=== PATIENT | male | born 1940 | race Caucasian/White ===

== ENCOUNTER → 2017-02-16 | Outpatient (CLI) | payer MEDICARE ==
[~2017-02-16] MED LIST: /WARF25TA OR; ACET65TA OR; ALLOPOW4 PO; CAPT25TA3 OR; PERC5TAB8 OR; [UNRECOGNIZED DRUG - REMARK] PO
--- NOTE | 2017-02-16 10:01 | REP ---
Clinical: Hypertension . Comparison: 04/01/2016 . Technique: PA and lateral. Findings: The mediastinum and cardiac silhouette are normal. The lung moreno demonstrate chronic changes without acute consolidation, effusion, or pneumothorax. The skeletal structures are intact and normal. Impression: 1. Chronic-appearing changes. No acute cardiopulmonary process. Signed by Dominic Fitch MD 02/16/2017 09:52 A
[2017-02-16 10:26] LABS: MEAN CORPUSCULAR HEMOGLOBIN 31.2 pg (27.0-33.0); MEAN CORPUSCULAR HGB CONC 34.4 g/dl (32.0-36.5); MEAN CORPUSCULAR VOLUME 90.7 fl (80.0-96.0); RED CELL DISTRIBUTION WIDTH 13.9 % (11.5-14.5); WHITE BLOOD COUNT 8.2 K/mm3 (4.0-10.0)
[2017-02-16 10:35] LABS: ALBUMIN 3.5 GM/DL (3.2-5.2); ALBUMIN/GLOBULIN RATIO 1.09 (1.00-1.93); ALKALINE PHOSPHATASE 68 U/L (45-117); ALT/SGPT 17 U/L (12-78); ANION GAP 5 MEQ/L (8-16); AST/SGOT 16 U/L (15-37); BILIRUBIN,TOTAL 0.8 MG/DL (0.2-1.0); BLOOD UREA NITROGEN 20 MG/DL (7-18); CARBON DIOXIDE LEVEL 30 MEQ/L (21-32); CHLORIDE LEVEL 105 MEQ/L (98-107); CHOLESTEROL LEVEL 132 MG/DL (<200); CREATININE FOR GFR 0.78 MG/DL (0.70-1.30); GLOMERULAR FILTRATION RATE > 60.0 (>42); GLUCOSE, FASTING 102 MG/DL (83-110); SODIUM LEVEL 140 MEQ/L (136-145); TOTAL PROTEIN 6.7 GM/DL (6.4-8.2); TRIGLYCERIDES LEVEL 113 MG/DL (<150)
--- NOTE | 2017-02-18 13:22 | ECGEPIP ---
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
== END ==
LOC: M LAB 09:11
PROVIDERS: ATTEND Family Medicine
DX: I10 Essential (primary) hypertension (principal); N40.0 Benign prostatic hyperplasia without lower urinary tract symptoms; R53.83 Other fatigue; E11.9 Type 2 diabetes mellitus without complications

== ENCOUNTER → 2018-02-02 | Outpatient (CLI) | payer MEDICARE | LOC: M WUC 15:30 | DX: M17.11 Unilateral primary osteoarthritis, right knee (principal) | CPT/HCPCS: 73564 ==

== ENCOUNTER → 2019-03-10 | Outpatient (CLI) | payer MEDICARE ==
[~2019-03-10] MED LIST changes: -/WARF25TA OR; +COUM1TAB18 OR
[2019-03-10 10:54] LABS: HEMATOCRIT 43.7 % (42.0-52.0); HEMOGLOBIN 14.4 g/dl (13.5-17.5); MEAN CORPUSCULAR HEMOGLOBIN 29.3 pg (27.0-33.0); PLATELET COUNT, AUTOMATED 178 10^3/uL (150-450); RED BLOOD COUNT 4.91 10^6/uL (4.30-6.10); WHITE BLOOD COUNT 9.2 10^3/uL (4.0-10.0)
[2019-03-10 11:31] LABS: HEMOGLOBIN A1c 5.6 %
[2019-03-10 11:34] LABS: CHOLESTEROL RISK RATIO 3.525 (<5); PROSTATIC SPECIFIC AG MONITOR 0.19 NG/ML (< 4.00); THYROID STIMULATING HORMONE 2.71 uIU/ML (0.358-3.740)
--- NOTE | 2019-03-11 07:57 | REP ---
CHEST, TWO VIEWS: Two views of the chest are performed and compared to the prior study of 04/01/2016. Mild cardiomegaly is stable. There is mild bibasilar fibrotic change, which is stable. No new infiltrate is seen. There is mild calcification and tortuosity of the thoracic aorta. The mediastinal silhouette is unchanged. There are degenerative changes of the spine. IMPRESSION: Stable mild cardiomegaly and chronic changes. No acute pulmonary disease. Electronically Signed by Lakhwinder Mckeon MD 03/11/2019 10:30 P
--- NOTE | 2019-03-11 19:03 | ECGEPIP ---
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
[2019-03-12 10:26] LABS: TOTAL 25(OH) VITAMIN D 14.6 NG/ML (30.0-100.0)
== END ==
LOC: M LAB 10:26
PROVIDERS: ATTEND Family Medicine
DX: I11.9 Hypertensive heart disease without heart failure (principal); R53.83 Other fatigue; E11.9 Type 2 diabetes mellitus without complications; N40.0 Benign prostatic hyperplasia without lower urinary tract symptoms

== ENCOUNTER → 2019-03-22 | Outpatient (CLI) | payer MEDICARE ==
--- NOTE | 2019-03-22 13:52 | REP ---
MRI BRAIN WITHOUT CONTRAST: HISTORY: Headaches and blurred vision. Poor balance. Question mass. Possible Parkinson's. TECHNIQUE: Axial and sagittal imaging planes are utilized for T1- and T2-weighted scans. Sequences include spin echo, fast spin echo, FLAIR, and diffusion weighted sequences. MRI findings: Bony calvarium is intact. Craniocervical junction and upper cervical cord are normal in appearance. There is no MR evidence of significant paranasal sinus disease. No intraorbital abnormality is observed. There is no evidence of intracranial hemorrhage. No mass lesion is seen. Diffusion weighted scans show no evidence to suggest acute ischemia. There are mild small vessel atherosclerotic changes in the periventricular white matter. There is mild generalized volume loss. IMPRESSION: Mild generalized volume loss. Chronic microvascular ischemic changes. No acute intracranial abnormality. Electronically Signed by Gerardo Rider MD 03/22/2019 02:21 P
== END ==
LOC: M RAD 11:09
PROVIDERS: ATTEND Family Medicine
DX: R51 Headache (principal); H53.8 Other visual disturbances

== ENCOUNTER → 2019-04-25 | Outpatient (REF) | payer MEDICARE ==
[2019-04-25 14:12] LABS: FOLATE 13.9 NG/ML; THYROID STIMULATING HORMONE 2.55 uIU/ML (0.358-3.740)
[2019-04-30 00:10] LABS: CERULOPLASMIN 21.9 mg/dL (16.0-31.0); VITAMIN B1 LEVEL WHOLE BLOOD 120.2 nmol/L (66.5-200.0); VITAMIN E(ALPHA TOCOPHEROL) 8.7 mg/L (9.0-29.0); VITAMIN E(GAMMA TOCOPHEROL) 0.7 mg/L (0.5-4.9)
== END ==
LOC: M LABNEURO 10:52
PROVIDERS: ATTEND Psychiatry & Neurology Neurology
DX: E83.01 Wilson's disease (principal); M10.9 Gout, unspecified; E03.9 Hypothyroidism, unspecified; D51.9 Vitamin B12 deficiency anemia, unspecified

== ENCOUNTER → 2020-01-10 | Outpatient (CLI) | payer MEDICARE ==
--- NOTE | 2020-01-10 14:47 | REP ---
CHEST X-RAY: THREE VIEWS. HISTORY: Hypertension. Comparison chest x-ray: March 10, 2019 FINDINGS: The lungs are symmetrically aerated and free of infiltrate. The pleural angles are sharp. Heart size is normal. The aorta is calcific and slightly tortuous. There are degenerative changes in the thoracic spine. Pulmonary vasculature is not increased. IMPRESSION: No acute disease. Electronically Signed by Gerardo Rider MD 01/10/2020 04:46 P
[2020-01-10 16:36] LABS: HEMATOCRIT 42.6 % (42.0-52.0); HEMOGLOBIN 14.4 g/dl (13.5-17.5); MEAN CORPUSCULAR HEMOGLOBIN 31.1 pg (27.0-33.0); MEAN CORPUSCULAR HGB CONC 33.8 g/dl (32.0-36.5); PLATELET COUNT, AUTOMATED 181 10^3/uL (150-450); RED BLOOD COUNT 4.63 10^6/uL (4.30-6.10); WHITE BLOOD COUNT 8.3 10^3/uL (4.0-10.0)
[2020-01-10 16:47] LABS: ALBUMIN 3.5 GM/DL (3.2-5.2); ALT/SGPT 13 U/L (12-78); BILIRUBIN,TOTAL 0.8 MG/DL (0.2-1.0); BLOOD UREA NITROGEN 18 MG/DL (7-18); CALCIUM LEVEL 8.4 MG/DL (8.8-10.2); CARBON DIOXIDE LEVEL 31 MEQ/L (21-32); CHLORIDE LEVEL 106 MEQ/L (98-107); CHOLESTEROL LEVEL 132 MG/DL (<200); CHOLESTEROL RISK RATIO 2.933 (<5); GLOMERULAR FILTRATION RATE > 60.0 (>42); GLUCOSE, FASTING 83 MG/DL (70-100); HDL CHOLESTEROL 45 MG/DL (>40); LDL CHOLESTEROL 74 MG/DL (<100); NON-HDL-C 87 MG/DL; POTASSIUM SERUM 4.3 MEQ/L (3.5-5.1); PROSTATIC SPECIFIC AG MONITOR 0.19 NG/ML (< 4.00); SODIUM LEVEL 141 MEQ/L (136-145); TOTAL PROTEIN 6.6 GM/DL (6.4-8.2); TRIGLYCERIDES LEVEL 67 MG/DL (<150)
[2020-01-10 17:01] LABS: TOTAL 25(OH) VITAMIN D 78.5 NG/ML (30.0-100.0)
[2020-01-10 19:15] LABS: HEMOGLOBIN A1c 5.6 %
== END ==
LOC: M WUC 14:03
PROVIDERS: ATTEND Family Medicine
DX: I10 Essential (primary) hypertension (principal); E03.9 Hypothyroidism, unspecified; R53.83 Other fatigue; Z79.899 Other long term (current) drug therapy

== ENCOUNTER → 2020-05-23 | Outpatient (CLI) | payer MEDICARE ==
[~2020-05-23] MED LIST changes: +CARB25TA9 PO; +NAPR-837 PO; +SOMA350T PO; +ULTR50TA8 PO; +VITA500045 PO
--- NOTE | 2020-06-02 17:45 | REP ---
RIGHT KNEE SERIES: 5-VIEWS HISTORY: Osteoarthritis. COMPARISON: Right knee radiographs 02/02/2018. FINDINGS: There is moderate three-compartment osteoarthritis. There is medial compartment joint space narrowing and sclerosis. Well-established osteophyte formation is seen in all three compartments of the right knee. Vascular calcification is seen. No evidence of joint effusion. No erosive change is seen. There is some chondrocalcinosis laterally. I cannot exclude a posterior joint line loose body. Findings are radiographically essentially unchanged from the 02/02/2018 study. 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 MTDD
== END ==
LOC: M WUC 15:26
PROVIDERS: ATTEND Family Medicine
DX: M17.11 Unilateral primary osteoarthritis, right knee (principal)

== ENCOUNTER 2020-06-06 14:56 | Emergency (ER) | payer MEDICARE ==
[~2020-06-06] VITALS: Ht 167.6 cm; Wt 78.8 kg
[~2020-06-06 14:56] MED LIST changes: -CARB25TA9 PO; -NAPR-837 PO; -SOMA350T PO; -ULTR50TA8 PO; -VITA500045 PO
[2020-06-06 14:58] VITALS: BP 115/59
[2020-06-06] MEDS ORDERED: CARB25TA9 PO (15:08)
[2020-06-06] MEDS ORDERED: VITA500045 PO (15:08)
--- NOTE | 2020-06-06 17:07 | REPVR ---
PROCEDURE INFORMATION: Exam: XR Left Knee Exam date and time: 06/06/2020 4:37 PM Age: 79 years old Clinical indication: Pain; Knee; Left TECHNIQUE: Imaging protocol: XR Left knee. Views: 4 or more views. COMPARISON: No relevant prior studies available. FINDINGS: Bones/joints: Status post total knee replacement. No abnormal lucency demonstrated at the metal cement and cement bone interfaces. Osteoporosis. Soft tissues: Normal. IMPRESSION: No acute findings. Electronically signed by: Michael Boo On 06/06/2020 17:07:00 PM
--- NOTE | 2020-06-06 17:33 | REPVR ---
PROCEDURE INFORMATION: Exam: US Duplex Left Lower Extremity Veins, Limited Exam date and time: 06/06/2020 5:08 PM Age: 79 years old Clinical indication: Pain; Leg, lower; Left; Prior surgery; Surgery date: 6+ months; Surgery type: 2012 knee replacement; Additional info: Pain left knee, R/O dvt TECHNIQUE: Imaging protocol: Real-time Duplex ultrasound of the Left Lower Extremity with 2-D vee scale, color Doppler flow and spectral waveform analysis with image documentation. Limited exam focused on the left lower extremity veins. COMPARISON: No relevant prior studies available. FINDINGS: Left deep veins: Unremarkable. The common femoral, femoral, proximal profunda femoral and popliteal veins are patent without thrombus. Normal Doppler waveforms. Normal compressibility and/or augmentation response. Left superficial veins: Unremarkable. Saphenofemoral junction is patent without thrombus. Soft tissues: Unremarkable. IMPRESSION: No evidence of deep vein thrombosis. Electronically signed by: Michael Boo On 06/06/2020 17:33:25 PM
[2020-06-06] MEDS ORDERED: ULTR50TA8 PO (18:08)
== END 2020-06-06 19:07 | disposition home or self-care (01) ==
LOC: M ED 14:56
DX: M25.562 Pain in left knee (principal); M17.12 Unilateral primary osteoarthritis, left knee; I10 Essential (primary) hypertension; Z79.899 Other long term (current) drug therapy; R22.42 Localized swelling, mass and lump, left lower limb

== ENCOUNTER 2020-06-13 18:41 | Emergency (ER) | payer MEDICARE ==
[~2020-06-13 18:41] MED LIST changes: -NAPR-837 PO; -SOMA350T PO
[2020-06-13] MEDS ORDERED: diazePAM 10MG/2ML SYRINGE (J3360 PER 5MG) IM ONE (20:15)
[2020-06-13] MEDS ORDERED: KETOROLAC 60MG 2ML VIAL IM ONE (20:15)
[2020-06-13] MEDS ORDERED: NAPR-837 PO (20:16)
[2020-06-13] MEDS ORDERED: SOMA350T PO (20:16)
[2020-06-13 20:29] VITALS: BP 165/75
== END 2020-06-13 20:47 | disposition home or self-care (01) ==
LOC: M ED 18:41
DX: M54.32 Sciatica, left side (principal); M19.90 Unspecified osteoarthritis, unspecified site; I11.9 Hypertensive heart disease without heart failure; Z79.899 Other long term (current) drug therapy
CPT/HCPCS: 96372; 99283; J1885; J3360

== ENCOUNTER → 2020-06-13 | Outpatient (CLI) | payer MEDICARE ==
[~2020-06-13] MED LIST changes: +CARB25TA9 PO; +NAPR-837 PO; +SOMA350T PO; +ULTR50TA8 PO; +VITA500045 PO
[2020-06-13 10:38] LABS: HEMATOCRIT 41.2 % (42.0-52.0); HEMOGLOBIN 13.3 g/dl (13.5-17.5); MEAN CORPUSCULAR HEMOGLOBIN 29.7 pg (27.0-33.0); MEAN CORPUSCULAR HGB CONC 32.3 g/dl (32.0-36.5); PLATELET COUNT, AUTOMATED 237 10^3/uL (150-450); RED BLOOD COUNT 4.48 10^6/uL (4.30-6.10); WHITE BLOOD COUNT 9.5 10^3/uL (4.0-10.0)
[2020-06-13 10:51] LABS: ALBUMIN 3.3 GM/DL (3.2-5.2); ALT/SGPT 11 U/L (12-78); BILIRUBIN,TOTAL 0.9 MG/DL (0.2-1.0); BLOOD UREA NITROGEN 23 MG/DL (7-18); CALCIUM LEVEL 8.5 MG/DL (8.8-10.2); CARBON DIOXIDE LEVEL 30 MEQ/L (21-32); CHLORIDE LEVEL 108 MEQ/L (98-107); CHOLESTEROL LEVEL 133 MG/DL (<200); CREATININE FOR GFR 0.68 MG/DL (0.70-1.30); GLOMERULAR FILTRATION RATE > 60.0 (>42); GLUCOSE, FASTING 93 MG/DL (70-100); HDL CHOLESTEROL 39 MG/DL (>40); LDL CHOLESTEROL 77 MG/DL (<100); NON-HDL-C 94 MG/DL; POTASSIUM SERUM 3.9 MEQ/L (3.5-5.1); PROSTATIC SPECIFIC AG MONITOR 0.21 NG/ML (< 4.00); SODIUM LEVEL 144 MEQ/L (136-145); TOTAL 25(OH) VITAMIN D 82.8 NG/ML (30.0-100.0); TOTAL PROTEIN 6.4 GM/DL (6.4-8.2); TRIGLYCERIDES LEVEL 85 MG/DL (<150)
[2020-06-13 10:52] LABS: TESTOSTERONE 257 NG/DL (241-827)
[2020-06-13 11:17] LABS: HEMOGLOBIN A1c 5.4 %
== END ==
LOC: M WUC 08:14
PROVIDERS: ATTEND Family Medicine
DX: R53.83 Other fatigue (principal); I10 Essential (primary) hypertension; E03.9 Hypothyroidism, unspecified; Z79.899 Other long term (current) drug therapy

== ENCOUNTER 2020-07-07 19:40 | Emergency (ER) | payer MEDICARE ==
[~2020-07-07] VITALS: Ht 165.1 cm; Wt 74.1 kg
[~2020-07-07 19:40] MED LIST changes: +NAPR-837 PO; +SOMA350T PO
[2020-07-07] MEDS ORDERED: NAPROXEN 250 MG TAB PO ONE (20:45)
--- NOTE | 2020-07-07 20:57 | REPVR ---
PROCEDURE INFORMATION: Exam: CT Head Without Contrast Exam date and time: 07/07/2020 8:43 PM Age: 79 years old Clinical indication: Altered mental status/memory loss TECHNIQUE: Imaging protocol: Computed tomography of the head without contrast. Radiation optimization: All CT scans at this facility use at least one of these dose optimization techniques: automated exposure control; mA and/or kV adjustment per patient size (includes targeted exams where dose is matched to clinical indication); or iterative reconstruction. COMPARISON: MRI-Brain without Contrast 03/22/2019 11:57 AM FINDINGS: Brain: There is mild cerebral atrophy. Changes of chronic white matter microvascular disease are present. No signs of a recent infarction or hemorrhage. Cerebral ventricles: No ventriculomegaly. Bones/joints: Unremarkable. No acute fracture. Paranasal sinuses: Visualized sinuses are unremarkable. No fluid levels. Mastoid air cells: Visualized mastoid air cells are well aerated. Soft tissues: Unremarkable. IMPRESSION: Atrophy and chronic white matter changes. No acute intracranial abnormality. Electronically signed by: Emmett Casas On 07/07/2020 20:57:41 PM
[2020-07-07 21:15] LABS: BASO # 0.1 10^3/uL (0.0-0.2); BASO % 0.5 % (0.0-1.0); EOS # 0.1 10^3/uL (0.0-0.5); HEMATOCRIT 43.4 % (42.0-52.0); HEMOGLOBIN 13.7 g/dl (13.5-17.5); LYMPH # 2.3 10^3/uL (1.5-5.0); LYMPH % 23.8 % (24.0-44.0); MEAN CORPUSCULAR HEMOGLOBIN 29.6 pg (27.0-33.0); MEAN CORPUSCULAR HGB CONC 31.6 g/dl (32.0-36.5); MEAN CORPUSCULAR VOLUME 93.7 fl (80.0-96.0); MONO # 0.7 10^3/uL (0.0-0.8); MONO % 6.8 % (0.0-5.0); NEUTROPHILS # 6.5 10^3/uL (1.5-8.5); NEUTROPHILS % 67.7 % (36.0-66.0); PLATELET COUNT, AUTOMATED 209 10^3/uL (150-450); RED BLOOD COUNT 4.63 10^6/uL (4.30-6.10); WHITE BLOOD COUNT 9.7 10^3/uL (4.0-10.0)
[2020-07-07 21:26] LABS: INR 1.15
[2020-07-07 21:27] LABS: PARTIAL THROMBOPLASTIN TIME 33.2 SECONDS (24.2-38.5)
[2020-07-07 21:55] LABS: ACETAMINOPHEN LEVEL < 2.0 UG/ML (10.0-30.0); ALBUMIN 3.4 GM/DL (3.2-5.2); ALT/SGPT < 6 U/L (12-78); BILIRUBIN,DIRECT 0.4 MG/DL (0.0-0.2); BILIRUBIN,TOTAL 0.8 MG/DL (0.2-1.0); BLOOD UREA NITROGEN 24 MG/DL (7-18); CALCIUM LEVEL 8.1 MG/DL (8.8-10.2); CARBON DIOXIDE LEVEL 29 MEQ/L (21-32); CHLORIDE LEVEL 108 MEQ/L (98-107); CK-MB VALUE MASS < 1.0 NG/ML (<3.6); CPK CREATINE PHOSPHOKINASE 53 U/L (39-308); CREATININE FOR GFR 0.75 MG/DL (0.70-1.30); ETHYL ALCOHOL (ETHANOL) < 0.003 % (0.000-0.010); GLOMERULAR FILTRATION RATE > 60.0 (>42); GLUCOSE, FASTING 95 MG/DL (70-100); MB/CK RELATIVE INDEX 1.89 (< OR =4); POTASSIUM SERUM 4.1 MEQ/L (3.5-5.1); SALICYLATE LEVEL < 1.7 MG/DL (5.0-30.0); SODIUM LEVEL 142 MEQ/L (136-145); TOTAL PROTEIN 6.3 GM/DL (6.4-8.2); TROPONIN I < 0.02 NG/ML (< 0.10)
--- NOTE | 2020-07-07 22:00 | REPVR ---
PROCEDURE INFORMATION: Exam: MR Lumbar Spine Without Contrast. Exam date and time: 07/07/2020 9:50 PM Age: 79 years old Clinical indication: Other: Back pain, incontinence TECHNIQUE: Imaging protocol: Multiplanar magnetic resonance images of the lumbar spine without intravenous contrast. COMPARISON: No relevant prior studies available. FINDINGS: Vertebrae: Chronic compression fractures of the L4 and L5 vertebrae. No other acute fracture or malalignment. Reactive endplate degenerative changes at L4-L5. Spinal cord: Conus medullaris terminates in normal position at L1-L2. Conus medullaris is unremarkable. L1-L2: No disc herniation or spinal stenosis. Mild facet DJD. L2-L3: Disc degeneration with disc space narrowing and broad based posterior disc bulge. Mild facet DJD and hypertrophy. Mild lateral recess stenosis without nerve root compression. No significant foraminal stenosis. L3-L4: Disc degeneration with disc space narrowing and broad based posterior disc bulge. There is advanced facet DJD and hypertrophy. Moderate central spinal canal stenosis. Severe lateral recess stenosis on the left with mass effect on the descending nerve roots. Moderate bilateral foraminal stenosis. L4-L5: There is advanced facet DJD and hypertrophy. Disc degeneration with disc space narrowing and broad based posterior disc bulge. Severe spinal stenosis with mass effect on the cauda equina. Severe left greater than right foraminal stenosis. L5-S1: Disc degeneration with loss of disc height. Small right paracentral disc bulge and annulus tear causing lateral recess stenosis with mild mass effect on the right S1 nerve root. Mild facet DJD and hypertrophy. Mild foraminal stenosis. Soft tissues: Unremarkable. IMPRESSION: 1. Severe spinal stenosis with mass effect on the cauda equina at L4-L5. 2. Severe lateral recess stenosis on the left at L3-L4 and mild lateral recess stenosis on the right at L5-S1. 3. Multilevel discogenic degenerative changes and facet DJD as above. 4. Chronic L4 and L5 compression fractures. Electronically signed by: Emmett Casas On 07/07/2020 22:00:17 PM
[2020-07-07 22:05] LABS: OSMOLALITY SERUM 295 MOSM/KG (280-301)
--- NOTE | 2020-07-07 22:10 | REPVR ---
PROCEDURE INFORMATION: Exam: XR Chest, 1 View Exam date and time: 07/07/2020 10:03 PM Age: 79 years old Clinical indication: Other: AMS; Additional info: Altered mental status TECHNIQUE: Imaging protocol: XR of the chest Views: 1 view. COMPARISON: CR CHEST 2 VIEW 01/10/2020 2:17 PM FINDINGS: Lungs: Unremarkable. No consolidation. Pleural space: Unremarkable. No pleural effusion. No pneumothorax. Heart/Mediastinum: Unremarkable. No cardiomegaly. Bones/joints: Skeletal degenerative changes are noted. IMPRESSION: No acute findings. Electronically signed by: Emmett Casas On 07/07/2020 22:10:13 PM
[2020-07-07 23:33] LABS: AMPHETAMINES LEVEL URINE NEGATIVE (NEGATIVE); BARBITURATES URINE NEGATIVE (NEGATIVE); BENZODIAZEPINES URINE NEGATIVE (NEGATIVE); CANNABINOIDS URINE NEGATIVE (NEGATIVE); COCAINE METABOLITE URINE NEGATIVE (NEGATIVE); METHADONE URINE NEGATIVE (NEGATIVE); OPIATES URINE POSITIVE (NEGATIVE); PHENCYCLIDINE URINE NEGATIVE (NEGATIVE)
[2020-07-08 00:15] VITALS: BP 175/88
--- NOTE | 2020-07-08 20:55 | ECGEPIP ---
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
== END 2020-07-08 00:27 | disposition short-term general hospital (02) ==
LOC: M ED 19:40
DX: G83.4 Cauda equina syndrome (principal); G20 Parkinson's disease; Z79.899 Other long term (current) drug therapy
CPT/HCPCS: 70450; 71045; 72148; 80048; 80076; 80307; 81001; 82140; 82550; 82553; 83605; 83930; 84443; 84484; 85025; 85610; 85730; 87086; 93005; 93041; 94760; 99285; G0480; U0002

== ENCOUNTER → 2020-09-03 | Outpatient (CLI) | payer MEDICARE ==
[2020-09-03 16:14] LABS: APPEARANCE, URINE CLEAR (CLEAR); BACTERIA, URINE AUTO NEGATIVE (NEGATIVE); BILIRUBIN, URINE AUTO NEGATIVE (NEGATIVE); BLOOD, URINE BLOOD NEGATIVE (NEGATIVE); CALCIUM OXALATE CRYSTALS SMALL; COLOR, URINE YELLOW (YELLOW); GLUCOSE, URINE (UA) AUTO NEGATIVE (NEGATIVE); KETONE, URINE AUTO TRACE mg/dL (NEGATIVE); LEUKOCYTE ESTERASE, URINE AUTO NEGATIVE (NEGATIVE); MUCUS, URINE SMALL (NEGATIVE); NITRITE, URINE AUTO NEGATIVE (NEGATIVE); PROTEIN, URINE AUTO NEGATIVE (NEGATIVE); RBC, URINE AUTO 1 /HPF (0-3); SPECIFIC GRAVITY URINE AUTO 1.026 (1.002-1.035); SQUAMOUS EPITHELIAL CELL UR AU 0 /HPF (0-6); WBC, URINE AUTO 1 /HPF (0-3)
== END ==
LOC: M WUC 13:49
PROVIDERS: ATTEND Family Medicine
DX: N39.0 Urinary tract infection, site not specified (principal)

== ENCOUNTER 2020-09-19 11:17 | Inpatient (IN) | payer MEDICARE ==
[~2020-09-19] VITALS: Ht 167.6 cm; Wt 82.2 kg
--- NOTE | 2020-09-19 11:47 | REP ---
INDICATION: Altered Mental Status. COMPARISON: July 07, 2020.. TECHNIQUE: Helical scanning is acquired. 5 mm axial images were reformatted. Coronal MPR images were generated. FINDINGS: Bone window settings demonstrate an intact bony calvarium. There is no evidence of skull fracture or incidental bony calvarial lesion. The visualized paranasal sinuses appear clear. No intraorbital abnormality is seen. On soft tissue window setting images; the lateral, third, and fourth ventricles are normal in size and position. Mckeon-white differentiation pattern is normal above and below the tentorium. There are is no evidence of intracranial hemorrhage. No mass, edema, infarction, or midline shift is seen. No extra-axial fluid collection is appreciated. There is mild vascular calcification in the carotid siphons bilaterally. Generalized volume loss is again noted. Mild small vessel changes are seen. No change from comparison CT study July 07, 2020. IMPRESSION: No acute intracranial abnormality. Mild vascular calcification, generalized volume loss, and small vessel changes.. <Electronically signed by Jonn Rider > 09/19/20 [id number]
[2020-09-19 11:55] LABS: BASO # 0.1 10^3/uL (0.0-0.2); BASO % 0.2 % (0.0-1.0); EOS % 0.1 % (0.0-3.0); HEMATOCRIT 40.6 % (42.0-52.0); HEMOGLOBIN 12.9 g/dl (13.5-17.5); LYMPH # 1.5 10^3/uL (1.5-5.0); LYMPH % 6.8 % (24.0-44.0); MEAN CORPUSCULAR HEMOGLOBIN 29.7 pg (27.0-33.0); MEAN CORPUSCULAR HGB CONC 31.8 g/dl (32.0-36.5); MEAN CORPUSCULAR VOLUME 93.5 fl (80.0-96.0); MONO # 0.8 10^3/uL (0.0-0.8); MONO % 3.7 % (0.0-5.0); NEUTROPHILS # 19.5 10^3/uL (1.5-8.5); NEUTROPHILS % 88.6 % (36.0-66.0); PLATELET COUNT, AUTOMATED 195 10^3/uL (150-450); RED BLOOD COUNT 4.34 10^6/uL (4.30-6.10); VENOUS BASE EXCESS -3.6 (-2.0-2.0); VENOUS HCO3 21.9 MEQ/L (23.0-27.0); VENOUS O2 SATURATION 81.1 % (60.0-80.0); VENOUS PARTIAL PRESSURE CO2 41.3 mmHg (38.0-50.0); VENOUS PARTIAL PRESSURE O2 46.4 mmHg (30.0-50.0); VENOUS PH 7.342 UNITS (7.330-7.430); VENOUS STANDARD HCO3 21.1 MEQ/L; VENOUS TOTAL CO2 23.1 MEQ/L (24.0-28.0)
--- NOTE | 2020-09-19 12:05 | REP ---
INDICATION: Altered Mental Status. COMPARISON: Comparison chest x-ray July 07, 2020. TECHNIQUE: Portable upright AP chest radiograph. FINDINGS: The lungs are well inflated and free of infiltrate. Pleural angles are sharp. Heart size is normal. Pulmonary vasculature is not increased. Thoracic aorta is somewhat tortuous. Monitoring electrodes are seen. IMPRESSION: No active disease. <Electronically signed by Jonn Rider > 09/19/20 [id number]
--- OUTSIDE RECORDS SUMMARY | 2020-09-19 12:06 | CCD ---
Author Author Govind Polk, Organization Unknown Address [address] Phone Unavailable Care Team Providers Care Graduate Internship Name Role Phone Dr. Kristina Francois Unavailable Unavailable Advance directives Directive Description Status Antibiotic Therapy Full Code (CPR) Verified By Medical Record Only Cardiopulmonary Resuscitation Full Code (CPR) Verified B y Medical Record Only Intravenous Infusion Full Code (CPR) Verified By Medical Record Only Intubation Full Code (CPR) Verified By Medical Record Only Life Support Full Code (CPR) Verified By Medical Record Only Resuscitation Full Code (CPR) Verified By Medical Record Only Allergies Type Substance Reaction Status propensity to adverse reactions No active allergies found for Re sident Problems Problem Effective Dates Problem Status F03.90 UNSPECIFIED DEMENTIA WITHOUT BEHAVIORAL DISTURBANCE 1 09/23/2019 Active R06.02 SHORTNESS OF BREATH 07/23/2020 Active G20 PARKINSON'S DISEASE 07/23/2020 Active R26.81 UNSTEADINESS ON FEET 07/24/2020 Active Lumbosacral stenosis (disorder) 07/23/2020 Active Functional urinary incontinence (finding) 07/23/2020 Active R41.0 DISORIENTATION, UNSPECIFIED 07/23/2020 Active M62.81 MUSCLE WEAKNESS (GENERALIZED) 07/23/2020 Act joan R49.8 OTHER VOICE AND RESONANCE DISORDERS 07/24/2020 Active Pain in lower limb (finding) 07/23/2020 Active R26.89 OTHER ABNORMALITIES OF GAIT AND MOBILITY 07/24/2020 Active Procedures No Known Procedures Medications Medication Dose Form Route Sig Text Dates Status Sodium Chloride Solution 0.9 % 1 liter Solution Intravenou s Use 1 liter intravenously one time only for Hypotention until 08/16/2020 23:59 Bolus 500 cc of NSS and continue remaining rate at 100 cc/hr 08/16/2020 13:30:00 08/16/2020 23:59:00 Completed cefTRIAXone Sodium Solution Reconstituted 1 GM 1 gram S olution Reconstituted Injection Use 1 gram intravenously one time only f or LEUKOCYTOSIS until 08/16/2020 23:59 08/16/2020 13:30:00 08/16/2020 15:28:00 Aborted cefTRIAXone Sodium Solution Reconstituted 1 GM 1 gram S olution Reconstituted Injection Use 1 gram intravenously one time only f or LEUKOCYTOSIS until 08/16/2020 23:59 Reconstitute in 50mL NS and give at 100mL/hour 08/16/2020 15:30:00 08/16/2020 23:59:00 Completed Allopurinol Tablet 300 mg Tablet Oral 08/20/2020 9:58:00 Captopril Tablet 25 MG 1 tablet Tablet Oral 020 9:57:00 Ergocalciferol Tablet 1.25 mcg Tablet Oral 08/20/20 20 10:00:00 Carbidopa-Levodopa Tablet 25-100 MG 1 tablet Tablet Oral 08/20/2020 10:02:00 Carbidopa-Levodopa Tablet 25-100 MG 1 tablet Tablet Oral GIVE 1 TABLET BY MOUTH THREE TIMES A DAY FOR PARKINSONS 07/23/2020 22:00:00 07/31/2020 14:30:00 Aborted Cyclobenzaprine HCl Tablet 10 MG 1 tablet Tablet Oral GIVE 1 TABLET BY MOUTH EVERY 8 HOURS NEEDED FOR MUSCLE SPASMS 07/23/2020 14:30:00 2020 11:44:00 Aborted Antacid Regular Strength Suspension 200-200-20 MG/5ML 30 ml Suspension Oral Give 30 ml by mouth every 6 hours as needed for Indigestion 07/23/2020 14:30:00 Polyethylene Glycol 3350 Powder 17 gram Powder Oral Give 17 gram by mouth every 24 hours as needed for Constipation 07/23/2020 14:30:00 Allopurinol Tablet 300 MG 1 tablet Tablet Oral GI VE 1 TABLET BY MOUTH ONE TIME A DAY FOR GOUT 07/24/2020 10:00:00 Sorbitol Solution 70 % 30 cc Solution Oral Give 30 cc by mouth every 24 hours as needed for Constipation if no bowel movement in 2 days 07/23/2020 14:16:00 Tuberculin PPD Solution 5 UNIT/0.1ML Solution Intr adermal Inject 0.1 ml intradermally every day shift every 2 weeks on Tue for Two Step TB Test for 3 Weeks Record solution escrow manager, lot #, expiration date, & injection site under immunization tab. This order repeats in two weeks for step #2. AND Inject 0.1 ml intradermally every day shift every 2 weeks on Tue for Read Mantoux Read Mantoux. Assess area of administration 48-72 hours after administration. Record millimeters of induration. If greater than or equal to 10mm contact MD/DANCE COSTUME DESIGNER. 07/24/2020 7:00:00 Ergocalciferol Capsule 1.25 mcg Capsule Oral GIVE 1.25 MCG BY MOUTH ONE TIME A DAY EVERY TUESDAY FOR VITAMIN D DEFICIENCY 07/28/2020 10:00:00 Captopril Tablet 25 MG 1 tablet Tablet Oral GIVE 1 TABLET BY MOUTH TWO TIMES A DAY FOR HYPERTENSION 07/23/2020 22:00:00 traMADol HCl Tablet 50 MG 1 tablet Tablet Oral Gi ve 1 tablet by mouth every 8 hours as needed for Pain MDD: 3 tablets 07/23/2020 14:30:00 2020 11:45:00 Aborted Acetaminophen Tablet 500 MG 2 tablet Tablet Oral Give 2 tablet by mouth every 8 hours as needed for pain (two tabs=1,000mg) 07/25/2020 13:45:00 Carbidopa-Levodopa Tablet 25-100 MG 1 tablet Tablet Oral GIVE 1 TABLET BY MOUTH FOUR TIMES A DAY FOR PARKINSONS 07/31/2020 18:00:00 Results Date Test Result Interpretation Reference Range Status Notes 08/17/2020 14:02:00 CBCDIFF / BASIC METABOLIC Completed 08/17/2020 14:37:00 WBC 16.5 10*3/uL Above High Normal (4.1-11.0 ) Final 08/17/2020 14:37:00 RBC 4.08 10*6/uL Below Low normal (4.60-6.10 ) Final 08/17/2020 14:37:00 HGB 12.2 g/dL Below Low normal (13.5-18.0) F inal 08/17/2020 14:37:00 HCT 37.4 % Below Low normal (41.0-53.0) F inal 08/17/2020 14:37:00 MCV 91.5 fL Normal (80.0-95.0) Final 08/17/2020 14:37:00 MCH 29.9 pg Normal (27.0-32.0) Final 08/17/2020 14:37:00 MCHC 32.7 g/dL Normal (32.0-36.0) Final 08/17/2020 14:37:00 RDW 15.1 % Above High Normal (10.5-14.5) Final 08/17/2020 14:37:00 PLT 245 10*3/uL Normal (150-450) Final 08/17/2020 14:37:00 MPV 9.2 fL Normal (7.1-10.7) Final 08/17/2020 14:37:00 NEUT % 84.5 % Above High Normal (35.0-75.0) Final 08/17/2020 14:37:00 LYMPH % 8.4 % Below Low normal (16.0-52.0) F inal 08/17/2020 14:37:00 MONO % 6.0 % Normal (0.0-8.0) Final 08/17/2020 14:37:00 EOS % 0.8 % Normal (0.0-5.0) Final 08/17/2020 14:37:00 BASO % 0.3 % Normal (0.0-4.0) Final 08/17/2020 14:37:00 NEUT # 14.0 10*3/uL Above High Normal (1.8-7.7) Final 08/17/2020 14:37:00 LYMPH # 1.4 10*3/uL Normal (1.2-4.8) Final 08/17/2020 14:37:00 MONO # 1.0 10*3/uL Above High Normal (0.0-0.8) Final 08/17/2020 14:37:00 EOS # 0.1 10*3/uL Normal (0.0-0.5) Final 08/17/2020 14:37:00 BASO # 0.0 10*3/uL Normal (0.0-0.2) Final 08/17/2020 14:37:00 SODIUM 137 mmol/L Normal (136-145) Final 08/17/2020 14:37:00 POTASSIUM 4.3 mmol/L Normal (3.6-5.2) Final 08/17/2020 14:37:00 CHLORIDE 104 mmol/L Normal (100-108) Final 08/17/2020 14:37:00 CO2 26 mmol/L Normal (22-31) Final 08/17/2020 14:37:00 ANION GAP 7 mmol/L Normal (7-16) Final 08/17/2020 14:37:00 UREA NITROGEN 27 mg/dL Above High Normal (7-24) Final 08/17/2020 14:37:00 CREATININE 0.57 mg/dL Below Low normal (0.80-1.30) Final 08/17/2020 14:37:00 BUN/CREAT RATIO 47.4 RATIO Above High Normal (10. 0-20.0) Final 08/17/2020 14:37:00 GLUCOSE 61 mg/dL Below Low normal (70-99) Fin al 08/17/2020 14:37:00 CALCIUM 8.0 mg/dL Below Low normal (8.4-10.2) Fi nal 08/17/2020 14:37:00 GFR >60 ml/min/1.73m2 Normal (>59) Fi nal 08/17/2020 14:37:00 GFR ( AMER) >60 ml/min/1.73m2 Normal (>5 9) Final 08/17/2020 14:37:00 GFR INTERPRETATION . Normal [facility] 08/18/2020 10:06:00 CBCDIFF / BASIC METABOLIC Completed 08/18/2020 11:15:00 WBC 12.2 10*3/uL Above High Normal (4.1-11.0 ) Final 08/18/2020 11:15:00 RBC 4.12 10*6/uL Below Low normal (4.60-6.10 ) Final 08/18/2020 11:15:00 HGB 12.4 g/dL Below Low normal (13.5-18.0) [facility] 08/18/2020 11:15:00 HCT 37.3 % Below Low normal (41.0-53.0) [facility] 08/18/2020 11:15:00 MCV 90.6 fL Normal (80.0-95.0) Final 08/18/2020 11:15:00 MCH 30.1 pg Normal (27.0-32.0) Final 08/18/2020 11:15:00 MCHC 33.2 g/dL Normal (32.0-36.0) Final 08/18/2020 11:15:00 RDW 15.1 % Above High Normal (10.5-14.5) Final 08/18/2020 11:15:00 PLT 260 10*3/uL Normal (150-450) Final 08/18/2020 11:15:00 MPV 9.0 fL Normal (7.1-10.7) Final 08/18/2020 11:15:00 NEUT % 74.9 % Normal (35.0-75.0) Final 08/18/2020 11:15:00 LYMPH % 16.0 % Normal (16.0-52.0) Final 08/18/2020 11:15:00 MONO % 7.1 % Normal (0.0-8.0) Final 08/18/2020 11:15:00 EOS % 1.7 % Normal (0.0-5.0) Final 08/18/2020 11:15:00 BASO % 0.3 % Normal (0.0-4.0) Final 08/18/2020 11:15:00 NEUT # 9.2 10*3/uL Above High Normal (1.8-7.7) Final 08/18/2020 11:15:00 LYMPH # 2.0 10*3/uL Normal (1.2-4.8) Final 08/18/2020 11:15:00 MONO # 0.9 10*3/uL Above High Normal (0.0-0.8) Final 08/18/2020 11:15:00 EOS # 0.2 10*3/uL Normal (0.0-0.5) Final 08/18/2020 11:15:00 BASO # 0.0 10*3/uL Normal (0.0-0.2) Final 08/18/2020 11:15:00 SODIUM 139 mmol/L Normal (136-145) Final 08/18/2020 11:15:00 POTASSIUM 4.3 mmol/L Normal (3.6-5.2) Final 08/18/2020 11:15:00 CHLORIDE 102 mmol/L Normal (100-108) Final 08/18/2020 11:15:00 CO2 26 mmol/L Normal (22-31) Final 08/18/2020 11:15:00 ANION GAP 11 mmol/L Normal (7-16) Final 08/18/2020 11:15:00 UREA NITROGEN 22 mg/dL Normal (7-24) Final 08/18/2020 11:15:00 CREATININE 0.54 mg/dL Below Low normal (0.80-1.30) Final 08/18/2020 11:15:00 BUN/CREAT RATIO 40.7 RATIO Above High Normal (10. 0-20.0) Final 08/18/2020 11:15:00 GLUCOSE 70 mg/dL Normal (70-99) Final 08/18/2020 11:15:00 CALCIUM 7.9 mg/dL Below Low normal (8.4-10.2) Fi nal 08/18/2020 11:15:00 GFR >60 ml/min/1.73m2 Normal (>59) Fi nal 08/18/2020 11:15:00 GFR ( AMER) >60 ml/min/1.73m2 Normal (>5 9) Final 08/18/2020 11:15:00 GFR INTERPRETATION . Normal F inal 08/07/2020 15:12:00 URINALYSIS / URINE CULTURE Completed 08/08/2020 11:18:00 URINE CULTURE . Normal Final 08/08/2020 11:18:00 COLOR REESE Normal Final 08/08/2020 11:18:00 APPEARANCE CLOUDY Normal Final 08/08/2020 11:18:00 SPEC GRAV URINE 1.023 Normal (1.003-1.030) Final 08/08/2020 11:18:00 PH URINE 5.5 Normal (5.0-7.5) Final 08/08/2020 11:18:00 LEUK ESTERASE NEGATIVE Normal (NEG) Final 08/08/2020 11:18:00 NITRITE URINE NEGATIVE Normal (NEG) Final 08/08/2020 11:18:00 PROTEIN URINE NEGATIVE Normal (NEG) Final 08/08/2020 11:18:00 GLUCOSE URINE NEGATIVE Normal (NEG) Final 08/08/2020 11:18:00 KETONE URINE TRACE Normal (NEG) Final 08/08/2020 11:18:00 UROBILINOGEN 1.0 mg/dL Normal (0-1.0) Final 08/08/2020 11:18:00 BILIRUBIN URINE NEGATIVE Normal (NEG) Sandra l 08/08/2020 11:18:00 BLOOD/HGB URINE NEGATIVE Normal (NEG) Sandra l 08/18/2020 18:21:00 ROUT URINE W/ MICRO / URINE CULTURE Completed 08/19/2020 15:07:00 URINE CULTURE . Normal Final 08/19/2020 15:07:00 COLOR REESE Normal Final 08/19/2020 15:07:00 APPEARANCE CLEAR Normal Final 08/19/2020 15:07:00 SPEC GRAV URINE 1.021 Normal (1.003-1.030) Final 08/19/2020 15:07:00 PH URINE 6.0 Normal (5.0-7.5) Final 08/19/2020 15:07:00 LEUK ESTERASE NEGATIVE Normal (NEG) Final 08/19/2020 15:07:00 NITRITE URINE NEGATIVE Normal (NEG) Final 08/19/2020 15:07:00 PROTEIN URINE TRACE Normal (NEG) Final 08/19/2020 15:07:00 GLUCOSE URINE NEGATIVE Normal (NEG) Final 08/19/2020 15:07:00 KETONE URINE NEGATIVE Normal (NEG) Final 08/19/2020 15:07:00 UROBILINOGEN 0.2 mg/dL Normal (0-1.0) Final 08/19/2020 15:07:00 BILIRUBIN URINE NEGATIVE Normal (NEG) Sandra l 08/19/2020 15:07:00 BLOOD/HGB URINE 1+ Abnormal - non numberic (NEG) Final 08/19/2020 15:07:00 EPITHELIAL CELLS NEGATIVE [HPF] Normal (NEG) Final 08/19/2020 15:07:00 HYALINE CASTS 0.3 [LPF] Normal (0-5) Final 08/19/2020 15:07:00 BACTERIA NEGATIVE [HPF] Normal (NEG) Final 08/19/2020 15:07:00 URINE WBC 0.5 [HPF] Normal (0-8) Final 08/19/2020 15:07:00 URINE RBC 20.1 [HPF] Above High Normal (0-3) F inal 08/11/2020 10:26:00 CBCDIFF / BASIC METABOLIC Completed 08/11/2020 11:51:00 WBC 12.8 10*3/uL Above High Normal (4.1-11.0 ) Final 08/11/2020 11:51:00 RBC 4.66 10*6/uL Normal (4.60-6.10) Final 08/11/2020 11:51:00 HGB 14.1 g/dL Normal (13.5-18.0) Final 08/11/2020 11:51:00 HCT 42.9 % Normal (41.0-53.0) Final 08/11/2020 11:51:00 MCV 92.1 fL Normal (80.0-95.0) Final 08/11/2020 11:51:00 MCH 30.3 pg Normal (27.0-32.0) Final 08/11/2020 11:51:00 MCHC 32.9 g/dL Normal (32.0-36.0) Final 08/11/2020 11:51:00 RDW 14.9 % Above High Normal (10.5-14.5) Final 08/11/2020 11:51:00 PLT 230 10*3/uL Normal (150-450) Final 08/11/2020 11:51:00 MPV 9.4 fL Normal (7.1-10.7) Final 08/11/2020 11:51:00 NEUT % 76.5 % Above High Normal (35.0-75.0) Final 08/11/2020 11:51:00 LYMPH % 14.7 % Below Low normal (16.0-52.0) F inal 08/11/2020 11:51:00 MONO % 6.9 % Normal (0.0-8.0) Final 08/11/2020 11:51:00 EOS % 1.4 % Normal (0.0-5.0) Final 08/11/2020 11:51:00 BASO % 0.5 % Normal (0.0-4.0) Final 08/11/2020 11:51:00 NEUT # 9.8 10*3/uL Above High Normal (1.8-7.7) Final 08/11/2020 11:51:00 LYMPH # 1.9 10*3/uL Normal (1.2-4.8) Final 08/11/2020 11:51:00 MONO # 0.9 10*3/uL Above High Normal (0.0-0.8) Final 08/11/2020 11:51:00 EOS # 0.2 10*3/uL Normal (0.0-0.5) Final 08/11/2020 11:51:00 BASO # 0.1 10*3/uL Normal (0.0-0.2) Final 08/11/2020 11:51:00 SODIUM 140 mmol/L Normal (136-145) Final 08/11/2020 11:51:00 POTASSIUM 5.2 mmol/L Normal (3.6-5.2) Final 08/11/2020 11:51:00 CHLORIDE 104 mmol/L Normal (100-108) Final 08/11/2020 11:51:00 CO2 24 mmol/L Normal (22-31) Final 08/11/2020 11:51:00 ANION GAP 12 mmol/L Normal (7-16) Final 08/11/2020 11:51:00 UREA NITROGEN 21 mg/dL Normal (7-24) Final 08/11/2020 11:51:00 CREATININE 0.62 mg/dL Below Low normal (0.80-1.30) Final 08/11/2020 11:51:00 BUN/CREAT RATIO 33.9 RATIO Above High Normal (10. 0-20.0) Final 08/11/2020 11:51:00 GLUCOSE 82 mg/dL Normal (70-99) Final 08/11/2020 11:51:00 CALCIUM 8.8 mg/dL Normal (8.4-10.2) Final 08/11/2020 11:51:00 GFR >60 ml/min/1.73m2 Normal (>59) Fi nal 08/11/2020 11:51:00 GFR ( AMER) >60 ml/min/1.73m2 Normal (>5 9) Final 08/11/2020 11:51:00 GFR INTERPRETATION . Normal F inal 08/07/2020 10:22:00 BASIC METABOLIC / CBCDIFF Completed 08/07/2020 13:03:00 SODIUM 137 mmol/L Normal (136-145) Final 08/07/2020 13:03:00 POTASSIUM 4.4 mmol/L Normal (3.6-5.2) Final 08/07/2020 13:03:00 CHLORIDE 101 mmol/L Normal (100-108) Final 08/07/2020 13:03:00 CO2 27 mmol/L Normal (22-31) Final 08/07/2020 13:03:00 ANION GAP 9 mmol/L Normal (7-16) Final 08/07/2020 13:03:00 UREA NITROGEN 39 mg/dL Above High Normal (7-24) Final 08/07/2020 13:03:00 CREATININE 0.81 mg/dL Normal (0.80-1.30) Final 08/07/2020 13:03:00 BUN/CREAT RATIO 48.1 RATIO Above High Normal (10. 0-20.0) Final 08/07/2020 13:03:00 GLUCOSE 80 mg/dL Normal (70-99) Final 08/07/2020 13:03:00 CALCIUM 8.3 mg/dL Below Low normal (8.4-10.2) Fi nal 08/07/2020 13:03:00 GFR >60 ml/min/1.73m2 Normal (>59) Fi nal 08/07/2020 13:03:00 GFR ( AMER) >60 ml/min/1.73m2 Normal (>5 9) Final 08/07/2020 13:03:00 GFR INTERPRETATION . Normal [facility] 08/07/2020 13:03:00 WBC 11.4 10*3/uL Above High Normal (4.1-11.0 ) Final 08/07/2020 13:03:00 RBC 4.26 10*6/uL Below Low normal (4.60-6.10 ) Final 08/07/2020 13:03:00 HGB 12.9 g/dL Below Low normal (13.5-18.0) [facility] 08/07/2020 13:03:00 HCT 39.2 % Below Low normal (41.0-53.0) [facility] 08/07/2020 13:03:00 MCV 92.0 fL Normal (80.0-95.0) Final 08/07/2020 13:03:00 MCH 30.4 pg Normal (27.0-32.0) Final 08/07/2020 13:03:00 MCHC 33.0 g/dL Normal (32.0-36.0) Final 08/07/2020 13:03:00 RDW 15.0 % Above High Normal (10.5-14.5) Final 08/07/2020 13:03:00 PLT 202 10*3/uL Normal (150-450) Final 08/07/2020 13:03:00 MPV 9.5 fL Normal (7.1-10.7) Final 08/07/2020 13:03:00 NEUT % 74.0 % Normal (35.0-75.0) Final 08/07/2020 13:03:00 LYMPH % 20.0 % Normal (16.0-52.0) Final 08/07/2020 13:03:00 MONO % 5.0 % Normal (0.0-8.0) Final 08/07/2020 13:03:00 EOS % 1.0 % Normal (0.0-5.0) Final 08/07/2020 13:03:00 NEUT # 8.4 10*3/uL Above High Normal (1.8-7.7) Final 08/07/2020 13:03:00 LYMPH # 2.3 10*3/uL Normal (1.2-4.8) Final 08/07/2020 13:03:00 MONO # 0.6 10*3/uL Normal (0.0-0.8) Final 08/07/2020 13:03:00 EOS # 0.1 10*3/uL Normal (0.0-0.5) Final 08/07/2020 13:03:00 ANISO 1+ Normal Final 08/07/2020 13:03:00 POIK 1+ Normal Final 08/07/2020 13:03:00 OVALO 1+ Normal Final 07/31/2020 9:55:00 CBCDIFF / BASIC METABOLIC Completed 07/31/2020 11:21:00 WBC 10.7 10*3/uL Normal (4.1-11.0) Final 07/31/2020 11:21:00 RBC 4.64 10*6/uL Normal (4.60-6.10) Final 07/31/2020 11:21:00 HGB 14.1 g/dL Normal (13.5-18.0) Final 07/31/2020 11:21:00 HCT 43.5 % Normal (41.0-53.0) Final 07/31/2020 11:21:00 MCV 93.6 fL Normal (80.0-95.0) Final 07/31/2020 11:21:00 MCH 30.4 pg Normal (27.0-32.0) Final 07/31/2020 11:21:00 MCHC 32.4 g/dL Normal (32.0-36.0) Final 07/31/2020 11:21:00 RDW 15.9 % Above High Normal (10.5-14.5) Final 07/31/2020 11:21:00 PLT 245 10*3/uL Normal (150-450) Final 07/31/2020 11:21:00 MPV 9.1 fL Normal (7.1-10.7) Final 07/31/2020 11:21:00 NEUT % 72.3 % Normal (35.0-75.0) Final 07/31/2020 11:21:00 LYMPH % 17.5 % Normal (16.0-52.0) Final 07/31/2020 11:21:00 MONO % 8.4 % Above High Normal (0.0-8.0) Fi nal 07/31/2020 11:21:00 EOS % 1.4 % Normal (0.0-5.0) Final 07/31/2020 11:21:00 BASO % 0.4 % Normal (0.0-4.0) Final 07/31/2020 11:21:00 NEUT # 7.8 10*3/uL Above High Normal (1.8-7.7) Final 07/31/2020 11:21:00 LYMPH # 1.9 10*3/uL Normal (1.2-4.8) Final 07/31/2020 11:21:00 MONO # 0.9 10*3/uL Above High Normal (0.0-0.8) Final 07/31/2020 11:21:00 EOS # 0.1 10*3/uL Normal (0.0-0.5) Final 07/31/2020 11:21:00 BASO # 0.0 10*3/uL Normal (0.0-0.2) Final 07/31/2020 11:21:00 SODIUM 140 mmol/L Normal (136-145) Final 07/31/2020 11:21:00 POTASSIUM 4.2 mmol/L Normal (3.6-5.2) Final 07/31/2020 11:21:00 CHLORIDE 102 mmol/L Normal (100-108) Final 07/31/2020 11:21:00 CO2 30 mmol/L Normal (22-31) Final 07/31/2020 11:21:00 ANION GAP 8 mmol/L Normal (7-16) Final 07/31/2020 11:21:00 UREA NITROGEN 23 mg/dL Normal (7-24) Final 07/31/2020 11:21:00 CREATININE 0.59 mg/dL Below Low normal (0.80-1.30) Final 07/31/2020 11:21:00 BUN/CREAT RATIO 39.0 RATIO Above High Normal (10. 0-20.0) Final 07/31/2020 11:21:00 GLUCOSE 70 mg/dL Normal (70-99) Final 07/31/2020 11:21:00 CALCIUM 8.3 mg/dL Below Low normal (8.4-10.2) Fi nal 07/31/2020 11:21:00 GFR >60 ml/min/1.73m2 Normal (>59) Fi nal 07/31/2020 11:21:00 GFR ( AMER) >60 ml/min/1.73m2 Normal (>5 9) Final 07/31/2020 11:21:00 GFR INTERPRETATION . Normal F inal 08/16/2020 13:33:00 BASIC METABOLIC / CBCDIFF Completed 08/16/2020 15:15:00 SODIUM 136 mmol/L Normal (136-145) Final 08/16/2020 15:15:00 POTASSIUM 4.3 mmol/L Normal (3.6-5.2) Final 08/16/2020 15:15:00 CHLORIDE 100 mmol/L Normal (100-108) Final 08/16/2020 15:15:00 CO2 25 mmol/L Normal (22-31) Final 08/16/2020 15:15:00 ANION GAP 11 mmol/L Normal (7-16) Final 08/16/2020 15:15:00 UREA NITROGEN 40 mg/dL Above High Normal (7-24) Final 08/16/2020 15:15:00 CREATININE 0.91 mg/dL Normal (0.80-1.30) Final 08/16/2020 15:15:00 BUN/CREAT RATIO 44.0 RATIO Above High Normal (10. 0-20.0) Final 08/16/2020 15:15:00 GLUCOSE 85 mg/dL Normal (70-99) Final 08/16/2020 15:15:00 CALCIUM 8.4 mg/dL Normal (8.4-10.2) Final 08/16/2020 15:15:00 GFR >60 ml/min/1.73m2 Normal (>59) Fi nal 08/16/2020 15:15:00 GFR ( AMER) >60 ml/min/1.73m2 Normal (>5 9) Final 08/16/2020 15:15:00 GFR INTERPRETATION . Normal F inal 08/16/2020 15:15:00 WBC 28.9 10*3/uL Above High Normal (4.1-11.0 ) Final 08/16/2020 15:15:00 RBC 4.59 10*6/uL Below Low normal (4.60-6.10 ) Final 08/16/2020 15:15:00 HGB 13.6 g/dL Normal (13.5-18.0) Final 08/16/2020 15:15:00 HCT 42.6 % Normal (41.0-53.0) Final 08/16/2020 15:15:00 MCV 92.7 fL Normal (80.0-95.0) Final 08/16/2020 15:15:00 MCH 29.5 pg Normal (27.0-32.0) Final 08/16/2020 15:15:00 MCHC 31.8 g/dL Below Low normal (32.0-36.0) F inal 08/16/2020 15:15:00 RDW 15.1 % Above High Normal (10.5-14.5) Final 08/16/2020 15:15:00 PLT 319 10*3/uL Normal (150-450) Final 08/16/2020 15:15:00 MPV 9.6 fL Normal (7.1-10.7) Final 08/16/2020 15:15:00 NEUT % 74.0 % Normal (35.0-75.0) Final 08/16/2020 15:15:00 BAND % 11.0 % Normal (0.0-11.0) Final 08/16/2020 15:15:00 LYMPH % 9.0 % Below Low normal (16.0-52.0) F inal 08/16/2020 15:15:00 MONO % 5.0 % Normal (0.0-8.0) Final 08/16/2020 15:15:00 EOS % 1.0 % Normal (0.0-5.0) Final 08/16/2020 15:15:00 NEUT # 21.4 10*3/uL Above High Normal (1.8-7.7) Final 08/16/2020 15:15:00 BAND # 3.2 10*3/uL Normal Final 08/16/2020 15:15:00 LYMPH # 2.6 10*3/uL Normal (1.2-4.8) Final 08/16/2020 15:15:00 MONO # 1.4 10*3/uL Above High Normal (0.0-0.8) Final 08/16/2020 15:15:00 EOS # 0.3 10*3/uL Normal (0.0-0.5) Final 08/16/2020 15:15:00 ANISO 1+ Normal Final 08/16/2020 15:15:00 POIK 1+ Normal Final 08/16/2020 15:15:00 OVALO 1+ Normal Final 08/04/2020 9:08:00 CBCDIFF / BASIC METABOLIC Completed 08/04/2020 10:38:00 WBC 10.0 10*3/uL Normal (4.1-11.0) Final 08/04/2020 10:38:00 RBC 4.41 10*6/uL Below Low normal (4.60-6.10 ) Final 08/04/2020 10:38:00 HGB 13.8 g/dL Normal (13.5-18.0) Final 08/04/2020 10:38:00 HCT 40.2 % Below Low normal (41.0-53.0) F inal 08/04/2020 10:38:00 MCV 91.2 fL Normal (80.0-95.0) Final 08/04/2020 10:38:00 MCH 31.3 pg Normal (27.0-32.0) Final 08/04/2020 10:38:00 MCHC 34.3 g/dL Normal (32.0-36.0) Final 08/04/2020 10:38:00 RDW 15.1 % Above High Normal (10.5-14.5) Final 08/04/2020 10:38:00 PLT 229 10*3/uL Normal (150-450) Final 08/04/2020 10:38:00 MPV 9.3 fL Normal (7.1-10.7) Final 08/04/2020 10:38:00 NEUT % 68.6 % Normal (35.0-75.0) Final 08/04/2020 10:38:00 LYMPH % 20.9 % Normal (16.0-52.0) Final 08/04/2020 10:38:00 MONO % 8.4 % Above High Normal (0.0-8.0) Fi nal 08/04/2020 10:38:00 EOS % 1.7 % Normal (0.0-5.0) Final 08/04/2020 10:38:00 BASO % 0.4 % Normal (0.0-4.0) Final 08/04/2020 10:38:00 NEUT # 6.9 10*3/uL Normal (1.8-7.7) Final 08/04/2020 10:38:00 LYMPH # 2.1 10*3/uL Normal (1.2-4.8) Final 08/04/2020 10:38:00 MONO # 0.8 10*3/uL Normal (0.0-0.8) Final 08/04/2020 10:38:00 EOS # 0.2 10*3/uL Normal (0.0-0.5) Final 08/04/2020 10:38:00 BASO # 0.0 10*3/uL Normal (0.0-0.2) Final 08/04/2020 10:38:00 SODIUM 141 mmol/L Normal (136-145) Final 08/04/2020 10:38:00 POTASSIUM 5.4 mmol/L Above High Normal (3.6-5.2) F inal 08/04/2020 10:38:00 CHLORIDE 103 mmol/L Normal (100-108) Final 08/04/2020 10:38:00 CO2 29 mmol/L Normal (22-31) Final 08/04/2020 10:38:00 ANION GAP 9 mmol/L Normal (7-16) Final 08/04/2020 10:38:00 UREA NITROGEN 29 mg/dL Above High Normal (7-24) Final 08/04/2020 10:38:00 CREATININE 0.69 mg/dL Below Low normal (0.80-1.30) Final 08/04/2020 10:38:00 BUN/CREAT RATIO 42.0 RATIO Above High Normal (10. 0-20.0) Final 08/04/2020 10:38:00 GLUCOSE 75 mg/dL Normal (70-99) Final 08/04/2020 10:38:00 CALCIUM 8.8 mg/dL Normal (8.4-10.2) Final 08/04/2020 10:38:00 GFR >60 ml/min/1.73m2 Normal (>59) Fi nal 08/04/2020 10:38:00 GFR ( AMER) >60 ml/min/1.73m2 Normal (>5 9) Final 08/04/2020 10:38:00 GFR INTERPRETATION . Normal F inal 08/13/2020 13:50:00 CORONAVIRUS BY PCR / RESPIRATORY MINI PCR Completed 08/15/2020 8:16:00 SARS COV2 SOURCE NASOPHARYNGEAL Normal Final 08/15/2020 8:16:00 SARS COV 2 BY PCR Not Detected Normal Final 08/15/2020 8:16:00 RESPIRATORY SOURCE Nasopharyngeal Normal Final 08/15/2020 8:16:00 INFLUENZA A BY PCR Not Detected Normal Final 08/15/2020 8:16:00 INFLUENZA B BY PCR Not Detected Normal Final 08/15/2020 8:16:00 RSV BY PCR Not Detected Normal Final 08/06/2020 12:35:00 CORONAVIRUS BY PCR / RESPIRATORY MINI PCR Completed 08/08/2020 10:49:00 SARS COV2 SOURCE NASOPHARYNGEAL Normal Final 08/08/2020 10:49:00 SARS COV 2 BY PCR Not Detected Normal Final 08/08/2020 10:49:00 RESPIRATORY SOURCE Nasopharyngeal Normal Final 08/08/2020 10:49:00 INFLUENZA A BY PCR Not Detected Normal Final 08/08/2020 10:49:00 INFLUENZA B BY PCR Not Detected Normal Final 08/08/2020 10:49:00 RSV BY PCR Not Detected Normal Final 07/30/2020 15:01:00 CORONAVIRUS BY PCR / RESPIRATORY MINI PCR Completed 08/01/2020 14:13:00 SARS COV2 SOURCE NASOPHARYNGEAL Normal Final 08/01/2020 14:13:00 SARS COV 2 BY PCR Not Detected Normal Final 08/01/2020 14:13:00 RESPIRATORY SOURCE Nasopharyngeal Normal Final 08/01/2020 14:13:00 INFLUENZA A BY PCR Not Detected Normal Final 08/01/2020 14:13:00 INFLUENZA B BY PCR Not Detected Normal Final 08/01/2020 14:13:00 RSV BY PCR Not Detected Normal Final 08/14/2020 19:34:00 LACTIC ACID / ESR / C REACTI VE PROTEIN / AEROBIC/ANAEROBIC BC Resulted 08/18/2020 13:33:00 LACTIC ACID 1.1 mmol/L Normal (0.4-2.0) Final 08/18/2020 13:33:00 ESR 29 mm/h Above High Normal (0-20) Fi nal 08/18/2020 13:33:00 C REACTIVE PROTEIN @ 9.9 mg/dL Above High Normal (0.0-0.5) Final 08/18/2020 13:33:00 AEROBIC/ANAEROBIC BC . Normal Pending 07/28/2020 9:41:00 CBCDIFF / BASIC METABOLIC Completed 07/28/2020 10:40:00 WBC 7.8 10*3/uL Normal (4.1-11.0) Final 07/28/2020 10:40:00 RBC 4.35 10*6/uL Below Low normal (4.60-6.10 ) Final 07/28/2020 10:40:00 HGB 13.2 g/dL Below Low normal (13.5-18.0) F inal 07/28/2020 10:40:00 HCT 40.4 % Below Low normal (41.0-53.0) F inal 07/28/2020 10:40:00 MCV 93.1 fL Normal (80.0-95.0) Final 07/28/2020 10:40:00 MCH 30.5 pg Normal (27.0-32.0) Final 07/28/2020 10:40:00 MCHC 32.7 g/dL Normal (32.0-36.0) Final 07/28/2020 10:40:00 RDW 15.9 % Above High Normal (10.5-14.5) Final 07/28/2020 10:40:00 PLT 269 10*3/uL Normal (150-450) Final 07/28/2020 10:40:00 MPV 8.7 fL Normal (7.1-10.7) Final 07/28/2020 10:40:00 NEUT % 68.3 % Normal (35.0-75.0) Final 07/28/2020 10:40:00 LYMPH % 19.9 % Normal (16.0-52.0) Final 07/28/2020 10:40:00 MONO % 9.5 % Above High Normal (0.0-8.0) Fi nal 07/28/2020 10:40:00 EOS % 1.7 % Normal (0.0-5.0) Final 07/28/2020 10:40:00 BASO % 0.6 % Normal (0.0-4.0) Final 07/28/2020 10:40:00 NEUT # 5.3 10*3/uL Normal (1.8-7.7) Final 07/28/2020 10:40:00 LYMPH # 1.5 10*3/uL Normal (1.2-4.8) Final 07/28/2020 10:40:00 MONO # 0.7 10*3/uL Normal (0.0-0.8) Final 07/28/2020 10:40:00 EOS # 0.1 10*3/uL Normal (0.0-0.5) Final 07/28/2020 10:40:00 BASO # 0.0 10*3/uL Normal (0.0-0.2) Final 07/28/2020 10:40:00 SODIUM 142 mmol/L Normal (136-145) Final 07/28/2020 10:40:00 POTASSIUM 3.8 mmol/L Normal (3.6-5.2) Final 07/28/2020 10:40:00 CHLORIDE 104 mmol/L Normal (100-108) Final 07/28/2020 10:40:00 CO2 28 mmol/L Normal (22-31) Final 07/28/2020 10:40:00 ANION GAP 10 mmol/L Normal (7-16) Final 07/28/2020 10:40:00 UREA NITROGEN 29 mg/dL Above High Normal (7-24) Final 07/28/2020 10:40:00 CREATININE 0.62 mg/dL Below Low normal (0.80-1.30) Final 07/28/2020 10:40:00 BUN/CREAT RATIO 46.8 RATIO Above High Normal (10. 0-20.0) Final 07/28/2020 10:40:00 GLUCOSE 81 mg/dL Normal (70-99) Final 07/28/2020 10:40:00 CALCIUM 8.1 mg/dL Below Low normal (8.4-10.2) Fi nal 07/28/2020 10:40:00 GFR >60 ml/min/1.73m2 Normal (>59) Fi nal 07/28/2020 10:40:00 GFR ( AMER) >60 ml/min/1.73m2 Normal (>5 9) Final 07/28/2020 10:40:00 GFR INTERPRETATION . Normal F inal 08/14/2020 9:29:00 BASIC METABOLIC / CBCDIFF Completed 08/14/2020 12:08:00 SODIUM 140 mmol/L Normal (136-145) Final 08/14/2020 12:08:00 POTASSIUM 4.3 mmol/L Normal (3.6-5.2) Final 08/14/2020 12:08:00 CHLORIDE 103 mmol/L Normal (100-108) Final 08/14/2020 12:08:00 CO2 29 mmol/L Normal (22-31) Final 08/14/2020 12:08:00 ANION GAP 8 mmol/L Normal (7-16) Final 08/14/2020 12:08:00 UREA NITROGEN 31 mg/dL Above High Normal (7-24) Final 08/14/2020 12:08:00 CREATININE 0.77 mg/dL Below Low normal (0.80-1.30) Final 08/14/2020 12:08:00 BUN/CREAT RATIO 40.3 RATIO Above High Normal (10. 0-20.0) Final 08/14/2020 12:08:00 GLUCOSE 79 mg/dL Normal (70-99) Final 08/14/2020 12:08:00 CALCIUM 8.2 mg/dL Below Low normal (8.4-10.2) Fi nal 08/14/2020 12:08:00 GFR >60 ml/min/1.73m2 Normal (>59) Fi nal 08/14/2020 12:08:00 GFR ( AMER) >60 ml/min/1.73m2 Normal (>5 9) Final 08/14/2020 12:08:00 GFR INTERPRETATION . Normal F inal 08/14/2020 12:08:00 WBC 20.0 10*3/uL Above High Normal (4.1-11.0 ) Final 08/14/2020 12:08:00 RBC 4.40 10*6/uL Below Low normal (4.60-6.10 ) Final 08/14/2020 12:08:00 HGB 13.3 g/dL Below Low normal (13.5-18.0) F inal 08/14/2020 12:08:00 HCT 40.2 % Below Low normal (41.0-53.0) F inal 08/14/2020 12:08:00 MCV 91.3 fL Normal (80.0-95.0) Final 08/14/2020 12:08:00 MCH 30.3 pg Normal (27.0-32.0) Final 08/14/2020 12:08:00 MCHC 33.1 g/dL Normal (32.0-36.0) Final 08/14/2020 12:08:00 RDW 15.0 % Above High Normal (10.5-14.5) Final 08/14/2020 12:08:00 PLT 278 10*3/uL Normal (150-450) Final 08/14/2020 12:08:00 MPV 9.3 fL Normal (7.1-10.7) Final 08/14/2020 12:08:00 NEUT % 84.0 % Above High Normal (35.0-75.0) Final 08/14/2020 12:08:00 BAND % 4.0 % Normal (0.0-11.0) Final 08/14/2020 12:08:00 LYMPH % 7.0 % Below Low normal (16.0-52.0) F inal 08/14/2020 12:08:00 MONO % 5.0 % Normal (0.0-8.0) Final 08/14/2020 12:08:00 NEUT # 16.8 10*3/uL Above High Normal (1.8-7.7) Final 08/14/2020 12:08:00 BAND # 0.8 10*3/uL Normal Final 08/14/2020 12:08:00 LYMPH # 1.4 10*3/uL Normal (1.2-4.8) Final 08/14/2020 12:08:00 MONO # 1.0 10*3/uL Above High Normal (0.0-0.8) Final 08/14/2020 12:08:00 TOXIC 1+ Normal Final 08/14/2020 12:08:00 ANISO 1+ Normal Final 08/14/2020 12:08:00 POIK 1+ Normal Final 08/14/2020 12:08:00 LARGE PLT 1+ Normal Final 08/14/2020 3:24:00 Chest - AP and Later Chest - AP and Later Final . [facility] [employer] [facility] RADIOLOGY REPORT REHABILITATION Referring Physician: Manjinder FRANCOIS M.D. ATT:NURSING OFFICE 8 [facility] Patient: Govind Dennis, [place] [id number] Date of : 1940 Room:[facility] Service Date: 08/14/20 Examination:Chest - AP and Lateral (2 Views) Diagnosis :Nasal congestion EXAMINATION OF THE CHEST WAS OBTAINED. THERE IS MILD CARDIOMEGALY. AORTIC CALCIFICATION AND TORTUOSITY IS SEEN. THERE IS A SKIN FOLD OF THE RIGHT LUNG REGION PERIPHERALLY. NO FOCAL INFILTRATE, NO EFFUSION AND NO CONGESTIVE HEART FAILURE IS SEEN. IMPRESSION: 1. NO ACUTE CARDIOPULMONARY PROCESS. Signed Electronically on 08/14/20 FOR PHYSICIAN USE ONLY The results above are acceptable for the pa rito's condition. No further follow-up JOVON MEIER M.D. is necessary at this time. Camp Advisor: MGlenroyD. Date Peterson FU The results will be monitored for further Verbal Given To: evaluation. See patients progress notes. FAXED TO FACILITY M.D. Date [id number] /2 Order:[id number] Blood sugar 08/16/2020 13:34:00 Blood sugar 135.0 mmol/L Vital signs Description Observation Date BODY WEIGHT (MEASURED) 168.0 [lb_av] 07/23/2020 18:08: 00 BODY TEMPERATURE 97.6 [degF] 07/23/2020 18:08:00 HEART BEAT 85.0 {beats}/min 07/23/2020 18:08:00 RESPIRATION RATE 16.0 /min 07/23/2020 18:09:00 INTRAVASCULAR SYSTOLIC 115.0 mm[Hg] 07/23/2020 18:09: 00 INTRAVASCULAR DIASTOLIC 69.0 mm[Hg] 07/23/2020 18:09 :00 OXYGEN SATURATION 94.0 % 07/23/2020 18:09:00 BODY HEIGHT (MEASURED) 66.0 [in_i] 07/23/2020 18:09: 00 PAIN LEVEL 0.0 {score} 07/23/2020 23:09:36 PAIN LEVEL 0.0 {score} 07/24/2020 7:02:01 OXYGEN SATURATION 97.0 % 07/24/2020 13:13:28 PAIN LEVEL 0.0 {score} 07/24/2020 13:16:18 OXYGEN SATURATION 97.0 % 07/24/2020 16:07:51 RESPIRATION RATE 18.0 /min 07/24/2020 16:07:59 INTRAVASCULAR SYSTOLIC 142.0 mm[Hg] 07/24/2020 16:07: 59 INTRAVASCULAR DIASTOLIC 93.0 mm[Hg] 07/24/2020 16:07 :59 BODY TEMPERATURE 96.8 [degF] 07/24/2020 16:07:59 HEART BEAT 79.0 {beats}/min 07/24/2020 16:07:59 OXYGEN SATURATION 98.0 % 07/24/2020 16:07:59 PAIN LEVEL 0.0 {score} 07/24/2020 18:24:42 OXYGEN SATURATION 98.0 % 07/24/2020 18:25:27 RESPIRATION RATE 20.0 /min 07/24/2020 23:30:16 INTRAVASCULAR SYSTOLIC 142.0 mm[Hg] 07/24/2020 23:30: 16 INTRAVASCULAR DIASTOLIC 93.0 mm[Hg] 07/24/2020 23:30 :16 BODY TEMPERATURE 97.0 [degF] 07/24/2020 23:30:16 HEART BEAT 80.0 {beats}/min 07/24/2020 23:30:16 OXYGEN SATURATION 98.0 % 07/24/2020 23:30:16 PAIN LEVEL 0.0 {score} 07/24/2020 23:32:12 OXYGEN SATURATION 98.0 % 07/25/2020 1:56:52 INTRAVASCULAR SYSTOLIC 137.0 mm[Hg] 07/25/2020 12:26: 00 INTRAVASCULAR DIASTOLIC 68.0 mm[Hg] 07/25/2020 12:26 :00 BODY TEMPERATURE 98.9 [degF] 07/25/2020 12:26:00 HEART BEAT 114.0 {beats}/min 07/25/2020 12:26:00 RESPIRATION RATE 18.0 /min 07/25/2020 12:26:00 OXYGEN SATURATION 98.0 % 07/25/2020 12:26:00 PAIN LEVEL 0.0 {score} 07/25/2020 12:26:00 PAIN LEVEL 0.0 {score} 07/25/2020 12:34:46 OXYGEN SATURATION 98.0 % 07/25/2020 15:28:44 RESPIRATION RATE 18.0 /min 07/25/2020 16:45:21 INTRAVASCULAR SYSTOLIC 137.0 mm[Hg] 07/25/2020 16:45: 21 INTRAVASCULAR DIASTOLIC 68.0 mm[Hg] 07/25/2020 16:45 :21 BODY TEMPERATURE 98.9 [degF] 07/25/2020 16:45:21 HEART BEAT 114.0 {beats}/min 07/25/2020 16:45:21 OXYGEN SATURATION 98.0 % 07/25/2020 16:45:21 RESPIRATION RATE 18.0 /min 07/25/2020 16:58:12 INTRAVASCULAR SYSTOLIC 137.0 mm[Hg] 07/25/2020 16:58: 12 INTRAVASCULAR DIASTOLIC 68.0 mm[Hg] 07/25/2020 16:58 :12 BODY TEMPERATURE 98.9 [degF] 07/25/2020 16:58:12 HEART BEAT 114.0 {beats}/min 07/25/2020 16:58:12 PAIN LEVEL 0.0 {score} 07/25/2020 16:58:12 INTRAVASCULAR SYSTOLIC 102.0 mm[Hg] 07/25/2020 18:06: 00 INTRAVASCULAR DIASTOLIC 59.0 mm[Hg] 07/25/2020 18:06 :00 OXYGEN SATURATION 94.0 % 07/25/2020 18:07:00 HEART BEAT 86.0 {beats}/min 07/25/2020 18:07:00 BODY TEMPERATURE 98.1 [degF] 07/25/2020 18:07:00 OXYGEN SATURATION 98.0 % 07/25/2020 18:15:03 PAIN LEVEL 8.0 {score} 07/25/2020 19:34:55 PAIN LEVEL 0.0 {score} 07/25/2020 21:28:45 PAIN LEVEL 0.0 {score} 07/25/2020 22:22:41 PAIN LEVEL 0.0 {score} 07/26/2020 0:59:42 PAIN LEVEL 0.0 {score} 07/26/2020 3:21:16 INTRAVASCULAR SYSTOLIC 131.0 mm[Hg] 07/26/2020 5:46:0 0 INTRAVASCULAR DIASTOLIC 74.0 mm[Hg] 07/26/2020 5:46: 00 BODY TEMPERATURE 97.4 [degF] 07/26/2020 5:46:00 HEART BEAT 91.0 {beats}/min 07/26/2020 5:46:00 RESPIRATION RATE 18.0 /min 07/26/2020 5:46:00 OXYGEN SATURATION 95.0 % 07/26/2020 5:46:00 PAIN LEVEL 0.0 {score} 07/26/2020 5:47:10 OXYGEN SATURATION 93.0 % 07/26/2020 11:27:30 RESPIRATION RATE 93.0 /min 07/26/2020 11:28:12 INTRAVASCULAR SYSTOLIC 96.0 mm[Hg] 07/26/2020 11:28: 12 INTRAVASCULAR DIASTOLIC 59.0 mm[Hg] 07/26/2020 11:28 :12 BODY TEMPERATURE 96.8 [degF] 07/26/2020 11:28:12 HEART BEAT 78.0 {beats}/min 07/26/2020 11:28:12 OXYGEN SATURATION 93.0 % 07/26/2020 11:28:12 PAIN LEVEL 0.0 {score} 07/26/2020 11:29:14 RESPIRATION RATE 17.0 /min 07/26/2020 11:54:00 INTRAVASCULAR SYSTOLIC 96.0 mm[Hg] 07/26/2020 11:54: 00 INTRAVASCULAR DIASTOLIC 59.0 mm[Hg] 07/26/2020 11:54 :00 BODY TEMPERATURE 96.8 [degF] 07/26/2020 11:54:00 HEART BEAT 78.0 {beats}/min 07/26/2020 11:54:00 PAIN LEVEL 0.0 {score} 07/26/2020 11:54:00 RESPIRATION RATE 16.0 /min 07/26/2020 13:00:38 INTRAVASCULAR SYSTOLIC 102.0 mm[Hg] 07/26/2020 13:00: 38 INTRAVASCULAR DIASTOLIC 61.0 mm[Hg] 07/26/2020 13:00 :38 BODY TEMPERATURE 97.8 [degF] 07/26/2020 13:00:38 HEART BEAT 78.0 {beats}/min 07/26/2020 13:00:38 PAIN LEVEL 0.0 {score} 07/26/2020 13:00:38 OXYGEN SATURATION 96.0 % 07/26/2020 15:06:38 RESPIRATION RATE 17.0 /min 07/26/2020 17:36:54 INTRAVASCULAR SYSTOLIC 118.0 mm[Hg] 07/26/2020 17:36: 54 INTRAVASCULAR DIASTOLIC 57.0 mm[Hg] 07/26/2020 17:36 :54 BODY TEMPERATURE 96.4 [degF] 07/26/2020 17:36:54 HEART BEAT 86.0 {beats}/min 07/26/2020 17:36:54 PAIN LEVEL 0.0 {score} 07/26/2020 17:36:54 OXYGEN SATURATION 96.0 % 07/26/2020 19:05:29 PAIN LEVEL 0.0 {score} 07/26/2020 19:06:57 RESPIRATION RATE 17.0 /min 07/26/2020 19:07:13 INTRAVASCULAR SYSTOLIC 118.0 mm[Hg] 07/26/2020 19:07: 13 INTRAVASCULAR DIASTOLIC 57.0 mm[Hg] 07/26/2020 19:07 :13 BODY TEMPERATURE 96.4 [degF] 07/26/2020 19:07:13 HEART BEAT 86.0 {beats}/min 07/26/2020 19:07:13 OXYGEN SATURATION 96.0 % 07/26/2020 19:07:13 INTRAVASCULAR SYSTOLIC 95.0 mm[Hg] 07/26/2020 22:03: 00 INTRAVASCULAR DIASTOLIC 58.0 mm[Hg] 07/26/2020 22:03 :00 BODY TEMPERATURE 97.4 [degF] 07/26/2020 22:03:00 HEART BEAT 69.0 {beats}/min 07/26/2020 22:03:00 RESPIRATION RATE 16.0 /min 07/26/2020 22:03:00 OXYGEN SATURATION 97.0 % 07/26/2020 22:03:00 OXYGEN SATURATION 97.0 % 07/26/2020 22:03:13 PAIN LEVEL 0.0 {score} 07/26/2020 22:20:10 RESPIRATION RATE 16.0 /min 07/27/2020 11:43:49 INTRAVASCULAR SYSTOLIC 109.0 mm[Hg] 07/27/2020 11:43: 49 INTRAVASCULAR DIASTOLIC 68.0 mm[Hg] 07/27/2020 11:43 :49 BODY TEMPERATURE 96.9 [degF] 07/27/2020 11:43:49 HEART BEAT 84.0 {beats}/min 07/27/2020 11:43:49 PAIN LEVEL 0.0 {score} 07/27/2020 11:43:49 OXYGEN SATURATION 96.0 % 07/27/2020 12:13:29 RESPIRATION RATE 16.0 /min 07/27/2020 12:13:39 INTRAVASCULAR SYSTOLIC 109.0 mm[Hg] 07/27/2020 12:13: 39 INTRAVASCULAR DIASTOLIC 68.0 mm[Hg] 07/27/2020 12:13 :39 BODY TEMPERATURE 96.9 [degF] 07/27/2020 12:13:39 HEART BEAT 84.0 {beats}/min 07/27/2020 12:13:39 OXYGEN SATURATION 97.0 % 07/27/2020 12:13:39 PAIN LEVEL 0.0 {score} 07/27/2020 12:15:26 RESPIRATION RATE 17.0 /min 07/27/2020 12:36:22 INTRAVASCULAR SYSTOLIC 104.0 mm[Hg] 07/27/2020 12:36: 22 INTRAVASCULAR DIASTOLIC 62.0 mm[Hg] 07/27/2020 12:36 :22 BODY TEMPERATURE 97.2 [degF] 07/27/2020 12:36:22 HEART BEAT 78.0 {beats}/min 07/27/2020 12:36:22 PAIN LEVEL 0.0 {score} 07/27/2020 12:36:22 OXYGEN SATURATION 98.0 % 07/27/2020 14:18:11 RESPIRATION RATE 15.0 /min 07/27/2020 17:10:10 INTRAVASCULAR SYSTOLIC 101.0 mm[Hg] 07/27/2020 17:10: 10 INTRAVASCULAR DIASTOLIC 56.0 mm[Hg] 07/27/2020 17:10 :10 BODY TEMPERATURE 96.5 [degF] 07/27/2020 17:10:10 HEART BEAT 81.0 {beats}/min 07/27/2020 17:10:10 PAIN LEVEL 0.0 {score} 07/27/2020 17:10:10 OXYGEN SATURATION 94.0 % 07/27/2020 19:36:05 RESPIRATION RATE 15.0 /min 07/27/2020 19:36:54 INTRAVASCULAR SYSTOLIC 142.0 mm[Hg] 07/27/2020 19:36: 54 INTRAVASCULAR DIASTOLIC 59.0 mm[Hg] 07/27/2020 19:36 :54 BODY TEMPERATURE 96.5 [degF] 07/27/2020 19:36:54 HEART BEAT 81.0 {beats}/min 07/27/2020 19:36:54 OXYGEN SATURATION 94.0 % 07/27/2020 19:36:54 PAIN LEVEL 0.0 {score} 07/27/2020 19:39:22 PAIN LEVEL 0.0 {score} 07/28/2020 1:18:46 RESPIRATION RATE 18.0 /min 07/28/2020 5:01:52 INTRAVASCULAR SYSTOLIC 112.0 mm[Hg] 07/28/2020 5:01:5 2 INTRAVASCULAR DIASTOLIC 71.0 mm[Hg] 07/28/2020 5:01: 52 BODY TEMPERATURE 98.1 [degF] 07/28/2020 5:01:52 HEART BEAT 74.0 {beats}/min 07/28/2020 5:01:52 PAIN LEVEL 0.0 {score} 07/28/2020 5:01:52 RESPIRATION RATE 18.0 /min 07/28/2020 11:05:59 INTRAVASCULAR SYSTOLIC 134.0 mm[Hg] 07/28/2020 11:05: 59 INTRAVASCULAR DIASTOLIC 69.0 mm[Hg] 07/28/2020 11:05 :59 BODY TEMPERATURE 98.3 [degF] 07/28/2020 11:05:59 HEART BEAT 99.0 {beats}/min 07/28/2020 11:05:59 PAIN LEVEL 0.0 {score} 07/28/2020 11:05:59 RESPIRATION RATE 18.0 /min 07/28/2020 12:56:30 INTRAVASCULAR SYSTOLIC 134.0 mm[Hg] 07/28/2020 12:56: 30 INTRAVASCULAR DIASTOLIC 69.0 mm[Hg] 07/28/2020 12:56 :30 BODY TEMPERATURE 98.3 [degF] 07/28/2020 12:56:30 HEART BEAT 99.0 {beats}/min 07/28/2020 12:56:30 PAIN LEVEL 0.0 {score} 07/28/2020 12:56:30 PAIN LEVEL 4.0 {score} 07/28/2020 13:19:40 PAIN LEVEL 0.0 {score} 07/28/2020 14:10:55 OXYGEN SATURATION 93.0 % 07/28/2020 14:50:50 OXYGEN SATURATION 94.0 % 07/28/2020 14:51:05 PAIN LEVEL 0.0 {score} 07/28/2020 14:52:55 OXYGEN SATURATION 94.0 % 07/28/2020 19:32:02 PAIN LEVEL 6.0 {score} 07/28/2020 21:27:50 PAIN LEVEL 0.0 {score} 07/28/2020 22:20:23 PAIN LEVEL 0.0 {score} 07/29/2020 1:44:53 PAIN LEVEL 0.0 {score} 07/29/2020 1:57:37 OXYGEN SATURATION 98.3 % 07/29/2020 9:48:17 RESPIRATION RATE 19.0 /min 07/29/2020 9:48:33 INTRAVASCULAR SYSTOLIC 118.0 mm[Hg] 07/29/2020 9:48:3 3 INTRAVASCULAR DIASTOLIC 66.0 mm[Hg] 07/29/2020 9:48: 33 BODY TEMPERATURE 98.3 [degF] 07/29/2020 9:48:33 HEART BEAT 75.0 {beats}/min 07/29/2020 9:48:33 OXYGEN SATURATION 95.0 % 07/29/2020 9:48:33 PAIN LEVEL 0.0 {score} 07/29/2020 11:20:18 PAIN LEVEL 8.0 {score} 07/29/2020 16:19:24 RESPIRATION RATE 17.0 /min 07/29/2020 16:30:34 INTRAVASCULAR SYSTOLIC 110.0 mm[Hg] 07/29/2020 16:30: 34 INTRAVASCULAR DIASTOLIC 61.0 mm[Hg] 07/29/2020 16:30 :34 BODY TEMPERATURE 98.4 [degF] 07/29/2020 16:30:34 HEART BEAT 87.0 {beats}/min 07/29/2020 16:30:34 OXYGEN SATURATION 95.0 % 07/29/2020 16:30:34 PAIN LEVEL 0.0 {score} 07/29/2020 16:31:38 PAIN LEVEL 0.0 {score} 07/29/2020 17:03:19 PAIN LEVEL 0.0 {score} 07/30/2020 3:54:52 OXYGEN SATURATION 96.0 % 07/30/2020 11:57:59 RESPIRATION RATE 18.0 /min 07/30/2020 12:01:36 INTRAVASCULAR SYSTOLIC 110.0 mm[Hg] 07/30/2020 12:01: 36 INTRAVASCULAR DIASTOLIC 53.0 mm[Hg] 07/30/2020 12:01 :36 BODY TEMPERATURE 97.8 [degF] 07/30/2020 12:01:36 HEART BEAT 77.0 {beats}/min 07/30/2020 12:01:36 OXYGEN SATURATION 95.0 % 07/30/2020 12:01:36 PAIN LEVEL 0.0 {score} 07/30/2020 12:06:37 OXYGEN SATURATION 96.0 % 07/30/2020 13:38:46 OXYGEN SATURATION 96.0 % 07/30/2020 18:19:04 PAIN LEVEL 0.0 {score} 07/30/2020 18:20:08 OXYGEN SATURATION 96.0 % 07/31/2020 3:12:10 RESPIRATION RATE 20.0 /min 07/31/2020 3:13:05 INTRAVASCULAR SYSTOLIC 110.0 mm[Hg] 07/31/2020 3:13:0 5 INTRAVASCULAR DIASTOLIC 53.0 mm[Hg] 07/31/2020 3:13: 05 BODY TEMPERATURE 97.0 [degF] 07/31/2020 3:13:05 HEART BEAT 76.0 {beats}/min 07/31/2020 3:13:05 OXYGEN SATURATION 96.0 % 07/31/2020 3:13:05 PAIN LEVEL 0.0 {score} 07/31/2020 3:14:38 OXYGEN SATURATION 96.0 % 07/31/2020 5:02:44 OXYGEN SATURATION 95.0 % 07/31/2020 11:27:05 RESPIRATION RATE 19.0 /min 07/31/2020 11:27:24 INTRAVASCULAR SYSTOLIC 115.0 mm[Hg] 07/31/2020 11:27: 24 INTRAVASCULAR DIASTOLIC 71.0 mm[Hg] 07/31/2020 11:27 :24 BODY TEMPERATURE 96.7 [degF] 07/31/2020 11:27:24 HEART BEAT 90.0 {beats}/min 07/31/2020 11:27:24 OXYGEN SATURATION 95.0 % 07/31/2020 11:27:24 PAIN LEVEL 0.0 {score} 07/31/2020 11:31:43 OXYGEN SATURATION 96.0 % 07/31/2020 14:27:33 OXYGEN SATURATION 93.0 % 07/31/2020 17:53:03 RESPIRATION RATE 18.0 /min 07/31/2020 17:53:12 INTRAVASCULAR SYSTOLIC 104.0 mm[Hg] 07/31/2020 17:53: 12 INTRAVASCULAR DIASTOLIC 67.0 mm[Hg] 07/31/2020 17:53 :12 BODY TEMPERATURE 98.7 [degF] 07/31/2020 17:53:12 HEART BEAT 85.0 {beats}/min 07/31/2020 17:53:12 OXYGEN SATURATION 93.0 % 07/31/2020 17:53:12 PAIN LEVEL 0.0 {score} 07/31/2020 22:24:23 OXYGEN SATURATION 94.0 % 07/31/2020 22:24:30 OXYGEN SATURATION 95.0 % 08/01/2020 1:59:43 RESPIRATION RATE 18.0 /min 08/01/2020 2:51:45 INTRAVASCULAR SYSTOLIC 137.0 mm[Hg] 08/01/2020 2:51:4 5 INTRAVASCULAR DIASTOLIC 82.0 mm[Hg] 08/01/2020 2:51: 45 BODY TEMPERATURE 98.1 [degF] 08/01/2020 2:51:45 HEART BEAT 85.0 {beats}/min 08/01/2020 2:51:45 OXYGEN SATURATION 95.0 % 08/01/2020 2:51:45 PAIN LEVEL 0.0 {score} 08/01/2020 2:54:16 OXYGEN SATURATION 95.0 % 08/01/2020 5:53:43 OXYGEN SATURATION 96.0 % 08/01/2020 11:55:27 RESPIRATION RATE 19.0 /min 08/01/2020 11:58:08 INTRAVASCULAR SYSTOLIC 123.0 mm[Hg] 08/01/2020 11:58: 08 INTRAVASCULAR DIASTOLIC 72.0 mm[Hg] 08/01/2020 11:58 :08 BODY TEMPERATURE 98.0 [degF] 08/01/2020 11:58:08 HEART BEAT 81.0 {beats}/min 08/01/2020 11:58:08 OXYGEN SATURATION 96.0 % 08/01/2020 11:58:08 PAIN LEVEL 0.0 {score} 08/01/2020 11:59:18 OXYGEN SATURATION 97.0 % 08/01/2020 14:07:43 BODY TEMPERATURE 98.1 [degF] 08/01/2020 16:56:00 INTRAVASCULAR SYSTOLIC 128.0 mm[Hg] 08/01/2020 16:56: 00 INTRAVASCULAR DIASTOLIC 69.0 mm[Hg] 08/01/2020 16:56 :00 OXYGEN SATURATION 98.0 % 08/01/2020 16:56:00 HEART BEAT 77.0 {beats}/min 08/01/2020 16:56:00 RESPIRATION RATE 21.0 /min 08/01/2020 16:57:00 OXYGEN SATURATION 98.0 % 08/01/2020 17:41:52 PAIN LEVEL 0.0 {score} 08/01/2020 17:42:20 OXYGEN SATURATION 98.0 % 08/01/2020 21:03:31 OXYGEN SATURATION 98.0 % 08/02/2020 3:05:44 PAIN LEVEL 0.0 {score} 08/02/2020 3:06:07 OXYGEN SATURATION 96.0 % 08/02/2020 11:17:16 RESPIRATION RATE 18.0 /min 08/02/2020 11:17:24 INTRAVASCULAR SYSTOLIC 131.0 mm[Hg] 08/02/2020 11:17: 24 INTRAVASCULAR DIASTOLIC 76.0 mm[Hg] 08/02/2020 11:17 :24 BODY TEMPERATURE 98.0 [degF] 08/02/2020 11:17:24 HEART BEAT 103.0 {beats}/min 08/02/2020 11:17:24 OXYGEN SATURATION 96.0 % 08/02/2020 11:17:24 PAIN LEVEL 0.0 {score} 08/02/2020 11:18:08 OXYGEN SATURATION 96.0 % 08/02/2020 15:31:14 PAIN LEVEL 0.0 {score} 08/02/2020 15:37:16 RESPIRATION RATE 18.0 /min 08/02/2020 15:38:08 INTRAVASCULAR SYSTOLIC 123.0 mm[Hg] 08/02/2020 15:38: 08 INTRAVASCULAR DIASTOLIC 63.0 mm[Hg] 08/02/2020 15:38 :08 BODY TEMPERATURE 97.6 [degF] 08/02/2020 15:38:08 HEART BEAT 51.0 {beats}/min 08/02/2020 15:38:08 OXYGEN SATURATION 92.0 % 08/02/2020 15:38:08 OXYGEN SATURATION 92.0 % 08/02/2020 18:48:39 PAIN LEVEL 4.0 {score} 08/03/2020 9:02:49 OXYGEN SATURATION 98.0 % 08/03/2020 12:40:24 PAIN LEVEL 0.0 {score} 08/03/2020 12:40:47 RESPIRATION RATE 18.0 /min 08/03/2020 12:41:08 INTRAVASCULAR SYSTOLIC 112.0 mm[Hg] 08/03/2020 12:41: 08 INTRAVASCULAR DIASTOLIC 64.0 mm[Hg] 08/03/2020 12:41 :08 BODY TEMPERATURE 95.5 [degF] 08/03/2020 12:41:08 HEART BEAT 80.0 {beats}/min 08/03/2020 12:41:08 OXYGEN SATURATION 96.0 % 08/03/2020 12:41:08 PAIN LEVEL 0.0 {score} 08/03/2020 13:27:35 OXYGEN SATURATION 96.0 % 08/03/2020 15:22:41 PAIN LEVEL 0.0 {score} 08/03/2020 16:47:04 OXYGEN SATURATION 93.0 % 08/03/2020 17:59:09 RESPIRATION RATE 18.0 /min 08/03/2020 17:59:21 INTRAVASCULAR SYSTOLIC 111.0 mm[Hg] 08/03/2020 17:59: 21 INTRAVASCULAR DIASTOLIC 62.0 mm[Hg] 08/03/2020 17:59 :21 BODY TEMPERATURE 97.4 [degF] 08/03/2020 17:59:21 HEART BEAT 76.0 {beats}/min 08/03/2020 17:59:21 OXYGEN SATURATION 93.0 % 08/03/2020 17:59:21 OXYGEN SATURATION 93.0 % 08/03/2020 21:12:18 OXYGEN SATURATION 93.0 % 08/04/2020 6:37:59 PAIN LEVEL 0.0 {score} 08/04/2020 6:38:47 OXYGEN SATURATION 99.0 % 08/04/2020 12:39:50 RESPIRATION RATE 20.0 /min 08/04/2020 12:39:57 INTRAVASCULAR SYSTOLIC 157.0 mm[Hg] 08/04/2020 12:39: 57 INTRAVASCULAR DIASTOLIC 83.0 mm[Hg] 08/04/2020 12:39 :57 BODY TEMPERATURE 98.1 [degF] 08/04/2020 12:39:57 HEART BEAT 79.0 {beats}/min 08/04/2020 12:39:57 OXYGEN SATURATION 99.0 % 08/04/2020 12:39:57 PAIN LEVEL 0.0 {score} 08/04/2020 12:40:51 OXYGEN SATURATION 99.0 % 08/04/2020 13:44:40 OXYGEN SATURATION 96.0 % 08/04/2020 20:02:54 RESPIRATION RATE 18.0 /min 08/04/2020 20:03:12 INTRAVASCULAR SYSTOLIC 114.0 mm[Hg] 08/04/2020 20:03: 12 INTRAVASCULAR DIASTOLIC 70.0 mm[Hg] 08/04/2020 20:03 :12 BODY TEMPERATURE 97.5 [degF] 08/04/2020 20:03:12 HEART BEAT 84.0 {beats}/min 08/04/2020 20:03:12 OXYGEN SATURATION 96.0 % 08/04/2020 20:03:12 PAIN LEVEL 0.0 {score} 08/04/2020 20:05:03 OXYGEN SATURATION 95.0 % 08/04/2020 22:11:47 OXYGEN SATURATION 95.0 % 2020 17:05:29 OXYGEN SATURATION 97.0 % 2020 17:05:40 RESPIRATION RATE 19.0 /min 2020 17:05:56 INTRAVASCULAR SYSTOLIC 124.0 mm[Hg] 2020 17:05: 56 INTRAVASCULAR DIASTOLIC 71.0 mm[Hg] 2020 17:05 :56 BODY TEMPERATURE 97.7 [degF] 2020 17:05:56 HEART BEAT 84.0 {beats}/min 2020 17:05:56 OXYGEN SATURATION 95.0 % 2020 17:05:56 PAIN LEVEL 0.0 {score} 2020 17:07:05 OXYGEN SATURATION 96.0 % 2020 21:02:59 OXYGEN SATURATION 97.0 % 08/06/2020 14:35:45 OXYGEN SATURATION 97.0 % 08/06/2020 14:36:00 RESPIRATION RATE 18.0 /min 08/06/2020 14:36:13 INTRAVASCULAR SYSTOLIC 132.0 mm[Hg] 08/06/2020 14:36: 13 INTRAVASCULAR DIASTOLIC 70.0 mm[Hg] 08/06/2020 14:36 :13 BODY TEMPERATURE 97.7 [degF] 08/06/2020 14:36:13 HEART BEAT 85.0 {beats}/min 08/06/2020 14:36:13 OXYGEN SATURATION 96.0 % 08/06/2020 14:36:13 PAIN LEVEL 0.0 {score} 08/06/2020 14:40:09 OXYGEN SATURATION 96.0 % 08/06/2020 17:00:10 PAIN LEVEL 0.0 {score} 08/06/2020 17:00:30 RESPIRATION RATE 16.0 /min 08/06/2020 18:00:13 INTRAVASCULAR SYSTOLIC 117.0 mm[Hg] 08/06/2020 18:00: 13 INTRAVASCULAR DIASTOLIC 66.0 mm[Hg] 08/06/2020 18:00 :13 BODY TEMPERATURE 97.2 [degF] 08/06/2020 18:00:13 HEART BEAT 101.0 {beats}/min 08/06/2020 18:00:13 OXYGEN SATURATION 96.0 % 08/06/2020 18:00:13 PAIN LEVEL 7.0 {score} 08/06/2020 22:24:34 PAIN LEVEL 0.0 {score} 08/07/2020 0:48:20 PAIN LEVEL 0.0 {score} 08/07/2020 1:56:14 RESPIRATION RATE 18.0 /min 08/07/2020 7:01:06 INTRAVASCULAR SYSTOLIC 119.0 mm[Hg] 08/07/2020 7:01:0 6 INTRAVASCULAR DIASTOLIC 73.0 mm[Hg] 08/07/2020 7:01: 06 BODY TEMPERATURE 96.0 [degF] 08/07/2020 7:01:06 HEART BEAT 91.0 {beats}/min 08/07/2020 7:01:06 OXYGEN SATURATION 97.0 % 08/07/2020 7:01:06 OXYGEN SATURATION 97.0 % 08/07/2020 11:43:27 RESPIRATION RATE 18.0 /min 08/07/2020 11:43:39 INTRAVASCULAR SYSTOLIC 117.0 mm[Hg] 08/07/2020 11:43: 39 INTRAVASCULAR DIASTOLIC 69.0 mm[Hg] 08/07/2020 11:43 :39 BODY TEMPERATURE 97.9 [degF] 08/07/2020 11:43:39 HEART BEAT 78.0 {beats}/min 08/07/2020 11:43:39 OXYGEN SATURATION 97.0 % 08/07/2020 11:43:39 PAIN LEVEL 0.0 {score} 08/07/2020 11:44:28 OXYGEN SATURATION 97.0 % 08/07/2020 14:23:33 PAIN LEVEL 0.0 {score} 08/07/2020 16:11:22 OXYGEN SATURATION 97.0 % 08/07/2020 18:48:40 RESPIRATION RATE 18.0 /min 08/07/2020 18:49:23 INTRAVASCULAR SYSTOLIC 96.0 mm[Hg] 08/07/2020 18:49: 23 INTRAVASCULAR DIASTOLIC 56.0 mm[Hg] 08/07/2020 18:49 :23 BODY TEMPERATURE 98.1 [degF] 08/07/2020 18:49:23 HEART BEAT 81.0 {beats}/min 08/07/2020 18:49:23 OXYGEN SATURATION 97.0 % 08/07/2020 18:49:23 OXYGEN SATURATION 97.0 % 08/07/2020 22:09:06 PAIN LEVEL 0.0 {score} 08/08/2020 5:05:03 OXYGEN SATURATION 98.0 % 08/08/2020 12:36:01 PAIN LEVEL 0.0 {score} 08/08/2020 12:36:34 RESPIRATION RATE 18.0 /min 08/08/2020 12:36:56 INTRAVASCULAR SYSTOLIC 123.0 mm[Hg] 08/08/2020 12:36: 56 INTRAVASCULAR DIASTOLIC 67.0 mm[Hg] 08/08/2020 12:36 :56 BODY TEMPERATURE 97.2 [degF] 08/08/2020 12:36:56 HEART BEAT 90.0 {beats}/min 08/08/2020 12:36:56 OXYGEN SATURATION 98.0 % 08/08/2020 12:36:56 OXYGEN SATURATION 98.0 % 08/08/2020 17:02:00 INTRAVASCULAR SYSTOLIC 105.0 mm[Hg] 08/08/2020 17:16: 00 INTRAVASCULAR DIASTOLIC 57.0 mm[Hg] 08/08/2020 17:16 :00 OXYGEN SATURATION 98.0 % 08/08/2020 17:18:00 HEART BEAT 72.0 {beats}/min 08/08/2020 17:18:00 BODY TEMPERATURE 98.1 [degF] 08/08/2020 17:18:00 OXYGEN SATURATION 98.0 % 08/08/2020 19:14:10 OXYGEN SATURATION 97.0 % 08/09/2020 3:19:43 PAIN LEVEL 0.0 {score} 08/09/2020 3:20:03 OXYGEN SATURATION 97.0 % 08/09/2020 6:12:05 OXYGEN SATURATION 96.0 % 08/09/2020 10:30:03 RESPIRATION RATE 18.0 /min 08/09/2020 10:30:14 INTRAVASCULAR SYSTOLIC 120.0 mm[Hg] 08/09/2020 10:30: 14 INTRAVASCULAR DIASTOLIC 63.0 mm[Hg] 08/09/2020 10:30 :14 BODY TEMPERATURE 96.6 [degF] 08/09/2020 10:30:14 HEART BEAT 69.0 {beats}/min 08/09/2020 10:30:14 OXYGEN SATURATION 96.0 % 08/09/2020 10:30:14 PAIN LEVEL 0.0 {score} 08/09/2020 10:33:14 OXYGEN SATURATION 97.0 % 08/09/2020 13:16:18 PAIN LEVEL 0.0 {score} 08/09/2020 15:29:15 OXYGEN SATURATION 96.0 % 08/09/2020 18:58:07 RESPIRATION RATE 16.0 /min 08/09/2020 18:58:17 INTRAVASCULAR SYSTOLIC 109.0 mm[Hg] 08/09/2020 18:58: 17 INTRAVASCULAR DIASTOLIC 67.0 mm[Hg] 08/09/2020 18:58 :17 BODY TEMPERATURE 97.0 [degF] 08/09/2020 18:58:17 HEART BEAT 89.0 {beats}/min 08/09/2020 18:58:17 OXYGEN SATURATION 96.0 % 08/09/2020 18:58:17 OXYGEN SATURATION 96.0 % 08/09/2020 22:44:41 PAIN LEVEL 0.0 {score} 08/10/2020 0:07:49 OXYGEN SATURATION 94.0 % 08/10/2020 1:31:07 OXYGEN SATURATION 95.0 % 08/10/2020 6:42:06 OXYGEN SATURATION 97.0 % 08/10/2020 12:32:13 RESPIRATION RATE 17.0 /min 08/10/2020 12:38:27 INTRAVASCULAR SYSTOLIC 98.0 mm[Hg] 08/10/2020 12:38: 27 INTRAVASCULAR DIASTOLIC 60.0 mm[Hg] 08/10/2020 12:38 :27 BODY TEMPERATURE 97.3 [degF] 08/10/2020 12:38:27 HEART BEAT 96.0 {beats}/min 08/10/2020 12:38:27 OXYGEN SATURATION 96.0 % 08/10/2020 12:38:27 PAIN LEVEL 0.0 {score} 08/10/2020 12:39:23 OXYGEN SATURATION 97.0 % 08/10/2020 13:36:00 PAIN LEVEL 0.0 {score} 08/10/2020 18:31:32 PAIN LEVEL 0.0 {score} 08/11/2020 1:10:55 RESPIRATION RATE 18.0 /min 08/11/2020 3:16:52 INTRAVASCULAR SYSTOLIC 112.0 mm[Hg] 08/11/2020 3:16:5 2 INTRAVASCULAR DIASTOLIC 64.0 mm[Hg] 08/11/2020 3:16: 52 BODY TEMPERATURE 97.9 [degF] 08/11/2020 3:16:52 HEART BEAT 96.0 {beats}/min 08/11/2020 3:16:52 OXYGEN SATURATION 98.0 % 08/11/2020 3:16:52 OXYGEN SATURATION 98.0 % 08/11/2020 12:04:15 RESPIRATION RATE 18.0 /min 08/11/2020 12:04:34 INTRAVASCULAR SYSTOLIC 136.0 mm[Hg] 08/11/2020 12:04: 34 INTRAVASCULAR DIASTOLIC 77.0 mm[Hg] 08/11/2020 12:04 :34 BODY TEMPERATURE 97.0 [degF] 08/11/2020 12:04:34 HEART BEAT 99.0 {beats}/min 08/11/2020 12:04:34 OXYGEN SATURATION 98.0 % 08/11/2020 12:04:34 PAIN LEVEL 0.0 {score} 08/11/2020 12:05:31 OXYGEN SATURATION 98.0 % 08/11/2020 15:19:37 PAIN LEVEL 0.0 {score} 08/11/2020 15:44:43 OXYGEN SATURATION 93.0 % 08/11/2020 19:01:15 PAIN LEVEL 7.0 {score} 08/11/2020 20:50:19 RESPIRATION RATE 18.0 /min 08/11/2020 21:57:11 BODY TEMPERATURE 97.4 [degF] 08/11/2020 21:57:11 OXYGEN SATURATION 93.0 % 08/11/2020 21:57:11 PAIN LEVEL 0.0 {score} 08/11/2020 23:19:23 PAIN LEVEL 0.0 {score} 08/12/2020 3:37:59 OXYGEN SATURATION 95.0 % 08/12/2020 12:33:01 PAIN LEVEL 0.0 {score} 08/12/2020 12:33:21 RESPIRATION RATE 18.0 /min 08/12/2020 12:34:04 INTRAVASCULAR SYSTOLIC 105.0 mm[Hg] 08/12/2020 12:34: 04 INTRAVASCULAR DIASTOLIC 65.0 mm[Hg] 08/12/2020 12:34 :04 BODY TEMPERATURE 97.6 [degF] 08/12/2020 12:34:04 HEART BEAT 50.0 {beats}/min 08/12/2020 12:34:04 OXYGEN SATURATION 95.0 % 08/12/2020 12:34:04 OXYGEN SATURATION 95.0 % 08/12/2020 15:35:48 OXYGEN SATURATION 95.0 % 08/12/2020 18:52:49 RESPIRATION RATE 18.0 /min 08/12/2020 18:53:35 INTRAVASCULAR SYSTOLIC 116.0 mm[Hg] 08/12/2020 18:53: 35 INTRAVASCULAR DIASTOLIC 71.0 mm[Hg] 08/12/2020 18:53 :35 BODY TEMPERATURE 97.5 [degF] 08/12/2020 18:53:35 HEART BEAT 81.0 {beats}/min 08/12/2020 18:53:35 OXYGEN SATURATION 95.0 % 08/12/2020 18:53:35 OXYGEN SATURATION 95.0 % 08/12/2020 23:02:37 PAIN LEVEL 0.0 {score} 08/12/2020 23:02:45 PAIN LEVEL 0.0 {score} 08/13/2020 5:12:28 INTRAVASCULAR SYSTOLIC 140.0 mm[Hg] 08/13/2020 20:11: 00 INTRAVASCULAR DIASTOLIC 77.0 mm[Hg] 08/13/2020 20:11 :00 OXYGEN SATURATION 96.0 % 08/13/2020 20:11:00 BODY TEMPERATURE 97.8 [degF] 08/13/2020 20:12:00 RESPIRATION RATE 20.0 /min 08/13/2020 20:12:00 PAIN LEVEL 0.0 {score} 08/14/2020 0:25:44 PAIN LEVEL 0.0 {score} 08/14/2020 12:00:54 PAIN LEVEL 0.0 {score} 08/14/2020 16:12:24 RESPIRATION RATE 16.0 /min 08/14/2020 20:06:34 INTRAVASCULAR SYSTOLIC 136.0 mm[Hg] 08/14/2020 20:06: 34 INTRAVASCULAR DIASTOLIC 74.0 mm[Hg] 08/14/2020 20:06 :34 BODY TEMPERATURE 96.9 [degF] 08/14/2020 20:06:34 HEART BEAT 77.0 {beats}/min 08/14/2020 20:06:34 OXYGEN SATURATION 97.0 % 08/14/2020 20:06:34 PAIN LEVEL 0.0 {score} 08/14/2020 20:06:34 OXYGEN SATURATION 97.0 % 08/14/2020 21:47:33 OXYGEN SATURATION 97.0 % 08/14/2020 21:47:44 PAIN LEVEL 0.0 {score} 08/15/2020 0:37:18 RESPIRATION RATE 18.0 /min 08/15/2020 0:37:37 INTRAVASCULAR SYSTOLIC 104.0 mm[Hg] 08/15/2020 0:37:3 7 INTRAVASCULAR DIASTOLIC 59.0 mm[Hg] 08/15/2020 0:37: 37 BODY TEMPERATURE 98.3 [degF] 08/15/2020 0:37:37 HEART BEAT 94.0 {beats}/min 08/15/2020 0:37:37 OXYGEN SATURATION 96.0 % 08/15/2020 0:37:37 RESPIRATION RATE 18.0 /min 08/15/2020 0:46:04 INTRAVASCULAR SYSTOLIC 104.0 mm[Hg] 08/15/2020 0:46:0 4 INTRAVASCULAR DIASTOLIC 59.0 mm[Hg] 08/15/2020 0:46: 04 BODY TEMPERATURE 98.5 [degF] 08/15/2020 0:46:04 HEART BEAT 95.0 {beats}/min 08/15/2020 0:46:04 OXYGEN SATURATION 96.0 % 08/15/2020 0:46:04 PAIN LEVEL 0.0 {score} 08/15/2020 0:46:04 RESPIRATION RATE 19.0 /min 08/15/2020 4:15:44 INTRAVASCULAR SYSTOLIC 94.0 mm[Hg] 08/15/2020 4:15:4 4 INTRAVASCULAR DIASTOLIC 60.0 mm[Hg] 08/15/2020 4:15: 44 BODY TEMPERATURE 97.3 [degF] 08/15/2020 4:15:44 HEART BEAT 92.0 {beats}/min 08/15/2020 4:15:44 OXYGEN SATURATION 96.0 % 08/15/2020 4:15:44 PAIN LEVEL 0.0 {score} 08/15/2020 4:15:44 RESPIRATION RATE 18.0 /min 08/15/2020 8:48:50 INTRAVASCULAR SYSTOLIC 116.0 mm[Hg] 08/15/2020 8:48:5 0 INTRAVASCULAR DIASTOLIC 65.0 mm[Hg] 08/15/2020 8:48: 50 BODY TEMPERATURE 98.0 [degF] 08/15/2020 8:48:50 HEART BEAT 98.0 {beats}/min 08/15/2020 8:48:50 OXYGEN SATURATION 96.0 % 08/15/2020 8:48:50 PAIN LEVEL 0.0 {score} 08/15/2020 8:48:50 INTRAVASCULAR SYSTOLIC 104.0 mm[Hg] 08/15/2020 9:31:0 0 INTRAVASCULAR DIASTOLIC 66.0 mm[Hg] 08/15/2020 9:31: 00 OXYGEN SATURATION 95.0 % 08/15/2020 9:32:00 BODY TEMPERATURE 97.5 [degF] 08/15/2020 9:32:00 HEART BEAT 80.0 {beats}/min 08/15/2020 9:32:00 RESPIRATION RATE 18.0 /min 08/15/2020 9:32:00 RESPIRATION RATE 18.0 /min 08/15/2020 12:56:01 INTRAVASCULAR SYSTOLIC 116.0 mm[Hg] 08/15/2020 12:56: 01 INTRAVASCULAR DIASTOLIC 86.0 mm[Hg] 08/15/2020 12:56 :01 BODY TEMPERATURE 97.5 [degF] 08/15/2020 12:56:01 HEART BEAT 92.0 {beats}/min 08/15/2020 12:56:01 OXYGEN SATURATION 94.0 % 08/15/2020 12:56:01 PAIN LEVEL 0.0 {score} 08/15/2020 12:56:01 OXYGEN SATURATION 95.0 % 08/15/2020 14:01:11 OXYGEN SATURATION 97.0 % 08/15/2020 14:01:29 RESPIRATION RATE 18.0 /min 08/15/2020 14:02:19 INTRAVASCULAR SYSTOLIC 104.0 mm[Hg] 08/15/2020 14:02: 19 INTRAVASCULAR DIASTOLIC 66.0 mm[Hg] 08/15/2020 14:02 :19 BODY TEMPERATURE 97.5 [degF] 08/15/2020 14:02:19 HEART BEAT 80.0 {beats}/min 08/15/2020 14:02:19 OXYGEN SATURATION 95.0 % 08/15/2020 14:02:19 PAIN LEVEL 0.0 {score} 08/15/2020 14:03:12 RESPIRATION RATE 16.0 /min 08/15/2020 17:55:43 INTRAVASCULAR SYSTOLIC 111.0 mm[Hg] 08/15/2020 17:55: 43 INTRAVASCULAR DIASTOLIC 77.0 mm[Hg] 08/15/2020 17:55 :43 BODY TEMPERATURE 98.1 [degF] 08/15/2020 17:55:43 HEART BEAT 87.0 {beats}/min 08/15/2020 17:55:43 OXYGEN SATURATION 94.0 % 08/15/2020 17:55:43 PAIN LEVEL 0.0 {score} 08/15/2020 17:55:43 OXYGEN SATURATION 91.0 % 08/15/2020 19:06:50 RESPIRATION RATE 16.0 /min 08/15/2020 19:07:37 INTRAVASCULAR SYSTOLIC 111.0 mm[Hg] 08/15/2020 19:07: 37 INTRAVASCULAR DIASTOLIC 77.0 mm[Hg] 08/15/2020 19:07 :37 BODY TEMPERATURE 98.1 [degF] 08/15/2020 19:07:37 HEART BEAT 97.0 {beats}/min 08/15/2020 19:07:37 OXYGEN SATURATION 91.0 % 08/15/2020 19:07:37 PAIN LEVEL 0.0 {score} 08/15/2020 19:08:23 OXYGEN SATURATION 94.0 % 08/15/2020 21:45:20 INTRAVASCULAR SYSTOLIC 114.0 mm[Hg] 08/15/2020 21:55: 00 INTRAVASCULAR DIASTOLIC 58.0 mm[Hg] 08/15/2020 21:55 :00 BODY TEMPERATURE 97.9 [degF] 08/15/2020 21:55:00 HEART BEAT 89.0 {beats}/min 08/15/2020 21:55:00 RESPIRATION RATE 16.0 /min 08/15/2020 21:55:00 OXYGEN SATURATION 94.0 % 08/15/2020 21:55:00 RESPIRATION RATE 16.0 /min 08/15/2020 22:35:22 INTRAVASCULAR SYSTOLIC 114.0 mm[Hg] 08/15/2020 22:35: 22 INTRAVASCULAR DIASTOLIC 58.0 mm[Hg] 08/15/2020 22:35 :22 BODY TEMPERATURE 97.9 [degF] 08/15/2020 22:35:22 HEART BEAT 89.0 {beats}/min 08/15/2020 22:35:22 OXYGEN SATURATION 94.0 % 08/15/2020 22:35:22 PAIN LEVEL 0.0 {score} 08/15/2020 22:35:22 PAIN LEVEL 0.0 {score} 08/16/2020 0:43:22 RESPIRATION RATE 18.0 /min 08/16/2020 1:42:00 INTRAVASCULAR SYSTOLIC 103.0 mm[Hg] 08/16/2020 1:42:0 0 INTRAVASCULAR DIASTOLIC 61.0 mm[Hg] 08/16/2020 1:42: 00 BODY TEMPERATURE 96.5 [degF] 08/16/2020 1:42:00 HEART BEAT 83.0 {beats}/min 08/16/2020 1:42:00 OXYGEN SATURATION 98.0 % 08/16/2020 1:42:00 PAIN LEVEL 0.0 {score} 08/16/2020 1:42:00 RESPIRATION RATE 18.0 /min 08/16/2020 4:49:48 INTRAVASCULAR SYSTOLIC 106.0 mm[Hg] 08/16/2020 4:49:4 8 INTRAVASCULAR DIASTOLIC 66.0 mm[Hg] 08/16/2020 4:49: 48 BODY TEMPERATURE 96.8 [degF] 08/16/2020 4:49:48 HEART BEAT 82.0 {beats}/min 08/16/2020 4:49:48 OXYGEN SATURATION 98.0 % 08/16/2020 4:49:48 PAIN LEVEL 0.0 {score} 08/16/2020 4:49:48 RESPIRATION RATE 20.0 /min 08/16/2020 11:23:30 INTRAVASCULAR SYSTOLIC 74.0 mm[Hg] 08/16/2020 11:23: 30 INTRAVASCULAR DIASTOLIC 44.0 mm[Hg] 08/16/2020 11:23 :30 BODY TEMPERATURE 96.8 [degF] 08/16/2020 11:23:30 HEART BEAT 93.0 {beats}/min 08/16/2020 11:23:30 OXYGEN SATURATION 96.0 % 08/16/2020 11:23:30 PAIN LEVEL 0.0 {score} 08/16/2020 11:23:30 PAIN LEVEL 0.0 {score} 08/16/2020 11:42:59 OXYGEN SATURATION 93.0 % 08/16/2020 11:43:32 RESPIRATION RATE 18.0 /min 08/16/2020 11:43:44 INTRAVASCULAR SYSTOLIC 105.0 mm[Hg] 08/16/2020 11:43: 44 INTRAVASCULAR DIASTOLIC 62.0 mm[Hg] 08/16/2020 11:43 :44 BODY TEMPERATURE 97.8 [degF] 08/16/2020 11:43:44 HEART BEAT 77.0 {beats}/min 08/16/2020 11:43:44 OXYGEN SATURATION 93.0 % 08/16/2020 11:43:44 RESPIRATION RATE 17.0 /min 08/16/2020 14:32:14 INTRAVASCULAR SYSTOLIC 102.0 mm[Hg] 08/16/2020 14:32: 14 INTRAVASCULAR DIASTOLIC 59.0 mm[Hg] 08/16/2020 14:32 :14 BODY TEMPERATURE 97.9 [degF] 08/16/2020 14:32:14 HEART BEAT 79.0 {beats}/min 08/16/2020 14:32:14 OXYGEN SATURATION 98.0 % 08/16/2020 14:32:14 PAIN LEVEL 0.0 {score} 08/16/2020 14:32:14 OXYGEN SATURATION 98.0 % 08/16/2020 15:20:03 OXYGEN SATURATION 98.0 % 08/16/2020 15:20:11 OXYGEN SATURATION 98.0 % 08/16/2020 19:13:04 RESPIRATION RATE 18.0 /min 08/16/2020 20:32:21 INTRAVASCULAR SYSTOLIC 104.0 mm[Hg] 08/16/2020 20:32: 21 INTRAVASCULAR DIASTOLIC 62.0 mm[Hg] 08/16/2020 20:32 :21 BODY TEMPERATURE 96.6 [degF] 08/16/2020 20:32:21 HEART BEAT 89.0 {beats}/min 08/16/2020 20:32:21 OXYGEN SATURATION 90.0 % 08/16/2020 20:32:21 PAIN LEVEL 0.0 {score} 08/16/2020 20:32:21 INTRAVASCULAR SYSTOLIC 104.0 mm[Hg] 08/16/2020 20:55: 00 INTRAVASCULAR DIASTOLIC 60.0 mm[Hg] 08/16/2020 20:55 :00 BODY TEMPERATURE 97.6 [degF] 08/16/2020 20:55:00 HEART BEAT 89.0 {beats}/min 08/16/2020 20:55:00 RESPIRATION RATE 16.0 /min 08/16/2020 20:55:00 OXYGEN SATURATION 97.0 % 08/16/2020 20:55:00 PAIN LEVEL 0.0 {score} 08/16/2020 20:55:00 RESPIRATION RATE 16.0 /min 08/16/2020 21:00:35 INTRAVASCULAR SYSTOLIC 104.0 mm[Hg] 08/16/2020 21:00: 35 INTRAVASCULAR DIASTOLIC 60.0 mm[Hg] 08/16/2020 21:00 :35 BODY TEMPERATURE 97.6 [degF] 08/16/2020 21:00:35 HEART BEAT 89.0 {beats}/min 08/16/2020 21:00:35 OXYGEN SATURATION 97.0 % 08/16/2020 21:00:35 PAIN LEVEL 0.0 {score} 08/16/2020 21:00:35 OXYGEN SATURATION 97.0 % 08/16/2020 23:33:11 PAIN LEVEL 0.0 {score} 08/16/2020 23:34:17 RESPIRATION RATE 14.0 /min 08/17/2020 0:52:22 INTRAVASCULAR SYSTOLIC 108.0 mm[Hg] 08/17/2020 0:52:2 2 INTRAVASCULAR DIASTOLIC 64.0 mm[Hg] 08/17/2020 0:52: 22 BODY TEMPERATURE 97.8 [degF] 08/17/2020 0:52:22 HEART BEAT 83.0 {beats}/min 08/17/2020 0:52:22 OXYGEN SATURATION 96.0 % 08/17/2020 0:52:22 PAIN LEVEL 0.0 {score} 08/17/2020 0:52:22 RESPIRATION RATE 17.0 /min 08/17/2020 1:46:21 INTRAVASCULAR SYSTOLIC 95.0 mm[Hg] 08/17/2020 1:46:2 1 INTRAVASCULAR DIASTOLIC 56.0 mm[Hg] 08/17/2020 1:46: 21 BODY TEMPERATURE 97.6 [degF] 08/17/2020 1:46:21 HEART BEAT 83.0 {beats}/min 08/17/2020 1:46:21 PAIN LEVEL 0.0 {score} 08/17/2020 1:46:21 RESPIRATION RATE 14.0 /min 08/17/2020 5:10:59 INTRAVASCULAR SYSTOLIC 109.0 mm[Hg] 08/17/2020 5:10:5 9 INTRAVASCULAR DIASTOLIC 59.0 mm[Hg] 08/17/2020 5:10: 59 BODY TEMPERATURE 97.9 [degF] 08/17/2020 5:10:59 HEART BEAT 73.0 {beats}/min 08/17/2020 5:10:59 OXYGEN SATURATION 98.0 % 08/17/2020 5:10:59 PAIN LEVEL 0.0 {score} 08/17/2020 5:10:59 RESPIRATION RATE 17.0 /min 08/17/2020 5:33:45 INTRAVASCULAR SYSTOLIC 99.0 mm[Hg] 08/17/2020 5:33:4 5 INTRAVASCULAR DIASTOLIC 50.0 mm[Hg] 08/17/2020 5:33: 45 BODY TEMPERATURE 97.8 [degF] 08/17/2020 5:33:45 HEART BEAT 80.0 {beats}/min 08/17/2020 5:33:45 PAIN LEVEL 0.0 {score} 08/17/2020 5:33:45 OXYGEN SATURATION 97.0 % 08/17/2020 6:26:00 OXYGEN SATURATION 98.0 % 08/17/2020 6:26:09 PAIN LEVEL 0.0 {score} 08/17/2020 6:27:00 RESPIRATION RATE 19.0 /min 08/17/2020 9:33:12 INTRAVASCULAR SYSTOLIC 121.0 mm[Hg] 08/17/2020 9:33:1 2 INTRAVASCULAR DIASTOLIC 66.0 mm[Hg] 08/17/2020 9:33: 12 BODY TEMPERATURE 95.5 [degF] 08/17/2020 9:33:12 HEART BEAT 78.0 {beats}/min 08/17/2020 9:33:12 OXYGEN SATURATION 98.0 % 08/17/2020 9:33:12 PAIN LEVEL 0.0 {score} 08/17/2020 9:33:12 OXYGEN SATURATION 98.0 % 08/17/2020 12:55:44 PAIN LEVEL 0.0 {score} 08/17/2020 12:56:19 RESPIRATION RATE 19.0 /min 08/17/2020 13:07:33 INTRAVASCULAR SYSTOLIC 98.0 mm[Hg] 08/17/2020 13:07: 33 INTRAVASCULAR DIASTOLIC 60.0 mm[Hg] 08/17/2020 13:07 :33 BODY TEMPERATURE 96.1 [degF] 08/17/2020 13:07:33 HEART BEAT 71.0 {beats}/min 08/17/2020 13:07:33 OXYGEN SATURATION 96.0 % 08/17/2020 13:07:33 PAIN LEVEL 0.0 {score} 08/17/2020 13:07:33 RESPIRATION RATE 19.0 /min 08/17/2020 16:31:38 INTRAVASCULAR SYSTOLIC 122.0 mm[Hg] 08/17/2020 16:31: 38 INTRAVASCULAR DIASTOLIC 67.0 mm[Hg] 08/17/2020 16:31 :38 BODY TEMPERATURE 96.5 [degF] 08/17/2020 16:31:38 HEART BEAT 72.0 {beats}/min 08/17/2020 16:31:38 OXYGEN SATURATION 97.0 % 08/17/2020 16:31:38 PAIN LEVEL 0.0 {score} 08/17/2020 16:31:38 RESPIRATION RATE 18.0 /min 08/17/2020 17:02:38 INTRAVASCULAR SYSTOLIC 105.0 mm[Hg] 08/17/2020 17:02: 38 INTRAVASCULAR DIASTOLIC 53.0 mm[Hg] 08/17/2020 17:02 :38 BODY TEMPERATURE 97.0 [degF] 08/17/2020 17:02:38 HEART BEAT 76.0 {beats}/min 08/17/2020 17:02:38 PAIN LEVEL 0.0 {score} 08/17/2020 17:02:38 OXYGEN SATURATION 96.0 % 08/17/2020 17:59:44 RESPIRATION RATE 18.0 /min 08/17/2020 17:59:52 INTRAVASCULAR SYSTOLIC 105.0 mm[Hg] 08/17/2020 17:59: 52 INTRAVASCULAR DIASTOLIC 53.0 mm[Hg] 08/17/2020 17:59 :52 BODY TEMPERATURE 97.0 [degF] 08/17/2020 17:59:52 HEART BEAT 76.0 {beats}/min 08/17/2020 17:59:52 OXYGEN SATURATION 97.0 % 08/17/2020 17:59:52 PAIN LEVEL 0.0 {score} 08/17/2020 18:00:47 RESPIRATION RATE 18.0 /min 08/17/2020 22:28:00 INTRAVASCULAR SYSTOLIC 110.0 mm[Hg] 08/17/2020 22:28: 00 INTRAVASCULAR DIASTOLIC 60.0 mm[Hg] 08/17/2020 22:28 :00 BODY TEMPERATURE 97.7 [degF] 08/17/2020 22:28:00 HEART BEAT 74.0 {beats}/min 08/17/2020 22:28:00 PAIN LEVEL 0.0 {score} 08/17/2020 22:28:00 RESPIRATION RATE 18.0 /min 08/18/2020 1:29:00 INTRAVASCULAR SYSTOLIC 108.0 mm[Hg] 08/18/2020 1:29:0 0 INTRAVASCULAR DIASTOLIC 66.0 mm[Hg] 08/18/2020 1:29: 00 BODY TEMPERATURE 97.3 [degF] 08/18/2020 1:29:00 HEART BEAT 70.0 {beats}/min 08/18/2020 1:29:00 PAIN LEVEL 0.0 {score} 08/18/2020 1:29:00 OXYGEN SATURATION 97.0 % 08/18/2020 3:03:29 RESPIRATION RATE 17.0 /min 08/18/2020 5:39:15 INTRAVASCULAR SYSTOLIC 125.0 mm[Hg] 08/18/2020 5:39:1 5 INTRAVASCULAR DIASTOLIC 70.0 mm[Hg] 08/18/2020 5:39: 15 BODY TEMPERATURE 97.5 [degF] 08/18/2020 5:39:15 HEART BEAT 71.0 {beats}/min 08/18/2020 5:39:15 PAIN LEVEL 0.0 {score} 08/18/2020 5:39:15 RESPIRATION RATE 15.0 /min 08/18/2020 11:41:14 INTRAVASCULAR SYSTOLIC 125.0 mm[Hg] 08/18/2020 11:41: 14 INTRAVASCULAR DIASTOLIC 79.0 mm[Hg] 08/18/2020 11:41 :14 BODY TEMPERATURE 96.6 [degF] 08/18/2020 11:41:14 HEART BEAT 89.0 {beats}/min 08/18/2020 11:41:14 PAIN LEVEL 0.0 {score} 08/18/2020 11:41:14 RESPIRATION RATE 17.0 /min 08/18/2020 13:21:27 INTRAVASCULAR SYSTOLIC 132.0 mm[Hg] 08/18/2020 13:21: 27 INTRAVASCULAR DIASTOLIC 72.0 mm[Hg] 08/18/2020 13:21 :27 BODY TEMPERATURE 97.2 [degF] 08/18/2020 13:21:27 HEART BEAT 82.0 {beats}/min 08/18/2020 13:21:27 PAIN LEVEL 0.0 {score} 08/18/2020 13:21:27 OXYGEN SATURATION 94.0 % 08/18/2020 13:51:39 OXYGEN SATURATION 97.0 % 08/18/2020 13:52:10 RESPIRATION RATE 15.0 /min 08/18/2020 13:52:23 INTRAVASCULAR SYSTOLIC 125.0 mm[Hg] 08/18/2020 13:52: 23 INTRAVASCULAR DIASTOLIC 79.0 mm[Hg] 08/18/2020 13:52 :23 BODY TEMPERATURE 95.6 [degF] 08/18/2020 13:52:23 HEART BEAT 89.0 {beats}/min 08/18/2020 13:52:23 OXYGEN SATURATION 94.0 % 08/18/2020 13:52:23 PAIN LEVEL 0.0 {score} 08/18/2020 13:53:29 RESPIRATION RATE 19.0 /min 08/18/2020 17:52:31 INTRAVASCULAR SYSTOLIC 97.0 mm[Hg] 08/18/2020 17:52: 31 INTRAVASCULAR DIASTOLIC 57.0 mm[Hg] 08/18/2020 17:52 :31 BODY TEMPERATURE 97.6 [degF] 08/18/2020 17:52:31 HEART BEAT 71.0 {beats}/min 08/18/2020 17:52:31 PAIN LEVEL 0.0 {score} 08/18/2020 17:52:31 OXYGEN SATURATION 99.0 % 08/18/2020 19:14:11 RESPIRATION RATE 17.0 /min 08/18/2020 19:14:35 INTRAVASCULAR SYSTOLIC 97.0 mm[Hg] 08/18/2020 19:14: 35 INTRAVASCULAR DIASTOLIC 57.0 mm[Hg] 08/18/2020 19:14 :35 BODY TEMPERATURE 97.6 [degF] 08/18/2020 19:14:35 HEART BEAT 71.0 {beats}/min 08/18/2020 19:14:35 OXYGEN SATURATION 99.0 % 08/18/2020 19:14:35 PAIN LEVEL 0.0 {score} 08/18/2020 19:17:27 RESPIRATION RATE 16.0 /min 08/18/2020 22:19:06 INTRAVASCULAR SYSTOLIC 104.0 mm[Hg] 08/18/2020 22:19: 06 INTRAVASCULAR DIASTOLIC 60.0 mm[Hg] 08/18/2020 22:19 :06 BODY TEMPERATURE 97.4 [degF] 08/18/2020 22:19:06 HEART BEAT 70.0 {beats}/min 08/18/2020 22:19:06 PAIN LEVEL 0.0 {score} 08/18/2020 22:19:06 OXYGEN SATURATION 98.0 % 08/18/2020 22:23:13 RESPIRATION RATE 18.0 /min 08/19/2020 1:59:00 INTRAVASCULAR SYSTOLIC 110.0 mm[Hg] 08/19/2020 1:59:0 0 INTRAVASCULAR DIASTOLIC 65.0 mm[Hg] 08/19/2020 1:59: 00 BODY TEMPERATURE 97.9 [degF] 08/19/2020 1:59:00 HEART BEAT 70.0 {beats}/min 08/19/2020 1:59:00 PAIN LEVEL 0.0 {score} 08/19/2020 1:59:00 RESPIRATION RATE 18.0 /min 08/19/2020 5:02:06 INTRAVASCULAR SYSTOLIC 103.0 mm[Hg] 08/19/2020 5:02:0 6 INTRAVASCULAR DIASTOLIC 60.0 mm[Hg] 08/19/2020 5:02: 06 BODY TEMPERATURE 98.1 [degF] 08/19/2020 5:02:06 HEART BEAT 70.0 {beats}/min 08/19/2020 5:02:06 PAIN LEVEL 0.0 {score} 08/19/2020 5:02:06 RESPIRATION RATE 18.0 /min 08/19/2020 11:45:00 BODY TEMPERATURE 96.8 [degF] 08/19/2020 11:45:00 BODY WEIGHT (MEASURED) 145.2 [lb_av] 08/19/2020 11:45: 00 INTRAVASCULAR SYSTOLIC 99.0 mm[Hg] 08/19/2020 11:46: 00 INTRAVASCULAR DIASTOLIC 60.0 mm[Hg] 08/19/2020 11:46 :00 OXYGEN SATURATION 99.0 % 08/19/2020 11:46:00 HEART BEAT 75.0 {beats}/min 08/19/2020 11:46:00 RESPIRATION RATE 15.0 /min 08/19/2020 12:06:24 INTRAVASCULAR SYSTOLIC 99.0 mm[Hg] 08/19/2020 12:06: 24 INTRAVASCULAR DIASTOLIC 60.0 mm[Hg] 08/19/2020 12:06 :24 BODY TEMPERATURE 96.8 [degF] 08/19/2020 12:06:24 HEART BEAT 75.0 {beats}/min 08/19/2020 12:06:24 PAIN LEVEL 0.0 {score} 08/19/2020 12:06:24 RESPIRATION RATE 17.0 /min 08/19/2020 13:05:06 INTRAVASCULAR SYSTOLIC 108.0 mm[Hg] 08/19/2020 13:05: 06 INTRAVASCULAR DIASTOLIC 64.0 mm[Hg] 08/19/2020 13:05 :06 BODY TEMPERATURE 97.2 [degF] 08/19/2020 13:05:06 HEART BEAT 72.0 {beats}/min 08/19/2020 13:05:06 PAIN LEVEL 0.0 {score} 08/19/2020 13:05:06 OXYGEN SATURATION 99.0 % 08/19/2020 13:58:53 OXYGEN SATURATION 99.0 % 08/19/2020 13:59:06 PAIN LEVEL 0.0 {score} 08/19/2020 13:59:50 RESPIRATION RATE 17.0 /min 08/19/2020 14:00:34 INTRAVASCULAR SYSTOLIC 108.0 mm[Hg] 08/19/2020 14:00: 34 INTRAVASCULAR DIASTOLIC 64.0 mm[Hg] 08/19/2020 14:00 :34 BODY TEMPERATURE 97.2 [degF] 08/19/2020 14:00:34 HEART BEAT 72.0 {beats}/min 08/19/2020 14:00:34 OXYGEN SATURATION 99.0 % 08/19/2020 14:00:34 RESPIRATION RATE 18.0 /min 08/19/2020 18:54:31 INTRAVASCULAR SYSTOLIC 111.0 mm[Hg] 08/19/2020 18:54: 31 INTRAVASCULAR DIASTOLIC 61.0 mm[Hg] 08/19/2020 18:54 :31 BODY TEMPERATURE 96.7 [degF] 08/19/2020 18:54:31 HEART BEAT 78.0 {beats}/min 08/19/2020 18:54:31 PAIN LEVEL 0.0 {score} 08/19/2020 18:54:31 OXYGEN SATURATION 99.0 % 08/19/2020 19:34:36 PAIN LEVEL 0.0 {score} 08/19/2020 19:35:21 RESPIRATION RATE 18.0 /min 08/19/2020 19:35:39 INTRAVASCULAR SYSTOLIC 111.0 mm[Hg] 08/19/2020 19:35: 39 INTRAVASCULAR DIASTOLIC 61.0 mm[Hg] 08/19/2020 19:35 :39 BODY TEMPERATURE 96.7 [degF] 08/19/2020 19:35:39 HEART BEAT 78.0 {beats}/min 08/19/2020 19:35:39 OXYGEN SATURATION 99.0 % 08/19/2020 19:35:39 RESPIRATION RATE 18.0 /min 08/19/2020 21:07:37 INTRAVASCULAR SYSTOLIC 124.0 mm[Hg] 08/19/2020 21:07: 37 INTRAVASCULAR DIASTOLIC 68.0 mm[Hg] 08/19/2020 21:07 :37 BODY TEMPERATURE 97.0 [degF] 08/19/2020 21:07:37 HEART BEAT 80.0 {beats}/min 08/19/2020 21:07:37 PAIN LEVEL 0.0 {score} 08/19/2020 21:07:37 OXYGEN SATURATION 98.0 % 08/19/2020 21:50:28 Immunizations Vaccine Date Status Reason SARS-COV-2 (COVID-19) vaccine, mRNA, spi ke protein, LNP, preservative free, 100 mcg/0.5mL dose 08/11/2020 10:33:00 Completed Social History Smoking Status Start Date End Date Unknown if ever smoked 08/20/2020 10:23:06
--- OUTSIDE RECORDS SUMMARY | 2020-09-19 12:07 | CCD ---
Author Author [facility] Organization [facility] Address Unknown Phone Unavailable Care Team Providers Care Stem Teacher Name Role Phone Vinny Cristina Unavailable PROBLEMS Type Condition ICD9-CM Code [id number] Code Onset Dates Condition S tatus SNOMED Code Notes Problem Benign prostatic hyperplasia without lower urina ry tract symptoms N40.0 Active [id number] ALLERGIES No Known Allergies ENCOUNTERS from 1940 to 2020-07-23 Encounter Location Date Provider Diagnosis [facility] [address] [place] [id number] Jun, Vinny Cristina IMMUNIZATIONS No Information SOCIAL HISTORY Tobacco Use: Social History Observation Description Date Details (start date - stop date) Former Smoker Sex Assigned At : Social History Observation Description Sex Assigned At Unknown Language: Question Answer Notes Languages spoken: Com[place] Pentecostalism: Question Answer Notes Pentecostalism No alevism beliefs that would impact health care. Alcohol Screening: Question Answer Notes Did you have a drink containing alcohol in the past year? Ye s Points 1 Interpretation Negative How often did you have six or more drinks on one occas ion in the past year? Never (0 points) How many drinks did you have on a typica l day when you were drinking in the past year? 1 or 2 (0 points) How often did you have a drink containing alcohol in t he past year? Monthly or less (1 point) Tobacco Use: Question Answer Notes Are you a: former smoker CLOSE TO A PACK A DA Y- QUIT OVER 20 YEARS AGO REASON FOR REFERRAL No Information VITAL SIGNS No information MEDICATIONS Medication SIG (Take, Route, Frequency, Duration) Notes Start Da te End Date Status Carbidopa-Levodopa 25-100 MG 1 tablet Orally Once a day for 30 day(s) Active Allopurinol 300 MG as directed Orally Active Vitamin D2 Active Captopril 25 MG 1 tablet 1 hour before or 2 hours after a meal Orally Once a day for 30 day(s) Active PROCEDURES No Information RESULTS No Results REASON FOR VISIT NEW PATIENT APPOINTMENT MEDICAL (GENERAL) HISTORY Type Description Date Medical History HTN Medical History PARKINSON'S Medical History OAB Medical History ANXIETY Medical History DEPRESSION Medical History VITAMIN D DEFICIENCY Surgical History KNEE REPLACEMENT (LEFT) Hospitalization History ENDOCARDITITS YEARS AGO Goals Section No Information Health Concerns No Information MEDICAL EQUIPMENT No Information MENTAL STATUS No Information FUNCTIONAL STATUS No Information ASSESSMENTS No Information PLAN OF TREATMENT No Information Insurance Providers Payer Name Payer Address Payer Phone Insured Name Patient Relati onship to Insured Coverage Start Date Coverage End Date MEDICARE COMPLETE [employer] [address] [address] [facility] [id number] EVARISTO KNOTT self
--- OUTSIDE RECORDS SUMMARY | 2020-09-19 12:07 | CCD | Continuity of Care Document ---
Author Author Govind VARGAS MD Organization Unknown Address [address] [place] [id number] Phone [phone] Care Team Providers Care Manager Play Name Role Phone Caroline Leger MD AUT [phone] Problems Description No Information Available Social History Type Date Description Comments Sex Unknown ETOH Use Denies alcohol use Tobacco Use Start: Unknown End: Unknown Patient is a former smoker Allergies, Adverse Reactions, Alerts Description No Known Drug Allergies Medications Active Medications SIG Qnty Indications Ordering Provide r Date Euflexxa 20mg/2ML Soln Prefill Syr leo rt knee #1 ked/hd 10/24/2019 right knee #2 11/01/2019 right knee #3 11/08/2019 ked/sw Akash Zuniga MD 03/29/2019 Captopril Tablets every day Unknown Aspirin Adult Low Dose 81mg Tablet s DR 1 by mouth every day Unknown Will Bring List Next Appt Unknown Immunizations Description No Information Available Vital Signs Date Vital Result Comment 06/26/2020 11:53am Height 66 inches 5'6" Weight 163.00 lb BMI (Body Mass Index) 26.3 kg/m2 02/14/2018 10:13am Body Temperature 98.2 F Height 64 inches 5'4" Weight 204.50 lb BMI (Body Mass Index) 35.1 kg/m2 Results Description No Information Available Procedures Date Code Description Status 06/26/2020 81516 X-Ray Knee Ap & Lateral W/Obliqu es Three Views Completed 06/26/2020 10093 X-Ray Hip Unilateral With Pelvis 2-3 Views Completed 06/26/2020 02681 X-Ray Spine Lumbosacral Complete W/Oblique 4 Views Completed Medical Devices Description No Information Available Encounters Description No Information Available Assessments Date Code Description Provider 06/26/2020 M47.896 Other spondylosis, lumbar region Michael Vargas MD 06/26/2020 M51.36 Other intervertebral disc degene ration, lumbar region Michael Vargas MD 06/26/2020 M48.061 Spinal stenosis, lum bar region without neurogenic claudication Michael Vargas MD Plan of Treatment 06/26/2020 - Michael Vargas MD* M47.896 Other spondylosis, lumbar region* Follow up:* in * M51.36 Other intervertebral disc degeneration, lumbar region * M48.061 Spinal stenosis, lumbar region without neurogenic claudication* New Xrays:* Bone Scan Total Body, Ordered: 06/26/20 Functional Status Description No Information Available Mental Status Description No Information Available Referrals Description No Information Available
--- OUTSIDE RECORDS SUMMARY | 2020-09-19 12:07 | CCD | Continuity of Care Document ---
Author Author Goivnd VARGAS MD Organization Unknown Address [address] [place] [id number] Phone [phone] Care Team Providers Care Construction Economist Name Role Phone Caroline Leger MD AUT [phone] Problems Description No Information Available Social History [...] Available Procedures Date Code Description Status 06/26/2020 30726 X-Ray Knee Ap & Lateral W/Obliqu es Three Views Completed 06/26/2020 95839 X-Ray Hip Unilateral With Pelvis 2-3 Views Completed 06/26/2020 98223 X-Ray Spine Lumbosacral Complete W/Oblique 4 Views Completed Medical Devices Description No Information Available Encounters Description No Information Available Assessments Date Code Description Provider 06/26/2020 M51.36 Other intervertebral disc degene ration, lumbar region Michael Vargas MD 06/26/2020 M48.061 Spinal stenosis, lum bar region without neurogenic claudication Michael Vargas MD 06/26/2020 M16.12 Unilateral primary osteoarthriti s, left hip Michael Vargas MD 06/26/2020 M25.562 Pain in left knee Michael Vargas MD 06/26/2020 Z96.652 Presence of left artificial knee joint Michael Vargas MD Plan of Treatment 06/26/2020 - Michael Vargas MD* M51.36 Other intervertebral disc degeneration, lumbar region * M48.061 Spinal stenosis, lumbar region without neurogenic claudication * M16.12 Unilateral primary osteoarthritis, left hip * M25.562 Pain in left knee * Z96.652 Presence of left artificial knee joint* Follow up:* in Functional Status Description No Information Available Mental Status Description No Information Available Referrals Refer to Reason for Referral Status Appt Date Michael Vargas MD BONE SCAN APPROVED PER [facility] FOR BONE SCAN OF TOTAL BODY (42273) TO JAKOB SALAZAR Created [address], [address] [place] [address] [phone]
--- OUTSIDE RECORDS SUMMARY | 2020-09-19 12:07 | CCD | Summary of Care ---
Author Author [facility] Address Unknown Phone Unavailable Care Team Providers Care Liner Machine Operator Name Role Phone PCP Unavailable Encounter Details Care Team Description Date Type Department 07/07/2020 [facility] TRANSFER CE NTER Encounter [address] [place] [address] Allergies Not on Filedocumented as of this encounter (statuses as of 07/22/2020) Medications Not on filedocumented as of this encounter (statuses as of 07/22/2020) Active Problems Not on filedocumented as of this encounter (statuses as of 07/22/2020) Social History Date Tobacco Use Types Packs/Day Years Used Never Assessed Sex Assigned at Date Recorded Not on file documented as of this encounter Last Filed Vital Signs Not on filedocumented in this encounter Progress Notes * Jaz Montenegro RN - 07/07/2020 11:01 PM EST I was asked to ascertain bed availability for this patient and have determined t hat no appropriate bed for this individual patient is available at either campus . This includes hallway beds or other accommodations that we would customarily m luisa for this individual patient's needs. documented in this encounter Plan of Treatment Health Maintenance Due Date Last Done Comments MMR Vaccines (1 of - 1941 Standard series) Varicella Vaccines (1 of 1941 2 - 2-dose childhood series) DTaP,Tdap,and Td Vaccines 1947 (1 - Tdap) Zoster Vaccines (1 of 2) 1990 Pneumococcal Vaccine: 65+ 2005 Years (1 of 1 - PPSV23) Influenza Vaccine Completed 06/26/2020, 06/14/2019, 07/11/2018, Additional history exists HIB Vaccines Aged Out No longer eligible based on patient's age to complete this topic Hepatitis A Vaccines Aged Out No longer eligibl e based on patient's age to complete this topic Hepatitis B Vaccines Aged Out No longer eligibl e based on patient's age to complete this topic IPV Vaccines Aged Out No longer eligible based on patient's age to complete this topic Pneumococcal Vaccine: Aged Out No longer eligib le based on patient's age to Pediatrics (0 to 5 Years) complete this topic and At-Risk Patients (6 to 64 Years) documented as of this encounter Results Not on filedocumented in this encounter
--- OUTSIDE RECORDS SUMMARY | 2020-09-19 12:07 | CCD ---
Author Author [facility] Organization [facility] Address Unknown Phone Unavailable Care Team Providers [facility] [employer] Business Analyst Name Role Phone Genesis Jean MD Unavailable Unavailable Genesis Jean MD Unavailable Unavailable Genesis Jean MD Unavailable Unavailable Genesis Jean MD Unavailable Unavailable Genesis Jean MD Unavailable Unavailable Genesis Jean MD Unavailable Unavailable Genesis Jean MD Unavailable Unavailable Genesis Jean MD Unavailable Unavailable Genesis Jean MD Unavailable Unavailable Genesis Jean MD Unavailable Unavailable Genesis Jean MD Unavailable Unavailable Genesis Jean MD Unavailable Unavailable Genesis Jean MD Unavailable Unavailable Genesis Jean MD Unavailable Unavailable Genesis Jean MD Unavailable Unavailable Genesis Jean MD Unavailable Unavailable Genesis Jean MD Unavailable Unavailable Genesis Jean MD Unavailable Unavailable Genesis Jean MD Unavailable Unavailable Genesis Jean MD Unavailable Unavailable Genesis Jean MD Unavailable Unavailable Genesis Jean MD Unavailable Unavailable Genesis Jean MD Unavailable Unavailable Genesis Jean MD Unavailable Unavailable Genesis Jean MD Unavailable Unavailable Genesis Jean MD Unavailable Unavailable Genesis Jean MD Unavailable Unavailable Genesis Jean MD Unavailable Unavailable Genesis Jean MD Unavailable Unavailable Genesis Jean MD Unavailable Unavailable Genesis Jean MD Unavailable Unavailable Genesis Jean MD Unavailable Unavailable Genesis Jean MD Unavailable Unavailable Genesis Jean MD Unavailable Unavailable Genesis Jean MD Unavailable Unavailable Genesis Jean MD Unavailable Unavailable Genesis Jean MD Unavailable Unavailable Genesis Jean MD Unavailable Unavailable Genesis Jean MD Unavailable Unavailable Genesis Jean MD Unavailable Unavailable Genesis Jean MD Unavailable Unavailable Genesis Jean MD Unavailable Unavailable Genesis Jean MD Unavailable Unavailable Genesis Jean MD Unavailable Unavailable Genesis Jean MD Unavailable Unavailable Genesis Jean MD Unavailable Unavailable Genesis Jean MD Unavailable Unavailable Genesis Jean MD Unavailable Unavailable Genesis Jean MD Unavailable Unavailable FRANCOIS, E MARLEEN KAPADIA Unavailable Unavailable FRANCOIS, Zuleima HAWLEY MD Unavailable Unavailable FRANCOIS, Zuleima HAWLEY MD Unavailable Unavailable FRANCOIS, E MARLEEN KAPADIA Unavailable Unavailable FRANCOIS, E MARLEEN KAPADIA Unavailable Unavailable FRANCOIS, E MARLEEN KAPADIA Unavailable Unavailable FRANCOIS, E MARLEEN KAPADIA Unavailable Unavailable FRANCOIS, E MARLEEN KAPADIA Unavailable Unavailable FRANCOIS, E MARLEEN KAPADIA Unavailable Unavailable FRANCOIS, E MARLEEN KAPADIA Unavailable Unavailable FRANCOIS, E MARLEEN KAPADIA Unavailable Unavailable FRANCOIS, E MARLEEN KAPADIA Unavailable Unavailable FRANCOIS, E MARLEEN KAPADIA Unavailable Unavailable FRANCOIS, E MARLEEN KAPADIA Unavailable Unavailable FRANCOIS, E MARLEEN KAPADIA Unavailable Unavailable FRANCOIS, E MARLEEN KAPADIA Unavailable Unavailable FRANCOIS, E MARLEEN KAPADIA Unavailable Unavailable FRANCOIS, E MARLEEN KAPADIA Unavailable Unavailable FRANCOIS, E MARLEEN KAPADIA Unavailable Unavailable FRANCOIS, E MARLEEN KAPADIA Unavailable Unavailable FRANCOIS, E MARLEEN KAPADIA Unavailable Unavailable FRANCOIS, E MARLEEN KAPADIA Unavailable Unavailable FRANCOIS, E MARLEEN KAPADIA Unavailable Unavailable FRANCOIS, E MARLEEN KAPADIA Unavailable Unavailable FRANCOIS, E MARLEEN KAPADIA Unavailable Unavailable FRANCOIS, E MARLEEN KAPADIA Unavailable Unavailable FRANCOIS, E MARLEEN KAPADIA Unavailable Unavailable FRANCOIS, E MARLEEN KAPADIA Unavailable Unavailable FRANCOIS, E MARLEEN KAPADIA Unavailable Unavailable FRANCOIS, E MARLEEN KAPADIA Unavailable Unavailable FRANCOIS, E MARLEEN KAPADIA Unavailable Unavailable FRANCOIS, E MARLEEN KAPADIA Unavailable Unavailable FRANCOIS, Zuleima HAWLEY MD Unavailable Unavailable FRANCOIS, Zuleima HAWLEY MD Unavailable Unavailable FRANCOIS, E MARLEEN KAPADIA Unavailable Unavailable FRANCOIS, E MARLEEN KAPADIA Unavailable Unavailable FRANCOIS, E MARLEEN KAPADIA Unavailable Unavailable FRANCOIS, E MARLEEN KAPADIA Unavailable Unavailable FRANCOIS, E MARLEEN KAPADIA Unavailable Unavailable FRANCOIS, E MARLEEN KAPADIA Unavailable Unavailable FRANCOIS, E MARLEEN KAPADIA Unavailable Unavailable FRANCOIS, E MARLEEN KAPADIA Unavailable Unavailable FRANCOIS, E MARLEEN KAPADIA Unavailable Unavailable FRANCOIS, E MARLEEN KAPADIA Unavailable Unavailable FRANCOIS, E MARLEEN KAPADIA Unavailable Unavailable FRANCOIS, E MARLEEN KAPADIA Unavailable Unavailable Zuleima FRANCOIS MD Unavailable Unavailable Zuleima FRANCOIS MD Unavailable Unavailable Zuleima FRANCOIS MD Unavailable Unavailable Zuleima FRANCOIS MD Unavailable Unavailable Zuleima FRANCOIS MD Unavailable Unavailable Zuleima FRANCOIS MD Unavailable Unavailable Zuleima FRANCOIS MD Unavailable Unavailable Zuleima FRANCOIS MD Unavailable Unavailable Zuleima FRANCOIS MD Unavailable Unavailable Re-disclosure Warning The records that you are about to access may contain information from federally-assisted alcohol or drug abuse programs. If such information is present, then the following federally mandated warning applies: This information has been disclosed to you from records protected by federal confidentiality rules (42 CFR part 2). The federal rules prohibit you from making any further disclosure of this information unless further disclosure is expressly permitted by the written consent of the person to whom it pertains or as otherwise permitted by 42 CFR part 2. A general authorization for the release of medical or other information is NOT sufficient for this purpose. The Federal rules restrict any use of the information to criminally investigate or prosecute any alcohol or drug abuse patient.The records that you are about to access may contain highly sensitive health information, the redisclosure of which is protected by Article 27-F of the [facility] Public Health law. If you continue you may have access to information: Regarding HIV / AIDS; Provided by facilities licensed or operated by the [facility] Office of Mental Health; or Provided by the [facility] Office for People With Developmental Disabilities. If such information is present, then the following [facility] mandated warning applies: This information has been disclosed to you from confidential records which are protected by state law. State law prohibits you from making any further disclosure of this information without the specific written consent of the person to whom it pertains, or as otherwise permitted by law. Any unauthorized further disclosure in violation of state law may result in a fine or custodial sentence or both. A general authorization for the release of medical or other information is NOT sufficient authorization for further disc losure. Allergies and Adverse Reactions Type Description Substance Reaction Status Data Source(s ) No Known Allergies No Known Allergies [facility] ([facility]) Family History Family Member Name Family Member Gender Family Member Status Date o f Status Description Data Source(s) Unknown Unknown Problem [facility] ([facility] Unknown Female Problem [facility] ([facility]) Encounters Encounter Providers Location Date Indications Data Source(s ) Inpatient Attender: MARLEEN FRANCOIS MD 07/23 10:12:00 AM EST - 08/20/2020 10:00:00 AM EST [facility] ( [facility]) Patient discharged. Unknown [address] [facility] [address] 07/09/2020 12:00:00 AM EST eCW1 [facility] Outpatient [id number] 07/07/2020 11:17:00 PM EST [facility] Office Visit Attender: Genesis Jean MD Main office - [place] 05/21/2020 02:00:00 PM EDT [facility] ([facility]) Outpatient Attender: Genesis Jean MD Main office - [place] 11/20/2019 01:45:00 PM EDT [facility] ([facility]) Immunizations Vaccine Date Status Description Data Source(s) INFLUENZA VACCINE QUADRIVALENT (65 YR UP)/MF59 C.1/PF 06/26/2020 12:00:00 AM EST completed [facility] Medications Medication Brand Name Start Date Product Form Dose Route Admi nistrative Instructions Pharmacy Instructions Status Indications Reaction Description Data Source(s) 25 mg 08/29/2020 12:00:00 AM EST tablet 30 TAKE ONE TABLET BY MOUTH AT BEDTIME TAKE ONE TABLET BY MOUTH AT BEDTIME SOLD: 08/29/2020 [facility] 25-100 mg 08/20/2020 12:00:00 AM EST tablet 120 TAKE ONE TABLET BY MOUTH FOUR TIMES A DAY TAKE ONE TABLET BY MOUTH FOUR TIMES A DAY SOLD: 08/20/2020 [facility] 25 mg 08/20/2020 12:00:00 AM EST tablet 60 TAKE ONE TABLET BY MOUTH TWICE A DAY TAKE ONE TABLET BY MOUTH TWICE A DAY SOLD: 08/20/2020 [facility] 300 mg 08/20/2020 12:00:00 AM EST tablet 30 TAKE ONE TABLET BY MOUTH EVERY DAY FOR GOUT TAKE ONE TABLET BY MOUTH EVERY DAY FOR GOUT SOLD: 08/20/2020 [facility] 1,250 mcg (50,000 unit) 08/20/2020 12:00:00 AM EST capsule 4 TAKE 1 CAPSULE BY MOUTH EVERY TUESDAY TAKE 1 CAPSULE BY MOUTH EVERY TUESDAY SOLD: 08/20/2020 [facility] 7.5-325 mg 07/02/2020 12:00:00 AM EST tablet 45 TAKE ONE TABLET BY MOUTH TWICE A DAY NEEDED FOR SEVERE BACK PAIN MAXIMUM DAILY DOSE = 2 TABLETS TAKE ONE TABLET BY MOUTH TWICE A DAY NEEDED FOR SEVERE BACK PAIN MAXIMUM DAILY DOSE = 2 TABLETS SOLD: 07/03/2020 [facility] Naproxen 500 MG Oral Tablet Naproxen 06/27/2020 12:00:00 AM EST ORAL active [facility] ([facility] 500 mg 06/27/2020 12:00:00 AM EST tablet 60 TAKE ONE TABLET BY MOUTH TWICE A DAY NEEDED FOR BACK PAIN TAKE ONE TABLET BY MOUTH TWICE A DAY NEEDED FOR BACK PAIN SOLD: 07/02/2020 [facility] 500 mg 06/14/2020 12:00:00 AM EDT tablet 30 TAKE ONE TABLET BY MOUTH TWICE A DAY TAKE WITH FOOD TAKE ONE TABLET BY MOUTH TWICE A DAY TAKE WITH FOOD SO LD: 06/14/2020 [facility] 350 mg 06/13/2020 12:00:00 AM EDT tablet 15 TAKE ONE TABLET BY MOUTH THREE TIMES A DAY NEEDED FOR MUSCLE SPASM MAXIMUM DAILY DOSE = 3 TAKE ONE TABLET BY MOUTH THREE TIMES A DAY NEEDED FOR MUSCLE SPASM MAXIMUM DAILY DOSE = 3 SOLD: 06/14/2020 [facility] 7.5-325 mg 06/10/2020 12:00:00 AM EDT tablet 15 TAKE ONE TABLET BY MOUTH THREE TIMES A DAY MAXIMUM DAILY DOSE = THREE TABLETS TAKE ONE TABLET BY MOUTH THREE TIMES A DAY MAXIMUM DAILY DOSE = THREE TABLETS SOLD: 06/11/2020 [facility] 50 mg 06/06/2020 12:00:00 AM EDT tablet 12 TAKE ONE TABLET BY MOUTH EVERY 8 HOURS NEEDED FOR PAIN MAXIMUM DAILY DOSE = FOUR TABLETS TAKE ONE TABLET BY MOUTH EVERY 8 HOURS NEEDED FOR PAIN MAXIMUM DAILY DOSE = FOUR TABLETS SOLD: 06/07/2020 [facility] 25-100 mg 05/23/2020 12:00:00 AM EDT tablet 120 TAKE ONE TABLET BY MOUTH FOUR TIMES A DAY AT 8:00AM, 11:00AM, 2:00PM, AND 5:00PM TAKE ONE TABLET BY MOUTH FOUR TIMES A DAY AT 8:00AM, 11:00AM, 2:00PM, AND 5:00PM SOLD: 05/23/2020 [facility] 25 mg 04/18/2020 12:00:00 AM EDT tablet 180 TAKE ONE TABLET BY MOUTH TWICE A DAY TAKE ONE TABLET BY MOUTH TWICE A DAY SOLD: 05/04/2020 [facility] 300 mg 04/18/2020 12:00:00 AM EDT tablet 90 TAKE ONE TABLET BY MOUTH EVERY DAY TAKE ONE TABLET BY MOUTH EVERY DAY SOLD: 05/04/2020 [facility] 25-100 mg 04/18/2020 12:00:00 AM EDT tablet extended release 120 TAKE ONE TABLET BY MOUTH FOUR TIMES A DAY TAKE ONE TABLET BY MOUTH FOUR TIMES A DAY SOLD: 05/04/2020 [facility] 1,250 mcg (50,000 unit) 04/18/2020 12:00:00 AM EDT capsule 12 TAKE 1 CAPSULE BY MOUTH ONCE PER WEEK TAKE 1 CAPSULE BY MOUTH ONCE PER WEEK SOLD: 05/04/2020 [facility] 1,250 mcg (50,000 unit) 01/17/2020 12:00:00 AM EDT capsule 12 TAKE 1 CAPSULE BY MOUTH ONCE PER WEEK TAKE 1 CAPSULE BY MOUTH ONCE PER WEEK SOLD: 01/25/2020 [facility] 300 mg 01/17/2020 12:00:00 AM EDT tablet 90 TAKE ONE TABLET BY MOUTH EVERY DAY TAKE ONE TABLET BY MOUTH EVERY DAY SOLD: 01/25/2020 [facility] 25 mg 01/17/2020 12:00:00 AM EDT tablet 180 TAKE ONE TABLET BY MOUTH TWICE A DAY TAKE ONE TABLET BY MOUTH TWICE A DAY SOLD: 01/25/2020 [facility] 25-100 mg 11/21/2019 12:00:00 AM EDT tablet 120 TAKE ONE TABLET BY MOUTH FOUR TIMES A DAY (8AM 11AM 2PM' AND 5PM) MAXIMUM DAILY DOSE = 4 TABLETS TAKE ONE TABLET BY MOUTH FOUR TIMES A DAY (8AM 11AM 2PM' AND 5PM) MAXIMUM DAILY DOSE = 4 TABLETS SOLD: 01/01/2020 [facility] 25-100 mg 11/21/2019 12:00:00 AM EDT tablet 120 TAKE ONE TABLET BY MOUTH FOUR TIMES A DAY (8AM 11AM 2PM' AND 5PM) MAXIMUM DAILY DOSE = 4 TABLETS TAKE ONE TABLET BY MOUTH FOUR TIMES A DAY (8AM 11AM 2PM' AND 5PM) MAXIMUM DAILY DOSE = 4 TABLETS SOLD: 04/11/2020 [facility] 25-100 mg 11/21/2019 12:00:00 AM EDT tablet 120 TAKE ONE TABLET BY MOUTH FOUR TIMES A DAY (8AM 11AM 2PM' AND 5PM) MAXIMUM DAILY DOSE = 4 TABLETS TAKE ONE TABLET BY MOUTH FOUR TIMES A DAY (8AM 11AM 2PM' AND 5PM) MAXIMUM DAILY DOSE = 4 TABLETS SOLD: 02/03/2020 [facility] 25-100 mg 11/21/2019 12:00:00 AM EDT tablet 108 TAKE ONE TABLET BY MOUTH FOUR TIMES A DAY (8AM 11AM 2PM' AND 5PM) MAXIMUM DAILY DOSE = 4 TABLETS TAKE ONE TABLET BY MOUTH FOUR TIMES A DAY (8AM 11AM 2PM' AND 5PM) MAXIMUM DAILY DOSE = 4 TABLETS SOLD: 11/25/2019 [facility] 25-100 mg 11/21/2019 12:00:00 AM EDT tablet 120 TAKE ONE TABLET BY MOUTH FOUR TIMES A DAY (8AM 11AM 2PM' AND 5PM) MAXIMUM DAILY DOSE = 4 TABLETS TAKE ONE TABLET BY MOUTH FOUR TIMES A DAY (8AM 11AM 2PM' AND 5PM) MAXIMUM DAILY DOSE = 4 TABLETS SOLD: 03/07/2020 [facility] 25-100 mg 10/23/2019 12:00:00 AM EST tablet 92 TAKE ONE TABLET BY MOUTH FOUR TIMES A DAY AT 8AM AND 11AM AND 2 IN THE EVENING AND 5PM MAXIMUM DAILY DOSE = 4 TAKE ONE TABLET BY MOUTH FOUR TIMES A DAY AT 8AM AND 11AM AND 2 IN THE EVENING AND 5PM MAXIMUM DAILY DOSE = 4 SOLD: 10/31/2019 [facility] 300 mg 10/18/2019 12:00:00 AM EST tablet 90 TAKE ONE TABLET BY MOUTH EVERY DAY TAKE ONE TABLET BY MOUTH EVERY DAY SOLD: 10/22/2019 [facility] 1,250 mcg (50,000 unit) 10/18/2019 12:00:00 AM EST capsule 12 TAKE 1 CAPSULE BY MOUTH ONCE PER WEEK TAKE 1 CAPSULE BY MOUTH ONCE PER WEEK SOLD: 10/22/2019 [facility] 25 mg 10/18/2019 12:00:00 AM EST tablet 180 TAKE ONE TABLET BY MOUTH TWICE A DAY TAKE ONE TABLET BY MOUTH TWICE A DAY SOLD: 10/22/2019 [facility] 1,250 mcg (50,000 unit) 09/18/2019 12:00:00 AM EST capsule 26 TAKE 1 CAPSULE BY MOUTH ONCE WEEKLY TAKE 1 CAPSULE BY MOUTH ONCE WEEKLY SOLD: 09/26/2019 [facility] 25-100 mg 06/18/2019 12:00:00 AM EDT tablet 120 TAKE ONE TABLET BY MOUTH FOUR TIMES A DAY AT 8AM 11AM 2PM' AND 5PM TAKE ONE TABLET BY MOUTH FOUR TIMES A DAY AT 8AM 11AM 2PM' AND 5PM SOLD: 08/28/2019 [facility] 25-100 mg 06/18/2019 12:00:00 AM EDT tablet 120 TAKE ONE TABLET BY MOUTH FOUR TIMES A DAY AT 8AM 11AM 2PM' AND 5PM TAKE ONE TABLET BY MOUTH FOUR TIMES A DAY AT 8AM 11AM 2PM' AND 5PM SOLD: 07/27/2019 [facility] 25-100 mg 06/18/2019 12:00:00 AM EDT tablet 120 TAKE ONE TABLET BY MOUTH FOUR TIMES A DAY AT 8AM 11AM 2PM' AND 5PM TAKE ONE TABLET BY MOUTH FOUR TIMES A DAY AT 8AM 11AM 2PM' AND 5PM SOLD: 09/26/2019 [facility] Insurance Providers Payer name Policy type / Coverage type Policy ID Covered democrat ID Covered democrat's relationship to pierce Policy Pierce Plan Information MEDICARE COMPLETE [id number] SP [id number] [facility] MEDICARE COMPLETE G [id number] Self [id number] MEDICARE COMPLETE-[facility] O [id number] S [id number] "" [facility] None MEDICARE COMPLETE [id number] SP [id number] MEDICARE COMPLETE [id number] SP [id number] MEDICARE COMPLETE [id number] SP [id number] [employer] Workers Compensation [id number] Self [id number] [facility] Advantage Medigap Part B [id number] Self [id number] [facility] ([facility]) Commercial [id number] Self [id number] [facility] Medigap Part B [id number] Self [id number] [facility] (Medicare) Medigap Part B [id number] Self [id number] [facility]/Medicare Solu Commercial [id number] Self [id number] [employer] Workers Compensation [id number] Self [id number] [facility] Advantage Medigap Part B [id number] Self [id number] [facility] ([facility]) Commercial [id number] Self [id number] [employer] Workers Compensation [id number] Self [id number] [facility] Advantage Medigap Part B [id number] Self [id number] [facility] ([facility]) Commercial [id number] Self [id number] [employer] Workers Compensation [id number] Self [id number] [facility] Advantage Medigap Part B [id number] Self [id number] [facility] ([facility]) Commercial [id number] Self [id number] MEDICARE COMPLETE-[facility] O [id number] S [id number] MEDICARE COMPLETE [id number] SP [id number] [employer] Workers Compensation Self [employer] Medigap Part B Self [facility] Advantage Medigap Part B Self [facility] (Medicare) Medigap Part B [id number] Self [id number] [facility] ([facility]) Commercial Self [employer] [facility]/Medicare Solu Commercial Self [id number] Problems, Conditions, and Diagnoses Code Display Name Description Problem Type Effective Dates Data Source(s) R26.89 Other abnormalities of gait and mobility OTHER ABNORMALITIES OF GAIT AND MOBILITY Diagnosis 07/24/2020 12:00:00 AM EST [facility] ([facility]) R26.81 Unsteadiness on feet UNSTEADINESS ON FEET Diagnosis 07/24/2020 12:00:00 AM EST [facility] ([facility]) R49.8 Other voice and resonance disorders OTHER VOICE AND RESONANCE DISORDERS Diagnosis 07/24/2020 12:00:00 AM EST [facility] ([facility]) M62.81 Muscle weakness (generalized) MUSCLE WEAKNESS (GENERAL IZED) Diagnosis 07/23/2020 12:00:00 AM EST [facility] ([facility]) R06.02 Shortness of breath SHORTNESS OF BREATH Diagnosis 1 09/23/2019 12:00:00 AM EST [facility] ([facility]) M79.606 Pain in leg, unspecified PAIN IN LEG, UNSPECIFIED Diag nosis 07/23/2020 12:00:00 AM EST [facility] ([facility]) R41.0 Disorientation, unspecified DISORIENTATION, UNSPECIFIE D Diagnosis 07/23/2020 12:00:00 AM EST [facility] ([facility]) 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 FUNCTIONAL URINA RY INCONTINENCE Diagnosis 07/23/2020 12:00:00 AM EST [facility] ([facility]) F03.90 Unspecified dementia without behavioral disturbance UNSPECIFIED DEMENTIA WITHOUT BEHAVIORAL DISTURBANCE Diagnosis 07/23/2020 12:00:00 AM EST PC C ([facility]) M48.07 Spinal stenosis, lumbosacral region SPINAL STENO SIS, LUMBOSACRAL REGION Diagnosis 07/23/2020 12:00:00 AM EST [facility] ([facility]) G20 Parkinson's disease PARKINSON'S DISEASE Diagnosis 1 09/23/2019 12:00:00 AM EST [facility] ([facility]) S32.049D Unspecified fracture of four th lumbar vertebra, subsequent encounter for fracture with routine healing UNSPECIFIED FRACTURE OF FOURTH LUMBAR VERTEBRA, SUBSEQUENT ENCOUNTER FOR FRACTURE WITH ROUTINE HEALING Diagnosis 07/23/2020 12:00:00 AM EST [facility] ([facility] enter) incontinence incontinence Diagnosis 07/07/2020 11:17:00 P M [facility] inablilty to walk inablilty to walk Diagnosis 07/07/2020 11:17:00 PM [facility] Cauda equina Cauda equina Diagnosis 07/07/2020 11:17:00 P M [facility] Surgeries/Procedures Procedure Description Date Indications Data Source(s) RADEX SPINE LUMBOSACRAL MINIMUM 4 VIEWS 06/26/2020 12: 00:00 AM EST [facility] ([facility]) X-Ray Hip Unilateral With Pelvis 2-3 Views 06/26/2020 12:00:00 AM EST [facility] ([facility]) RADIOLOGIC EXAMINATION KNEE 3 VIEWS 06/26/2020 12:00:0 0 AM EST [facility] ([facility]) ARTHROCENTESIS ASPIR&/INJECTION MAJOR JT/BURSA 020 12:00:00 AM EDT [facility] ([facility]) ARTHROCENTESIS ASPIR&/INJECTION MAJOR JT/BURSA 12:00:00 AM EDT [facility] ([facility] ARTHROCENTESIS ASPIR&/INJECTION MAJOR JT/BURSA 12:00:00 AM EST [facility] ([facility]) Results ID Date Data Source [id number] 08/18/2020 07:40:51 PM EST [facility] - CORE SPECIMEN DESCRIPTION URINE, COLLE CTION METHOD NOT SPECIFIEDCULTURE RESULTS NO GROWTHREPORT STATUS FINAL 08/19/2020 Name Value Range Interpretation Code Description Data Vivian rce(s) Supporting Document(s) COLOR [facility] - CORE APPEARANCE [facility] - CORE SPEC GRAV URINE 1.021 (1.003-1.030) [facility] - CORE PH URINE 6.0 (5.0-7.5) [facility] - CORE LEUK ESTERASE (NEG) [facility] - CORE NITRITE URINE (NEG) [facility] - CORE PROTEIN URINE (NEG) A [facility] - CORE GLUCOSE URINE (NEG) [facility] - CORE KETONE URINE (NEG) [facility] - CORE UROBILINOGEN 0.2 mg/dL (0-1.0) [facility] - CORE BILIRUBIN URINE (NEG) [facility] - CORE BLOOD/HGB URINE 1+ (NEG) A [facility] - CORE EPITHELIAL CELLS (NEG) [facility] - CORE HYALINE CASTS 0.3 [LPF] (0-5) [facility] - CORE BACTERIA (NEG) [facility] - CORE URINE WBC 0.5 [HPF] (0-8) [facility] - CORE URINE RBC 20.1 [HPF] (0-3) H [facility] - CORE ID Date Data Source [id number] 08/19/2020 03:07:00 PM EST [facility] - CORE SPECIMEN DESCRIPTION URINE, COLLE CTION METHOD NOT SPECIFIEDCULTURE RESULTS NO GROWTHREPORT STATUS FINAL 08/19/2020 Name Value Range Interpretation Code Description Data Viv[facility](s) Supporting Document(s) ID Date Data Source [id number] 08/18/2020 10:51:02 AM EST [facility] - CORE Name Value Range Interpretation Code Description Data Vivian rce(s) Supporting Document(s) WBC 12.2 10*3/uL (4.1-11.0) H [facility] - CORE RBC 4.12 10*6/uL (4.60-6.10) L [facility] - CORE HGB 12.4 g/dL (13.5-18.0) L [facility] - CORE HCT 37.3 % (41.0-53.0) L [facility] - CORE MCV 90.6 fL (80.0-95.0) [facility] - CORE MCH 30.1 pg (27.0-32.0) [facility] - CORE MCHC 33.2 g/dL (32.0-36.0) [facility] - CORE RDW 15.1 % (10.5-14.5) H [facility] - CORE PLT 260 10*3/uL (150-450) [facility] - CORE MPV 9.0 fL (7.1-10.7) [facility] - CORE NEUT % 74.9 % (35.0-75.0) [facility] - CORE LYMPH % 16.0 % (16.0-52.0) [facility] - CORE MONO % 7.1 % (0.0-8.0) [facility] - CORE EOS % 1.7 % (0.0-5.0) [facility] - CORE BASO % 0.3 % (0.0-4.0) [facility] - CORE NEUT # 9.2 10*3/uL (1.8-7.7) H [facility] - CORE LYMPH # 2.0 10*3/uL (1.2-4.8) [facility] - CORE MONO # 0.9 10*3/uL (0.0-0.8) H [facility] - CORE Eosinophils [#/volume] in Blood by Automated count 0.2 10*3/uL (0.0-0 .5) [facility] - CORE BASO # 0.0 10*3/uL (0.0-0.2) [facility] C[facility] ID Date Data Source [id number] 08/18/2020 11:15:55 AM EST [facility] - CORE Name Value Range Interpretation Code Description Data Vivian rce(s) Supporting Document(s) SODIUM 139 mmol/L (136-145) [facility] - CORE POTASSIUM 4.3 mmol/L (3.6-5.2) [facility] - CORE CHLORIDE 102 mmol/L (100-108) [facility] - CORE CO2 26 mmol/L (22-31) [facility] - CORE ANION GAP 11 mmol/L (7-16) [facility] - CORE UREA NITROGEN 22 mg/dL (7-24) Laboratory [facility] - CORE CREATININE 0.54 mg/dL (0.80-1.30) L Laboratory [facility] - CORE BUN/CREAT RATIO 40.7 RATIO (10.0-20.0) H [facility] - CORE GLUCOSE 70 mg/dL (70-99) [facility] - CORE CALCIUM 7.9 mg/dL (8.4-10.2) L [facility] - CORE GFR >60 ml/min/1.73m2 (>59) Laboratory [facility] [facility] [employer] GFR ( AM) >60 ml/min/1.73m2 (>59) Laboratory [facility] [facility] GFR INTERPRETATION Laboratory [facility] --NORMAL KIDNEY FUNCTION OR MILD DISEASE - GFR >OR= 60CHRONIC KIDNEY DISEASE - GFR 15 - 59RENAL FAILURE - GFR <15 Est. GFR calculation based on the MDRDstudy equation, which assumes a steadystate for creatinine. Est. GFR should notbe used for medication dosing. ID Date Data Source [id number] 08/17/2020 02:11:47 PM EST Laboratory [facility] Name Value Range Interpretation Code Description Data Vivian rce(s) Supporting Document(s) WBC 16.5 10*3/uL (4.1-11.0) H [facility] - CORE RBC 4.08 10*6/uL (4.60-6.10) L Laboratory [facility] - CORE HGB 12.2 g/dL (13.5-18.0) L [facility] - CORE HCT 37.4 % (41.0-53.0) L [facility] - CORE PERFORMED AT [address] [place] [address] [place] [id number] MCV 91.5 fL (80.0-95.0) [facility] - CORE MCH 29.9 pg (27.0-32.0) [facility] - CORE MCHC 32.7 g/dL (32.0-36.0) [facility] - CORE RDW 15.1 % (10.5-14.5) H [facility] - CORE PLT 245 10*3/uL (150-450) [facility] - CORE MPV 9.2 fL (7.1-10.7) [facility] - CORE NEUT % 84.5 % (35.0-75.0) H [facility] - CORE LYMPH % 8.4 % (16.0-52.0) L [facility] - CORE MONO % 6.0 % (0.0-8.0) [facility] - CORE EOS % 0.8 % (0.0-5.0) [facility] - CORE BASO % 0.3 % (0.0-4.0) [facility] - CORE NEUT # 14.0 10*3/uL (1.8-7.7) H [facility] - CORE LYMPH # 1.4 10*3/uL (1.2-4.8) [facility] - CORE MONO # 1.0 10*3/uL (0.0-0.8) H [facility] - CORE Eosinophils [#/volume] in Blood by Automated count 0.1 10*3/uL (0.0-0 .5) [facility] - CORE BASO # 0.0 10*3/uL (0.0-0.2) Laboratory [facility] - CORE ID Date Data Source [id number] 08/17/2020 02:37:30 PM EST Laboratory [facility] - CORE Name Value Range Interpretation Code Description Data Vivian rce(s) Supporting Document(s) SODIUM 137 mmol/L (136-145) [facility] - CORE POTASSIUM 4.3 mmol/L (3.6-5.2) [facility] - CORE CHLORIDE 104 mmol/L (100-108) [facility] - CORE CO2 26 mmol/L (22-31) [facility] - CORE ANION GAP 7 mmol/L (7-16) [facility] - CORE UREA NITROGEN 27 mg/dL (7-24) H [facility] - CORE CREATININE 0.57 mg/dL (0.80-1.30) L [facility] - CORE BUN/CREAT RATIO 47.4 RATIO (10.0-20.0) H [facility] - CORE GLUCOSE 61 mg/dL (70-99) L [facility] - CORE CALCIUM 8.0 mg/dL (8.4-10.2) L [facility] - CORE GFR >60 ml/min/1.73m2 (>59) Laboratory [facility] - CORE GFR ( AMER) >60 ml/min/1.73m2 (>59) Laboratory [facility] - CORE GFR INTERPRETATION Laboratory [facility] [employer] CORE --NORMAL KIDNEY FUNCTION OR MILD DISEASE - GFR >OR= 60CHRONIC KIDNEY DISEASE - GFR 15 - 59RENAL FAILURE - GFR <15 Est. GFR calculation based on the MDRDstudy equation, which assumes a steadystate for creatinine. Est. GFR should notbe used for medication dosing. ID Date Data Source [id number] 08/16/2020 02:15:16 PM EST Laboratory [facility] Name Value Range Interpretation Code Description Data Vivian rce(s) Supporting Document(s) SODIUM 136 mmol/L (136-145) [facility] - CORE POTASSIUM 4.3 mmol/L (3.6-5.2) [facility] - CORE CHLORIDE 100 mmol/L (100-108) [facility] - CORE CO2 25 mmol/L (22-31) [facility] - CORE ANION GAP 11 mmol/L (7-16) [facility] - CORE UREA NITROGEN 40 mg/dL (7-24) H [facility] - CORE CREATININE 0.91 mg/dL (0.80-1.30) [facility] - CORE BUN/CREAT RATIO 44.0 RATIO (10.0-20.0) H [facility] - CORE GLUCOSE 85 mg/dL (70-99) [facility] - CORE CALCIUM 8.4 mg/dL (8.4-10.2) [facility] - CORE GFR >60 ml/min/1.73m2 (>59) [facility] - CORE GFR ( AMER) >60 ml/min/1.73m2 (>59) [facility] - CORE GFR INTERPRETATION Laboratory [facility] [employer] CORE --NORMAL KIDNEY FUNCTION OR MILD DISEASE - GFR >OR= 60CHRONIC KIDNEY DISEASE - GFR 15 - 59RENAL FAILURE - GFR <15 Est. GFR calculation based on the MDRDstudy equation, which assumes a steadystate for creatinine. Est. GFR should notbe used for medication dosing. ID Date Data Source [id number] 08/16/2020 03:15:37 PM EST Laboratory [facility] Name Value Range Interpretation Code Description Data Vivian rce(s) Supporting Document(s) WBC 28.9 10*3/uL (4.1-11.0) H [facility] - CORE RBC 4.59 10*6/uL (4.60-6.10) L Laboratory [facility] - CORE HGB 13.6 g/dL (13.5-18.0) [facility] - CORE HCT 42.6 % (41.0-53.0) [facility] - CORE MCV 92.7 fL (80.0-95.0) [facility] - CORE MCH 29.5 pg (27.0-32.0) [facility] - CORE MCHC 31.8 g/dL (32.0-36.0) L [facility] - CORE RDW 15.1 % (10.5-14.5) H [facility] - CORE PLT 319 10*3/uL (150-450) [facility] - CORE MPV 9.6 fL (7.1-10.7) [facility] - CORE NEUT % 74.0 % (35.0-75.0) [facility] - CORE BAND % 11.0 % (0.0-11.0) [facility] - CORE LYMPH % 9.0 % (16.0-52.0) L [facility] - CORE MONO % 5.0 % (0.0-8.0) [facility] - CORE EOS % 1.0 % (0.0-5.0) [facility] - CORE NEUT # 21.4 10*3/uL (1.8-7.7) H Laboratory [facility] - CORE BAND # 3.2 10*3/uL [facility] - CORE LYMPH # 2.6 10*3/uL (1.2-4.8) [facility] - CORE MONO # 1.4 10*3/uL (0.0-0.8) H [facility] - CORE Eosinophils [#/volume] in Blood by Automated count 0.3 10*3/uL (0.0-0 .5) Laboratory [facility] ANISO 1+ Laboratory [facility] of [facility] POIK 1+ Laboratory [facility] of [facility] OVALO 1+ Laboratory [facility] ID Date Data Source [id number] 08/14/2020 07:58:09 PM EST Laboratory [facility] DES[place] BLOODSPECIAL REQUESTS NONECULTURE RESULTS NO GROWTH 6 DAYSREPORT STATUS FINAL 08/20/2020 Name Value Range Interpretation Code Description Data Vivian rce(s) Supporting Document(s) ESR 29 mm/h (0-20) H Laboratory [facility] ID Date Data Source [id number] 08/14/2020 08:12:24 PM EST Laboratory [facility] SPECIMEN DESCRIPTION BLOODSPECIAL REQUESTS NONECULTURE RESULTS NO GROWTH 6 DAYSREPORT STATUS FINAL 08/20/2020 Name Value Range Interpretation Code Description Data Vivian rce(s) Supporting Document(s) C REACTIVE PROTEIN @ 9.9 mg/dL (0.0-0.5) H Laborator y [facility] of [facility] ID Date Data Source [id number] 08/14/2020 07:56:14 PM EST Laboratory [facility] SPECIMEN DESCRIPTION BLOODSPECIAL REQUESTS NONECULTURE RESULTS NO GROWTH 6 DAYSREPORT STATUS FINAL 08/20/2020 Name Value Range Interpretation Code Description Data Vivian rce(s) Supporting Document(s) LACTIC ACID 1.1 mmol/L (0.4-2.0) Laboratory [facility] ID Date Data Source [id number] 08/20/2020 10:41:05 AM EST Laboratory [facility] [place] SPECIMEN DESCRIPTION BLOODSPECIAL REQUESTS NONECULTURE RESULTS NO GROWTH 6 DAYSREPORT STATUS FINAL 08/20/2020 Name Value Range Interpretation Code Description Data Vivian rce(s) Supporting Document(s) ID Date Data Source [id number] 08/14/2020 10:27:12 AM EST Laboratory Al [facility] of [facility] Name Value Range Interpretation Code Description Data Vivian rce(s) Supporting Document(s) SODIUM 140 mmol/L (136-145) Laboratory [facility] POTASSIUM 4.3 mmol/L (3.6-5.2) Laboratory [facility] CHLORIDE 103 mmol/L (100-108) [facility] 29 mmol/L (22-31) Laboratory [facility] - CORE ANION GAP 8 mmol/L (7-16) Laboratory [facility] - CORE UREA NITROGEN 31 mg/dL (7-24) H Laboratory [facility] of [facility] - CORE CREATININE 0.77 mg/dL (0.80-1.30) L Laboratory [facility] - CORE BUN/CREAT RATIO 40.3 RATIO (10.0-20.0) H Laboratory [facility] - CORE GLUCOSE 79 mg/dL (70-99) Laboratory [facility] - CORE CALCIUM 8.2 mg/dL (8.4-10.2) L Laboratory [facility] - CORE GFR >60 ml/min/1.73m2 (>59) Laboratory [facility] - CORE GFR ( AMER) >60 ml/min/1.73m2 (>59) Laboratory [facility] CORE GFR INTERPRETATION Laboratory [facility] [employer] CORE --NORMAL KIDNEY FUNCTION OR MILD DISEASE - GFR >OR= 60CHRONIC KIDNEY DISEASE - GFR 15 - 59RENAL FAILURE - GFR <15 Est. GFR calculation based on the MDRDstudy equation, which assumes a steadystate for creatinine. Est. GFR should notbe used for medication dosing. ID Date Data Source [id number] 08/14/2020 12:08:49 PM EST Laboratory [facility] Name Value Range Interpretation Code Description Data Vivian rce(s) Supporting Document(s) WBC 20.0 10*3/uL (4.1-11.0) H Laboratory [facility] - CORE RBC 4.40 10*6/uL (4.60-6.10) L Laboratory [facility] - CORE HGB 13.3 g/dL (13.5-18.0) L Laboratory [facility] - CORE HCT 40.2 % (41.0-53.0) L Laboratory [facility] - CORE MCV 91.3 fL (80.0-95.0) Laboratory [facility] - CORE MCH 30.3 pg (27.0-32.0) Laboratory [facility] - CORE MCHC 33.1 g/dL (32.0-36.0) Laboratory [facility] - CORE RDW 15.0 % (10.5-14.5) H [facility] - CORE PLT 278 10*3/uL (150-450) Laboratory [facility] - CORE MPV 9.3 fL (7.1-10.7) Laboratory [facility] - CORE NEUT % 84.0 % (35.0-75.0) H [facility] - CORE BAND % 4.0 % (0.0-11.0) Laboratory [facility] - CORE LYMPH % 7.0 % (16.0-52.0) L Laboratory [facility] - CORE MONO % 5.0 % (0.0-8.0) Laboratory [facility] - CORE NEUT # 16.8 10*3/uL (1.8-7.7) H Laboratory [facility] - CORE BAND # 0.8 10*3/uL Laboratory [facility] - CORE LYMPH # 1.4 10*3/uL (1.2-4.8) Laboratory [facility] - CORE MONO # 1.0 10*3/uL (0.0-0.8) H Laboratory [facility] - CORE TOXIC 1+ Laboratory [facility] - CORE ANISO 1+ [facility] - CORE POIK 1+ Laboratory [facility] - CORE LARGE PLT 1+ Laboratory [facility] of [facility] - CORE ID Date Data Source [id number] 08/13/2020 01:50:00 PM EST [facility] Name Value Range Interpretation Code Description Data Vivian rce(s) Supporting Document(s) SARS-CoV-2 by DAVID OHARA This lab was ordered by Lab [facility] of [facility] and reported by [employer] ID Date Data Source [id number] 08/15/2020 03:37:38 AM EST Laboratory [facility] of [facility] Name Value Range Interpretation Code Description Data Vivian rce(s) Supporting Document(s) SARS COV2 SOURCE [facility] SARS COV 2 BY PCR Laboratory [facility] Not Detected INTERPRETIVE INFORMATION: S ARS-CoV-2 (COVID-19) by DAVID This test should be ordered for the detection of the 2019 novel coronavirus SARS-CoV-2 in individuals who meet SARS-CoV-2 clinical and/or epidemiological criteria. The Coronavirus SARS-CoV-2 (COVID-19) by nucleic acid amplification test is for in vitro diagnostic use under the FDA Emergency Use Authorization (EUA) for US laboratories certified under CLIA to perform high complexity tests. This test has not been FDA cleared or approved. In compliance with this authorization, please visit [email or web address] for more information and to access the applicable information sheets. Not Detected results do not rule out the presence of PCR inhibitors in the patient specimen or assay specific nucleic acid in concentrations below the level of detection by the assay. Detected results are indicative of the presence of SARS-CoV-2 RNA. Due to the complexity of nucleic acid amplification methodologies, there may be a risk of false positive results. Clinical correlation with patient history and other diagnostic information is necessary to determine patient infection status. Reliable results are dependent on adequate specimen collection, transport, storage, and handling. Performed by [facility], [address] [place] [id number] [email or web address], Valerie Grace MD, Lab. Director ID Date Data Source [id number] 08/15/2020 08:16:50 AM EST Laboratory [facility] of [facility] Name Value Range Interpretation Code Description Data Vivian rce(s) Supporting Document(s) RESPIRATORY SOURCE Laboratory [facility] of [facility] [place] Nasopharyngeal INFLUENZA A BY PCR Laboratory [facility] of [facility] Not Detected INFLUENZA B BY PCR [facility] Not Detected RSV BY PCR Laboratory [facility] of [facility] - CORE Not Detected INTERPRETIVE INFORMATION: R espiratory Virus Mini Panel by PCR A negative result does not rule out the presence of PCR inhibitors in the patient specimen or assay specific nucleic acid in concentrations below the level of detection by the assay. Performed by [facility], [address] [place] [id number] [email or web address], Valerie Grace MD, Lab. Director ID Date Data Source [id number] 08/11/2020 11:00:49 AM EST Laboratory [facility] Name Value Range Interpretation Code Description Data Vivian rce(s) Supporting Document(s) WBC 12.8 10*3/uL (4.1-11.0) H Laboratory [facility] - CORE RBC 4.66 10*6/uL (4.60-6.10) Laboratory [facility] - CORE HGB 14.1 g/dL (13.5-18.0) Laboratory [facility] - CORE HCT 42.9 % (41.0-53.0) Laboratory [facility] - CORE MCV 92.1 fL (80.0-95.0) Laboratory [facility] - CORE MCH 30.3 pg (27.0-32.0) Laboratory [facility] - CORE MCHC 32.9 g/dL (32.0-36.0) Laboratory [facility] - CORE RDW 14.9 % (10.5-14.5) H Laboratory [facility] - CORE PLT 230 10*3/uL (150-450) Laboratory [facility] - CORE MPV 9.4 fL (7.1-10.7) Laboratory [facility] - CORE NEUT % 76.5 % (35.0-75.0) H Laboratory [facility] - CORE LYMPH % 14.7 % (16.0-52.0) L Laboratory [facility] - CORE MONO % 6.9 % (0.0-8.0) Laboratory [facility] - CORE EOS % 1.4 % (0.0-5.0) Laboratory [facility] - CORE BASO % 0.5 % (0.0-4.0) Laboratory [facility] - CORE NEUT # 9.8 10*3/uL (1.8-7.7) H Laboratory [facility] - CORE LYMPH # 1.9 10*3/uL (1.2-4.8) Laboratory [facility] - CORE MONO # 0.9 10*3/uL (0.0-0.8) H [facility] - CORE Eosinophils [#/volume] in Blood by Automated count 0.2 10*3/uL (0.0-0 .5) Laboratory [facility] - CORE BASO # 0.1 10*3/uL (0.0-0.2) Laboratory [facility] - CORE ID Date Data Source [id number] 08/11/2020 11:51:15 AM EST Laboratory [facility] Name Value Range Interpretation Code Description Data Vivian rce(s) Supporting Document(s) SODIUM 140 mmol/L (136-145) Laboratory [facility] - CORE POTASSIUM 5.2 mmol/L (3.6-5.2) Laboratory [facility] - CORE CHLORIDE 104 mmol/L (100-108) Laboratory [facility] - CORE CO2 24 mmol/L (22-31) Laboratory [facility] - CORE ANION GAP 12 mmol/L (7-16) Laboratory [facility] - CORE UREA NITROGEN 21 mg/dL (7-24) Laboratory [facility] - CORE CREATININE 0.62 mg/dL (0.80-1.30) L Laboratory [facility] - CORE BUN/CREAT RATIO 33.9 RATIO (10.0-20.0) H Laboratory [facility] - CORE GLUCOSE 82 mg/dL (70-99) Laboratory [facility] - CORE CALCIUM 8.8 mg/dL (8.4-10.2) Laboratory [facility] - CORE GFR >60 ml/min/1.73m2 (>59) Laboratory [facility] - CORE GFR ( AMER) >60 ml/min/1.73m2 (>59) Laboratory [facility] - CORE GFR INTERPRETATION Laboratory [facility] - CORE --NORMAL KIDNEY FUNCTION OR MILD DISEASE - GFR >OR= 60CHRONIC KIDNEY DISEASE - GFR 15 - 59RENAL FAILURE - GFR <15 Est. GFR calculation based on the MDRDstudy equation, which assumes a steadystate for creatinine. Est. GFR should notbe used for medication dosing. ID Date Data Source [id number] 08/07/2020 03:54:18 PM EST Laboratory Al [facility] of [employer] - CORE SPECIMEN DESCRIPTION URINE, COLLE CTION METHOD NOT SPECIFIEDCULTURE RESULTS MIXED UROGENITAL ADENIKE; PLEASE SUBMIT A NEW SPEC IMEN IF CLINICALLY INDICATED.REPORT STATUS FINAL 08/08/2020 Name Value Range Interpretation Code Description Data Vivian rce(s) Supporting Document(s) COLOR Laboratory [facility] - CORE APPEARANCE Laboratory [facility] of [employer] CORE SPEC GRAV URINE 1.023 (1.003-1.030) Laboratory [facility] of [employer] [facility] [employer] PH URINE 5.5 (5.0-7.5) Laboratory [facility] of [employer] CORE LEUK ESTERASE (NEG) Laboratory [facility] of [employer] - CORE NITRITE URINE (NEG) Laboratory [facility] of [employer] - CORE PROTEIN URINE (NEG) Laboratory [facility] of [employer] - CORE GLUCOSE URINE (NEG) Laboratory [facility] of [employer] - CORE KETONE URINE (NEG) A Laboratory Allian ce of [employer] - CORE UROBILINOGEN 1.0 mg/dL (0-1.0) Laboratory [facility] of [employer] - CORE BILIRUBIN URINE (NEG) Laboratory [facility] of [facility] BLOOD/HGB URINE (NEG) Laboratory [facility] of [employer] CORE ID Date Data Source [id number] 08/08/2020 11:18:25 AM EST Laboratory [facility] of [employer] SPECIMEN DESCRIPTION URINE, COLLE CTION METHOD NOT SPECIFIEDCULTURE RESULTS MIXED UROGENITAL ADENIKE; PLEASE SUBMIT A NEW SPEC IMEN IF CLINICALLY INDICATED.REPORT STATUS FINAL 08/08/2020 Name Value Range Interpretation Code Description Data Vivian rce(s) Supporting Document(s) ID Date Data Source [id number] 08/07/2020 11:22:31 AM EST Laboratory [facility] of [employer] Name Value Range Interpretation Code Description Data Vivian rce(s) Supporting Document(s) SODIUM 137 mmol/L (136-145) Laboratory [facility] - CORE POTASSIUM 4.4 mmol/L (3.6-5.2) Laboratory [facility] of [facility] - CORE CHLORIDE 101 mmol/L (100-108) Laboratory [facility] - CORE CO2 27 mmol/L (22-31) Laboratory [facility] - CORE ANION GAP 9 mmol/L (7-16) Laboratory [facility] - CORE UREA NITROGEN 39 mg/dL (7-24) H Laboratory [facility] - CORE CREATININE 0.81 mg/dL (0.80-1.30) Laboratory [facility] - CORE BUN/CREAT RATIO 48.1 RATIO (10.0-20.0) H Laboratory [facility] - CORE GLUCOSE 80 mg/dL (70-99) Laboratory [facility] of [facility] - CORE CALCIUM 8.3 mg/dL (8.4-10.2) L Laboratory [facility] - CORE GFR >60 ml/min/1.73m2 (>59) Laboratory [facility] [place] - CORE GFR ( AMER) >60 ml/min/1.73m2 (>59) Laboratory [facility] of [facility] - CORE GFR INTERPRETATION [facility] CORE --NORMAL KIDNEY FUNCTION OR MILD DISEASE - GFR >OR= 60CHRONIC KIDNEY DISEASE - GFR 15 - 59RENAL FAILURE - GFR <15 Est. GFR calculation based on the MDRDstudy equation, which assumes a steadystate for creatinine. Est. GFR should notbe used for medication dosing. ID Date Data Source [id number] 08/07/2020 01:03:26 PM EST Laboratory Al [facility] of [employer] [facility] [employer] Name Value Range Interpretation Code Description Data Vivian rce(s) Supporting Document(s) WBC 11.4 10*3/uL (4.1-11.0) H Laboratory [facility] - CORE RBC 4.26 10*6/uL (4.60-6.10) L Laboratory Miguel [facility] - CORE HGB 12.9 g/dL (13.5-18.0) L Laboratory [facility] - CORE HCT 39.2 % (41.0-53.0) L Laboratory [facility] - CORE MCV 92.0 fL (80.0-95.0) Laboratory [facility] - CORE MCH 30.4 pg (27.0-32.0) Laboratory [facility] - CORE MCHC 33.0 g/dL (32.0-36.0) Laboratory [facility] - CORE RDW 15.0 % (10.5-14.5) H Laboratory [facility] of [facility] - CORE PLT 202 10*3/uL (150-450) Laboratory [facility] - CORE MPV 9.5 fL (7.1-10.7) Laboratory [facility] - CORE NEUT % 74.0 % (35.0-75.0) Laboratory [facility] - CORE LYMPH % 20.0 % (16.0-52.0) Laboratory [facility] - CORE MONO % 5.0 % (0.0-8.0) Laboratory [facility] - CORE EOS % 1.0 % (0.0-5.0) Laboratory [facility] - CORE NEUT # 8.4 10*3/uL (1.8-7.7) H Laboratory [facility] - CORE LYMPH # 2.3 10*3/uL (1.2-4.8) Laboratory [facility] - CORE MONO # 0.6 10*3/uL (0.0-0.8) Laboratory [facility] - CORE Eosinophils [#/volume] in Blood by Automated count 0.1 10*3/uL (0.0-0 .5) Laboratory [facility] - CORE ANISO 1+ Laboratory [facility] - CORE POIK 1+ Laboratory [facility] - CORE OVALO 1+ Laboratory [facility] - CORE ID Date Data Source [id number] 08/06/2020 08:05:00 AM [facility] Name Value Range Interpretation Code Description Data Vivian rce(s) Supporting Document(s) SARS-CoV-2 by DAVID [facility] This lab was ordered by [facility] and reported by [facility] ID Date Data Source [id number] 08/08/2020 08:22:05 AM EST Laboratory Al [facility] of [facility] Name Value Range Interpretation Code Description Data Vivian rce(s) Supporting Document(s) SARS COV2 SOURCE Laboratory [facility] of [facility] SARS COV 2 BY PCR Laboratory [facility] of [facility] Not Detected INTERPRETIVE INFORMATION: S ARS-CoV-2 (COVID-19) by DAVID This test should be ordered for the detection of the 2019 novel coronavirus SARS-CoV-2 in individuals who meet SARS-CoV-2 clinical and/or epidemiological criteria. The Coronavirus SARS-CoV-2 (COVID-19) by nucleic acid amplification test is for in vitro diagnostic use under the FDA Emergency Use Authorization (EUA) for US laboratories certified under CLIA to perform high complexity tests. This test has not been FDA cleared or approved. In compliance with this authorization, please visit [email or web address] for more information and to access the applicable information sheets. Not Detected results do not rule out the presence of PCR inhibitors in the patient specimen or assay specific nucleic acid in concentrations below the level of detection by the assay. Detected results are indicative of the presence of SARS-CoV-2 RNA. Due to the complexity of nucleic acid amplification methodologies, there may be a risk of false positive results. Clinical correlation with patient history and other diagnostic information is necessary to determine patient infection status. Reliable results are dependent on adequate specimen collection, transport, storage, and handling. Performed by [facility], [address] [place] [id number] [email or web address], Valerie Grace MD, Lab. Director ID Date Data Source [id number] 08/08/2020 10:49:41 AM EST Laboratory [facility] Name Value Range Interpretation Code Description Data Vivian rce(s) Supporting Document(s) RESPIRATORY SOURCE Laboratory [facility] Nasopharyngeal INFLUENZA A BY PCR Laboratory [facility] Not Detected INFLUENZA B BY PCR Laboratory [facility] Not Detected RSV BY PCR Laboratory [facility] Not Detected INTERPRETIVE INFORMATION: R espiratory Virus Mini Panel by PCR A negative result does not rule out the presence of PCR inhibitors in the patient specimen or assay specific nucleic acid in concentrations below the level of detection by the assay. Performed by [facility], [address] [place] [id number] [email or web address], Valerie Grace MD, Lab. Director ID Date Data Source [id number] 07/30/2020 03:01:00 PM EST [facility] Name Value Range Interpretation Code Description Data Vivian rce(s) Supporting Document(s) SARS-CoV-2 by [facility] This lab was ordered by [facility] and reported by [facility]. ID Date Data Source [id number] 07/22/2020 03:38:00 PM EST [facility] Name Value Range Interpretation Code Description Data Vivian rce(s) Supporting Document(s) Microorganism or agent identified in Unspecified specimen [facility] This lab was ordered by [facility] and reported by Department of Pathology and Laboratory Medicine at [facility]. ID Date Data Source [id number] 07/16/2020 03:53:00 AM EST [facility] Name Value Range Interpretation Code Description Data Vivian rce(s) Supporting Document(s) Microorganism or agent identified in Unspecified specimen [facility] This lab was ordered by [facility] and reported by Department of Pathology and Laboratory Medicine at [facility]. ID Date Data Source [id number] 07/08/2020 05:32:00 AM EST [facility] Name Value Range Interpretation Code Description Data Vivian rce(s) Supporting Document(s) Microorganism or agent identified in Unspecified specimen [facility] This lab was ordered by [facility] and reported by Department of Pathology and Laboratory Medicine at [facility]. ID Date Data Source [id number] 07/07/2020 11:17:23 PM EST [facility] Name Value Range Interpretation Code Description Data Vivian rce(s) Supporting Document(s) Progress Note [facility] [id number] [facility] [file] [id number] Procedure Vital Signs ID Date Data Source UNK Name Value Range Interpretation Code Description Data Source(s) Body mass index (BMI) [Ratio] 26.3 kg/m2 26.3 k g/m2 [facility] ([facility]) Body weight 163.00 [lb_av] 163.00 [lb_av] [facility] T ([facility]) Body height 66 [in_i] 66 [in_i] [facility] ([facility]) 5'6" ID Date Data Source [id number] 07/08/2020 07:18:[address] [facility] Name Value Range Interpretation Code Description Data Source(s) TRANSFER FROM [facility]
--- OUTSIDE RECORDS SUMMARY | 2020-09-19 12:07 | CCD | Continuity of Care Document ---
Author Govind Rausch M.D. Organization Unknown Address [address] [place] [id number] Phone [phone] Care Team Providers Care Tool Grinding Technician Name Role Phone Caroline Leger M.D. AUTM [phone] Michael Whitman M.D. AUTM [phone] Problems Active Problems Provider Date Parkinson's disease Genesis Jean M.D. Onset: 04/25/2019 Diffuse Lewy body disease Genesis Jean M.D. Onset: 019 Low back pain Genesis Jean M.D. Onset: 04/25/2019 Neck pain Genesis Jean M.D. Onset: 04/25/2019 Spondylolysis Genesis Jean M.D. Onset: 04/25/2019 Spondylolysis of cervical spine Genesis Jean M.D. Onset: 0 04/25/2019 Social History Type Date Description Comments Sex Unknown Tobacco Use Start: Unknown End: Unknown Patient is a former smoker Allergies, Adverse Reactions, Alerts Description No Known Drug Allergies Medications Active Medications SIG Qnty Indications Ordering Provide r Date Naproxen 500mg Tablets 1 by mouth twice a day as needed for back pain 60tabs Genesis Jean M.D. 01/2020 Alprazolam 0.5mg Tablets 1 tab by mouth half an hour before mri scan. may repeat once if needed. 2tabs Genesis Jean M.D. 04/30/2019 Carbidopa-Levodopa 25-100mg Tablet s take one tablet by mouth four times a day at 8am 11am 2pm' and 5pm 120tabs Genesis Jean M.D. 04/25/2019 Immunizations Description No Information Available Vital Signs Date Vital Result Comment 04/25/2019 10:26am BP Systolic 130 mmHg BP Diastolic 80 mmHg Heart Rate 74 /min Respiratory Rate 14 /min Height 65 inches 5'5" Weight 187.00 lb BMI (Body Mass Index) 31.1 kg/m2 [place] Body Weight 136 lb Results Description No Information Available Procedures Description No Information Available Medical Devices Description No Information Available Encounters Type Date Location Provider Dx Diagnosis Office Visit 05/21/2020 2:00p Main office - [place] Herlinda Manuel M54.2 Cervicalgia M43.02 Spondylolysis, cervical gurpreet on M54.5 Low back pain G20 Parkinson's disease M43.06 Spondylolysis, 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 05/21/2020 M43.02 Spondylolysis, cervical region M salvador Jean M.D. 05/21/2020 M54.5 Low back pain Genesis Jean M.D. 05/21/2020 G20 Parkinson's disease Genesis Jean M.D. 05/21/2020 M43.06 Spondylolysis, lumbar region Timothy Jean M.D. 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 Plan of Treatment No Information Available Functional Status Description No Information Available Mental Status Description No Information Available Referrals Refer to Dr Reason for Referral Status Appt Genesis Ennis M.D. [facility] [address] [place] [address] [phone]
[2020-09-19 12:34] LABS: OSMOLALITY SERUM 289 MOSM/KG (280-301)
[2020-09-19 12:35] LABS: ALBUMIN 2.7 GM/DL (3.2-5.2); ALT/SGPT 6 U/L (12-78); BILIRUBIN,DIRECT 0.3 MG/DL (0.0-0.2); BILIRUBIN,TOTAL 0.8 MG/DL (0.2-1.0); BLOOD UREA NITROGEN 27 MG/DL (7-18); CARBON DIOXIDE LEVEL 25 MEQ/L (21-32); CHLORIDE LEVEL 105 MEQ/L (98-107); CREATININE FOR GFR 1.02 MG/DL (0.70-1.30); GLOMERULAR FILTRATION RATE > 60.0 (>35); GLUCOSE, FASTING 104 MG/DL (70-100); POTASSIUM SERUM 3.9 MEQ/L (3.5-5.1); SODIUM LEVEL 140 MEQ/L (136-145); TOTAL PROTEIN 5.6 GM/DL (6.4-8.2)
[2020-09-19] MEDS ORDERED: LIDOCAINE 2% 5ML JELLY UROJET TOP ONE (13:15)
[2020-09-19] MEDS ORDERED: ISOVUE-370 76% 100ML VIAL As Ordered ONE (14:17)
--- NOTE | 2020-09-19 14:47 | REP ---
INDICATION: rule out pyelonephritis. COMPARISON: Comparison CT study May 14, 2011.. TECHNIQUE: Helical scanning was acquired and 4 mm axial images are re-formatted. Coronal and sagittal MPR images were generated and reviewed. The contrast enhancement dose is 100 mL of intravenous Isovue 370. 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 The lung bases are essentially clear. Heart appears somewhat prominent in size. The liver and the spleen are normal in size homogeneous in texture. No abnormality is noted in the gallbladder or the pancreas. Normal adrenal glands are observed bilaterally. A very small sliding-type hiatal hernia is seen. There is a 4 mm intrarenal calculus in the lower pole of the left kidney. No hydronephrosis seen on either side. The kidneys enhance symmetrically. There is a very peripheral cyst at the lower pole the left kidney measuring 4.9 cm in greatest diameter. This was present in 2011 as well and is unchanged. There is a left Laura aortic triangular low-density lesion measuring 1.5 x 3.0 cm. This was present previously as well and has decreased in size since 2011. A mesenteric or retroperitoneal cyst is suspected here. There is not appear to be evidence on CT scanning of pyelonephritis on either side. No hydronephrosis is seen. There is moderate mural thickening involving almost all of the colon most pronounced in the rectosigmoid and sigmoid segment but also in descending and transverse and ascending segments. This is consistent with enterocolitis. No obstructive lesion is seen. Small bowel loops contain gas but are normal in caliber. No visceral vascular occlusion is appreciated. Aorta is normal in caliber. Urinary bladder, seminal vesicles and prostate are unremarkable. No abdominal wall defect is seen. IMPRESSION: Moderate mural thickening involving most of the colon consistent with enterocolitis or inflammatory bowel disease. Very small sliding-type hiatal hernia. Intrarenal nephrolithiasis on the left without hydronephrosis. No CT evidence of pyelonephritis. Lower pole left renal cyst unchanged. Left-sided periaortic or mesenteric cyst smaller than on 2011 prior study. <Electronically signed by Jonn Rider > 09/19/20 [id number]
[2020-09-19] MEDS ORDERED: MAALOX 30 ML SUSP *UDC PO PRN (17:15)
[2020-09-19] MEDS ORDERED: ACETAMINOPHEN TAB 650MG DOSE (2X325MG) PO PRN (17:15)
[2020-09-19] MEDS ORDERED: MOM 30ML SUSPENSION UDC PO PRN (17:15)
[2020-09-19] MEDS ORDERED: ZYLO300T6 PO (17:28)
[2020-09-19] MEDS ORDERED: CAPT1TAB17 PO (17:28)
[2020-09-19] MEDS ORDERED: QUET25TA3 PO (17:28)
[2020-09-19] MEDS ORDERED: NAPR-885 PO (17:28)
--- NOTE | 2020-09-19 17:34 | HPEPDOC ---
[facility] Medical History & Physical Date of Admission Sep 19, 2020 Date of Service: Sep 19, 2020 History and Physical CHIEF COMPLAINT: Increased confusion HISTORY OF PRESENT ILLNESS: 80-year-old male history of Parkinson's with dementia, gout, hypertension, brought in by family today because they noticed he was increasingly more weak, confused, with decreased energy. I saw the patient at bedside daughter was there Deanna. She tells me that he lives at home with his family but he's been increasingly over the past 1-2 days becoming more confused. The daughter has noticed a loose bowel movement yesterday. He also was incontinent of urine at home yesterday although he usually goes to the bathroom on his own. In the em ergency department patient was found to have a urinary tract infection on his urinalysis urine cultures pending supported by the patient reporting dysuria but denies fevers at home or flank pain. Patient denies any headaches he denies chest pain or trouble breathing he denies abdominal pain he also denies any leg pain or swelling. He is alert and oriented 3 PAST MEDICAL/SURGICAL HISTORY: Parkinson's with dementia Hypertension Gout SOCIAL HISTORY: According to his daughter: Denies alcohol use Denies tobacco use Denies illicit drug use FAMILY HISTORY: Reviewed and none contributory to this admission ALLERGIES: Please see below. REVIEW OF SYSTEMS: 10 point review of systems complete all negative otherwise stated in HPI HOME MEDICATIONS: Please see below. PHYSICAL EXAMINATION: Constitutional: Awake and alert, in no apparent distress he is slow to respond to questions and has the appearance of confusion which could be related to his dementia but he does answer appropriately and is alert and oriented 3 ENT: Sclera are clear. Mucosa is moist. Respiratory: Lungs CTA bilaterally. No respiratory distress. No use of accessory muscles. Cardiovascular: RRR S1 and S2 are normal, no murmur Gastrointestinal: Abdomen is soft, non distended, non tender, BS present. Musculoskeletal: No lower extremity edema. RUE 5/5, LUE 5/5, BLE 5/5 Neurologic: No focal neurological deficit other than known cogwheel rigidity on exam associated with his Parkinson's. Mental Status: A&O x3, normal affect Skin: Warm, dry LABORATORY DATA: See below. IMAGING: See chart MICROBIOLOGY: Please see below. ASSESSMENT/PLAN 80-year-old male history of Parkinson's with dementia, gout, hypertension, brought in by family today because they noticed he was increasingly more weak, confused, with decreased energy. Patient was found to have a urinary tract infection as well as a questionable colitis on CT abdomen. # Urinary tract infection: Urinalysis dirty. Urine culture pending. Started on IV levofloxacin which can be transitioned to by mouth at time of discharge. Follow-up blood cultures. WBC 22 on admission with a neutrophilic predominance. # Possible colitis: Patient doesn't have physical exam findings of colitis. He did have one bout of diarrhea. CT suggestive of possible colitis but this should be covered with the IV levofloxacin. # Weakness and confusion: As is likely related to his UTI and would likely resolve with resolution of the infection. # Parkinson's with dementia: Continue home medications. I hope for a short hospital stay to help prevent deconditioning and possible delirium. # Hypertension: Currently normotensive. Monitor and titrate # Gout: Continue home medications. # DVT prophylaxis: Lovenox A Yousef Hospitalist Vital Signs Vital Signs Date Time Temp Pulse Resp B/P (MAP) Pulse Ox O2 Delivery O2 Flow Rate FiO2 09/19/20 15:32 97 98 09/19/20 15:30 135/77 (96) 09/19/20 11:23 98.7 20 Room Air Laboratory Data Labs 24H Laboratory Tests 2 09/19/20 11:44: Immature Granulocyte % (Auto) 0.6, Neutrophils (%) (Auto) 88.6H, Lymphocytes (%) (Auto) 6.8L, Monocytes (%) (Auto) 3.7, Eosinophils (%) (Auto) 0.1, Basophils (%) (Auto) 0.2, Neutrophils # (Auto) 19.5H, Lymphocytes # (Auto) 1.5, Monocytes # (Auto) 0.8, Eosinophils # (Auto) 0.0, Basophils # (Auto) 0.1, Nucleated Red Blood Cells % (auto) 0.0, Blood Gas Bicarbonate Standard 21.1, Venous Blood pH 7.342, Venous Blood Partial Pressure CO2 41.3, Venous Blood Partial Pressure O2 46.4, Venous Blood Total Carbon Dioxide 23.1L, Venous Blood HCO3 21.9L, Venous Blood Oxygen Saturation 81.1H, Venous Blood Base Excess -3.6L, Anion Gap 10, Glomerular Filtration Rate > 60.0, Osmolality 289, Lactic Acid Level 2.0, Calcium Level 8.0L, Total Bilirubin 0.8, Direct Bilirubin 0.3H, Aspartate Amino Transf (AST/SGOT) 12, Alanine Aminotransferase (ALT/SGPT) 6L, Alkaline Phosphatase 72, Ammonia < 10, Total Protein 5.6L, Albumin 2.7L, Albumin/Globulin Ratio 0.9, Thyroid Stimulating Hormone (TSH) 3.980H 09/19/20 12:03: POC Glucose (Misc Panel) 105, POC Sodium (Misc Panel) 137, POC Potassium (Misc Panel) 3.7, POC Chloride (Misc Panel) 104, POC Total CO2 (Misc Panel) 24.0, POC Blood Urea Nitrogen (Misc Panel 29H, POC Ionized Calcium (Misc Panel) 4.1L, POC Creatinine (Misc Panel) 1.0, POC Hematocrit (Misc Panel) 39.0 09/19/20 12:05: POC Troponin I (Misc) 0.02 09/19/20 13:18: Urine Color REESE, Urine Appearance HAZY, Urine pH 5.0, Urine Specific [place] 1.021, Urine Protein 1+H, Urine Glucose (UA) NEGATIVE, Urine Ketones TRACEH, Urine Blood 1+H, Urine Nitrite NEGATIVE, Urine Bilirubin 1+H, Urine Urobilinogen 4.0H, Urine Leukocyte Esterase 1+H, Urine WBC (Auto) 32H, Urine RBC (Auto) 36H, Urine Hyaline Casts (Auto) 16, Urine Bacteria (Auto) 2+H, Urine Squamous Epithelial Cells 0, Urine Amorphous Sediment SMALLH, Urine Mucus (Auto) SMALL, Urine Sperm (Auto) CBC/BMP Laboratory Tests 09/19/20 11:44 Microbiology Microbiology 09/19/20 Urine Culture, Received Pending 09/19/20 Blood Culture, Received Pending 09/19/20 Blood Culture, Received Pending Home Medications Scheduled Allopurinol (Zyloprim) 300 Mg Tablet, 300 MG PO QHS Captopril (Captopril) 25 Mg Tablet, 25 MG PO BID Carbidopa/Levodopa (Carbidopa-Levodopa 25-100 Tab) 1 Each Tablet, 1 TAB PO TID 0800, 1300, 1800 Ergocalciferol (Vitamin D2) (Vitamin D2) 1,250 Mcg Capsule, 50,000 UNITS PO QWEEK MONDAYS Quetiapine Fumarate (Quetiapine Fumarate) 25 Mg Tablet, 25 MG PO QHS Scheduled PRN Naproxen (Naproxen) 500 Mg Tablet, 500 MG PO BID PRN for PAIN Allergies Coded Allergies: No Known Allergies (Verified , 11/08/11) A-FIB/CHADSVASC A-FIB History Current/History of A-Fib/PAF?: No NATHALY MOSS MD Sep 19, 2020 17:34
[2020-09-19] MEDS ORDERED: NAPROXEN 250 MG TAB PO PRN (17:45)
--- OUTSIDE RECORDS SUMMARY | 2020-09-19 18:41 | CCD ---
Author Author [facility] Organization [facility] Address Unknown Phone Unavailable Care Team Providers Care Tabber Name Role Phone Genesis Jean MD Unavailable [...] is protected by Article 27-F of the [facility] Public Health law. If you continue you may have access to information: Regarding HIV / AIDS; Provided by facilities licensed or operated by the [facility] Office of Mental Health; or Provided by the [facility] Office for People With Developmental Disabilities. If such information is present, then the following [facility] mandated warning applies: This information has been [...] law may result in a fine or intermediate sentence or both. A general authorization for the release of medical or other information is NOT sufficient authorization for further disc losure. Allergies and Adverse Reactions Type Description Substance Reaction Status Data Source(s ) No Known Allergies No Known Allergies [facility] ([facility]) Family History Family Member Name Family Member Gender Family Member Status Date o f Status Description Data Source(s) Unknown Unknown Problem [facility] ([facility]) Unknown Female Problem [facility] ([facility]) Encounters Encounter Providers Location Date Indications Data Source(s ) Inpatient Attender: MARLEEN FRANCOIS MD 07/23 10:12:00 AM EST - 08/20/2020 10:00:00 AM EST [facility] ( [facility]) Patient discharged. Unknown [address] [facility] [address] 07/09/2020 12:00:00 AM EST eCW1 ([facility]) Outpatient [id number] 07/07/2020 11:17:00 PM EST [facility] C[facility]a equina Office Visit Attender: Genesis Jean MD Main office - [place] 05/21/2020 02:00:00 PM EDT [facility] ([facility]) Outpatient Attender: Genesis Jean MD Main office - [place] 11/20/2019 01:45:00 PM EDT [facility] ([facility]) Immunizations Vaccine Date Status [...] 06/27/2020 12:00:00 AM EST ORAL active [facility] ([facility] ) 500 mg 06/27/2020 12:00:00 AM [...] type / Coverage type Policy ID Covered libertarian ID Covered libertarian's relationship to pierce Policy Pierce Plan Information MEDICARE COMPLETE [id number] SP [id number] [facility] MEDICARE COMPLETE G [id number] Self [id number] MEDICARE COMPLETE-[facility] O [id number] S [id number] "" [facility] None MEDICARE COMPLETE [id number] SP [id number] MEDICARE COMPLETE [id number] SP [id number] MEDICARE COMPLETE [id number] SP [id number] [employer] Workers Compensation [id number] Self [id number] [facility] Advantage Medigap Part B [id number] Self [id number] [facility] ([employer]) Commercial [id number] Self [id number] [facility] Medigap Part B [id number] Self [id number] [facility] (Medicare) Medigap Part B [id number] Self [id number] [facility]/Medicare Solu Commercial [id number] Self [id number] [employer] Insurance Workers Compensation [id number] Self [id number] [facility] Advantage Medigap Part B [id number] Self [id number] [facility] ([employer]) Commercial [id number] Self [id number] [employer] Insurance Workers Compensation [id number] Self [id number] [facility] Advantage Medigap Part B [id number] Self [id number] [facility] ([employer]) Commercial [id number] Self [id number] [employer] Insurance Workers Compensation [id number] Self [id number] [facility] Advantage Medigap Part B [id number] Self [id number] [facility] ([employer]) Commercial [id number] Self [id number] MEDICARE COMPLETE-[facility] O [id number] S [id number] MEDICARE COMPLETE [id number] SP [id number] [employer] Insurance Workers Compensation Self [employer] Medigap Part B Self [facility] Advantage Medigap Part B Self [facility] (Medicare) Medigap Part B [id number] Self [id number] [facility] ([employer]) Commercial Self United [facility]/Medicare Solu Commercial Self [id number] Problems, Conditions, and Diagnoses Code Display Name Description Problem Type Effective Dates Data Source(s) R26.89 Other abnormalities of gait and mobility OTHER ABNORMALITIES OF GAIT AND MOBILITY Diagnosis 07/24/2020 12:00:00 AM EST [facility] ([facility]) R26.81 Unsteadiness on feet UNSTEADINESS ON FEET Diagnosis 07/24/2020 12:00:00 AM EST [facility] ([facility]) R49.8 Other voice and resonance disorders OTHER VOICE AND RESONANCE DISORDERS Diagnosis 07/24/2020 12:00:00 AM EST [facility] ([facility]) M62.81 Muscle weakness (generalized) MUSCLE WEAKNESS (GENERAL IZED) Diagnosis 07/23/2020 12:00:00 AM EST [facility] ([facility]) R06.02 Shortness of breath SHORTNESS OF BREATH Diagnosis 1 09/23/2019 12:00:00 AM EST [facility] ([facility]) M79.606 Pain in leg, unspecified PAIN IN LEG, UNSPECIFIED Diag nosis 07/23/2020 12:00:00 AM EST [facility] ([facility]) R41.0 Disorientation, unspecified DISORIENTATION, UNSPECIFIE D Diagnosis 07/23/2020 12:00:00 AM EST [facility] ([facility]) 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 FUNCTIONAL URINA RY INCONTINENCE Diagnosis 07/23/2020 12:00:00 AM EST [facility] ([facility]) F03.90 Unspecified dementia without behavioral disturbance UNSPECIFIED DEMENTIA WITHOUT BEHAVIORAL DISTURBANCE Diagnosis 07/23/2020 12:00:00 AM EST PC C ([facility]) M48.07 Spinal stenosis, lumbosacral region SPINAL STENO SIS, LUMBOSACRAL REGION Diagnosis 07/23/2020 12:00:00 AM EST [facility] ([facility]) G20 Parkinson's disease PARKINSON'S DISEASE Diagnosis 1 09/23/2019 12:00:00 AM EST [facility] ([facility] enter) S32.049D Unspecified fracture of four th lumbar vertebra, subsequent encounter for fracture with routine healing UNSPECIFIED FRACTURE OF FOURTH LUMBAR VERTEBRA, SUBSEQUENT ENCOUNTER FOR FRACTURE WITH ROUTINE HEALING Diagnosis 07/23/2020 12:00:00 AM EST [facility] ([facility] enter) incontinence incontinence Diagnosis 07/07/2020 11:17:00 P M [facility] inablilty to walk inablilty to walk Diagnosis 07/07/2020 11:17:00 PM [facility] Cauda equina Cauda equina Diagnosis 07/07/2020 11:17:00 P M [facility] Surgeries/Procedures Procedure Description Date Indications Data Source(s) RADEX SPINE LUMBOSACRAL MINIMUM 4 VIEWS 06/26/2020 12: 00:00 AM EST [facility] ([facility]) X-Ray Hip Unilateral With Pelvis 2-3 Views 06/26/2020 12:00:00 AM EST [facility] ([facility]) RADIOLOGIC EXAMINATION KNEE 3 VIEWS 06/26/2020 12:00:0 0 AM EST [facility] ([facility]) ARTHROCENTESIS ASPIR&/INJECTION MAJOR JT/BURSA 020 12:00:00 AM EDT [facility] ([facility]) ARTHROCENTESIS ASPIR&/INJECTION MAJOR JT/BURSA 12:00:00 AM EDT [facility] ([facility] ARTHROCENTESIS ASPIR&/INJECTION MAJOR JT/BURSA 12:00:00 AM EST [facility] ([facility]) Results ID Date Data Source [id number] 08/18/2020 07:40:51 PM EST [facility] - CORE SPECIMEN DESCRIPTION URINE, COLLE CTION METHOD NOT SPECIFIEDCULTURE RESULTS NO GROWTHREPORT STATUS FINAL 08/19/2020 Name Value Range Interpretation Code Description Data Vivian rce(s) Supporting Document(s) COLOR [facility] - CORE APPEARANCE [facility] - CORE SPEC GRAV URINE 1.021 (1.003-1.030) [facility] - CORE PH URINE 6.0 (5.0-7.5) [facility] - CORE LEUK ESTERASE (NEG) Laboratory Allia [...] of [facility] - CORE BACTERIA (NEG) [facility] - CORE URINE WBC 0.5 [HPF] (0-8) [facility] - CORE URINE RBC 20.1 [HPF] (0-3) H [facility] - CORE ID Date Data Source [id number] 08/19/2020 03:07:00 PM EST [facility] - CORE SPECIMEN DESCRIPTION URINE, COLLE CTION METHOD NOT SPECIFIEDCULTURE RESULTS NO GROWTHREPORT STATUS FINAL 08/19/2020 Name Value Range Interpretation Code Description Data Vivian rce(s) Supporting Document(s) ID Date Data Source [id number] 08/18/2020 10:51:02 AM EST Laboratory Al liance [...] - CORE MPV 9.0 fL (7.1-10.7) [facility] - CORE NEUT % 74.9 % (35.0-75.0) [facility] - CORE LYMPH % 16.0 % (16.0-52.0) [facility] - CORE MONO % 7.1 % (0.0-8.0) [facility] - CORE EOS % 1.7 % (0.0-5.0) [facility] - CORE BASO % 0.3 % (0.0-4.0) [facility] - CORE NEUT # 9.2 10*3/uL (1.8-7.7) H [facility] - CORE LYMPH # 2.0 10*3/uL (1.2-4.8) [facility] - CORE MONO # 0.9 10*3/uL (0.0-0.8) H [facility] - CORE Eosinophils [#/volume] in Blood by Automated count 0.2 10*3/uL (0.0-0 .5) [facility] - CORE BASO # 0.0 10*3/uL (0.0-0.2) [facility] - CORE ID Date Data Source [id number] 08/18/2020 11:15:55 AM EST [facility] - CORE Name Value Range Interpretation Code Description Data Vivian rce(s) Supporting Document(s) SODIUM 139 mmol/L (136-145) [facility] - CORE POTASSIUM 4.3 mmol/L (3.6-5.2) [facility] - CORE CHLORIDE 102 mmol/L (100-108) [facility] - CORE CO2 26 mmol/L (22-31) [facility] - CORE ANION GAP 11 mmol/L (7-16) [facility] - CORE UREA NITROGEN 22 mg/dL (7-24) Laboratory [facility] - CORE CREATININE 0.54 mg/dL (0.80-1.30) L Laboratory [facility] - CORE BUN/CREAT RATIO 40.7 RATIO (10.0-20.0) H [facility] - CORE GLUCOSE 70 mg/dL (70-99) [facility] - CORE CALCIUM 7.9 mg/dL (8.4-10.2) L [facility] - CORE GFR >60 ml/min/1.73m2 (>59) Laboratory [facility] [place] GFR ( AM) >60 ml/min/1.73m2 (>59) [facility] [place] GFR INTERPRETATION [facility] --NORMAL KIDNEY FUNCTION OR MILD DISEASE - GFR >OR= 60CHRONIC KIDNEY DISEASE - GFR 15 - 59RENAL FAILURE - GFR <15 Est. GFR calculation based on the MDRDstudy equation, which assumes a steadystate for creatinine. Est. GFR should notbe used for medication dosing. ID Date Data Source [id number] 08/17/2020 02:11:47 PM EST [facility] Name Value Range Interpretation Code Description Data Vivian rce(s) Supporting Document(s) WBC 16.5 10*3/uL (4.1-11.0) H [facility] - CORE RBC 4.08 10*6/uL (4.60-6.10) L Laboratory Miguel [facility] - CORE HGB 12.2 g/dL (13.5-18.0) L [facility] - CORE HCT 37.4 % (41.0-53.0) L [facility] - CORE PERFORMED AT [address] [place] [address] [place] [address] MCV 91.5 fL (80.0-95.0) [facility] - CORE MCH 29.9 pg (27.0-32.0) [facility] - CORE MCHC 32.7 g/dL (32.0-36.0) [facility] - CORE RDW 15.1 % (10.5-14.5) H [facility] - CORE PLT 245 10*3/uL (150-450) [facility] - CORE MPV 9.2 fL (7.1-10.7) [facility] - CORE NEUT % 84.5 % (35.0-75.0) H [facility] - CORE LYMPH % 8.4 % (16.0-52.0) L [facility] - CORE MONO % 6.0 % (0.0-8.0) [facility] - CORE EOS % 0.8 % (0.0-5.0) [facility] - CORE BASO % 0.3 % (0.0-4.0) [facility] - CORE NEUT # 14.0 10*3/uL (1.8-7.7) H [facility] - CORE LYMPH # 1.4 10*3/uL (1.2-4.8) [facility] - CORE MONO # 1.0 10*3/uL (0.0-0.8) H [facility] - CORE Eosinophils [#/volume] in Blood by Automated count 0.1 10*3/uL (0.0-0 .5) [facility] - CORE BASO # 0.0 10*3/uL (0.0-0.2) [facility] - CORE ID Date Data Source [id number] 08/17/2020 02:37:30 PM EST [facility] - CORE Name Value Range Interpretation Code Description Data Vivian rce(s) Supporting Document(s) SODIUM 137 mmol/L (136-145) [facility] - CORE POTASSIUM 4.3 mmol/L (3.6-5.2) [facility] - CORE CHLORIDE 104 mmol/L (100-108) [facility] - CORE CO2 26 mmol/L (22-31) [facility] - CORE ANION GAP 7 mmol/L (7-16) [facility] - CORE UREA NITROGEN 27 mg/dL (7-24) H [facility] - CORE CREATININE 0.57 mg/dL (0.80-1.30) L [facility] - CORE BUN/CREAT RATIO 47.4 RATIO (10.0-20.0) H [facility] - CORE GLUCOSE 61 mg/dL (70-99) L [facility] - CORE CALCIUM 8.0 mg/dL (8.4-10.2) L [facility] - CORE GFR >60 ml/min/1.73m2 (>59) [facility] - CORE GFR ( AMER) >60 ml/min/1.73m2 (>59) [facility] - CORE GFR INTERPRETATION [facility] of Triage CORE --NORMAL KIDNEY FUNCTION OR MILD DISEASE - GFR >OR= 60CHRONIC KIDNEY DISEASE - GFR 15 - 59RENAL FAILURE - GFR <15 Est. GFR calculation based on the MDRDstudy equation, which assumes a steadystate for creatinine. Est. GFR should notbe used for medication dosing. ID Date Data Source [id number] 08/16/2020 02:15:16 PM EST [facility] Name Value Range Interpretation Code Description Data Vivian rce(s) Supporting Document(s) SODIUM 136 mmol/L (136-145) [facility] - CORE POTASSIUM 4.3 mmol/L (3.6-5.2) [facility] - CORE CHLORIDE 100 mmol/L (100-108) [facility] - CORE CO2 25 mmol/L (22-31) [facility] - CORE ANION GAP 11 mmol/L (7-16) [facility] - CORE UREA NITROGEN 40 mg/dL (7-24) H [facility] - CORE CREATININE 0.91 mg/dL (0.80-1.30) [facility] - CORE BUN/CREAT RATIO 44.0 RATIO (10.0-20.0) H [facility] - CORE GLUCOSE 85 mg/dL (70-99) [facility] - CORE CALCIUM 8.4 mg/dL (8.4-10.2) [facility] - CORE GFR >60 ml/min/1.73m2 (>59) [facility] - CORE GFR ( AMER) >60 ml/min/1.73m2 (>59) [facility] - CORE GFR INTERPRETATION [facility] of Triage CORE --NORMAL KIDNEY FUNCTION OR MILD DISEASE - GFR >OR= 60CHRONIC KIDNEY DISEASE - GFR 15 - 59RENAL FAILURE - GFR <15 Est. GFR calculation based on the MDRDstudy equation, which assumes a steadystate for creatinine. Est. GFR should notbe used for medication dosing. ID Date Data Source [id number] 08/16/2020 03:15:37 PM EST [facility] Name Value Range Interpretation Code Description Data [...] - CORE MPV 9.6 fL (7.1-10.7) [facility] - CORE NEUT % 74.0 % (35.0-75.0) [facility] - CORE BAND % 11.0 % (0.0-11.0) [facility] - CORE LYMPH % 9.0 % (16.0-52.0) L [facility] - CORE MONO % 5.0 % (0.0-8.0) [facility] - CORE EOS % 1.0 % (0.0-5.0) [facility] - CORE NEUT # 21.4 [...] Automated count 0.3 10*3/uL (0.0-0 .5) Laboratory [facility] ANISO 1+ Laboratory Let[facility] of [facility] POIK 1+ Laboratory Letcher of [facility] OVALO 1+ Laboratory Let[facility] ID Date Data Source [id number] 08/14/2020 07:58:09 PM EST Laboratory Al [facility] of [facility] SPECIMEN DESCRIPTION BLOODSPECIAL REQUESTS NONECULTURE RESULTS NO GROWTH 6 DAYSREPORT STATUS FINAL 08/20/2020 Name Value Range Interpretation Code Description Data Vivian rce(s) Supporting Document(s) ESR 29 mm/h (0-20) H [facility] ID Date Data Source [id number] 08/14/2020 08:12:24 PM EST Laboratory Al [facility] of [facility] SPECIMEN DESCRIPTION BLOODSPECIAL REQUESTS NONECULTURE RESULTS NO GROWTH 6 DAYSREPORT STATUS FINAL 08/20/2020 Name Value Range Interpretation Code Description Data Vivian rce(s) Supporting Document(s) C REACTIVE PROTEIN @ 9.9 mg/dL (0.0-0.5) H Laborator y [facility]cher of [facility] ID Date Data Source [id number] 08/14/2020 07:56:14 PM EST Laboratory Al li[facility] of [facility] SPECIMEN DESCRIPTION BLOODSPECIAL REQUESTS NONECULTURE RESULTS NO GROWTH 6 DAYSREPORT STATUS FINAL 08/20/2020 Name Value Range Interpretation Code Description Data Vivian rce(s) Supporting Document(s) LACTIC ACID 1.1 mmol/L (0.4-2.0) Laboratory [facility] ID Date Data Source [id number] 08/20/2020 10:41:05 AM EST Laboratory Al [facility] of [facility] SPECIMEN DESCRIPTION BLOODSPECIAL REQUESTS NONECULTURE RESULTS NO GROWTH 6 DAYSREPORT STATUS FINAL 08/20/2020 Name Value Range Interpretation Code Description Data Vivian rce(s) Supporting Document(s) ID Date Data Source [id number] 08/14/2020 10:27:12 AM EST Laboratory Al [facility] of [facility] Name Value Range Interpretation Code Description Data Vivian rce(s) Supporting Document(s) SODIUM 140 mmol/L (136-145) Laboratory [facility] POTASSIUM 4.3 mmol/L (3.6-5.2) Laboratory [facility] CHLORIDE 103 mmol/L (100-108) [facility] 29 mmol/L (22-31) [facility] - CORE ANION GAP 8 mmol/L (7-16) [facility] - CORE UREA NITROGEN 31 mg/dL (7-24) H Laboratory Allia nce of [facility] - CORE CREATININE 0.77 mg/dL (0.80-1.30) L Laboratory [facility] - CORE BUN/CREAT RATIO 40.3 RATIO (10.0-20.0) H [facility] - CORE GLUCOSE 79 mg/dL (70-99) [facility] - CORE CALCIUM 8.2 mg/dL (8.4-10.2) L [facility] - CORE GFR >60 ml/min/1.73m2 (>59) Laboratory [facility] - CORE GFR ( AMER) >60 ml/min/1.73m2 (>59) [facility] - CORE GFR INTERPRETATION Laboratory [facility] of Triage CORE --NORMAL KIDNEY FUNCTION OR MILD DISEASE - GFR >OR= 60CHRONIC KIDNEY DISEASE - GFR 15 - 59RENAL FAILURE - GFR <15 Est. GFR calculation based on the MDRDstudy equation, which assumes a steadystate for creatinine. Est. GFR should notbe used for medication dosing. ID Date Data Source [id number] 08/14/2020 12:08:49 PM EST [facility] - CORE Name Value Range Interpretation Code Description Data Vivian rce(s) Supporting Document(s) WBC 20.0 10*3/uL (4.1-11.0) H Laboratory [facility] - CORE RBC 4.40 10*6/uL (4.60-6.10) L Laboratory [facility] - CORE HGB 13.3 g/dL (13.5-18.0) L Laboratory [facility] - CORE HCT 40.2 % (41.0-53.0) L [...] - CORE MPV 9.3 fL (7.1-10.7) [facility] - CORE NEUT % 84.0 % (35.0-75.0) H [facility] - CORE BAND % 4.0 % (0.0-11.0) [facility] - CORE LYMPH % 7.0 % (16.0-52.0) L [facility] - CORE MONO % 5.0 % (0.0-8.0) [facility] - CORE NEUT # 16.8 10*3/uL (1.8-7.7) H [facility] - CORE BAND # 0.8 10*3/uL [facility] - CORE LYMPH # 1.4 10*3/uL (1.2-4.8) [facility] - CORE MONO # 1.0 10*3/uL (0.0-0.8) H [facility] - CORE TOXIC 1+ [facility] - CORE ANISO 1+ [facility] - CORE POIK 1+ [facility] - CORE LARGE PLT 1+ Laboratory Letcher of [facility] - CORE ID Date Data Source [id number] 08/13/2020 01:50:00 PM EST [facility] Name Value Range Interpretation Code Description Data Vivian rce(s) Supporting Document(s) SARS-CoV-2 by DAVID OHARA This lab was ordered by [facility] and reported by [facility]. ID Date Data Source [id number] 08/15/2020 03:37:38 AM EST Laboratory [facility] Name Value Range Interpretation Code Description Data Vivian rce(s) Supporting Document(s) SARS COV2 SOURCE [facility] SARS COV 2 BY [facility] Laboratory [...] In compliance with this authorization, please visit [email or web address] for more information and to access the [...] collection, transport, storage, and handling. Performed by [facility], [address] [place] [id number] [email or web address], Valerie Grace MD, Lab. Director ID Date Data Source [id number] 08/15/2020 08:16:50 AM EST Laboratory [facility] Name Value Range Interpretation Code Description Data Vivian rce(s) Supporting Document(s) RESPIRATORY SOURCE [facility] Nasopharyngeal INFLUENZA A BY PCR [facility] Not Detected INFLUENZA B BY PCR [facility] Not Detected RSV BY PCR [facility] - CORE Not Detected INTERPRETIVE INFORMATION: R espiratory Virus Mini Panel by PCR A negative result does not rule out the presence of PCR inhibitors in the patient specimen or assay specific nucleic acid in concentrations below the level of detection by the assay. Performed by [facility], [address] [place] [id number] [email or web address], Valerie Grace MD, Lab. Director ID Date Data Source [id number] 08/11/2020 11:00:49 AM EST Laboratory Al liance [...] - CORE MPV 9.4 fL (7.1-10.7) [facility] - CORE NEUT % 76.5 % (35.0-75.0) H [facility] - CORE LYMPH % 14.7 % (16.0-52.0) L [facility] - CORE MONO % 6.9 % (0.0-8.0) [facility] - CORE EOS % 1.4 % (0.0-5.0) [facility] - CORE BASO % 0.5 % (0.0-4.0) [facility] - CORE NEUT # 9.8 10*3/uL (1.8-7.7) H [facility] - CORE LYMPH # 1.9 10*3/uL (1.2-4.8) Laboratory [facility] - CORE MONO # 0.9 10*3/uL (0.0-0.8) H [facility] - CORE Eosinophils [#/volume] in Blood by Automated count 0.2 10*3/uL (0.0-0 .5) [facility] - CORE BASO # 0.1 10*3/uL (0.0-0.2) Laboratory [facility] - CORE ID Date Data Source [id number] 08/11/2020 11:51:15 AM EST [facility] - CORE Name Value Range Interpretation Code Description Data Vivian rce(s) Supporting Document(s) SODIUM 140 mmol/L (136-145) [facility] - CORE POTASSIUM 5.2 mmol/L (3.6-5.2) [facility] - CORE CHLORIDE 104 mmol/L (100-108) [facility] - CORE CO2 24 mmol/L (22-31) [facility] - CORE ANION GAP 12 mmol/L (7-16) [facility] - CORE UREA NITROGEN 21 mg/dL (7-24) Laboratory [facility] - CORE CREATININE 0.62 mg/dL (0.80-1.30) L [facility] - CORE BUN/CREAT RATIO 33.9 RATIO (10.0-20.0) H [facility] - CORE GLUCOSE 82 mg/dL (70-99) [facility] - CORE CALCIUM 8.8 mg/dL (8.4-10.2) [facility] - CORE GFR >60 ml/min/1.73m2 (>59) Laboratory [facility] - CORE GFR ( AMER) >60 ml/min/1.73m2 (>59) [facility] - CORE GFR INTERPRETATION [facility] - CORE --NORMAL KIDNEY FUNCTION OR MILD DISEASE - GFR >OR= 60CHRONIC KIDNEY DISEASE - GFR 15 - 59RENAL FAILURE - GFR <15 Est. GFR calculation based on the MDRDstudy equation, which assumes a steadystate for creatinine. Est. GFR should notbe used for medication dosing. ID Date Data Source [id number] 08/07/2020 03:54:18 PM EST [facility] - CORE SPECIMEN DESCRIPTION URINE, COLLE CTION METHOD NOT SPECIFIEDCULTURE RESULTS MIXED UROGENITAL ADENIKE; PLEASE SUBMIT A NEW SPEC IMEN IF CLINICALLY INDICATED.REPORT STATUS FINAL 08/08/2020 Name Value Range Interpretation Code Description Data Vivian rce(s) Supporting Document(s) COLOR [facility] - CORE APPEARANCE [facility] CORE SPEC GRAV URINE 1.023 (1.003-1.030) [facility] [place] PH URINE 5.5 (5.0-7.5) [facility] T[facility] CORE LEUK ESTERASE (NEG) [facility] - CORE NITRITE URINE (NEG) [facility] - CORE PROTEIN URINE (NEG) [facility] - CORE GLUCOSE URINE (NEG) [facility] - CORE KETONE URINE (NEG) A [facility] - CORE UROBILINOGEN 1.0 mg/dL (0-1.0) [facility] - CORE BILIRUBIN URINE (NEG) [facility] BLOOD/HGB URINE (NEG) [facility] T[facility] CORE ID Date Data Source [id number] 08/08/2020 11:18:25 AM EST [facility] SPECIMEN DESCRIPTION URINE, COLLE CTION METHOD NOT SPECIFIEDCULTURE RESULTS MIXED UROGENITAL ADENIKE; PLEASE SUBMIT A NEW SPEC IMEN IF CLINICALLY INDICATED.REPORT STATUS FINAL 08/08/2020 Name Value Range Interpretation Code Description Data Vivian rce(s) Supporting Document(s) ID Date Data Source [id number] 08/07/2020 11:22:31 AM EST [facility] Name Value Range Interpretation Code Description Data Vivian rce(s) Supporting Document(s) SODIUM 137 mmol/L (136-145) [facility] - CORE POTASSIUM 4.4 mmol/L (3.6-5.2) [facility] - CORE CHLORIDE 101 mmol/L (100-108) [facility] - CORE CO2 27 mmol/L (22-31) [facility] - CORE ANION GAP 9 mmol/L (7-16) [facility] - CORE UREA NITROGEN 39 mg/dL (7-24) H [facility] - CORE CREATININE 0.81 mg/dL (0.80-1.30) [facility] - CORE BUN/CREAT RATIO 48.1 RATIO (10.0-20.0) H [facility] - CORE GLUCOSE 80 mg/dL (70-99) [facility] - CORE CALCIUM 8.3 mg/dL (8.4-10.2) L [facility] - CORE GFR >60 ml/min/1.73m2 (>59) [facility] - CORE GFR ( AMER) >60 ml/min/1.73m2 (>59) [facility] - CORE GFR INTERPRETATION [facility] --NORMAL KIDNEY FUNCTION OR MILD DISEASE - GFR >OR= 60CHRONIC KIDNEY DISEASE - GFR 15 - 59RENAL FAILURE - GFR <15 Est. GFR calculation based on the MDRDstudy equation, which assumes a steadystate for creatinine. Est. GFR should notbe used for medication dosing. ID Date Data Source [id number] 08/07/2020 01:03:26 PM EST [facility] [place] Name Value Range Interpretation Code Description Data Vivian rce(s) Supporting Document(s) WBC 11.4 10*3/uL (4.1-11.0) H Laboratory [facility] - CORE RBC 4.26 10*6/uL (4.60-6.10) L Laboratory [facility] - CORE HGB 12.9 g/dL (13.5-18.0) L [...] - CORE MPV 9.5 fL (7.1-10.7) [facility] - CORE NEUT % 74.0 % (35.0-75.0) [facility] - CORE LYMPH % 20.0 % (16.0-52.0) [facility] [place] - CORE MONO % 5.0 % (0.0-8.0) [facility] - CORE EOS % 1.0 % (0.0-5.0) [facility] - CORE NEUT # 8.4 10*3/uL (1.8-7.7) H [facility] [place] - CORE LYMPH # 2.3 10*3/uL (1.2-4.8) [facility] [place] - CORE MONO # 0.6 10*3/uL (0.0-0.8) [facility] [place] - CORE Eosinophils [#/volume] in Blood by Automated count 0.1 10*3/uL (0.0-0 .5) [facility] - CORE ANISO 1+ [facility] - CORE POIK 1+ [facility] - CORE OVALO 1+ [facility] - CORE ID Date Data Source [id number] 08/06/2020 08:05:00 AM [facility] Name Value Range Interpretation Code Description Data Vivian rce(s) Supporting Document(s) SARS-CoV-2 by [facility] This lab was ordered by [facility] and reported by [facility]. ID Date Data Source [id number] 08/08/2020 08:22:05 AM EST [facility] Name Value Range Interpretation Code Description Data Vivian rce(s) Supporting Document(s) SARS COV2 SOURCE [facility] SARS COV 2 BY PCR Laboratory [facility] Not Detected INTERPRETIVE INFORMATION: S ARS-CoV-2 [...] In compliance with this authorization, please visit [email or web address] for more information and to access the [...] collection, transport, storage, and handling. Performed by [facility], [address] [place] [id number] [email or web address], Valerie Grace MD, Lab. Director ID Date Data Source [id number] 08/08/2020 10:49:41 AM EST [facility] Name Value Range Interpretation Code Description Data Vivian rce(s) Supporting Document(s) RESPIRATORY SOURCE Laboratory [facility] Nasopharyngeal INFLUENZA A BY PCR Laboratory [facility] Not Detected INFLUENZA B BY PCR Laboratory [facility] Not Detected RSV BY PCR [facility] Not Detected INTERPRETIVE INFORMATION: R espiratory Virus Mini Panel by PCR A negative result does not rule out the presence of PCR inhibitors in the patient specimen or assay specific nucleic acid in concentrations below the level of detection by the assay. Performed by [facility], [address] [place] [id number] [email or web address], Valerie Grace MD, Lab. Director ID Date Data Source [id number] 07/30/2020 03:01:00 PM EST [facility] Name Value Range Interpretation Code Description Data Vivian rce(s) Supporting Document(s) SARS-CoV-2 by [facility] This lab was ordered by [facility] and reported by [facility]. ID Date Data Source [id number] 07/22/2020 03:38:00 PM EST [facility] Name Value Range Interpretation Code Description Data Vivian rce(s) Supporting Document(s) Microorganism or agent identified in Unspecified specimen [facility] This lab was ordered by [facility] and reported by Department of Pathology and Laboratory Medicine at [facility]. ID Date Data Source [id number] 07/16/2020 03:53:00 AM EST [facility] Name Value Range Interpretation Code Description Data Vivian rce(s) Supporting Document(s) Microorganism or agent identified in Unspecified specimen [facility] This lab was ordered by [facility] and reported by Department of Pathology and Laboratory Medicine at [facility]. ID Date Data Source [id number] 07/08/2020 05:32:00 AM EST [facility] Name Value Range Interpretation Code Description Data Vivian rce(s) Supporting Document(s) Microorganism or agent identified in Unspecified specimen [facility] This lab was ordered by [facility] and reported by Department of Pathology and Laboratory Medicine at [facility]. ID Date Data Source [id number] 07/07/2020 11:17:23 PM EST [facility] Name Value Range Interpretation Code Description Data Vivian rce(s) Supporting Document(s) Progress Note [facility] [id number] [facility] [file] [id number]= Procedure Vital Signs ID Date Data Source UNK Name Value Range Interpretation Code Description Data Source(s) Body mass index (BMI) [Ratio] 26.3 kg/m2 26.3 k g/m2 [facility] ([facility]) Body weight 163.00 [lb_av] 163.00 [lb_av] [facility] T ([facility]) Body height 66 [in_i] 66 [in_i] [facility] ([facility]) 5'6" ID Date Data Source [id number] 07/08/2020 07:18:[address] [facility] Name Value Range Interpretation Code Description Data Source(s) TRANSFER FROM [facility]
[2020-09-19 19:14] LABS: RSV AMPLIFICATION NEGATIVE (NEGATIVE)
[2020-09-19] MEDS: LevoFLOXacin IV 750 MG in IV 1 EA IV SCH (19:19)
[2020-09-19] MEDS: NS 1,000 ML IV SCH (19:19)
[2020-09-19 21:19] VITALS: BP 144/69
[2020-09-19] MEDS: QUEtiapine FUMARATE 25 MG TAB PO SCH (22:47)
[2020-09-19] MEDS: DOCUSATE SODIUM 100MG CAPSULE PO SCH (22:47)
[2020-09-19] MEDS: allopurinoL 300 MG TAB PO SCH (22:47)
[2020-09-19] MEDS: SINEMET 25-100 MG TAB PO SCH (22:47)
[2020-09-20] MEDS: NS 1,000 ML IV SCH ×2 (02:38→12:25)
[2020-09-20 06:00] VITALS: BP 108/58
[2020-09-20 06:23] LABS: HEMATOCRIT 37.4 % (42.0-52.0); HEMOGLOBIN 11.8 g/dl (13.5-17.5); MEAN CORPUSCULAR HEMOGLOBIN 29.4 pg (27.0-33.0); MEAN CORPUSCULAR HGB CONC 31.6 g/dl (32.0-36.5); PLATELET COUNT, AUTOMATED 198 10^3/uL (150-450); RED BLOOD COUNT 4.02 10^6/uL (4.30-6.10); WHITE BLOOD COUNT 19.3 10^3/uL (4.0-10.0)
[2020-09-20 06:44] LABS: BLOOD UREA NITROGEN 22 MG/DL (7-18); CARBON DIOXIDE LEVEL 25 MEQ/L (21-32); CHLORIDE LEVEL 107 MEQ/L (98-107); CREATININE FOR GFR 0.66 MG/DL (0.70-1.30); GLOMERULAR FILTRATION RATE > 60.0 (>35); GLUCOSE, FASTING 84 MG/DL (70-100); MAGNESIUM LEVEL 1.7 MG/DL (1.8-2.4); POTASSIUM SERUM 3.5 MEQ/L (3.5-5.1); SODIUM LEVEL 141 MEQ/L (136-145)
[2020-09-20 08:51] LABS: FREE T4 1.51 NG/DL (0.76-1.46)
--- NOTE | 2020-09-20 08:55 | ECGEPIP ---
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
[2020-09-20] MEDS ORDERED: PNEUMOCOCCAL VACCINE 0.5ML SYRINGE (PNEUMOVAX 23) IM ONE (09:00)
[2020-09-20] MEDS: SINEMET 25-100 MG TAB PO SCH ×3 (09:28→17:52)
[2020-09-20] MEDS: DOCUSATE SODIUM 100MG CAPSULE PO SCH ×2 (09:28→21:20)
[2020-09-20] MEDS: ENOXAPARIN 40MG/0.4ML SYRINGE (J1650 PER 10MG) SC SCH (09:30)
[2020-09-20 09:42] VITALS: BP 104/58
--- NOTE | 2020-09-20 10:35 | REP ---
INDICATION: Code Stroke. COMPARISON: Comparison chest head CT study 19 September 2020.. TECHNIQUE: Helical scanning is acquired. 5 mm axial images were reformatted. Coronal MPR images were generated. FINDINGS: Digital preliminary dope firer radiograph is unremarkable. Bone window settings demonstrate intact bony calvarium. There is some vascular calcification in the distal internal carotid arteries bilaterally. The visualized paranasal sinuses are clear. No intraorbital abnormality is seen. On soft tissue window settings, the there is no evidence of intracranial hemorrhage. Lateral, 3rd, and 4th ventricles are normal in position and appearance. Mckeon-white differentiation pattern is intact. No infarct is appreciated. No mass, extra-axial fluid collection, or midline shift is seen. IMPRESSION: Mild diffuse volume loss. Vascular calcification. No acute intracranial abnormality. No significant change from the previous day's CT study.. <Electronically signed by Jonn Rider > 09/20/20 [id number]
[2020-09-20] MEDS ORDERED: LACTULOSE 20 GM/30 ML SYRUP UD PO ONE (11:45)
--- NOTE | 2020-09-20 12:04 | REP ---
INDICATION: Code Stroke. COMPARISON: Comparison is made with non-contrast head CT study done just prior.. TECHNIQUE: Axial and sagittal imaging planes are utilized for T1 and T2-weighted scans. Sequences include spin-echo, fast spin echo, FLAIR, and diffusion weighted sequences. FINDINGS: No bony calvarial lesion is seen. Craniocervical junction and upper cervical cord are normal in appearance. There is no MR evidence of significant paranasal sinus disease. No intraorbital abnormality is seen. There is some motion artifact. The patient had difficulty remaining still. Diffusion-weighted scans show no evidence of restricted diffusion to suspect acute ischemia. There is no evidence of intracranial hemorrhage. There are mild small vessel atherosclerotic changes in the periventricular white matter bilaterally. No mass, infarct, or extra-axial fluid collection is seen. IMPRESSION: Small-vessel changes and mild generalized volume loss. No evidence of acute ischemia or other acute intracranial abnormality.. <Electronically signed by Jonn Rider > 09/20/20 [id number]
[2020-09-20 14:05] VITALS: BP 132/73
--- NOTE | 2020-09-20 15:27 | IPNPDOC ---
Text Note Date of Service The patient was seen on 09/20/20. NOTE Subjective: Patient was seen and examined this morning at bedside. She was more alert and oriented and less confused than he was yesterday and answering all my questions appropriately alert and oriented 3. Patient denies having any chest pain or shortness of breath denies any abdominal pain and tells me his dysuria that was reported yesterday has now resolved. Denies any fevers or chills. There was no acute overnight events reported to me. About an hour after the patient was seen his nurse was concerned about weakness and called a code stroke. I saw the patient at bedside and he was unchanged from when I saw him this morning he had good upper extremity strength and no apparent neurological deficits outside of his known Parkinson's with cogwheel-like rigidity. Heart of an abundance of caution due to the code stroke patient underwent a head CT which was negative for intracranial bleeding or large stroke and MRI brain was negative for acute changes. Objective: Constitutional: Awake and alert, in no apparent distress he is slow to respond to questions answers appropriately ENT: Sclera are clear. Mucosa is moist. Respiratory: Lungs CTA bilaterally. No respiratory distress. No use of accessory muscles. Cardiovascular: RRR S1 and S2 are normal, no murmur Gastrointestinal: Abdomen is soft, non distended, non tender, BS present. Musculoskeletal: No lower extremity edema. RUE 5/5, LUE 5/5, BLE 5/5 Neurologic: No focal neurological deficit other than cogwheel rigidity. Mental Status: A&O x3, normal affect Skin: Warm, dry Assessment/plan: 80-year-old male history of Parkinson's with dementia, gout, hypertension, brought in by family today because they noticed he was increasingly more weak, confused, with decreased energy. Patient was found to have a urinary tract infection as well as a questionable colitis on CT abdomen. # Urinary tract infection: Urinalysis dirty. Urine culture pending. Started on IV levofloxacin which can be transitioned to by mouth at time of discharge. Blood cultures negative to date. WBC 22 on admission with a neutrophilic predominance WBC has now down trended. # Possible colitis: Patient doesn't have physical exam findings of colitis. He did have one bout of diarrhea. CT suggestive of possible colitis but this should be covered with the IV levofloxacin. # Weakness and confusion: This is likely related to his UTI as he is less weak and confused today but appears to wax and wane. # Parkinson's with dementia: Continue home medications. I hope for a short hospital stay to help prevent deconditioning and possible delirium. # Concern over stroke: This was ruled out given normal physical exam compared to at admission as well as negative brain MRI. # Hypertension: Currently normotensive. Monitor and titrate # Gout: Continue home medications. # DVT prophylaxis: Florencia Moss Hospitalist VSMemo, I+O VSMemo I+O Laboratory Tests 09/20/20 05:28 Vital Signs Date Time Temp Pulse Resp B/P (MAP) Pulse Ox O2 Delivery O2 Flow Rate FiO2 09/20/20 14:05 94 16 132/73 (92) 95 Room Air 09/20/20 06:00 98.3 I&O- Last 24 Hours up to 6 AM 09/20/20 06:00 Intake Total 1260 ml Output Total 0 ml Balance 1260 ml NATHALY MOSS MD Sep 20, 2020 15:27
[2020-09-20] MEDS: LevoFLOXacin IV 750 MG in IV 1 EA IV SCH (17:52)
[2020-09-20] MEDS: QUEtiapine FUMARATE 25 MG TAB PO SCH (21:20)
[2020-09-20] MEDS: allopurinoL 300 MG TAB PO SCH (21:20)
[2020-09-20 22:00] VITALS: BP 131/72
[2020-09-21 06:00] VITALS: BP 115/62
[2020-09-21 07:43] LABS: BASO # 0.1 10^3/uL (0.0-0.2); BASO % 0.2 % (0.0-1.0); EOS # 0.1 10^3/uL (0.0-0.5); EOS % 0.4 % (0.0-3.0); HEMOGLOBIN 12.2 g/dl (13.5-17.5); LYMPH # 1.4 10^3/uL (1.5-5.0); LYMPH % 6.9 % (24.0-44.0); MEAN CORPUSCULAR HGB CONC 32.1 g/dl (32.0-36.5); MEAN CORPUSCULAR VOLUME 93.6 fl (80.0-96.0); MONO # 1.5 10^3/uL (0.0-0.8); MONO % 7.2 % (0.0-5.0); NEUTROPHILS # 17.1 10^3/uL (1.5-8.5); NEUTROPHILS % 84.7 % (36.0-66.0); PLATELET COUNT, AUTOMATED 199 10^3/uL (150-450); RED BLOOD COUNT 4.06 10^6/uL (4.30-6.10); WHITE BLOOD COUNT 20.3 10^3/uL (4.0-10.0)
[2020-09-21] MEDS ORDERED: LINEZOLID 600 MG in IV 1 EA IV SCH (08:00)
[2020-09-21 08:01] LABS: MAGNESIUM LEVEL 1.8 MG/DL (1.8-2.4)
[2020-09-21] MEDS: SINEMET 25-100 MG TAB PO SCH ×3 (08:44→18:16)
[2020-09-21] MEDS: ENOXAPARIN 40MG/0.4ML SYRINGE (J1650 PER 10MG) SC SCH (08:44)
[2020-09-21] MEDS: DOCUSATE SODIUM 100MG CAPSULE PO SCH ×3 (08:44→21:03)
[2020-09-21] MEDS: VANCOMYCIN HCL 1,000 MG, VIAL MATE ADAPTER 1 EACH in D5W 250 ML IV SCH ×2 (08:45→20:58)
[2020-09-21 09:15] LABS: BLOOD UREA NITROGEN 21 MG/DL (7-18); CALCIUM LEVEL 7.9 MG/DL (8.8-10.2); CARBON DIOXIDE LEVEL 23 MEQ/L (21-32); CHLORIDE LEVEL 108 MEQ/L (98-107); CREATININE FOR GFR 0.64 MG/DL (0.70-1.30); GLOMERULAR FILTRATION RATE > 60.0 (>35); GLUCOSE, FASTING 72 MG/DL (70-100); POTASSIUM SERUM 3.5 MEQ/L (3.5-5.1); SODIUM LEVEL 143 MEQ/L (136-145)
[2020-09-21] MEDS ORDERED: VANCOMYCIN HCL 500 MG in D5W MINI-BAG PLUS 100 ML IV ONE (10:00)
--- NOTE | 2020-09-21 10:30 | IPNPDOC ---
Text Note Date of Service The patient was seen on 09/21/20. NOTE Subjective: Patient was seen and examined this morning at bedside. Appears more confused and disoriented than he did yesterday. I am able to redirect him and he does answer many questions appropriately. Patient denies having any chest pain or shortness of breath denies any abdominal pain and denies dysuria. Denies any fevers or chills. There was no acute overnight events reported to me. Objective: Constitutional: Awake and alert, in no apparent distress he is slow to respond to questions answers appropriately more confusion today ENT: Sclera are clear. Mucosa is moist. Respiratory: Lungs CTA bilaterally. No respiratory distress. No use of accessory muscles. Cardiovascular: RRR S1 and S2 are normal, no murmur Gastrointestinal: Abdomen is soft, non distended, non tender, BS present. Musculoskeletal: No lower extremity edema. RUE 5/5, LUE 5/5, BLE 5/5 Neurologic: No focal neurological deficit other than cogwheel rigidity. Mental Status: A&O x3, normal affect Skin: Warm, dry Assessment/plan: 80-year-old male history of Parkinson's with dementia, gout, hypertension, brought in by family today because they noticed he was increasingly more weak, confused, with decreased energy. Patient was found to have a urinary tract infection as well as a questionable colitis on CT abdomen. # Enterococcus Urinary tract infection: Urine culture reveals a resistant strain of enterococcus sensitive only to vancomycin. Zyvox interacts with patient's Parkinson's medications and cannot be used. I placed an order for IR to place a PICC line tomorrow. Patient will need approximately 5 days of IV antibiotics which can be arranged for him at home after his clinical improvement in the hospital and working with physical therapy. Continues to have leukocytosis without fever. # Possible colitis: Patient doesn't have physical exam findings of colitis. He did have one bout of diarrhea. CT suggestive of possible colitis and treated the patient for a few days with IV levofloxacin but will stop this now as I don't suspect he has active colitis. # Weakness and confusion: This is likely related to his UTI now that he is targeted better with vancomycin for his resistant UTI I hope to see some clinical improvement. I asked physical therapy to work with the patient # Parkinson's with dementia: Continue home medications. I hope for a short hospital stay to help prevent deconditioning and possible delirium for which he is a high risk. # Concern over stroke: This was ruled out given normal physical exam compared to at admission as well as negative brain MRI. I discussed this with neurologist editor dictionary Dr. Mosqueda. # Hypertension: Currently normotensive. Monitor and titrate # Gout: Continue home medications. # DVT prophylaxis: Lovenox A I[facility] Hospitalist VS,Fishbone, I+O VS, Fishbone, I+O Laboratory Tests 09/21/20 06:17 Vital Signs Date Time Temp Pulse Resp B/P (MAP) Pulse Ox O2 Delivery O2 Flow Rate FiO2 09/21/20 06:00 98.2 94 18 115/62 (79) 96 Room Air I&O- Last 24 Hours up to 6 AM0 09/21/20 06:00 Intake Total 1650 ml Output Total 300 ml Balance 1350 ml NATHALY MOSS MD Sep 21, 2020 08:00
[2020-09-21 13:28] VITALS: BP 107/67
[2020-09-21] MEDS: QUEtiapine FUMARATE 25 MG TAB PO SCH (20:57)
[2020-09-21] MEDS: allopurinoL 300 MG TAB PO SCH (20:57)
[2020-09-21 22:00] VITALS: BP 107/68
[2020-09-22 06:00] VITALS: BP 110/64
--- NOTE | 2020-09-22 07:46 | IPNPDOC ---
Text Note Date of Service The patient was seen on 09/22/20. NOTE Subjective: Patient was seen and examined this morning at bedside. Continues to be confused and disoriented this morning. He does answer some questions appropriately when redirected. Patient denies having any chest pain or shortness of breath denies any abdominal pain and denies dysuria. Denies any fevers or chills. There was no acute overnight events reported to me. Objective: Constitutional: Awake and alert, in no apparent distress he is slow to respond to questions answers appropriately same as yesterday ENT: Sclera are clear. Mucosa is moist. Respiratory: Lungs CTA bilaterally. No respiratory distress. No use of accessory muscles. Cardiovascular: RRR S1 and S2 are normal, no murmur Gastrointestinal: Abdomen is soft, non distended, non tender, BS present. Musculoskeletal: No lower extremity edema. RUE 5/5, LUE 5/5, BLE 5/5 Neurologic: No focal neurological deficit other than cogwheel rigidity. Mental Status: A&O x3, normal affect Skin: Warm, dry Assessment/plan: 80-year-old male history of Parkinson's with dementia, gout, hypertension, brought in by family today because they noticed he was increasingly more weak, confused, with decreased energy. Patient was found to have a urinary tract infection as well as a questionable colitis on CT abdomen. # Enterococcus Urinary tract infection: Urine culture reveals a resistant strain of enterococcus sensitive only to vancomycin. Zyvox interacts with patient's Parkinson's medications and cannot be used. I placed an order for IR to place a PICC line today 09/22. Patient will need approximately 5 days of IV antibiotics which can be arranged for him at home or at ARU. Continues to have leukocytosis without fever. if he fails to improve despite vancomycin may need an ID consult. # Possible colitis: Patient doesn't have physical exam findings of colitis. He did have one bout of diarrhea. CT suggestive of possible colitis and treated the patient for a few days with IV levofloxacin but will stop this now as I don't suspect he has active colitis. # Weakness and confusion: This is likely related to his UTI now that he is targeted better with vancomycin for his resistant UTI I hope to see some clinical improvement. I asked physical therapy to work with the patient, they suggested ARU screening. # Parkinson's with dementia: Continue home medications. I hope for a short hospital stay to help prevent deconditioning and possible delirium for which he is a high risk. # Concern over stroke: This was ruled out given normal physical exam compared to at admission as well as negative brain MRI. I discussed this with neurologist regional director of finance Dr. Mosqueda. # Hypertension: Currently normotensive. Monitor and titrate # Gout: Continue home medications. # DVT prophylaxis: Lovenox Disposition: ARU once mentation improves can continue to receive vancomycin through a PICC line at ARU Point of contact: His daughter Dionne who I have been updating. A Iam Hospitalist VS,Memo, I+O VS, Memo, I+O Vital Signs Date Time Temp Pulse Resp B/P (MAP) Pulse Ox O2 Delivery O2 Flow Rate FiO2 09/22/20 06:00 99.5 97 20 110/64 (79) 94 Room Air I&O- Last 24 Hours up to 6 AM 09/22/20 06:00 Intake Total 1045 ml Output Total 0 ml Balance 1045 ml NATHALY MOSS MD Sep 22, 2020 07:46
[2020-09-22 08:26] LABS: BASO # 0.1 10^3/uL (0.0-0.2); BASO % 0.4 % (0.0-1.0); EOS # 0.1 10^3/uL (0.0-0.5); EOS % 0.5 % (0.0-3.0); HEMATOCRIT 36.9 % (42.0-52.0); HEMOGLOBIN 11.5 g/dl (13.5-17.5); LYMPH # 1.5 10^3/uL (1.5-5.0); LYMPH % 7.5 % (24.0-44.0); MEAN CORPUSCULAR HEMOGLOBIN 28.8 pg (27.0-33.0); MEAN CORPUSCULAR HGB CONC 31.2 g/dl (32.0-36.5); MEAN CORPUSCULAR VOLUME 92.3 fl (80.0-96.0); MONO # 1.7 10^3/uL (0.0-0.8); MONO % 8.4 % (0.0-5.0); NEUTROPHILS % 81.8 % (36.0-66.0); PLATELET COUNT, AUTOMATED 239 10^3/uL (150-450); WHITE BLOOD COUNT 19.5 10^3/uL (4.0-10.0)
[2020-09-22] MEDS: DOCUSATE SODIUM 100MG CAPSULE PO SCH ×2 (09:05→21:33)
[2020-09-22] MEDS: SINEMET 25-100 MG TAB PO SCH ×3 (09:05→17:58)
[2020-09-22] MEDS: ENOXAPARIN 40MG/0.4ML SYRINGE (J1650 PER 10MG) SC SCH (09:05)
[2020-09-22 09:06] VITALS: BP 110/64
[2020-09-22 09:09] LABS: CALCIUM LEVEL 7.7 MG/DL (8.8-10.2); CREATININE FOR GFR 2.56 MG/DL (0.70-1.30); GLOMERULAR FILTRATION RATE 25.9 (>35); MAGNESIUM LEVEL 1.8 MG/DL (1.8-2.4); POTASSIUM SERUM 3.8 MEQ/L (3.5-5.1); VANCOMYCIN LEVEL TROUGH 20.4 UG/ML (10.0-20.0)
[2020-09-22] MEDS ORDERED: LIDOCAINE 1% MDV 20ML VIAL As Ordered ONE (12:36)
[2020-09-22 14:00] VITALS: BP 100/58
[2020-09-22] MEDS: NS 1,000 ML IV SCH (15:17)
--- NOTE | 2020-09-22 17:09 | REP ---
PROCEDURE NAME: PICC LINE INSERTION W/SITERITE CLINICAL INFORMATION: intermediate Abx. COMPARISON: None. PROCEDURE DESCRIPTION: The procedure was performed by IBRAHIMA Hull, under the direct supervision of Dr. Rider. The risks and benefits of the procedure were explained to the patient and an informed consent was obtained both verbally and written. Directly prior to the start of the procedure a formal time-out was completed in the procedure room. The right basilic vein was localized using ultrasound guidance. The skin was prepped and draped in sterile fashion. One mL of 1% lidocaine 10 mg/mL was used as a local anesthetic. Using ultrasound guidance the right basilic vein was cannulated, and a 0.018 guidewire was inserted and advanced to the level of SVC using fluoroscopic guidance. The needle was removed and a 4.5 Norwegian dilator and peel-away sheath was inserted over the guidewire. A 4.5 Norwegian single lumen catheter was cut to a length of 40 cm. The dilator was removed and the catheter was inserted over the guidewire with the tip ending at the level of the SVC. The peel-away sheath was removed and the catheter was flushed with heparinized saline as per hospital protocol. The catheter was affixed to the skin and a sterile dressing was applied. The patient tolerated the procedure well and there were no immediate complications. CONCLUSION: PICC line insertion into the right basilic vein. 0.1 minutes of fluoroscopy time was utilized for this procedure. Some fluoroscopic images are performed with last image hold technology. These images require no additional radiation. <Electronically signed by Maddie Lyons > 09/22/20 1447 <Electronically signed by Jonn Rider > 09/22/20 2245
[2020-09-22] MEDS ORDERED: VANCOMYCIN INTERMITTENT/PULSE DOSING BY CLINICAL PHARMACIST PER DOSING PROTOCOL XX SCH (21:15)
[2020-09-22] MEDS: allopurinoL 300 MG TAB PO SCH (21:33)
[2020-09-22] MEDS: QUEtiapine FUMARATE 25 MG TAB PO SCH (21:33)
[2020-09-22 22:00] VITALS: BP 120/69
[2020-09-23] MEDS: NS 1,000 ML IV SCH (01:07)
[2020-09-23 06:00] VITALS: BP 108/65
[2020-09-23 06:26] LABS: BASO # 0.1 10^3/uL (0.0-0.2); BASO % 0.3 % (0.0-1.0); EOS # 0.1 10^3/uL (0.0-0.5); EOS % 0.4 % (0.0-3.0); HEMATOCRIT 37.3 % (42.0-52.0); HEMOGLOBIN 12.2 g/dl (13.5-17.5); LYMPH # 1.2 10^3/uL (1.5-5.0); LYMPH % 5.9 % (24.0-44.0); MEAN CORPUSCULAR HEMOGLOBIN 29.5 pg (27.0-33.0); MEAN CORPUSCULAR HGB CONC 32.7 g/dl (32.0-36.5); MEAN CORPUSCULAR VOLUME 90.3 fl (80.0-96.0); MONO # 1.7 10^3/uL (0.0-0.8); MONO % 8.8 % (0.0-5.0); NEUTROPHILS # 16.2 10^3/uL (1.5-8.5); NEUTROPHILS % 82.1 % (36.0-66.0); PLATELET COUNT, AUTOMATED 225 10^3/uL (150-450); RED BLOOD COUNT 4.13 10^6/uL (4.30-6.10); WHITE BLOOD COUNT 19.7 10^3/uL (4.0-10.0)
[2020-09-23 06:40] LABS: MAGNESIUM LEVEL 1.7 MG/DL (1.8-2.4)
[2020-09-23 07:33] LABS: ALBUMIN 1.9 GM/DL (3.2-5.2); CALCIUM LEVEL 7.7 MG/DL (8.8-10.2); CREATININE FOR GFR 3.53 MG/DL (0.70-1.30); GLOMERULAR FILTRATION RATE 17.9 (>35); PHOSPHORUS LEVEL 2.9 MG/DL (2.5-4.9); POTASSIUM SERUM 3.8 MEQ/L (3.5-5.1)
[2020-09-23] MEDS: DOCUSATE SODIUM 100MG CAPSULE PO SCH (09:30)
[2020-09-23] MEDS: ENOXAPARIN 40MG/0.4ML SYRINGE (J1650 PER 10MG) SC SCH (09:30)
[2020-09-23] MEDS: SINEMET 25-100 MG TAB PO SCH ×3 (09:30→18:26)
[2020-09-23 11:11] LABS: CLOSTRIDIUM DIFFICILE PCR POSITIVE (NEGATIVE)
[2020-09-23] MEDS ORDERED: VANCOMYCIN ORAL SOL 250MG/5ML ORAL SYRINGE PO SCH (12:00)
[2020-09-23 14:00] VITALS: BP 110/62
[2020-09-23] MEDS: FIDAXOMICIN 200 MG TAB (DIFICID) PO SCH ×2 (15:18→21:52)
[2020-09-23] MEDS: LACTOBACILLUS ACIDOPHILUS CAP (BACID) PO SCH (18:26)
--- NOTE | 2020-09-23 19:05 | IPNPDOC ---
Text Note Date of Service The patient was seen on 09/23/20. NOTE Subjective: Patient developed up to 5 bowel movements with watery stool overni ght. Objective: GENERAL APPEARANCE: In moderate distress HEENT: no scleral icterus, no JVD, EOMI CARDIOVASCULAR: S1S2 LUNGS: Diminished lung sounds bilaterally ABDOMEN: soft & moderately distended MUSCULOSKELETAL: no cyanosis, no swelling INTEGUMENT: no generalized pallor NEUROLOGICAL: cranial nerve function from 2-12 intact intact, follows commands, speech not dysarthric Assessment/plan: 80-year-old male history of Parkinson's with dementia, gout, hypertension, brought in by family today because they noticed he was increasingly more weak, confused, with decreased energy. Patient was found to have a urinary tract infection as well as a questionable colitis on CT abdomen. Endocolitis/C. difficile infection Patient was tested positive for C. difficile Fidaxomicin by mouth was started CECILE Secondary to diarrhea due to C. difficile, ARB, contrast study Continue to monitor DC allopurinol UTI Patient completed course of antibiotics Deconditioning Secondary to progression of Parkinson's diseases and endocolitis with UTI PT/OT Parkinson's with dementia Continue home medications Hypertensive Blood pressures under control continue home meds VS,Fishbone, I+O VS, Fishbone, I+O Laboratory Tests 09/23/20 06:08 Vital Signs Date Time Temp Pulse Resp B/P (MAP) Pulse Ox O2 Delivery O2 Flow Rate FiO2 09/23/20 14:00 97.8 59 22 110/62 (78) 96 Room Air I&O- Last 24 Hours up to 6 AM 09/23/20 06:00 Intake Total 2130 ml Output Total 0 ml Balance 2130 ml MACIE FRANCO DO Sep 23, 2020 19:05
[2020-09-23] MEDS: QUEtiapine FUMARATE 25 MG TAB PO SCH (21:52)
[2020-09-23 22:00] VITALS: BP 113/63
--- NOTE | 2020-09-23 23:02 | CR ---
NEPHROLOGY CONSULTATION DATE: 09/23/2020 REQUESTING PHYSICIAN: Lewis Neri M.D. REASON FOR CONSULTATION: Management of acute renal failure. CHIEF COMPLAINT: Patient was admitted on 09/19/2020 with altered mental status and confusion. NOTE: History was obtained from the chart and from medical team. Patient is unable to provide any history. HISTORY OF PRESENT ILLNESS: Govind Dennis is an 80-year-old male with a past medical history of Parkinson's disease with dementia, hypertension, chronic gout, no significant history of kidney disease in the past, who was admitted on 09/19/2020 with altered mental status, increasing confusion, weakness, lack of energy. He was found to have a urinary tract infection. He was started on I.V. antibiotics for that. His renal function was stable on arrival with a creatinine of 1.02 and his creatinine actually improved to 0.6. For the initial three days of admission, there was no evidence of kidney injury, however when his labs came back yesterday morning, his creatinine was 2.5 and today morning his creatinine has bumped up to 3.5. Nephrology service was called for further help in the management of this patient. I saw and evaluated the patient today morning at the bedside. He was unable to provide me any review of systems or history. He just told me that he lives in the hospital. When I saw the chronology of the events, patient was on I.V. Vancomycin which has been stopped now. He was also on Captopril, which was stopped yesterday. He also got a CAT scan with I.V. contrast on 09/19/2020 and he also got two doses of I.V. Levaquin 750 mg on the and . PAST MEDICAL HISTORY: History of Parkinson's disease with dementia, hypertension, gout and recent diagnosis of Enterococcus Faecalis, which was sensitive only to Vancomycin and Zyvox. PAST SURGICAL HISTORY: No known past surgical history. FAMILY HISTORY: Unknown past family history of any renal disease. SOCIAL HISTORY: He lives with his daughter. There is no history of smoking, illicit drug abuse or alcohol abuse. ALLERGIES: No known drug allergies. MEDICATIONS: REVIEW OF SYSTEMS: I was unable to do any review of systems; patient is obtunded and confused. PHYSICAL EXAMINATION: GENERAL: Patient is drowsy, sleepy, answers very few questions and inappropriately answers the questions. VITAL SIGNS: Temperature 99.5 degrees Fahrenheit, blood pressure 108/65, pulse 108, respiratory rate 20, saturating 93% on room air. INTAKE AND OUTPUT: There is no urine output recorded. He has been having incontinent voids. HEAD/NECK: Pupils are equally round and reactive to light. Mucous membranes are slightly dry. Neck is supple. No significant JVD. CARDIOVASCULAR: S1, S2, regular rate. 1+ edema of the bilateral lower extremities. RESPIRATORY: Mildly decreased breath sounds at the bases with mild inspiratory crackles at the bases. ABDOMEN: Distended with mild tenderness to deep palpation. GENITOURINARY: Bladder is not palpable. Bedside bladder scan was done and there was about 250 cc of urine in the bladder. MUSCULOSKELETAL: About 1+ edema of the bilateral lower extremities. FUR CLIPPER: Patient is awake but obtunded and confused. He follows very few commands. LABORATORY REVIEW: CBC showed WBC 19.7, hemoglobin 12.2, platelets 225,000. Urinalysis done on arrival showed 1+ protein and 1+ blood. BMP done today morning showed sodium 139, potassium 3.8, chloride 110, bicarb 20, BUN 47, creatinine 3.5. Calcium 7.7, magnesium 1.7. Albumin 1.9. Random Vancomycin today 16.1. MICROBIOLOGY: Stool for C. diff is positive. Urine culture on 09/19/2020 was positive for Enterococcus faecium, sensitive to Vancomycin and Zyvox. CURRENT INPATIENT MEDICATIONS: Patient's medications were all reviewed by myself. He was getting normal saline 100 cc an hour since yesterday. He was on Vancomycin I.V., which has been stopped. He was on Allopurinol, which has been stopped as well. He is on Sinemet one tablet p.o. three times a day. Colace 100 mg p.o. twice a day has been stopped because of C. diff. Lovenox 40 mg subcutaneously daily. Dificid 200 mg p.o. twice a day, lactobacillus one twice a day, Milk of Magnesia 30 mL p.r.n. constipation, Seroquel 25 mg q.h.s. ASSESSMENT AND PLAN: 1. Acute renal failure: I am not sure if it is oliguric versus nonoliguric renal failure and patient has incontinent voids. I am going to have Thompson catheter placement for critical monitoring. It is multifactorial at this time. Patient was on Captopril up until yesterday. He got a CAT scan with contrast four days ago. He was on I.V. Vancomycin and he also got high dose of I.V. Levaquin for two days right before the acute kidney injury. Most likely it is iatrogenic in nature. At this point, patient does not need any I.V. fluid hydration. He adequately got hydrated and he has mild edema of the lower extremities. I would just monitor him for renal recovery. All the nephrotoxic medications are on hold. There is no urgent need of hemodialysis, however, patient will be closely monitored on a daily basis. 2. Enterococcus faecium/urinary tract infection: Patient was on Vancomycin for that. UTI is sensitive to that and his serum levels of Vancomycin are 16, which should be adequate for the next few days to cover him for a UTI. No further antibiotics at this time because patient has C. diff colitis as well. 3. C. diff colitis: Patient has already been started on oral Dificid. If needed if his diarrhea does not start getting better, then he would be given fluids, otherwise he does not need any I.V. fluid hydration. 4. Chronic gout secondary to chronic kidney disease: Patient is in acute renal failure. Allopurinol has been stopped now. 5. Metabolic acidosis: It is secondary to C. diff colitis and acute renal failure, bicarb level is within the acceptable range. If needed, he will be started on oral Bicitra. Thank you for involving me in the care of this patient. I shall be happy to follow the patient along with you tomorrow morning.
[2020-09-24] MEDS: SODIUM CHLORIDE 0.9% INJ 10 ML SYR IV SCH ×2 (05:43→17:50)
[2020-09-24 06:00] VITALS: BP 118/73
[2020-09-24 06:29] LABS: HEMATOCRIT 37.7 % (42.0-52.0); HEMOGLOBIN 12.3 g/dl (13.5-17.5); MEAN CORPUSCULAR HEMOGLOBIN 29.4 pg (27.0-33.0); MEAN CORPUSCULAR HGB CONC 32.6 g/dl (32.0-36.5); MEAN CORPUSCULAR VOLUME 90.2 fl (80.0-96.0); PLATELET COUNT, AUTOMATED 238 10^3/uL (150-450); RED BLOOD COUNT 4.18 10^6/uL (4.30-6.10); WHITE BLOOD COUNT 21.6 10^3/uL (4.0-10.0)
[2020-09-24 06:57] LABS: LYMPHOCYTES 2 % (16-44); MAGNESIUM LEVEL 1.9 MG/DL (1.8-2.4); MONOCYTES 2 % (0-5); NEUTROPHILS 95 % (28-66); PLATELET ESTIMATE NORMAL (NORMAL)
[2020-09-24] MEDS: LACTOBACILLUS ACIDOPHILUS CAP (BACID) PO SCH ×2 (08:37→17:49)
[2020-09-24] MEDS: FIDAXOMICIN 200 MG TAB (DIFICID) PO SCH ×2 (08:37→20:43)
[2020-09-24] MEDS: ENOXAPARIN 40MG/0.4ML SYRINGE (J1650 PER 10MG) SC SCH (08:37)
[2020-09-24] MEDS: SINEMET 25-100 MG TAB PO SCH ×3 (08:37→17:49)
[2020-09-24 09:40] LABS: ALBUMIN 1.8 GM/DL (3.2-5.2); CALCIUM LEVEL 7.6 MG/DL (8.8-10.2); GLOMERULAR FILTRATION RATE 15.5 (>35); PHOSPHORUS LEVEL 3.4 MG/DL (2.5-4.9); POTASSIUM SERUM 3.7 MEQ/L (3.5-5.1)
[2020-09-24] MEDS ORDERED: FUROSEMIDE 40MG/4ML VIAL (J1940) IV ONE (12:00)
--- NOTE | 2020-09-24 12:41 | CR ---
INFECTIOUS DISEASE CONSULTATION DATE: 09/23/2020 REASON FOR CONSULTATION: C. difficile colitis with NAP1 strain. This consultation was done via ZO[facility] with the [facility] at [facility] with his nurse, Elizabeth, at the bedside. HISTORY OF PRESENT ILLNESS: Mr. Dennis is an 80-year-old gentleman, who lives with his family, brought in by his daughter with complaints of increasing weakness, confusion, decreased energy and some diarrhea. The patient was also incontinent of urine, although usually he is not incontinent and was complaining of some dysuria, but he had no fever or flank pain. He had no headache, no chest pain or shortness of breath. On admission he had a CT abdomen and pelvis, which was suggestive of colitis. Imaging study done on 09/19/20 showed moderate mural thickening involving most of the colon consistent with Enterocolitis or inflammatory bowel, sliding type hiatal hernia, intrarenal nephrolithiasis, but no hydronephrosis on the left side. Left renal cyst unchanged and left-sided periaortic cyst as well unchanged. Patient was treated for presumptive urinary tract infection and had a urinalysis which had 32 white cells, urine culture that had E. faecium. He initially received two doses of Levofloxacin on September 19 and September 20 and he was switched to I.V. Vancomycin. The patient has persistent leukocytosis. His white count has remained around 20,000 and he had six bowel movements yesterday and three bowel movements today that were watery. Stool was sent for C. diff and was positive for the NAP1 strain. PAST MEDICAL HISTORY: Significant for dementia, recurrent urinary tract infection, osteoarthritis of the knees; patient states he needed surgery but it was not done, so when he walks at home, he walks very carefully. Parkinson's disease, hypertension, gout. SOCIAL HISTORY: He denies alcohol, tobacco use or illicit drug use. He lives with his family at home. FAMILY HISTORY: Non-revealing. REVIEW OF SYSTEMS: He has no nausea or vomiting. He has no appetite and has not eaten well. According to the nurse who was present at the bedside, he has left upper quadrant tenderness. He has not been getting out of bed on his own like his baseline. He is incontinent of urine. He had a Thompson catheter placed today for I's and O's as his kidney function has worsened. He has had watery stool. ALLERGIES: No known drug allergies. MEDICATIONS: 1. Vancomycin 250 mg p.o. every 6 hours. 2. Vancomycin I.V. 1 gram I.V. every 12 hours; he only received two doses on September 21 and his Vancomycin level has been pretty high since. 3. Enoxaparin 40 mg subcutaneously daily. 4. Colace 100 mg p.o. b.i.d.; he has received a total of six doses since admission. 5. Seroquel 25 mg p.o. q.h.s. 6. Sinemet one tablet p.o. t.i.d. 7. Tylenol p.r.n. 8. Milk of Magnesia p.r.n. LABORATORY DATA: White count 19.7, hemoglobin 12.2, hematocrit 37.3, platelets 225,000, 82% neutrophils, 6% lymphocytes, 8% monocytes. Sodium 139, potassium 3.8, chloride 110, bicarb 20, BUN 47, creatinine 3.5 increased from 0.6 on admission, glucose 111. Calcium 7.7, phosphorus 2.9, magnesium 1.7, albumin 1.9. Procalcitonin 0.93. Free T4 1.5, which is elevated, TSH 3.98. GI panel is pending. Stool for C. diff was positive, NAP1 strain positive. Urine culture 09/19 E. faecium; resistant to everything but gentamicin, Linezolid and Vancomycin. Blood cultures two sets done on September 19 were negative. IMAGING STUDIES: CT abdomen and pelvis showed diffuse colitis. Brain MRI done on September 20 showed small changes with mild generalized volume loss, no acute findings. Chest x-ray; lungs are well inflated, there is no active disease, pulmonary vasculature is not increased. PHYSICAL EXAMINATION: VITAL SIGNS: Temperature 97.8, pulse 59, respirations 22, blood pressure 110/62, O2 sat 96% on room air. He has been afebrile throughout this admission. GENERAL: He looks well. He is sitting in the chair. LUNGS: The nurse Elizabeth, is at his bedside. Doing the exam for me, she stated his lungs have decreased BS at the bases, but clear. HEART: Normal S1-2. EXTREMITIES: +1 pitting edema. Abdomen/ He has left upper quadrant tenderness. He has a Thompson catheter in place with dark urine. Intake 1340 today. Output is not recorded. He had three bowel movements today. IMPRESSION: An 80-year-old gentleman with a history of dysuria, admitted with a CT abdomen and pelvis showing diffuse colitis consistent with C. difficile. The patient was treated for presumptive urinary tract infection, received Levofloxacin for two doses and Vancomycin two doses. Currently his Vancomycin level is 16.1, which is therapeutic for the past three days. He has acute kidney injury with a creatinine of 3.5; a combination of dehydration and infection, possibly Vancomycin as well. A Thompson catheter has been placed. I.V. Vancomycin will be discontinued and he will be treated instead for C. difficile. The patient either has fair or high risk of recurrent C. diff and morality from NAP1 strain. He will be treated with Fidaxomicin and not Vancomycin. PLAN: 1. Discontinue I.V. Vancomycin. Do not treat the urinary tract infection unless patient is having symptoms. At this point, he has received three days of I.V. Vancomycin as his level is still therapeutic from the . 2. Discontinue p.o. Vancomycin. Switch him to p.o. Fidaxomicin 200 mg p.o. b.i.d.; much better for an elderly patient with less risk of recurrence of Cdiff. 3.Start probiotic one tablet p.o. b.i.d. Encourage oral intake, liquids. Encourage ambulation. Contact isolation for C. difficile. [facility]
--- NOTE | 2020-09-24 12:54 | IPN ---
NEPHROLOGY PROGRESS NOTE DATE: 09/24/2020 SUBJECTIVE: Patient was seen and examined on the bedside today morning. He was actually sitting on the sofa. He remains oliguric at this time. Renal function continues to be at worst. Creatinine has bumped up to 4 today. He denies any active complaints at this time. OBJECTIVE: VITAL SIGNS: Temperature degrees 96.5 Fahrenheit, blood pressure 118/73, pulse 85, respiratory rate 17, saturating 97% on room air. INTAKE AND OUTPUT: Urine output recorded as 400 mL since overnight. Weight in the bed scale is not available. PHYSICAL EXAMINATION: GENERAL: Patient is awake, alert, oriented times two, sitting up in the sofa in no apparent distress. HEAD AND NECK EXAM: Extraocular muscles intact. Pupils equally round and reactive to light. Mucous membranes are moist. Neck is supple. There is no jugular venous distention (JVD). CARDIOVASCULAR: S1, S2. Regular rate. 1+ edema of the bilateral lower extremities. RESPIRATORY: Decreased breath sounds at the bases with mild inspiratory crackles at the bases. ABDOMEN: Soft. Obese. Distended. No organomegaly was noted. GENITOURINARY: He has an indwelling Thompson catheter. MUSCULOSKELETAL: Patient has 1+ edema in the thighs and 1+ edema in the lower legs, as well. CENTRAL NERVOUS SYSTEM (3D SPECIALIST): No focal deficits. Power is 5/5 in all extremities. LABORATORY REVIEW: CBC showed a WBC 21.6, hemoglobin 12.3, platelets 238. BMP showed sodium 137, potassium 3.7, chloride 109, [id number], BUN 59, creatinine 4. MICROBIOLOGY: No repeat cultures are available at this time. CURRENT INPATIENT MEDICATIONS: Patient's medications were all reviewed by myself. He was given a dose of Lasix 40 mg intravenous (IV) by myself. No other significant change in the medications except that his oral vancomycin has been stopped and he is currently on Dificid 200 mg by mouth twice a day. ASSESSMENT AND PLAN: 1. Acute oliguric renal failure. Multifactorial at this time. Patient was on high dose of Levaquin. He was on ANN-MARIE inhibitors. At this point, he is oliguric. I am going to try and diurese him with a dose of IV Lasix. Electrolytes are within the acceptable range. No need for dialysis at this time. 2. Enterococcus faecium urinary tract infection. Patient was on IV vancomycin. Vancomycin levels should be adequate. Check the level in the morning. 3. Clostridium (C) difficile colitis. Patient has been started on oral Dificid. Diarrhea is getting better. 4. Metabolic acidosis. It is secondary to renal failure and diarrhea with Clostridium (C) difficile colitis. I am going to start the patient on sodium bicarbonate.
[2020-09-24] MEDS: SODIUM BICARBONATE 325 MG TAB PO SCH ×2 (13:28→20:43)
--- NOTE | 2020-09-24 13:42 | IPNPDOC ---
Text Note Date of Service The patient was seen on 09/24/20. NOTE Subjective: Patient had 1 bowel movement overnight. He states that he feels be tter. Objective: GENERAL APPEARANCE: In moderate distress HEENT: no scleral icterus, no JVD, EOMI CARDIOVASCULAR: S1S2 LUNGS: Diminished lung sounds bilaterally ABDOMEN: soft & moderately distended MUSCULOSKELETAL: no cyanosis, no swelling INTEGUMENT: no generalized pallor NEUROLOGICAL: cranial nerve function from 2-12 intact intact, follows commands, speech not dysarthric Assessment/plan: 80-year-old male history of Parkinson's with dementia, gout, hypertension, brought in by family today because they noticed he was increasingly more weak, confused, with decreased energy. Patient was found to have a urinary tract infection as well as a questionable colitis on CT abdomen. Endocolitis/C. difficile infection Patient was tested positive for C. difficile Improved today Continue with Fidaxomicin by mouth CECILE/Acute oliguric renal failure Secondary to diarrhea due to C. difficile, ARB, contrast study Continue to monitor Nephrology team follows him. UTI Patient completed course of antibiotics Deconditioning Secondary to progression of Parkinson's diseases and endocolitis with UTI PT/OT Parkinson's with dementia Continue home medications Hypertensive Blood pressures under control continue home meds Metabolic acidosis Secondary to uremia Started bicarbonate VS,Fishbone, I+O VS, Fishbone, I+O Laboratory Tests 09/24/20 05:28 Vital Signs Date Time Temp Pulse Resp B/P (MAP) Pulse Ox O2 Delivery O2 Flow Rate FiO2 09/24/20 06:00 98.5 85 17 118/73 (88) 97 Room Air I&O- Last 24 Hours up to 6 AM 09/24/20 06:00 Intake Total 1650 ml Balance 1650 ml MACIE FRANCO DO Sep 24, 2020 13:42
[2020-09-24 14:00] VITALS: BP 105/57
[2020-09-24] MEDS: QUEtiapine FUMARATE 25 MG TAB PO SCH (20:43)
[2020-09-24 22:00] VITALS: BP 113/58
[2020-09-25] MEDS: SODIUM CHLORIDE 0.9% INJ 10 ML SYR IV SCH ×2 (05:02→18:36)
[2020-09-25 05:54] LABS: HEMATOCRIT 39.6 % (42.0-52.0); HEMOGLOBIN 13.2 g/dl (13.5-17.5); MEAN CORPUSCULAR HEMOGLOBIN 29.3 pg (27.0-33.0); MEAN CORPUSCULAR HGB CONC 33.3 g/dl (32.0-36.5); PLATELET COUNT, AUTOMATED 285 10^3/uL (150-450)
[2020-09-25 06:00] VITALS: BP 110/62
[2020-09-25 06:22] LABS: WHITE BLOOD COUNT 32.8 10^3/uL (4.0-10.0)
[2020-09-25 06:25] LABS: ATYPICAL LYMPH 4 % (0-5); LYMPHOCYTES 2 % (16-44); MONOCYTES 1 % (0-5); NEUTROPHILS 93 % (28-66); PLATELET ESTIMATE NORMAL (NORMAL)
[2020-09-25] MEDS: FIDAXOMICIN 200 MG TAB (DIFICID) PO SCH ×2 (08:20→22:08)
[2020-09-25] MEDS: SINEMET 25-100 MG TAB PO SCH ×3 (08:20→18:00)
[2020-09-25] MEDS: ENOXAPARIN 40MG/0.4ML SYRINGE (J1650 PER 10MG) SC SCH (08:20)
[2020-09-25] MEDS: SODIUM BICARBONATE 325 MG TAB PO SCH (08:20)
[2020-09-25] MEDS: LACTOBACILLUS ACIDOPHILUS CAP (BACID) PO SCH ×2 (08:20→18:00)
[2020-09-25 08:25] LABS: ALBUMIN 1.9 GM/DL (3.2-5.2); CALCIUM LEVEL 8.2 MG/DL (8.8-10.2); CREATININE FOR GFR 4.4 MG/DL (0.70-1.30); GLOMERULAR FILTRATION RATE 13.8 (>35); PHOSPHORUS LEVEL 4.5 MG/DL (2.5-4.9)
--- NOTE | 2020-09-25 09:44 | REP ---
INDICATION: Ileus, megacolon COMPARISON: None. TECHNIQUE: Supine view of the abdomen and pelvis. FINDINGS: Markedly dilated air-filled loops of small and large bowel noted throughout the abdomen and pelvis consistent with ileus. No evidence to suggest obstruction or perforation. IMPRESSION: Markedly dilated air-filled loops of small and large bowel most consistent with ileus. <Electronically signed by Dominic Fitch > 09/25/20 [id number]
[2020-09-25] MEDS: metroNIDAZOLE 500 MG in IV 1 EA IV SCH ×2 (11:36→18:36)
[2020-09-25] MEDS: D5W/0.9% SODIUM CHLORIDE 1,000 ML IV SCH (13:45)
[2020-09-25 14:00] VITALS: BP 106/60
--- NOTE | 2020-09-25 14:41 | REP ---
INDICATION: NG tube placemet. COMPARISON: Comparison chest x-ray 19 September 2020. TECHNIQUE: Portable upright AP chest radiograph. FINDINGS: The lungs are well inflated and free of infiltrate. Pleural angles are sharp. Heart size is normal. Pulmonary vasculature is not increased. There is minimal platelike atelectasis in the left base. NG tube is passed in good position in the left upper quadrant of the abdomen. Gaseous distention of the colon is seen in the upper abdomen. A right-sided PICC line is noted in place with its tip in the expected location of superior vena cava. IMPRESSION: No active disease. Nasogastric and right-sided PICC lines noted.. <Electronically signed by Jonn Rider > 09/25/20 1307
--- NOTE | 2020-09-25 15:50 | IPNPDOC ---
Text Note Date of Service The patient was seen on 09/25/20. NOTE Subjective: Patient had 1 bowel movement overnight. Objective: GENERAL APPEARANCE: In moderate distress HEENT: no scleral icterus, no JVD, EOMI CARDIOVASCULAR: S1S2 LUNGS: Diminished lung sounds bilaterally ABDOMEN: soft & severely distended MUSCULOSKELETAL: no cyanosis, no swelling INTEGUMENT: no generalized pallor NEUROLOGICAL: cranial nerve function from 2-12 intact intact, follows commands, speech not dysarthric Assessment/plan: 80-year-old male history of Parkinson's with dementia, gout, hypertension, brought in by family today because they noticed he was increasingly more weak, confused, with decreased energy. Patient was found to have a urinary tract infection as well as a questionable colitis on CT abdomen. Endocolitis/C. difficile infection Patient was tested positive for C. difficile Patient developed more abdominal distention with increased leukocytosis today metronidazole IV 3 times a day Continue with Fidaxomicin by mouth Abdominal X-ray showed Markedly dilated air-filled loops of small and large bowel most consistent with ileus. NG tube CECILE/Acute oliguric renal failure Secondary to diarrhea due to C. difficile, ARB, contrast study Worsening today Continue to monitor Nephrology team follows him. If patient continues to have oliguria he might need dialysis UTI Patient completed course of antibiotics Deconditioning Secondary to progression of Parkinson's diseases and enterocolitis with UTI PT/OT Parkinson's with dementia Continue home medications Hypertensive Blood pressures under control continue home meds Metabolic acidosis Secondary to uremia VS,Fishbone, I+O VS, Fishbone, I+O Laboratory Tests 09/25/20 05:17 Vital Signs Date Time Temp Pulse Resp B/P (MAP) Pulse Ox O2 Delivery O2 Flow Rate FiO2 09/25/20 14:00 98.3 73 17 106/60 (75) 95 Room Air I&O- Last 24 Hours up to 6 AM 09/25/20 06:00 Intake Total 820 ml Output Total 675 ml Balance 145 ml MACIE FRANCO DO Sep 25, 2020 15:49
[2020-09-25] MEDS ORDERED: VANCOMYCIN 500MG/10ML VIAL PR SCH (18:00)
--- NOTE | 2020-09-25 19:46 | IPN ---
[facility] PROGRESS NOTE DATE: 09/25/2020 SUBJECTIVE: The patient was seen and examined at the bedside today morning. Patient has poor oral intake. His latest x-ray abdomen that was done in the morning was noted. Patient has mildly dilated air-filled loop of small and large bowel consistent with ileus. He continues to be in renal failure. Creatinine has bumped up to 4.4 today. He has worsening leukocytosis with a WBC of 32.8. OBJECTIVE: VITAL SIGNS: Temperature 98 degrees Fahrenheit, blood pressure 110/62, pulse 71, respiratory rate 17, saturating 92% on room air. INTAKE AND OUTPUT: Urine output recorded as 575 mL yesterday, 300 mL so far today since overnight. Weight in the bed scale is not available. PHYSICAL EXAMINATION: GENERAL: Patient is awake, alert, oriented times two, laying in bed. HEAD AND NECK EXAM: Mucous membranes are dry. Neck is supple. There is no jugular venous distention (JVD). CARDIOVASCULAR: S1, S2. Regular rate. Trace edema on the bilateral lower extremities. RESPIRATORY: Mildly decreased breath sounds at the bases with inspiratory crackles at the bases. ABDOMEN: Significantly distended with tympanitic percussion and decreased bowel sounds. GENITOURINARY: He has an indwelling Thompson catheter. MUSCULOSKELETAL: No clubbing or cyanosis. Pulses are 2+. CENTRAL NERVOUS SYSTEM (RAILROAD SIGNAL OPERATOR): No focal deficits. He moves his extremities and follows commands. LABORATORY REVIEW: CBC showed a WBC 32.8, hemoglobin 13.2, platelets 285. BMP done today morning showed sodium 136, potassium 4, chloride 106, bicarbonate 18, BUN 71, creatinine 4.4, lactic acid 1.9, calcium 8.2, phosphorus 4.5, magnesium 2. MICROBIOLOGY: No repeat cultures are available. IMAGING: X-ray of the abdomen done today morning showed mildly dilated air-filled loops of small and large bowel consistent with ileus. A chest x-ray was done, which showed no active disease. CURRENT INPATIENT MEDICATIONS: Patient's medications were all reviewed by myself. I have started the patient on D5W with normal saline at 60 mL/hour. He has been started on intravenous (IV) Flagyl. He continues to be on oral Dificid. Sodium bicarbonate oral has been stopped. ASSESSMENT AND PLAN: 1. Acute oliguric renal failure. Patient has ileus now. No more diuretic is being given at this time. Actually, I have started the patient on gentle IV fluid hydration. Management of ileus is as mentioned below. There is no urgent need of hemodialysis. I will continue to monitor the patient for renal recovery. However, if his acidosis or his electrolytes get worse, then he will be started on hemodialysis. 2. Ileus. Patient has dilated small and large bowel loops. Nasogastric (NG) tube with intermittent suctioning has been ordered. IV Flagyl has also been started. IV fluids have also been started because patient is going to be nothing by mouth. 3. Enterococcus faecium urinary tract infection. Patient was adequately covered with IV vancomycin. 4. Clostridium (C) difficile colitis. Patient is currently on oral Dificid and IV Flagyl, as mentioned above. 5. Metabolic acidosis. It is secondary to renal failure. Lactic acid level is within the normal range. Oral bicarbonate has been stopped. Serum bicarbonate level is 18, which is adequate for now.
[2020-09-25 22:00] VITALS: BP 104/60
[2020-09-25] MEDS: QUEtiapine FUMARATE 25 MG TAB PO SCH (22:08)
[2020-09-25] MEDS: VANCOMYCIN 500MG/10ML VIAL PR SCH (23:54)
[2020-09-26] MEDS: metroNIDAZOLE 500 MG in IV 1 EA IV SCH ×3 (02:48→18:18)
--- NOTE | 2020-09-26 03:47 | REPVR ---
PROCEDURE INFORMATION: Exam: XR Chest, 1 View Exam date and time: 09/26/2020 3:21 AM Age: 80 years old Clinical indication: Device placement; Ng tube; Additional info: Ng tube placement TECHNIQUE: Imaging protocol: XR of the chest Views: 1 view. COMPARISON: [facility] PORTABLE CHEST X-RAY 09/25/2020 2:04 PM FINDINGS: Tubes, catheters and devices: Nasogastric tube terminates at the gastroesophageal junction. Recommend advancing tube at least 5-10 cm. Right PICC extends to the superior vena cava. Lungs: Mild bilateral perihilar and bibasilar reticulonodular and ground-glass opacities. Pleural spaces: Unremarkable. No pleural effusion. No pneumothorax. Heart/Mediastinum: Unremarkable. No cardiomegaly. Vasculature: Atherosclerotic disease of the thoracic aorta. Bones/joints: Degenerative changes in the bilateral shoulders. Gastrointestinal tract: Gaseous distension multiple bowel loops. IMPRESSION: Nasogastric tube terminates at the gastroesophageal junction. Recommend advancing tube at least 5-10 cm. Electronically signed by: Alexandre Nuñez On 09/26/2020 03:46:42 AM
[2020-09-26 06:00] VITALS: BP 112/66
[2020-09-26] MEDS: SODIUM CHLORIDE 0.9% INJ 10 ML SYR IV SCH ×2 (06:00→16:33)
[2020-09-26 06:29] LABS: BASO # 0.2 10^3/uL (0.0-0.2); BASO % 0.4 % (0.0-1.0); EOS % 0.1 % (0.0-3.0); HEMATOCRIT 36.8 % (42.0-52.0); HEMOGLOBIN 12.5 g/dl (13.5-17.5); LYMPH # 1.2 10^3/uL (1.5-5.0); LYMPH % 3.2 % (24.0-44.0); MEAN CORPUSCULAR HEMOGLOBIN 29.8 pg (27.0-33.0); MEAN CORPUSCULAR VOLUME 87.8 fl (80.0-96.0); MONO # 1.4 10^3/uL (0.0-0.8); MONO % 3.7 % (0.0-5.0); NEUTROPHILS # 34.8 10^3/uL (1.5-8.5); NEUTROPHILS % 89.4 % (36.0-66.0); PLATELET COUNT, AUTOMATED 298 10^3/uL (150-450); RED BLOOD COUNT 4.19 10^6/uL (4.30-6.10)
[2020-09-26 06:32] LABS: WHITE BLOOD COUNT 38.9 10^3/uL (4.0-10.0)
[2020-09-26] MEDS: VANCOMYCIN 500MG/10ML VIAL PR SCH ×4 (06:39→23:45)
[2020-09-26 06:44] LABS: MAGNESIUM LEVEL 2.1 MG/DL (1.8-2.4)
[2020-09-26 08:27] LABS: ALBUMIN 1.9 GM/DL (3.2-5.2); ALT/SGPT < 6 U/L (12-78); BILIRUBIN,TOTAL 0.6 MG/DL (0.2-1.0); BLOOD UREA NITROGEN 83 MG/DL (7-18); CALCIUM LEVEL 7.4 MG/DL (8.8-10.2); CARBON DIOXIDE LEVEL 18 MEQ/L (21-32); CHLORIDE LEVEL 107 MEQ/L (98-107); GLUCOSE, FASTING 114 MG/DL (70-100); PHOSPHORUS LEVEL 4.4 MG/DL (2.5-4.9); POTASSIUM SERUM 3.6 MEQ/L (3.5-5.1); SODIUM LEVEL 138 MEQ/L (136-145); TOTAL PROTEIN 4.9 GM/DL (6.4-8.2)
--- NOTE | 2020-09-26 08:49 | REP ---
INDICATION: ng tube COMPARISON: 09/25/2020 TECHNIQUE: Supine view of the abdomen and pelvis. FINDINGS: Diffusely dilated air-filled loops of small and large bowel again noted. Nasogastric tube is identified extending into the left upper quadrant. IMPRESSION: Continued evidence for ileus. Nasogastric tube identified in the left upper quadrant. <Electronically signed by Dominic Fitch > 09/26/20 [id number]
--- NOTE | 2020-09-26 08:51 | REP ---
INDICATION: ng tube COMPARISON: 09/26/2020 TECHNIQUE: Portable AP view of the chest FINDINGS: Nasogastric tube extends below the left hemidiaphragm in satisfactory position. Right PICC line with tip in the SVC. Mediastinum and cardiac silhouette are stable. Lung moreno demonstrate chronic stable changes. Trace left basilar atelectasis suggested. No focal consolidation, obvious effusion, or pneumothorax. IMPRESSION: Nasogastric tube below left hemidiaphragm in satisfactory position. Chronic changes with minimal basilar atelectasis. <Electronically signed by Dominic Fitch > 09/26/20 [id number]
--- NOTE | 2020-09-26 09:04 | IPN ---
PROGRESS NOTE DATE: 09/25/2020 This is a Telemedicine visit. SUBJECTIVE: The patient is not doing very well. He had only one bowel movement overnight, but his abdomen is very distended. Patient with worsening leukocytosis. He has remained afebrile. INTAKE AND OUTPUT: Intake yesterday 820. Output 575. There is a positive balance of 245. One bowel movement today. LABORATORY DATA: White count 32.8, hemoglobin 13.2, hematocrit 39.6, platelets 285, 93% neutrophils, 2% lymphocytes. Sodium 136, potassium 4, chloride 106, bicarbonate 18, BUN 71, creatinine 4.4, glucose 100, calcium 8.2, phosphorus 4.5, magnesium 2, albumin 1.9. Procalcitonin 1.93. GI panel is pending. Stool for Clostridium (C) difficile is positive with NAP1 strain. IMAGING: Abdominal x-ray done on 09/25/2020: Markedly dilated air-filled loops of small and large bowel noted throughout the abdomen and pelvis consistent with ileus. No evidence of obstruction. PHYSICAL EXAMINATION: Temperature 98.3, pulse 73, respirations 17, blood pressure 106/70, oxygen saturation 95% on room air. ABDOMEN: Very distended. IMPRESSION: 1. Clostridium (C) difficile colitis with NAP1 strain with ileus and severe leukocytosis on oral fidaxomicin. IV Flagyl was started today and we will start him on vancomycin enema. I would suggest obtaining surgery consultation. Some patients require hemicolectomy for severe colitis, especially if the patient is a FULL CODE. 2. Enterococcus faecium bacteruria treated with Levaquin and IV vancomycin with therapeutic levels for three days. At this point, I would not recommend treating bacteruria. 3. Acute oliguric renal failure, worsening. Patient on IV fluid and followed by Dr. Rodriguez. PLAN: Case has been discussed with pharmacy. Will order vancomycin enema 500 mg every 6 hours. Metronidazole 500 IV every 8 hours has been added. Fidaxomicin 200 mg by mouth twice a day. We will discontinue probiotics, as the patient has an ileus and probably all his oral medications will have to be on hold at this time. Please consult surgery for backup plan. [facility]
[2020-09-26] MEDS: FIDAXOMICIN 200 MG TAB (DIFICID) PO SCH ×2 (09:16→21:02)
[2020-09-26] MEDS: SINEMET 25-100 MG TAB PO SCH ×3 (09:16→18:18)
[2020-09-26] MEDS: D5W/0.9% SODIUM CHLORIDE 1,000 ML IV SCH (09:17)
[2020-09-26] MEDS: ENOXAPARIN 30MG/0.3ML SYRINGE (J1650 PER 10MG) SC SCH (09:17)
[2020-09-26 12:23] LABS: AMORPHOUS SEDIMENT SMALL (NEGATIVE); APPEARANCE, URINE CLOUDY (CLEAR); BACTERIA, URINE AUTO NEGATIVE (NEGATIVE); BILIRUBIN, URINE AUTO NEGATIVE (NEGATIVE); BLOOD, URINE BLOOD 2+ (NEGATIVE); COLOR, URINE AMBER (YELLOW); GLUCOSE, URINE (UA) AUTO NEGATIVE (NEGATIVE); KETONE, URINE AUTO TRACE mg/dL (NEGATIVE); LEUKOCYTE ESTERASE, URINE AUTO 1+ (NEGATIVE); NITRITE, URINE AUTO NEGATIVE (NEGATIVE); PROTEIN, URINE AUTO 1+ mg/dL (NEGATIVE); RBC, URINE AUTO 21 /HPF (0-3); SPECIFIC GRAVITY URINE AUTO 1.016 (1.002-1.035); SQUAMOUS EPITHELIAL CELL UR AU 0 /HPF (0-6); WBC, URINE AUTO 9 /HPF (0-3)
[2020-09-26] MEDS ORDERED: NS 500 ML IV ONE (12:45)
--- NOTE | 2020-09-26 12:47 | IPNPDOC ---
Text Note Date of Service The patient was seen on 09/26/20. NOTE Subjective: Patient seems to be confused in the morning, overnight he tried to remove NG tube Objective: GENERAL APPEARANCE: In moderate distress HEENT: no scleral icterus, no JVD, EOMI CARDIOVASCULAR: S1S2 LUNGS: Diminished lung sounds bilaterally ABDOMEN: soft & severely distended MUSCULOSKELETAL: no cyanosis, no swelling INTEGUMENT: no generalized pallor NEUROLOGICAL: cranial nerve function from 2-12 intact intact, follows commands, speech not dysarthric Assessment/plan: 80-year-old male history of Parkinson's with dementia, gout, hypertension, brought in by family today because they noticed he was increasingly more weak, confused, with decreased energy. Patient was found to have a urinary tract infection as well as a questionable colitis on CT abdomen. Endocolitis/C. difficile infection/ Fulminant C.diff Patient was tested positive for C. difficile Patient developed more abdominal distention with increased leukocytosis today metronidazole IV 3 times a day Continue with Fidaxomicin by mouth, vancomycin enema Abdominal X-ray showed Markedly dilated air-filled loops of small and large bowel most consistent with ileus. NG tube Appreciate/agree with surgical consult CECILE/Acute oliguric renal failure Secondary to diarrhea due to C. difficile, ARB, contrast study Slight improvement today Continue to monitor Nephrology team follows him. If patient continues to have oliguria he might need dialysis UTI Patient completed course of antibiotics Deconditioning Secondary to progression of Parkinson's diseases and enterocolitis with UTI PT/OT Parkinson's with dementia Continue home medications Hypertensive Blood pressures under control continue home meds Metabolic acidosis Secondary to uremia VS,Lewbone, I+O VS, Fishbone, I+O Laboratory Tests 09/26/20 05:41 Vital Signs Date Time Temp Pulse Resp B/P (MAP) Pulse Ox O2 Delivery O2 Flow Rate FiO2 09/26/20 06:00 98.1 98 21 112/66 (81) 98 Room Air I&O- Last 24 Hours up to 6 AM 09/26/20 06:00 Intake Total 1420 ml Output Total 425 ml Balance 995 ml MACIE FRANCO DO Sep 26, 2020 12:47
[2020-09-26 12:55] LABS: CHLORIDE,RANDOM URINE < 10 MEQ/L; POTASSIUM RANDOM URINE 30.3 MEQ/L; SODIUM,RANDOM URINE < 10 MEQ/L
[2020-09-26] MEDS: KCL 20MEQ IN D5/0.45NS 1000ML 1,000 ML IV SCH (13:15)
[2020-09-26 14:00] VITALS: BP 103/59
--- NOTE | 2020-09-26 16:14 | REP ---
INDICATION: ileus COMPARISON: Comparison KUB study September 26, 2020. Comparison CT exam 19 September 2020.. TECHNIQUE: Helical scanning is acquired in 4 mm axial images were reformatted. Coronal and sagittal MPR images were generated and reviewed. FINDINGS: Preliminary job molder views demonstrate ileus pattern in the bowel gas with gaseous distention of multiple loops of small bowel and air and stool in the right colon. NG tube is noted. On axial CT images there are small bilateral pleural effusions with some bibasilar atelectatic changes. There is a tiny amount of pericardial fluid. There is mild diffuse abdominal ascites. This is a new finding compared with the CT study from 19 September 2020. No focal liver or spleen lesion is seen. No abnormality is noted in the adrenal glands, pancreas, or gallbladder. The kidneys are morphologically intact except for a small peripheral cyst at the lower pole of the left kidney as previously noted. The low-density retroperitoneal cyst like lesion in the left periaortic region is again seen unchanged. Today's study again demonstrates moderate diffuse colonic mural thickening consistent with enterocolitis. This appears more pronounced than on the earlier study of 19 September 2020. There is air and some fluid in small bowel loops consistent with ileus. A Thompson catheter is seen in the urinary bladder. There is no evidence of abscess or free intraperitoneal air. IMPRESSION: Ileus pattern in the bowel gas. Moderate diffuse colonic mural thickening consistent with a enterocolitis, nonspecific. The entire colon is involved and is the findings more pronounced than previously. There is new mild diffuse abdominal ascites. Small bilateral pleural effusions. No evidence of free air. Thompson catheter and nasogastric tubes in place. <Electronically signed by Jonn Rider > 09/26/20 [id number]
--- NOTE | 2020-09-26 17:43 | IPN ---
PROGRESS NOTE DATE: 09/26/2020 SUBJECTIVE: Patient seen and examined at the bedside today morning. Patient got the nasogastric (NG) tube placed yesterday, and it was started on suctioning. He pulled his NG tube once yesterday, and he had to get mittens on his hands. He is slightly obtunded, but he is able to answer questions. He is still in renal failure. Creatinine is slightly better today as compared with yesterday. He was started on intravenous (IV) fluid hydration. His leukocytosis is worse today as compared with yesterday. OBJECTIVE: Vital signs: Temperature is 97.7 degrees Fahrenheit, blood pressure 103/59, pulse is 96, respiratory rate of 18, saturating 98% on room air. Intake and output: Urine output recorded is 400 mL yesterday, 225 mL so far today. Weight in the bed scale is not available. PHYSICAL EXAMINATION: GENERAL: Patient is awake, oriented times one, lying in bed. HEAD AND NECK: Pupils equal, round and reactive to light. Mucous membranes are dry. Neck is supple. No jugular venous distention (JVD). CARDIOVASCULAR: S1, S2, regular rate. Edema 1+ of the bilateral lower extremities. RESPIRATORY: Mildly decreased breath sounds at the bases. Mild inspiratory crackles on bases on deep inspiration. ABDOMEN: Distended with tympanitic percussion note. Decreased bowel sounds. GENITOURINARY: She has an indwelling Thompson catheter. MUSCULOSKELETAL: No clubbing or cyanosis. Pulses are 2+. CENTRAL NERVOUS SYSTEM: Patient is oriented times one. He moves extremities and follows some commands. LABORATORY REVIEW: CBC showed a WBC 38.9, hemoglobin 12.5, platelets 298. Urinalysis showed the urine was cloudy with 2+ blood, 1+ protein. Urine random sodium is less than 10, potassium is 30.3, chloride is less than 10, and creatinine is 198. BMP showed sodium 138, potassium 3.6, chloride 107, bicarbonate 18, BUN 83, creatinine 4.1. Lactic acid is 1.3. Calcium is 7.4. Phosphorus is 4.4. Magnesium 2.1. Total bilirubin 0.6. IMAGING: A chest x-ray was done today, which showed chronic lung changes and nasogastric tube in the hemidiaphragm. A CT scan of the abdomen was done today, which showed ileus pattern in the bowel gas. Moderate diffuse colonic mural thickening, consistent with enterocolitis. Entire colon is involved, and findings are more pronounced than previously. There is mild, diffuse abdominal ascites, small bilateral pleural effusions. CURRENT INPATIENT MEDICATIONS: Patient's medications were all reviewed by myself. His intravenous (IV) fluid has been changed to potassium chloride 20 mEq and D5 half-normal saline at 60 mL an hour. He is on IV Flagyl. He was given normal saline 500 mL bolus. He continues to be on Sinemet, and he is getting vancomycin 500 mg rectal enemas every 6 hours. ASSESSMENT AND PLAN: 1. Acute renal failure. Patient's urine electrolytes are showing evidence of extremely prerenal state, which can either be secondary to decreased renal perfusion in the setting of abdominal distention or acute tubular necrosis (ATN). At this point, I will continue the gentle IV fluid hydration. He was already given 500 mL normal saline bolus as well. 2. Ileus. Patient got the CT scan done. Surgical service is also on board. Infectious disease saw the patient. He is getting rectal enemas of vancomycin. He is on IV Flagyl as well. Continue the NG tube (NGT) with intermittent suctioning. 3. Clostridium (C) difficile colitis. Patient is unable to take oral Dificid. He is currently on IV Flagyl and rectal vancomycin enemas. 4. Metabolic acidosis. It is secondary to acute renal failure. Lactis acid level is within the acceptable range. No need of IV bicarbonate at this time.
[2020-09-26] MEDS: QUEtiapine FUMARATE 25 MG TAB PO SCH (21:02)
--- NOTE | 2020-09-26 21:49 | CR ---
CONSULTATION DATE: 09/26/2020 REASON FOR CONSULTATION: Abdominal distention and C. diff, possible toxic megacolon. HISTORY OF PRESENT ILLNESS: Patient is an 80-year-old male with history of Parkinson's with dementia. He was brought in on September 19 due to weakness and confusion. He was initially admitted with a diagnosis of a UTI and possibly some colitis as well. He was treated with antibiotics initially. He was rather stable at first, however over the past week, his abdomen has become more distended. His white count has increased drastically and he is failing antibiotic therapy. Due to the persistent disease and newly diagnosed C. diff as well, I was consulted to evaluate for possible surgical intervention if need be. On exam, patient denies any pain. He has no nausea or vomiting. He has no fevers. He is unable to really answer any other questions for me other than that. He does not really understand exactly what is going on at this point. His chart has been reviewed. Recommendations from nephrology, primary as well as infectious disease. PAST MEDICAL HISTORY: Parkinson's with dementia, hypertension, gout. PAST SURGICAL HISTORY: None. FAMILY HISTORY: Noncontributory. SOCIAL HISTORY: Negative. ALLERGIES: None. HOME MEDICATIONS: Please see medical record. REVIEW OF SYSTEMS: Difficult to obtain, however, pertinent negatives are no abdominal pains. LABORATORY DATA: White count 38.9, hemoglobin 12.5, platelets 298,000. Lactic acid 1.3. Creatinine 4.1. Albumin 1.9. LFTs within normal limits. C. diff is positive. IMAGING STUDIES: CT abdomen and pelvis was just completed this afternoon, shows ileus pattern with bowel gas, moderate diffuse colonic mural thickening consistent with enterocolitis. The entire colon is involved and the findings are more pronounced than previous exam. There is new mild diffuse abdominal ascites, small bilateral pleural effusions. No evidence of any free air. ASSESSMENT AND PLAN: Patient is an 80-year-old male with severe C. diff infectious colitis. I do not believe he has toxic megacolon at this time since he is afebrile, has no lactic acidosis, no hypotension, no tachycardia and no signs of peritonitis on exam. Recommendation would be for a stool transplant. We have discussed this with Dr. Lock and we are unable to do that here. I will discuss with the primary about possibly seeing if he can be transferred elsewhere to have that completed. If not, then we will continue to treat him with antibiotics and Vanco enemas to see if he shows any signs of improvement. If not, then I will discuss possible surgical resection with him and the family, however, he is unlikely to tolerate that very well at this point and I do not think that that will be of much benefit to him given the fact that this does not look to be like a toxic megacolon.
[2020-09-26 22:00] VITALS: BP 112/85
[2020-09-27] MEDS: metroNIDAZOLE 500 MG in IV 1 EA IV SCH ×3 (02:39→18:04)
[2020-09-27 06:00] VITALS: BP 102/58
[2020-09-27] MEDS: SODIUM CHLORIDE 0.9% INJ 10 ML SYR IV SCH ×2 (06:00→17:34)
[2020-09-27] MEDS: VANCOMYCIN 500MG/10ML VIAL PR SCH ×3 (06:03→17:49)
[2020-09-27 06:34] LABS: HEMOGLOBIN 11.3 g/dl (13.5-17.5); MEAN CORPUSCULAR HEMOGLOBIN 28.7 pg (27.0-33.0); MEAN CORPUSCULAR HGB CONC 32.3 g/dl (32.0-36.5); MEAN CORPUSCULAR VOLUME 88.8 fl (80.0-96.0); PLATELET COUNT, AUTOMATED 284 10^3/uL (150-450); RED BLOOD COUNT 3.94 10^6/uL (4.30-6.10)
[2020-09-27 06:45] LABS: WHITE BLOOD COUNT 30.8 10^3/uL (4.0-10.0)
[2020-09-27 06:58] LABS: ALBUMIN 1.7 GM/DL (3.2-5.2); ALT/SGPT < 6 U/L (12-78); BILIRUBIN,TOTAL 0.5 MG/DL (0.2-1.0); BLOOD UREA NITROGEN 82 MG/DL (7-18); CALCIUM LEVEL 6.8 MG/DL (8.8-10.2); CARBON DIOXIDE LEVEL 19 MEQ/L (21-32); CHLORIDE LEVEL 111 MEQ/L (98-107); CREATININE FOR GFR 3.05 MG/DL (0.70-1.30); GLOMERULAR FILTRATION RATE 21.1 (>35); GLUCOSE, FASTING 98 MG/DL (70-100); PHOSPHORUS LEVEL 3.5 MG/DL (2.5-4.9); POTASSIUM SERUM 3.6 MEQ/L (3.5-5.1); SODIUM LEVEL 143 MEQ/L (136-145); TOTAL PROTEIN 4.1 GM/DL (6.4-8.2)
[2020-09-27 07:18] LABS: ATYPICAL LYMPH 2 % (0-5); LYMPHOCYTES 2 % (16-44); MONOCYTES 3 % (0-5); NEUTROPHILS 87 % (28-66)
[2020-09-27 07:19] LABS: OVALOCYTES 1+; PLATELET ESTIMATE NORMAL (NORMAL); POIKILOCYTOSIS 1+; TOXIC GRANULATION 1+
[2020-09-27 07:20] LABS: ANISOCYTOSIS 1+
[2020-09-27] MEDS: FIDAXOMICIN 200 MG TAB (DIFICID) PO SCH ×2 (08:47→20:54)
[2020-09-27] MEDS: SINEMET 25-100 MG TAB PO SCH ×3 (08:47→17:49)
[2020-09-27] MEDS: ENOXAPARIN 30MG/0.3ML SYRINGE (J1650 PER 10MG) SC SCH (08:47)
[2020-09-27] MEDS: KCL 20MEQ IN D5/0.45NS 1000ML 1,000 ML IV SCH (08:52)
--- NOTE | 2020-09-27 10:46 | IPNPDOC ---
Text Note Date of Service The patient was seen on 09/27/20. NOTE No acute events overnight. He still denies any problems with pains or fevers. No problems reported from nursing. vssaf NAD abd - soft, distended, non tender, no rebound or guarding labs - below wbc improved from 38.9 to 30.8 A) 80y/o male with severe c.diff colitis resulting in generalized ileus P) NPO NGT ivf abx vanco enemas No indication for surgical intervention at this time. He is continuing to improve. We will continue to monitor slowly, and consider starting TPN soon. Markie Mayorga DO VS,Fishbone, I+O VS, Fishbone, I+O Laboratory Tests 09/27/20 05:26 Vital Signs Date Time Temp Pulse Resp B/P (MAP) Pulse Ox O2 Delivery O2 Flow Rate FiO2 09/27/20 06:00 99.4 97 18 102/58 (73) 96 Room Air I&O- Last 24 Hours up to 6 AM 09/27/20 06:00 Intake Total 1150 ml Output Total 650 ml Balance 500 ml HELEN MAYORGA DO Sep 27, 2020 10:46
--- NOTE | 2020-09-27 12:43 | IPNPDOC ---
Text Note Date of Service The patient was seen on 09/27/20. NOTE Subjective: Patient is more alert in the morning. He complains of generalized weakness Objective: GENERAL APPEARANCE: In moderate distress HEENT: no scleral icterus, no JVD, EOMI CARDIOVASCULAR: S1S2 LUNGS: Diminished lung sounds bilaterally ABDOMEN: soft & severely distended MUSCULOSKELETAL: no cyanosis, no swelling INTEGUMENT: no generalized pallor NEUROLOGICAL: cranial nerve function from 2-12 intact intact, follows commands, speech not dysarthric Assessment/plan: 80-year-old male history of Parkinson's with dementia, gout, hypertension, brought in by family today because they noticed he was increasingly more weak, confused, with decreased energy. Patient was found to have a urinary tract infection as well as a questionable colitis on CT abdomen. Enterocolitis/C. difficile infection/ Fulminant C.diff Patient was tested positive for C. difficile Continue metronidazole IV 3 times a day Continue with Fidaxomicin by mouth, continue vancomycin enema Abdominal X-ray showed Markedly dilated air-filled loops of small and large bowel most consistent with ileus. NG tube Dr. Mayorga consulted patient, no indications for surgery in this time CECILE/Acute oliguric renal failure Secondary to diarrhea due to C. difficile, ARB, contrast study Continued to improve today Continue to monitor Nephrology team follows him. If patient continues to have oliguria he might need dialysis UTI Patient completed course of antibiotics Deconditioning Secondary to progression of Parkinson's diseases and enterocolitis with UTI PT/OT Parkinson's with dementia Continue home medications Hypertensive Blood pressures under control continue home meds Metabolic acidosis Secondary to uremia VS,Fishbone, I+O VS, Fishbone, I+O Laboratory Tests 09/27/20 05:26 Vital Signs Date Time Temp Pulse Resp B/P (MAP) Pulse Ox O2 Delivery O2 Flow Rate FiO2 09/27/20 06:00 99.4 97 18 102/58 (73) 96 Room Air I&O- Last 24 Hours up to 6 AM 09/27/20 06:00 Intake Total 1150 ml Output Total 650 ml Balance 500 ml MACIE FRANCO DO Sep 27, 2020 12:43
[2020-09-27] MEDS ORDERED: KCL 10MEQ/100ML SWI (KRUN) 10 MEQ in IV 1 EA IV ONE (13:00)
[2020-09-27 14:00] VITALS: BP 102/58
--- NOTE | 2020-09-27 19:47 | IPN ---
NEPHROLOGY PROGRESS NOTE DATE: 09/27/2020 SUBJECTIVE: The patient was seen and examined at the bedside today morning. He continues to have NG tube attached to suctioning. He is getting Vancomycin rectal enemas for C-diff colitis. He is on IV fluid hydration. Renal function is slightly better and his urine output is improving now. The patient is drowsy and obtunded when I saw him in the morning. OBJECTIVE: VITAL SIGNS: Temperature is 99.4 degrees Fahrenheit, blood pressure 102/58, pulse is 97, respiratory rate of 18, saturating 96% on room air. INTAKE AND OUTPUT: Urine output recorded as 525 mL yesterday, 700 mL so far today. Gastric drainage is 400 mL. Weight in the bed scale is not available. PHYSICAL EXAMINATION: GENERAL APPEARANCE: The patient is drowsy and obtunded, laying in bed. Eyes are closed. HEAD AND NECK: Neck is supple. There is no jugular venous distention. CARDIOVASCULAR: S1, S2, regular rate. EXTREMITIES: 1+ edema of the bilateral lower extremities. RESPIRATORY: Mildly decreased breath sounds at the bases with mild respiratory crackles. ABDOMEN: Distended with tympanitic percussion note and decreased bowel sounds. Mild tenderness to deep palpation in the left lower quadrant. GENITOURINARY: She has an indwelling Thompson catheter. MUSCULOSKELETAL: No clubbing, no cyanosis. 1+ edema of the lower extremities. MEDICAL STAFF SERVICES COORDINATOR: The patient is drowsy and obtunded. LAB REVIEW: CBC showed a white blood cell count of 13.8, hemoglobin is 11.3, platelets are 294. BMP showed sodium 143, potassium 3.6, chloride 111, bicarbonate 19, BUN 82, creatinine is 3. It was 4.1 yesterday. Calcium is 6.8, phosphorous 3.5. CURRENT INPATIENT MEDICATIONS: The patient's medications were all reviewed by myself. He continues to be on IV fluid hydration, KCL, D5 half normal saline at 60 mL an hour. He is on IV Flagyl, per rectal Vancomycin. No other significant change in the medications today as compared with yesterday. ASSESSMENT AND PLAN: 1. Acute non oliguric renal failure the patient's renal function is improving with IV fluid hydration. He was given a normal saline bolus and he continues to be on maintenance fluids. Urine electrolytes showed prerenal etiology. Creatinine is slowly improving. 2. Ileus - The patient continues to have NG tube attached to suctioning. Continue IV fluid hydration. Management of C-diff colitis is as mentioned below. 3. C-difficile colitis the patient is getting IV Flagyl and per rectal Vancomycin enemas. Infectious Disease is on board. 4. Metabolic acidosis it is slowly improving with improvement in the renal function.
[2020-09-27] MEDS: QUEtiapine FUMARATE 25 MG TAB PO SCH (20:54)
[2020-09-27 22:00] VITALS: BP 105/76
[2020-09-28] MEDS: VANCOMYCIN 500MG/10ML VIAL PR SCH ×4 (00:19→18:12)
[2020-09-28] MEDS ORDERED: MAALOX 30 ML SUSP *UDC NG PRN (00:45)
[2020-09-28] MEDS ORDERED: ACETAMINOPHEN TAB 650MG DOSE (2X325MG) NG PRN (01:15)
[2020-09-28] MEDS: metroNIDAZOLE 500 MG in IV 1 EA IV SCH ×3 (02:20→18:12)
[2020-09-28] MEDS: KCL 20MEQ IN D5/0.45NS 1000ML 1,000 ML IV SCH (02:21)
[2020-09-28 06:00] VITALS: BP 111/64
[2020-09-28] MEDS: SODIUM CHLORIDE 0.9% INJ 10 ML SYR IV SCH ×2 (06:00→17:51)
[2020-09-28 06:17] LABS: HEMATOCRIT 37.3 % (42.0-52.0); HEMOGLOBIN 12.4 g/dl (13.5-17.5); MEAN CORPUSCULAR HEMOGLOBIN 30.2 pg (27.0-33.0); MEAN CORPUSCULAR HGB CONC 33.2 g/dl (32.0-36.5); MEAN CORPUSCULAR VOLUME 90.8 fl (80.0-96.0); PLATELET COUNT, AUTOMATED 236 10^3/uL (150-450); RED BLOOD COUNT 4.11 10^6/uL (4.30-6.10)
[2020-09-28 06:43] LABS: ALBUMIN 1.6 GM/DL (3.2-5.2); ALT/SGPT < 6 U/L (12-78); BILIRUBIN,TOTAL 0.5 MG/DL (0.2-1.0); BLOOD UREA NITROGEN 74 MG/DL (7-18); CALCIUM LEVEL 7.1 MG/DL (8.8-10.2); CARBON DIOXIDE LEVEL 20 MEQ/L (21-32); CHLORIDE LEVEL 114 MEQ/L (98-107); CREATININE FOR GFR 2.32 MG/DL (0.70-1.30); GLUCOSE, FASTING 93 MG/DL (70-100); PHOSPHORUS LEVEL 3.1 MG/DL (2.5-4.9); POTASSIUM SERUM 3.8 MEQ/L (3.5-5.1); SODIUM LEVEL 143 MEQ/L (136-145); TOTAL PROTEIN 4.2 GM/DL (6.4-8.2)
[2020-09-28 06:47] LABS: WHITE BLOOD COUNT 24.5 10^3/uL (4.0-10.0)
[2020-09-28 06:52] LABS: ATYPICAL LYMPH 2 % (0-5); LYMPHOCYTES 7 % (16-44); METAMYELOCYTES 2 % (0-0); MONOCYTES 6 % (0-5); NEUTROPHILS 82 % (28-66); PLATELET ESTIMATE NORMAL (NORMAL)
[2020-09-28 06:53] LABS: ANISOCYTOSIS 1+
--- NOTE | 2020-09-28 08:02 | IPNPDOC ---
Text Note Date of Service The patient was seen on 09/28/20. NOTE No acute events overnight. He still denies any problems with pains or fevers. No problems reported from nursing. His only request is for something to drink. vssaf NAD abd - soft, less distended, non tender, no rebound or guarding labs - below wbc improved from 30.8 to 24.5 A) 80y/o male with severe c.diff colitis resulting in generalized ileus that is resolving P) NPO NGT ivf abx vanco enemas recommend to start TPN today Markie Mayorga DO VS,Fishbone, I+O VS, Fishbone, I+O Laboratory Tests 09/28/20 05:18 Vital Signs Date Time Temp Pulse Resp B/P (MAP) Pulse Ox O2 Delivery O2 Flow Rate FiO2 09/28/20 06:00 98.0 90 20 111/64 (80) 95 09/27/20 14:00 Room Air I&O- Last 24 Hours up to 6 AM 09/28/20 05:59 Intake Total 1720 ml Output Total 1500 ml Balance 220 ml HELEN MAYORGA DO Sep 28, 2020 08:02
[2020-09-28] MEDS: FIDAXOMICIN 200 MG TAB (DIFICID) PO SCH ×2 (08:44→20:04)
[2020-09-28] MEDS: SINEMET 25-100 MG TAB NG SCH ×3 (08:45→18:11)
[2020-09-28] MEDS: ENOXAPARIN 30MG/0.3ML SYRINGE (J1650 PER 10MG) SC SCH (08:45)
--- NOTE | 2020-09-28 11:01 | REP ---
INDICATION: ileus. COMPARISON: 09/26/2020. TECHNIQUE: Three AP views of abdomen and pelvis performed. FINDINGS: There is decreased distention of the stomach. Air is again seen throughout the colon, which is mildly distended. Air is seen throughout multiple small bowel loops diffusely on both sides of the abdomen. These loops are mildly dilated but the caliber appears mildly decreased compared to the prior exam. A nasogastric tube is again seen with side port in the stomach. There are degenerative changes of the spine. IMPRESSION: Decreased distention of the stomach. There appears to be mild improvement of the diffusely mildly dilated small bowel loops when compared to the prior study. <Electronically signed by Lakhwinder Mckeno > 09/28/20 1050
--- NOTE | 2020-09-28 11:54 | IPNPDOC ---
Text Note Date of Service The patient was seen on 09/28/20. NOTE Subjective: No any acute events overnight. Objective: GENERAL APPEARANCE: In moderate distress HEENT: no scleral icterus, no JVD, EOMI CARDIOVASCULAR: S1S2 LUNGS: Diminished lung sounds bilaterally ABDOMEN: soft & moderately distended MUSCULOSKELETAL: no cyanosis, no swelling INTEGUMENT: no generalized pallor NEUROLOGICAL: cranial nerve function from 2-12 intact intact, follows commands, speech not dysarthric Assessment/plan: 80-year-old male history of Parkinson's with dementia, gout, hypertension, brought in by family today because they noticed he was increasingly more weak, confused, with decreased energy. Patient was found to have a urinary tract infection as well as a questionable colitis on CT abdomen. Enterocolitis/C. difficile infection/ Fulminant C.diff Patient was tested positive for C. difficile I started metronidazole IV 3 times a day Continue with Fidaxomicin by mouth, continue vancomycin enema Dr. Mayorga consulted patient, no indications for surgery in this time TPN today Patient had slight improvement in leukocytosis and intra-abdominal distention X-ray on 09/28/20 showed Decreased distention of the stomach. There appears to be mild improvement of the diffusely mildly dilated small bowel loops when compared to the prior study. CECILE/Acute oliguric renal failure Secondary to diarrhea due to C. difficile, ARB, contrast study Continued to improve today Continue to monitor Nephrology team follows him. If patient continues to have oliguria he might need dialysis UTI Patient completed course of antibiotics Deconditioning Secondary to progression of Parkinson's diseases and enterocolitis with UTI PT/OT Parkinson's with dementia Continue home medications Hypertensive Blood pressures under control continue home meds Metabolic acidosis Secondary to uremia VS,Fishbone, I+O VS, Fishbone, I+O Laboratory Tests 09/28/20 05:18 Vital Signs Date Time Temp Pulse Resp B/P (MAP) Pulse Ox O2 Delivery O2 Flow Rate FiO2 09/28/20 06:00 98.0 90 20 111/64 (80) 95 09/27/20 14:00 Room Air I&O- Last 24 Hours up to 6 AM 09/28/20 06:00 Intake Total 700 ml Output Total 1450 ml Balance -750 ml MACIE FRANCO DO Sep 28, 2020 11:54
[2020-09-28] MEDS ORDERED: D5W 1000ML IV ONE (12:45)
[2020-09-28 14:00] VITALS: BP 114/63
[2020-09-28] MEDS: SODIUM CHLORIDE 0.9% INJ 10 ML SYR IV PRN (14:18)
[2020-09-28] MEDS ORDERED: AMINO AC/ELECTROLYTE/DEX/CALC 1,000 ML IV SCH (18:00)
[2020-09-28] MEDS ORDERED: FAT EMULSION IV 20% 500 ML IV SCH (18:00)
[2020-09-28] MEDS: HumaLOG INSULIN (NovoLOG) PER UNIT SC SCH (18:00)
--- NOTE | 2020-09-28 19:37 | IPN ---
NEPHROLOGY PROGRESS NOTE DATE: 09/28/2020 SUBJECTIVE: The patient was seen and examined at the bedside today morning. The patient is more awake today as compared with yesterday. His urine output is also improving. Renal function is improving with IV fluid hydration. He is getting the IV Flagyl and rectal Vancomycin enemas. With that his leukocytosis is getting better. The patient reports that he is feeling very thirsty despite being on IV fluid hydration. OBJECTIVE: VITAL SIGNS: Temperature is 98 degrees Fahrenheit, blood pressure 111/64, pulse is 90, respiratory rate of 20, saturating 95% on room air. INTAKE AND OUTPUT: Urine output recorded as 1,100 mL yesterday, 800 mL so far today since overnight. Gastric drainage recorded yesterday as 400 mL. Weight in the bed scale is not available. PHYSICAL EXAMINATION: GENERAL APPEARANCE: The patient is awake, alert, oriented x1, laying in bed. HEAD AND NECK: She has an NT tube which is attached to intermittent suctioning. Mucous membranes are dry. Neck is supple. There is no jugular venous distention. CARDIOVASCULAR: S1, S2, regular rate. EXTREMITIES: 1+ edema of the bilateral lower extremities. RESPIRATORY: Chest is clear to auscultation bilaterally. Bilaterally currently no rales or rhonchi. ABDOMEN: Soft, distended. Decreased bowel sounds. Mild tenderness to deep palpation. GENITOURINARY: He has an indwelling Thompson catheter. MUSCULOSKELETAL: He has 1+ edema of the extremities, otherwise no clubbing or cyanosis. DISPATCH SPECIALIST: The patient is oriented times one. Otherwise he moves the extremities and follows commands and he is able to communicate. LAB REVIEW: CBC showed a white blood cell count of 24.5. It was 30.8 yesterday. Hemoglobin is 12.4, platelet count 236. BMP showed sodium of 143, potassium 3.8, chloride 114, bicarbonate is 20; it was 19 yesterday. BUN is 74, creatinine is 2.3; it was 3 yesterday, calcium 7.1. Albumin is 1.6. IMAGING: An abdominal x-ray was done which showed decreased distention of the stomach, mild improvement of the diffuse and mildly dilated small bowel loops compared with the prior study. CURRENT INPATIENT MEDICATIONS: The patient's medications were all reviewed by myself. I see that she has been started on IV TPN, and because of that, I am stopping the IV fluids. He continues to be on IV Flagyl, and he is getting Vancomycin rectal enemas 500 mg q. 6 hourly. No other significant change in the medications. ASSESSMENT AND PLAN: 1. Acute renal failure - The patient is non oliguric. He is responding to the IV fluid hydration. IV fluids have stopped since the TPN has been started. Continue to monitor intake and output. Keep the Thompson catheter for now. 2. Ileus with C-diff colitis he has an NG tube attached to suctioning. He was on IV fluid hydration. Now he is on TPN. The patient was feeling very thirsty. IV 500 mL bolus of d5w was ordered. 3. C-difficile colitis - The patient is getting IV Flagyl and per rectal Vancomycin enemas. Leukocytosis is getting better. X-rays showed mild improvement. 4. Metabolic acidosis it is secondary to acute renal failure and C-diff colitis. Anion gap is getting better now. 5. Protein calorie malnutrition - The patient has been started on TPN by the Medical Team.
[2020-09-28] MEDS: QUEtiapine FUMARATE 25 MG TAB NG SCH (20:04)
[2020-09-28 20:45] LABS: CHLORIDE,RANDOM URINE 17 MEQ/L; SODIUM,RANDOM URINE < 10 MEQ/L
[2020-09-28 22:00] VITALS: BP 117/70
[2020-09-29] MEDS: HumaLOG INSULIN (NovoLOG) PER UNIT SC SCH ×4 (00:31→18:00)
[2020-09-29] MEDS: VANCOMYCIN 500MG/10ML VIAL PR SCH ×4 (00:32→18:22)
[2020-09-29] MEDS: metroNIDAZOLE 500 MG in IV 1 EA IV SCH ×3 (03:04→18:22)
[2020-09-29] MEDS: SODIUM CHLORIDE 0.9% INJ 10 ML SYR IV SCH ×2 (04:59→18:22)
[2020-09-29 06:00] VITALS: BP 107/62
[2020-09-29 06:33] LABS: HEMATOCRIT 38.2 % (42.0-52.0); HEMOGLOBIN 12.4 g/dl (13.5-17.5); MEAN CORPUSCULAR HEMOGLOBIN 29.2 pg (27.0-33.0); MEAN CORPUSCULAR HGB CONC 32.5 g/dl (32.0-36.5); MEAN CORPUSCULAR VOLUME 89.9 fl (80.0-96.0); PLATELET COUNT, AUTOMATED 256 10^3/uL (150-450); RED BLOOD COUNT 4.25 10^6/uL (4.30-6.10)
[2020-09-29 06:38] LABS: WHITE BLOOD COUNT 22.6 10^3/uL (4.0-10.0)
[2020-09-29 06:58] LABS: ALBUMIN 1.7 GM/DL (3.2-5.2); ALT/SGPT < 6 U/L (12-78); BILIRUBIN,TOTAL 0.3 MG/DL (0.2-1.0); BLOOD UREA NITROGEN 61 MG/DL (7-18); CALCIUM LEVEL 7.3 MG/DL (8.8-10.2); CARBON DIOXIDE LEVEL 22 MEQ/L (21-32); CHLORIDE LEVEL 114 MEQ/L (98-107); CREATININE FOR GFR 1.74 MG/DL (0.70-1.30); GLOMERULAR FILTRATION RATE 40.4 (>35); GLUCOSE, FASTING 122 MG/DL (70-100); PHOSPHORUS LEVEL 2.7 MG/DL (2.5-4.9); POTASSIUM SERUM 3.6 MEQ/L (3.5-5.1); SODIUM LEVEL 144 MEQ/L (136-145); TOTAL PROTEIN 4.4 GM/DL (6.4-8.2)
[2020-09-29 08:32] LABS: ATYPICAL LYMPH 2 % (0-5); EOSINOPHILS 1 % (0-3); LYMPHOCYTES 6 % (16-44); MONOCYTES 10 % (0-5); MYELOCYTES 1 % (0-0); NEUTROPHILS 78 % (28-66)
[2020-09-29 08:34] LABS: ANISOCYTOSIS 1+; PLATELET ESTIMATE NORMAL (NORMAL)
[2020-09-29] MEDS: SINEMET 25-100 MG TAB NG SCH ×3 (08:47→18:20)
[2020-09-29] MEDS: FIDAXOMICIN 200 MG TAB (DIFICID) PO SCH ×2 (08:47→23:00)
[2020-09-29] MEDS: ENOXAPARIN 30MG/0.3ML SYRINGE (J1650 PER 10MG) SC SCH (09:00)
--- NOTE | 2020-09-29 10:30 | IPNPDOC ---
Text Note Date of Service The patient was seen on 09/29/20. NOTE General Surgery. Dr Mayorga. The patient is an 80-year-old male with severe C. difficile colitis with generalized ileus that has been resolving. Nursing at bedside, no events overnight. 3 bowel movements yesterday. 2 so far today. The patient denies abdominal pain or any discomfort. NG tube in place. Patient is requesting something to drink. Afebrile. Heart rate 91, respiratory rate 18, blood pressure 107/62, 94% room air. Awake and alert. No acute distress. Resting in bed. S1 and S2 regular rate rhythm. Abdomen is soft, no tenderness, no rebound or guarding, mild distention noted. no edema. I/O. 1020/1250, -230. NG tube output not recorded yesterday. WBC 22.6, downward trend Hemoglobin 12.4, stable Total protein 4.4, albumin 1.7. Platelets 256. Serum creatinine 1.74 with GFR 40.4, improved. A/P. Severe C. difficile colitis with generalized ileus that has been resolving The patient is reviewed and examined by Dr. Mayorga this morning. Plan to discontinue NG tube today, trial of clear liquids. Monitor for any signs of aspiration. Continue TPN. IV Flagyl, po dificid, Vanco enemas. Continue to monitor. VS,Fishbone, I+O VS, Fishbone, I+O Laboratory Tests 09/29/20 05:26 Vital Signs Date Time Temp Pulse Resp B/P (MAP) Pulse Ox O2 Delivery O2 Flow Rate FiO2 09/29/20 06:00 97.7 91 18 107/62 (77) 94 09/28/20 14:00 Room Air I&O- Last 24 Hours up to 6 AM 09/29/20 05:59 Intake Total 1220 ml Output Total 1250 ml Balance -30 ml Christine Smalls Sep 29, 2020 10:30
--- NOTE | 2020-09-29 11:55 | IPNPDOC ---
Text Note Date of Service The patient was seen on 09/29/20. NOTE Subjective: Patient is doing better today, less abdominal distention Objective: GENERAL APPEARANCE: In moderate distress HEENT: no scleral icterus, no JVD, EOMI CARDIOVASCULAR: S1S2 LUNGS: Diminished lung sounds bilaterally ABDOMEN: soft & moderately distended MUSCULOSKELETAL: no cyanosis, no swelling INTEGUMENT: no generalized pallor NEUROLOGICAL: cranial nerve function from 2-12 intact intact, follows commands, speech not dysarthric Assessment/plan: 80-year-old male history of Parkinson's with dementia, gout, hypertension, brought in by family today because they noticed he was increasingly more weak, confused, with decreased energy. Patient was found to have a urinary tract infection as well as a questionable colitis on CT abdomen. Endocolitis/C. difficile infection/ Fulminant C.diff Patient was tested positive for C. difficile Continue metronidazole IV 3 times a day Continue with Fidaxomicin by mouth, added vancomycin enema Dr. Mayorga consulted patient, no indications for surgery in this time Patient had slight improvement in leukocytosis and intra-abdominal distention X-ray on 09/28/20 showed Decreased distention of the stomach. There appears to be mild improvement of the diffusely mildly dilated small bowel loops when compared to the prior study. On 07/29/21 NG tube was removed, clear liquid diet started Continue TPN CECILE/Acute oliguric renal failure Secondary to diarrhea due to C. difficile, ARB, contrast study Continued to improve today UTI Patient completed course of antibiotics Deconditioning Secondary to progression of Parkinson's diseases and enterocolitis with UTI PT/OT Parkinson's with dementia Continue home medications Hypertensive Blood pressures under control continue home meds Metabolic acidosis Secondary to uremia VS,Fishbone, I+O VS, Fishbone, I+O Laboratory Tests 09/29/20 05:26 Vital Signs Date Time Temp Pulse Resp B/P (MAP) Pulse Ox O2 Delivery O2 Flow Rate FiO2 09/29/20 06:00 97.7 91 18 107/62 (77) 94 09/28/20 14:00 Room Air I&O- Last 24 Hours up to 6 AM 09/29/20 06:00 Intake Total 1220 ml Output Total 1450 ml Balance -230 ml MACIE FRANCO DO Sep 29, 2020 11:55
[2020-09-29 14:00] VITALS: BP 114/64
[2020-09-29] MEDS ORDERED: LIDOCAINE 1% MDV 20ML VIAL As Ordered ONE (14:47)
--- NOTE | 2020-09-29 16:30 | IPN ---
NEPHROLOGY PROGRESS NOTE DATE: 09/29/2020 SUBJECTIVE: Govind is seen and examined this morning at the bedside. He remains on TPN. His speech is quite incoherent and difficult to understand, but he did follow simple commands and was able to tell me his name, his location, and he denied pain. PHYSICAL EXAMINATION: VITAL SIGNS: Temperature 96.8, pulse 88, respiratory rate 18, blood pressure 114/64, saturating 96% on room air. INTAKE AND OUTPUT: Intake yesterday was 1,020. It was all IV and she has zero oral intake. Urine output was 1.2 liters. There were two bowel movements recorded yesterday and two bowel movements recorded today. Weight in the bed scale today is not recorded. GENERAL APPEARANCE: The patient is seen lying in bed, the head of the bed elevated 30 degrees, elderly and frail male, awake and alert with difficult to understand speech. He makes eye contact. Tongue is dry. There is a nasogastric tube in place. NECK: Supple. Jugular veins are not elevated. HEART: Regular, S1, S2, there is 1+ peripheral edema in the legs. RESPIRATORY: Symmetric air entry, no crackle or rales. He is seen on room air. ABDOMEN: Soft. There is some distention. There is a Thompson catheter present. There are bowel sounds. GENITOURINARY: Genitourinary: Thompson catheter draining yellow urine. EXTREMITIES: He lifts his hands on command. He has 1+ peripheral edema of the legs. NEUROLOGICAL: He is oriented to person and to place, and he follows some simple commands but his speech is very difficult to understand. LABORATORY STUDIES: White count 22, hemoglobin 12.4, platelet count 256. Sodium 144, potassium 2.6, bicarbonate 22, BUN 61, creatinine 1.7. INPATIENT MEDICATIONS: The patient's medications were reviewed by myself. He continues on TPN and he continues on IV Flagyl and oral Dificid and rectal Vancomycin. His remainder medications are unchanged from prior. PROBLEMS: 1. Non oliguric acute kidney injury secondary to C-difficile colitis and contrast induced nephropathy along with yair inhibitor use (Captopril) - The patient's renal function continues to improve. Creatinine is down to 1.7 today. His electrolytes are acceptable. He is on TPN and has not had any significant oral intake for the past few days. He has a Thompson catheter in place and urine output is noted to improve. 2. C-difficile colitis the patient's white count is slowly improving down to 22,000 today. He remains afebrile. His antimicrobials are managed by Primary Service. He is on Fidaxomicin, Vancomycin enema and IV Flagyl. He remains on TPN although a clear liquid diet is ordered but nursing staff reports he is not having much oral intake. Surgery Service is also following for resolving generalized ileus and he continues with nasogastric tube.
--- NOTE | 2020-09-29 17:16 | REP ---
PROCEDURE NAME: PICC LINE INSERTION W/SITERITE CLINICAL INFORMATION: needs dual port. COMPARISON: None. PROCEDURE DESCRIPTION: The procedure was performed by IBRAHIMA Hull, under the direct supervision of Dr. Rider. The risks and benefits of the procedure were explained to the patient and an informed consent was obtained both verbally and written. Directly prior to the start of the procedure a formal time-out was completed in the procedure room. The patient arrived to the department with an indwelling single lumen PICC line, it is been requested that this PICC line be exchanged for a dual lumen PICC line. The skin and indwelling PICC line was prepped and draped in sterile fashion. A 0.018 guidewire was inserted into the existing PICC line and advanced to the level of SVC using fluoroscopic guidance. The old PICC line was removed and a 5.5 [place] [employer] dilator and peel-away sheath was inserted over the guidewire. A 5.5 [place] [employer] dual lumen catheter was cut to a length of 40 cm. The dilator was removed and the catheter was inserted over the guidewire with the tip ending at the level of the SVC. The peel-away sheath was removed and the catheter was flushed with heparinized saline as per hospital protocol. The catheter was affixed to the skin and a sterile dressing was applied. The patient tolerated the procedure well and there were no immediate complications. CONCLUSION: Single-lumen PICC line exchange for a dual lumen PICC line under fluoroscopic guidance. 0.2 minutes of fluoroscopy time was utilized for this procedure. Some fluoroscopic images are performed with last image hold technology. These images require no additional radiation. <Electronically signed by Maddie Lyons > 09/29/20 1652 <Electronically signed by Jonn Rider > 09/29/20 [id number]
[2020-09-29] MEDS ORDERED: AMINO AC/ELECTROLYTE/DEX/CALC 2,000 ML IV SCH (18:00)
[2020-09-29] MEDS ORDERED: FAT EMULSION IV 20% 500 ML IV SCH (18:00)
[2020-09-29 22:00] VITALS: BP 116/67
[2020-09-29] MEDS: QUEtiapine FUMARATE 25 MG TAB NG SCH (23:00)
[2020-09-30] MEDS: VANCOMYCIN 500MG/10ML VIAL PR SCH ×3 (00:11→12:37)
[2020-09-30] MEDS: HumaLOG INSULIN (NovoLOG) PER UNIT SC SCH ×3 (00:38→12:40)
[2020-09-30] MEDS: metroNIDAZOLE 500 MG in IV 1 EA IV SCH ×3 (03:33→18:56)
[2020-09-30 06:00] VITALS: BP 109/66
[2020-09-30] MEDS: SODIUM CHLORIDE 0.9% INJ 10 ML SYR IV SCH ×2 (06:00→18:56)
[2020-09-30 08:38] LABS: HEMATOCRIT 40.9 % (42.0-52.0); HEMOGLOBIN 12.8 g/dl (13.5-17.5); MEAN CORPUSCULAR HEMOGLOBIN 28.8 pg (27.0-33.0); MEAN CORPUSCULAR HGB CONC 31.3 g/dl (32.0-36.5); MEAN CORPUSCULAR VOLUME 91.9 fl (80.0-96.0); PLATELET COUNT, AUTOMATED 229 10^3/uL (150-450); RED BLOOD COUNT 4.45 10^6/uL (4.30-6.10)
[2020-09-30] MEDS: ENOXAPARIN 30MG/0.3ML SYRINGE (J1650 PER 10MG) SC SCH (09:01)
[2020-09-30] MEDS: FIDAXOMICIN 200 MG TAB (DIFICID) PO SCH ×2 (09:01→21:04)
[2020-09-30] MEDS: SINEMET 25-100 MG TAB NG SCH ×3 (09:01→18:56)
[2020-09-30 09:03] LABS: ATYPICAL LYMPH 2 % (0-5); BASOPHILS 1 % (0-1); EOSINOPHILS 5 % (0-3); LYMPHOCYTES 9 % (16-44); MONOCYTES 6 % (0-5); NEUTROPHILS 75 % (28-66)
[2020-09-30 09:05] LABS: ALBUMIN 1.7 GM/DL (3.2-5.2); ALT/SGPT < 6 U/L (12-78); BILIRUBIN,TOTAL 0.3 MG/DL (0.2-1.0); BLOOD UREA NITROGEN 51 MG/DL (7-18); CALCIUM LEVEL 7.3 MG/DL (8.8-10.2); CARBON DIOXIDE LEVEL 23 MEQ/L (21-32); CHLORIDE LEVEL 117 MEQ/L (98-107); GLOMERULAR FILTRATION RATE 51.9 (>35); GLUCOSE, FASTING 119 MG/DL (70-100); POTASSIUM SERUM 3.6 MEQ/L (3.5-5.1); SODIUM LEVEL 148 MEQ/L (136-145); TOTAL PROTEIN 4.6 GM/DL (6.4-8.2)
[2020-09-30 09:06] LABS: ANISOCYTOSIS 1+; PLATELET CLUMPS SMALL AMT; PLATELET ESTIMATE NORMAL (NORMAL)
--- NOTE | 2020-09-30 09:31 | IPNPDOC ---
Text Note Date of Service The patient was seen on 09/30/20. NOTE General Surgery. Dr Mayorga. The patient is an 80-year-old male with severe C. difficile colitis with generalized ileus, resolving. 4 bowel movements yesterday. The patient denies abdominal pain or any discomfort. NG tube removed 09/29, tolerating clears. Afebrile. Heart rate 80, respiratory rate 17, blood pressure 109/66, 95% room air. No acute distress. Resting in bed. S1 and S2 regular rate rhythm. Abdomen is soft, no distention, no tenderness, no rebound or guarding. no edema. I/O. 2200/1500 +700 WBC 20.0, downward trend Hemoglobin 12.8, stable Total protein 4.6, albumin 1.7. Serum creatinine 1.40 with GFR 51.9, improved. A/P. Severe C. difficile colitis with generalized ileus, resolved. NG tube discontinued 09/29/20. Tolerating clear liquid, 690 yesterday. Nursing states tolerating po with no issues. The pt is reviewed and examined by Dr. Mayorga as well, okay to advance diet as tolerated. Will follow as needed. VS,Fishbone, I+O VS, Fishbone, I+O Laboratory Tests 09/30/20 07:57 Vital Signs Date Time Temp Pulse Resp B/P (MAP) Pulse Ox O2 Delivery O2 Flow Rate FiO2 09/30/20 06:00 97.4 80 17 109/66 (80) 95 Room Air I&O- Last 24 Hours up to 6 AM 09/30/20 05:59 Intake Total 2100 ml Output Total 1500 ml Balance 600 ml Christine Smalls Sep 30, 2020 09:31
--- NOTE | 2020-09-30 09:52 | IPN ---
PROGRESS NOTE DATE: 09/29/2020 SUBJECTIVE: Mr. Dennis was lethargic tonight. He was able to drink a little 7-Up but otherwise just answered questions appropriately. His speech was somewhat incoherent. He follows simple commands. OBJECTIVE: Vital signs: Temperature 98.1, pulse 88, respirations 18, blood pressure 114/64, O2 saturation 94% on room air. Heart: Normal S1, S2 with a systolic ejection murmur. Lungs are clear. No wheezes, rales or rhonchi. Abdomen is soft, tender mildly in the lower quadrants with distention. Bowel sounds are present. Thompson catheter in place. He is tympanic on percussion. Extremities: +2 pitting edema bilaterally. LABS: White count is down to 22.6 from 38.9. Hemoglobin 12.4, hematocrit 38.2, platelets 256, 78% neutrophils, 2% bands, 6% lymphocytes. Sodium 144, potassium 3.6, chloride 114, bicarb 22, BUN 61, creatinine 1.74, glucose 122, calcium 7.3, phosphorus 2.7, AST 18, ALT less than 6. ASSESSMENT: 1. C. difficile colitis with NAP1 strain. The patient on Vancomycin per rectum (RI), IV Flagyl and fidaxomicin 200 mg by mouth twice a day. 2. Protein calorie malnutrition. The patient has been started on total parenteral nutrition (TPN). 3. Acute kidney injury, improving with creatinine down to 1.7. PLAN: 1. Continue with IV Metronidazole until white count is less than 20,000. Once is ileus decreases we can discontinue Vancomycin and continue just fidaxomicin once he is taking better by mouth. The patient will definitely need Zinplava on discharge to decrease his risk of recurrent C. difficile as he is at very high risk of recurrence.
--- NOTE | 2020-09-30 12:50 | IPNPDOC ---
Text Note Date of Service The patient was seen on 09/30/20. NOTE Subjective: Patient was able tolerates clear liquid diet. Patient stated that he feels better. Objective: GENERAL APPEARANCE: In moderate distress HEENT: no scleral icterus, no JVD, EOMI CARDIOVASCULAR: S1S2 LUNGS: Diminished lung sounds bilaterally ABDOMEN: soft & moderately distended MUSCULOSKELETAL: no cyanosis, no swelling INTEGUMENT: no generalized pallor NEUROLOGICAL: cranial nerve function from 2-12 intact intact, follows commands, speech not dysarthric Assessment/plan: 80-year-old male history of Parkinson's with dementia, gout, hypertension, brought in by family today because they noticed he was increasingly more weak, confused, with decreased energy. Patient was found to have a urinary tract infection as well as a questionable colitis on CT abdomen. Enterocolitis/C. difficile infection/ Fulminant C.diff Patient was tested positive for C. difficile Continue with Fidaxomicin by mouth X-ray on 09/28/20 showed Decreased distention of the stomach. There appears to be mild improvement of the diffusely mildly dilated small bowel loops when compared to the prior study. On 07/29/21 NG tube was removed, clear liquid diet started Continue TPN. I upgraded diet to full liquid Leukocytosis improved, continue current treatment Dr. Mcdonnell recommended Zinplava on discharge to decrease his risk of recurrent C. difficile CECILE/Acute oliguric renal failure Secondary to diarrhea due to C. difficile, ARB, contrast study Continued to improve today UTI Patient completed course of antibiotics Deconditioning Secondary to progression of Parkinson's diseases and enterocolitis with UTI PT/OT Parkinson's with dementia Continue home medications Hypertensive Blood pressures under control continue home meds Metabolic acidosis Secondary to uremia VS,Fishbone, I+O VS, Fishbone, I+O Laboratory Tests 09/30/20 07:57 Vital Signs Date Time Temp Pulse Resp B/P (MAP) Pulse Ox O2 Delivery O2 Flow Rate FiO2 09/30/20 06:00 97.4 80 17 109/66 (80) 95 Room Air I&O- Last 24 Hours up to 6 AM 09/30/20 06:00 Intake Total 2560 ml Output Total 1375 ml Balance 1185 ml MACIE FRANCO DO Sep 30, 2020 12:50
[2020-09-30] MEDS: SODIUM CHLORIDE 0.9% INJ 10 ML SYR IV PRN (13:29)
[2020-09-30 14:00] VITALS: BP 108/59
--- NOTE | 2020-09-30 15:43 | IPN ---
PROGRESS NOTE DATE: 09/30/2020 SUBJECTIVE: Govind is seen and examined this morning at the bedside. He complains he is very thirsty. His oral intake is improving. He had 700 ml oral intake yesterday and thus far today another 700 ml but he does continue otherwise on TPN. His renal function is improving. He was oriented x1 at the time of my visit. He could not tell me the year, his location, the season nor the President. PHYSICAL EXAMINATION: VITAL SIGNS: Temperature 97.1, pulse 85, respiratory rate 18, blood pressure is 108/590, saturating 95% on room air. INTAKE AND OUTPUT: Intake yesterday was 2.2 liters, urine output yesterday was 1200. Gastric drainage was 300. Weight on the bed scale today is not recorded. GENERAL: Patient is seen lying in bed, the head of the bed is elevated 30 degrees, awake and alert but only oriented to self. Remains very weak and requires assistance wit simple movements but is able to feed himself liquids from the cup. Makes eye contact. HEENT: Tongue is dry. NECK: Supple. Jugular veins were not elevated. HEART: Heart sounds are regular S1 and S2. There is trace leg edema. There is an NG-tube in place. LUNGS: Breath sounds are symmetric. No crackle or rale. ABDOMEN: Soft, there is mild distention. GENITOURINARY: Indwelling Thompson catheter. NEUROLOGIC: Speech is mostly incoherent but he is cooperative with physical exam and is seen feeding himself from a cup and is oriented to self. EXTREMITIES: There is trace to 1+ edema in the legs. LABORATORY DATA: Today's laboratory studies show white count 20, hemoglobin 12.8, platelets 229,000, sodium 148, potassium 3.6. Bicarbonate 23, phosphorus 3.0. Creatinine 1.4. BUN 51. INPATIENT MEDICATIONS: Reviewed by myself. He is ordered for special formula TPN. The remainder of medication are unchanged from prior. PROBLEMS: 1. Non-oliguric acute kidney injury secondary to C. Difficile colitis along with contrast induced nephropathy in the setting of ANN-MARIE inhibitor use. The patient's renal function continues to improve. Creatinine is down to 1.4 today. His oral intake is also slowly picking up. He had about 700 ml so far today but he does continue on TPN and special formula TPN is written today. He remains with Thompson catheter with adequate urine output. 2. Hypernatremia. Patient has a 2 liter free water deficit and special formula TPN is written with hypotonic formulation and the patient is also encouraged to drink to thirst and water is placed at the bedside with an easy reach. 3. C. Difficile colitis, white count is down to 20,000. Infectious Disease is following him. He is on Vancomycin, Flagyl and Dificid, managed as per Dr. Mcdonnell. 4. Hypokalemia. He will receive supplementation with TPN.
[2020-09-30] MEDS ORDERED: CALCIUM GLUCONATE IV SCH (18:00)
[2020-09-30] MEDS ORDERED: HumaLOG INSULIN (NovoLOG) PER UNIT SC SCH (18:00)
[2020-09-30] MEDS ORDERED: POTASSIUM PHOSPHATE IV SCH (18:00)
[2020-09-30] MEDS ORDERED: [UNRECOGNIZED DRUG - OTHER] IV SCH (18:00)
[2020-09-30] MEDS ORDERED: FAT EMULSION IV 20% 500 ML IV SCH (18:00)
[2020-09-30] MEDS: QUEtiapine FUMARATE 25 MG TAB NG SCH (21:04)
[2020-09-30 22:00] VITALS: BP 111/64
[2020-10-01] MEDS: metroNIDAZOLE 500 MG in IV 1 EA IV SCH ×3 (03:36→17:56)
[2020-10-01] MEDS: SODIUM CHLORIDE 0.9% INJ 10 ML SYR IV SCH ×2 (05:01→17:56)
[2020-10-01 06:00] VITALS: BP 155/66
[2020-10-01 06:37] LABS: HEMATOCRIT 39.5 % (42.0-52.0); HEMOGLOBIN 12.6 g/dl (13.5-17.5); MEAN CORPUSCULAR HEMOGLOBIN 29.2 pg (27.0-33.0); MEAN CORPUSCULAR HGB CONC 31.9 g/dl (32.0-36.5); MEAN CORPUSCULAR VOLUME 91.6 fl (80.0-96.0); PLATELET COUNT, AUTOMATED 229 10^3/uL (150-450); RED BLOOD COUNT 4.31 10^6/uL (4.30-6.10)
[2020-10-01 06:54] LABS: WHITE BLOOD COUNT 20.9 10^3/uL (4.0-10.0)
[2020-10-01 07:02] LABS: ALBUMIN 1.7 GM/DL (3.2-5.2); ALT/SGPT < 6 U/L (12-78); BILIRUBIN,TOTAL 0.6 MG/DL (0.2-1.0); BLOOD UREA NITROGEN 42 MG/DL (7-18); CALCIUM LEVEL 7.3 MG/DL (8.8-10.2); CARBON DIOXIDE LEVEL 26 MEQ/L (21-32); CHLORIDE LEVEL 114 MEQ/L (98-107); CREATININE FOR GFR 1.32 MG/DL (0.70-1.30); GLOMERULAR FILTRATION RATE 55.6 (>35); GLUCOSE, FASTING 113 MG/DL (70-100); PHOSPHORUS LEVEL 2.8 MG/DL (2.5-4.9); POTASSIUM SERUM 3.4 MEQ/L (3.5-5.1); SODIUM LEVEL 145 MEQ/L (136-145); TOTAL PROTEIN 4.6 GM/DL (6.4-8.2)
[2020-10-01 07:14] LABS: ANISOCYTOSIS 1+; ATYPICAL LYMPH 5 % (0-5); BASOPHILS 1 % (0-1); EOSINOPHILS 3 % (0-3); LYMPHOCYTES 6 % (16-44); MONOCYTES 7 % (0-5); NEUTROPHILS 76 % (28-66); PLATELET ESTIMATE NORMAL (NORMAL)
[2020-10-01 07:50] VITALS: BP 116/68
[2020-10-01] MEDS ORDERED: KCL 10MEQ/100ML SWI (KRUN) 10 MEQ in IV 1 EA IV ONE (08:00)
[2020-10-01] MEDS: SINEMET 25-100 MG TAB NG SCH ×3 (08:59→17:55)
[2020-10-01] MEDS: ENOXAPARIN 30MG/0.3ML SYRINGE (J1650 PER 10MG) SC SCH (09:00)
[2020-10-01] MEDS: MAGNESIUM GLUCONATE 500 MG TAB PO SCH ×2 (09:00→20:44)
[2020-10-01] MEDS: FIDAXOMICIN 200 MG TAB (DIFICID) PO SCH ×2 (09:22→20:44)
--- NOTE | 2020-10-01 09:50 | IPN ---
PROGRESS NOTE DATE: 10/01/2020 SUBJECTIVE: Mr. Dennis was sitting in bed. I saw him around dinnertime. He is doing much better. He had no complaints of abdominal pain, fever, chills, nausea or vomiting. The patient also had some drinks in front of him that he wanted to have. He wanted Pepsi instead of yudi cherelle. When I gave him the bottle of yudi cherelle, he was able to hold it on his own and drink it. He did have some back pain when I tried to elevate the bed to a 45-degree angle but otherwise he is doing well. His abdominal distention seems to have improved. OBJECTIVE: Vital signs: Temperature 97.1, pulse 85, respiratory rate 18, blood pressure 108/59, O2 saturation 95% on room air. General: He is lying in bed. Head of bed was elevated to 40 degrees to have dinner. He is able to hold his drink. HEENT: Oropharynx: Dry mucosa. No JVD. Heart: Normal S1, S2. No murmurs appreciated. Lungs are clear. No wheezes, rales or rhonchi. Abdomen is soft. Distention has improved. Bowel sounds normal. No tenderness. : Indwelling Thompson catheter in place. Extremities: +1 pitting edema. LABS: White count has dropped to 20,000, hemoglobin 12.8, platelets 229,000. Sodium 148, creatinine 1.4, BUN 51. ASSESSMENT: 1. C. difficile colitis with improving white count on fidaxomicin by mouth 200 mg twice a day which has been renewed. Vancomycin enemas which will be discontinued. He is having improving white count and eating and IV Flagyl. 2. Acute kidney injury secondary to C. difficile and dehydration as well as contrast-induced nephropathy is markedly improved. I would recommend discontinuing his Thompson catheter. The patient is at risk of having catheter-associated UTI and further need for antibiotics. PLAN: 1. Discontinue Vancomycin enemas 2. Continue by mouth Dificid 200 mg twice a day. 3. Discontinue IV Flagyl once his white count is less than 15,000. 4. The patient will benefit from IV Zinplava as an outpatient possibly on the day of discharge. 5. Discontinue Thompson catheter to prevent risk of catheter-associated UTI. [facility]Jose
--- NOTE | 2020-10-01 11:55 | IPNPDOC ---
Text Note Date of Service The patient was seen on 10/01/20. NOTE Subjective: Patient stated that he has a good appetite, we will try soft mech anical diet Objective: GENERAL APPEARANCE: In moderate distress HEENT: no scleral icterus, no JVD, EOMI CARDIOVASCULAR: S1S2 LUNGS: Diminished lung sounds bilaterally ABDOMEN: soft & moderately distended MUSCULOSKELETAL: no cyanosis, no swelling INTEGUMENT: no generalized pallor NEUROLOGICAL: cranial nerve function from 2-12 intact intact, follows commands, speech not dysarthric Assessment/plan: 80-year-old male history of Parkinson's with dementia, gout, hypertension, brought in by family today because they noticed he was increasingly more weak, confused, with decreased energy. Patient was found to have a urinary tract infection as well as a questionable colitis on CT abdomen. Enterocolitis/C. difficile infection/ Fulminant C.diff Patient was tested positive for C. difficile Continue with Fidaxomicin by mouth Dr. Mayorga consulted patient, no indications for surgery in this time X-ray on 09/28/20 showed Decreased distention of the stomach. There appears to be mild improvement of the diffusely mildly dilated small bowel loops when compared to the prior study. On 07/29/21 NG tube was removed, patient was able to tolerate soft mechanical diet Dr. Mcdonnell recommended Zinplava on discharge to decrease his risk of recurrent C. difficile and dc vancomycin enema CECILE/Acute oliguric renal failure Secondary to diarrhea due to C. difficile, ARB, contrast study Continued to improve today UTI Patient completed course of antibiotics Deconditioning Secondary to progression of Parkinson's diseases and enterocolitis with UTI PT/OT Parkinson's with dementia Continue home medications Hypertensive Blood pressures under control continue home meds Metabolic acidosis Resolved Hypokalemia Replaced VS,Fishbone, I+O VS, Fishbone, I+O Laboratory Tests 10/01/20 05:47 Vital Signs Date Time Temp Pulse Resp B/P (MAP) Pulse Ox O2 Delivery O2 Flow Rate FiO2 10/01/20 07:50 97.8 80 18 116/68 (84) 97 Room Air I&O- Last 24 Hours up to 6 AM 10/01/20 06:00 Intake Total 2300 ml Output Total 1100 ml Balance 1200 ml MACIE FRANCO DO Oct 01, 2020 11:55
[2020-10-01] MEDS ORDERED: PILL CUTTER 1 EACH XX PRN (12:00)
[2020-10-01 14:00] VITALS: BP_SYST 115; BP_SYST 146; BP_DIAS 66; BP_DIAS 70
[2020-10-01] MEDS: QUEtiapine FUMARATE 25 MG TAB NG SCH (20:45)
[2020-10-01 22:00] VITALS: BP 125/76
[2020-10-02] MEDS: metroNIDAZOLE 500 MG in IV 1 EA IV SCH ×2 (02:23→09:28)
[2020-10-02] MEDS: SODIUM CHLORIDE 0.9% INJ 10 ML SYR IV SCH ×2 (05:09→18:08)
[2020-10-02 06:00] VITALS: BP 126/76
[2020-10-02 06:29] LABS: HEMATOCRIT 41.6 % (42.0-52.0); HEMOGLOBIN 13.2 g/dl (13.5-17.5); MEAN CORPUSCULAR HEMOGLOBIN 28.7 pg (27.0-33.0); MEAN CORPUSCULAR HGB CONC 31.7 g/dl (32.0-36.5); MEAN CORPUSCULAR VOLUME 90.4 fl (80.0-96.0); PLATELET COUNT, AUTOMATED 237 10^3/uL (150-450)
[2020-10-02 06:30] LABS: WHITE BLOOD COUNT 17.6 10^3/uL (4.0-10.0)
[2020-10-02 06:51] LABS: ATYPICAL LYMPH 4 % (0-5); BASOPHILS 2 % (0-1); EOSINOPHILS 2 % (0-3); LYMPHOCYTES 11 % (16-44); MONOCYTES 4 % (0-5); NEUTROPHILS 77 % (28-66); PLATELET ESTIMATE NORMAL (NORMAL)
[2020-10-02 06:52] LABS: ANISOCYTOSIS 1+
[2020-10-02 06:57] LABS: ALBUMIN 2.1 GM/DL (3.2-5.2); ALT/SGPT < 6 U/L (12-78); BILIRUBIN,TOTAL 0.6 MG/DL (0.2-1.0); BLOOD UREA NITROGEN 39 MG/DL (7-18); CALCIUM LEVEL 7.3 MG/DL (8.8-10.2); CARBON DIOXIDE LEVEL 22 MEQ/L (21-32); CHLORIDE LEVEL 112 MEQ/L (98-107); CREATININE FOR GFR 1.07 MG/DL (0.70-1.30); GLOMERULAR FILTRATION RATE > 60.0 (>35); GLUCOSE, FASTING 84 MG/DL (70-100); PHOSPHORUS LEVEL 2.4 MG/DL (2.5-4.9); POTASSIUM SERUM 3.5 MEQ/L (3.5-5.1); SODIUM LEVEL 145 MEQ/L (136-145)
[2020-10-02] MEDS: ENOXAPARIN 30MG/0.3ML SYRINGE (J1650 PER 10MG) SC SCH (09:27)
[2020-10-02] MEDS: FIDAXOMICIN 200 MG TAB (DIFICID) PO SCH ×2 (09:28→21:00)
[2020-10-02] MEDS: MAGNESIUM GLUCONATE 500 MG TAB PO SCH ×2 (09:28→21:00)
[2020-10-02] MEDS: SINEMET 25-100 MG TAB NG SCH ×3 (09:28→18:07)
--- NOTE | 2020-10-02 10:58 | IPNPDOC ---
Text Note Date of Service The patient was seen on 10/02/20. NOTE Subjective: Patient deteriorated soft mechanical diet, yesterday he had large bowel movement Objective: GENERAL APPEARANCE: In moderate distress HEENT: no scleral icterus, no JVD, EOMI CARDIOVASCULAR: S1S2 LUNGS: Diminished lung sounds bilaterally ABDOMEN: soft & moderately distended MUSCULOSKELETAL: no cyanosis, no swelling INTEGUMENT: no generalized pallor NEUROLOGICAL: cranial nerve function from 2-12 intact intact, follows commands, speech not dysarthric Assessment/plan: 80-year-old male history of Parkinson's with dementia, gout, hypertension, brought in by family today because they noticed he was increasingly more weak, confused, with decreased energy. Patient was found to have a urinary tract infection as well as a questionable colitis on CT abdomen. Enterocolitis/C. difficile infection/ Fulminant C.diff Patient was tested positive for C. difficile Dr. Mayorga consulted patient, no indications for surgery X-ray on 09/28/20 showed Decreased distention of the stomach. There appears to be mild improvement of the diffusely mildly dilated small bowel loops when compared to the prior study. On 07/29/21 NG tube was removed, clear liquid diet started. Because of improvement vancomycin enema was discontinued I upgraded diet to soft mechanical diet and patient tolerates it well Dr. Mcdonnell recommended Zinplava on discharge to decrease his risk of recurrent C. difficile CECILE/Acute oliguric renal failure Resolved Secondary to diarrhea due to C. difficile, ARB, contrast study UTI Patient completed course of antibiotics Deconditioning Secondary to progression of Parkinson's diseases and enterocolitis with UTI PT/OT Parkinson's with dementia Continue home medications Hypertensive Blood pressures under control continue home meds Metabolic acidosis Resolved Hypokalemia Replaced VS,Fishbone, I+O VS, Fishbone, I+O Laboratory Tests 10/02/20 05:30 Vital Signs Date Time Temp Pulse Resp B/P (MAP) Pulse Ox O2 Delivery O2 Flow Rate FiO2 10/02/20 06:00 98.0 64 18 126/76 (93) 95 10/01/20 14:00 Room Air I&O- Last 24 Hours up to 6 AM 10/02/20 06:00 Intake Total 1190 ml Output Total 300 ml Balance 890 ml MACIE FRANCO DO Oct 02, 2020 10:58
[2020-10-02] MEDS ORDERED: POTASSIUM CHLORIDE 10 MEQ SR TABLET PO ONE (11:00)
--- NOTE | 2020-10-02 12:08 | IPN ---
PROGRESS NOTE DATE: 10/02/2020 SUBJECTIVE: Patient is seen and examined sitting out of bed to the chair having lunch. TPN is still running, but his oral intake is improving. He offers no complaints. He is oriented x1. OBJECTIVE: VITAL SIGNS: Temperature 98.0, pulse 85, respiratory rate 20, blood pressure 116/68, saturating 97% on room air. INTAKE AND OUTPUT: Intake yesterday 2800. Urine output was 1125. Weight on the bed scale today is not recorded. GENERAL: The patient is seen sitting out of bed to the chair. He is sipping liquids. He is cooperative with physical exam. HEENT: Extraocular muscles are intact. Tongue is moist. Jugular veins are not elevated. HEART: S1, S2. No murmur. There is 1+ leg edema. ABDOMEN: Soft. There is some distention. There are bowel sounds. LUNGS: Clear. No crackle, rales, or rhonchus. He is seen on room air. GENITOURINARY: Shows Thompson catheter. EXTREMITIES: Show 1+ edema. LABORATORY DATA: Today's laboratory studies show sodium 145, potassium 3.4, bicarbonate 26, BUN 42, creatinine 1.3, phosphorus 2.8, albumin 1.7, white count 20.9, hemoglobin 12.6. INPATIENT MEDICATIONS: He continues on special formula TPN. The remainder of his medications are unchanged from prior. PROBLEMS: 1. Nonoliguric acute kidney injury secondary to Clostridium difficile colitis along with contrast-induced nephropathy in the setting of angiotensin converting enzyme inhibitor (ANN-MARIE) use. Renal function has improved nicely. Creatinine is down to 1.3. He is on special formula total parenteral nutrition (TPN), which is hypotonic in view of recent hypernatremia and also has potassium supplementation. His oral intake is improving, so I am not writing any further orders for TPN at this time. He continues with the Thompson catheter. 2. Hypernatremia. It has resolved with hypotonic TPN and the patient is now having improved oral intake and encouraged to drink to thirst and liquids are placed within easy reach at the bedside. 3. Clostridium difficile colitis. The patient is followed by infectious disease and he is clinically improving. His vancomycin enemas have been discontinued and he is on Dificid along with intravenous (IV) Flagyl. 4. Hypokalemia. There is potassium in the current TPN that is infusing and oral supplementation is ordered. 5. Disposition: The patient's electrolytes have improved. His renal function has recovered nicely. He does not require further TPN at this time, as his oral intake has improved. Nephrology is signing off.
[2020-10-02 14:00] VITALS: BP 122/68
--- NOTE | 2020-10-02 20:51 | REPVR ---
PROCEDURE INFORMATION: Exam: US Duplex Right Upper Extremity Veins, Limited Exam date and time: 10/02/2020 7:24 PM Age: 80 years old Clinical indication: Pain; Arm, upper; Right; Additional info: Swollen right arm TECHNIQUE: Imaging protocol: Real-time Duplex ultrasound of the Right Upper Extremity with 2-D vee scale, color Doppler flow and spectral waveform analysis with image documentation. Limited exam focused on the right upper extremity veins. COMPARISON: No relevant prior studies available. FINDINGS: Right deep veins: Complete occluded right axillary and subclavian vein. Internal jugular is patent Right superficial veins: Occluded basilic vein with PICC line within the clot. Soft tissues: Unremarkable. Other findings: IMPRESSION: Positive for DVT of the right upper extremity. Completely occluded right axillary and subclavian vein. Complete occlusion of the superficial right basilic vein with PICC line within the clot. Electronically signed by: Vasu Almazan On 10/02/2020 20:51:41 PM
[2020-10-02] MEDS: QUEtiapine FUMARATE 25 MG TAB NG SCH (21:00)
[2020-10-02] MEDS ORDERED: HEPARIN DRIP 25,000 UNITS in IV 1 EA IV SCH (21:21)
[2020-10-02] MEDS ORDERED: HEPARIN SOD (PORCINE) 5000UNITS/ML 1ML VIAL/SYRINGE IV PRN (21:30)
[2020-10-02] MEDS ORDERED: HEPARIN SOD (PORCINE) 5000UNITS/ML 1ML VIAL/SYRINGE IV ONE (21:30)
[2020-10-02 22:00] VITALS: BP 129/64
[2020-10-03 04:26] LABS: HEMATOCRIT 38.1 % (42.0-52.0); HEMOGLOBIN 12.4 g/dl (13.5-17.5); MEAN CORPUSCULAR HEMOGLOBIN 29.2 pg (27.0-33.0); MEAN CORPUSCULAR HGB CONC 32.5 g/dl (32.0-36.5); MEAN CORPUSCULAR VOLUME 89.6 fl (80.0-96.0); PLATELET COUNT, AUTOMATED 225 10^3/uL (150-450); RED BLOOD COUNT 4.25 10^6/uL (4.30-6.10); WHITE BLOOD COUNT 16.3 10^3/uL (4.0-10.0)
[2020-10-03 04:50] LABS: ALBUMIN 1.8 GM/DL (3.2-5.2); ALT/SGPT < 6 U/L (12-78); BILIRUBIN,TOTAL 0.4 MG/DL (0.2-1.0); BLOOD UREA NITROGEN 33 MG/DL (7-18); CALCIUM LEVEL 7.2 MG/DL (8.8-10.2); CARBON DIOXIDE LEVEL 23 MEQ/L (21-32); CHLORIDE LEVEL 113 MEQ/L (98-107); CREATININE FOR GFR 1.05 MG/DL (0.70-1.30); GLOMERULAR FILTRATION RATE > 60.0 (>35); GLUCOSE, FASTING 90 MG/DL (70-100); MAGNESIUM LEVEL 1.3 MG/DL (1.8-2.4); PHOSPHORUS LEVEL 2.6 MG/DL (2.5-4.9); POTASSIUM SERUM 3.8 MEQ/L (3.5-5.1); SODIUM LEVEL 144 MEQ/L (136-145); TOTAL PROTEIN 4.7 GM/DL (6.4-8.2)
[2020-10-03 04:51] LABS: ATYPICAL LYMPH 9 % (0-5); BASOPHILS 1 % (0-1); EOSINOPHILS 2 % (0-3); LYMPHOCYTES 9 % (16-44); METAMYELOCYTES 3 % (0-0); MONOCYTES 4 % (0-5); NEUTROPHILS 71 % (28-66); PLATELET ESTIMATE NORMAL (NORMAL)
[2020-10-03 04:52] LABS: ANISOCYTOSIS 1+; TOXIC VACUOLATION 1+
[2020-10-03 06:00] VITALS: BP 129/83
--- NOTE | 2020-10-03 09:45 | IPN ---
PROGRESS NOTE DATE: 10/02/2020 SUBJECTIVE: Mr. Dennis is laying in bed. He states he is not hungry for dinner. He agreed to doing some apple juice for me. He was able to drink and holds his own apple juice and drinks from a straw. TPN was discontinued by Dr. Barron. He has had no fevers or chills. Diarrhea is improving as well as abdominal pain and bloating. PHYSICAL EXAMINATION: VITAL SIGNS: Temperature is 98.6, pulse 82, respirations 18, blood pressure 122/68, O2 sat 97% on room air. HEART: Normal S1 and S2, distant. No murmurs appreciated. ABDOMEN: Soft, mildly distended, nontender. Bowel sounds are normal. LUNGS: Clear. No wheezes, rales or rhonchi on room air. LABORATORY DATA: White count 17.6, hemoglobin 13.2, hematocrit 41.6, platelets 237,000, 77% neutrophils, 7% lymphocytes, 4% monocytes, 2% eosinophils. Sodium 145, potassium 3.5, chloride 112, bicarbonate 22, BUN 39, creatinine 1.27, glucose 84. Calcium 7.3, phosphorus 2.4. AST 26, ALT less than 6. Alkaline phosphatase is 50. Total protein 5. Albumin 2.1. MEDICATIONS: IV Flagyl 500 mg q. 8 hours, fidaxomicin 200 mg b.i.d. Currently day #11. Currently, there is documented three to four bowel movements incontinent a day. IMPRESSION: 1. C. Difficile colitis with severe leukocytosis with a white count of 38,000 initially that has improved down to 17.6. Patient is tolerating food and TPN has been discontinued. Will discontinue IV Metronidazole and continue with fidaxomicin. 2. Acute kidney injury related to C. Difficile colitis and contrast, has resolved, currently his creatinine is down to 1.07 and Nephrology has signed off. PLAN: Discontinue IV Metronidazole, continue fidaxomicin 200 mg p.o. b.i.d. Patient will definitely benefit from a tapering schedule to decrease his risk of relapse. Fidaxomicin after he finishes the 14 days, he should probably be on a tapering schedule of every other day for the next two weeks afterwards. He also would benefit from IV Zinplava 850 mg IV to prevent recurrence of C. Difficile as he is at high risk due to his age, severe leukocytosis and acute kidney injury. This will be arranged on the day of discharge, consult PFS please. Discontinue Thompson catheter and encourage p.o. intake. JAJA
[2020-10-03] MEDS: FIDAXOMICIN 200 MG TAB (DIFICID) PO SCH ×2 (09:52→21:37)
[2020-10-03] MEDS: APIXABAN 5 MG TAB (ELIQUIS) PO SCH ×2 (09:52→21:37)
[2020-10-03] MEDS: MAGNESIUM GLUCONATE 500 MG TAB PO SCH ×2 (09:52→21:37)
[2020-10-03] MEDS: SINEMET 25-100 MG TAB NG SCH ×3 (09:52→17:57)
--- NOTE | 2020-10-03 10:25 | IPNPDOC ---
Text Note Date of Service The patient was seen on 10/03/20. NOTE Subjective: Patient developed upper extremity DVT yesterday. Patient had 1 bowel movement for past 24 hours Objective: GENERAL APPEARANCE: In moderate distress HEENT: no scleral icterus, no JVD, EOMI CARDIOVASCULAR: S1S2 LUNGS: Diminished lung sounds bilaterally ABDOMEN: soft & moderately distended MUSCULOSKELETAL: no cyanosis, RUE swollen INTEGUMENT: no generalized pallor NEUROLOGICAL: cranial nerve function from 2-12 intact intact, follows commands, speech not dysarthric Assessment/plan: 80-year-old male history of Parkinson's with dementia, gout, hypertension, brou ght in by family today because they noticed he was increasingly more weak, confused, with decreased energy. Patient was found to have a urinary tract infection as well as a questionable colitis on CT abdomen. Enterocolitis/C. difficile infection/ Fulminant C.diff Patient was tested positive for C. difficile Dr. Mayorga consulted patient, no indications for surgery X-ray on 09/28/20 showed Decreased distention of the stomach. There appears to be mild improvement of the diffusely mildly dilated small bowel loops when compared to the prior study. On 07/29/21 NG tube was removed, clear liquid diet started. Because of improvement vancomycin enema was discontinued I upgraded diet to soft mechanical diet and patient tolerates it well Dr. Mcdonnell recommended Zinplava on discharge to decrease his risk of recurrent C. difficile CECILE/Acute oliguric renal failure Resolved Secondary to diarrhea due to C. difficile, ARB, contrast study UTI Patient completed course of antibiotics Deconditioning Secondary to progression of Parkinson's diseases and enterocolitis with UTI PT/OT Parkinson's with dementia Continue home medications Hypertensive Blood pressures under control continue home meds Metabolic acidosis Resolved Hypokalemia Replaced DVT Doppler ultrasound showed Positive for DVT of the right upper extremity. Completely occluded right axillary and subclavian vein. Complete occlusion of the superficial right basilic vein with PICC line within the clot. Eliquis bid VS,Fishbone, I+O VS, Fishbone, I+O Laboratory Tests 10/03/20 04:14 Vital Signs Date Time Temp Pulse Resp B/P (MAP) Pulse Ox O2 Delivery O2 Flow Rate FiO2 10/03/20 06:00 96.8 84 18 129/83 (98) 97 10/02/20 14:00 Room Air I&O- Last 24 Hours up to 6 AM 10/03/20 06:00 Intake Total 1360 ml Balance 1360 ml MACIE FRANCO DO Oct 03, 2020 10:25
[2020-10-03 14:00] VITALS: BP 112/66
--- NOTE | 2020-10-03 19:21 | IPN ---
INFECTIOUS DISEASE PROGRESS NOTE DATE: 10/03/2020 SUBJECTIVE: Mr. Dennis seems to be doing better today. He is asking me for a hamburger or hot dog or [place] fries for lunch. He has had no fever or chills. He still has some diarrhea. He is being considered for rehabilitation or a usp for rehabilitation. PHYSICAL EXAMINATION: Temperature 97.2, pulse 88, respirations 18, blood pressure 112/66, oxygen saturation 98% on room air. HEART: Normal S1, S2. No murmurs. LUNGS: Clear. No wheezes, rales or rhonchi. Diminished at the bases. ABDOMEN: Soft, nontender, distended. Distention decreased. Bowel sounds present. EXTREMITIES: Pitting edema 1+. LABORATORY DATA: White count 16.3, hemoglobin 12.4, hematocrit 38.1, platelets 225, 71% neutrophils, 9% lymphocytes, 4% monocytes. Sodium 144, potassium 3.8, chloride 113, bicarbonate 23, BUN 33, creatinine 1.05, glucose 90, calcium 7.2, phosphorus 2.6, magnesium 1.3. AST 22, ALT less than 6. IMPRESSION: 1. Clostridium (C) difficile colitis, severe, with ileus. Has resolved. IV Flagyl was discontinued. Patient on oral fidaxomicin. Will continue for a total of 14 days, until 10/07/2020. The patient would also definitely benefit from IV Zinplava infusion before transfer to usp or discharge at the dose of 850 mg times one dose. 2. Acute kidney injury from Clostridium (C) difficile and contrast. Has resolved. Thompson catheter has been removed and patient is not having any urinary issues. PLAN: 1. Continue oral fidaxomicin 200 mg twice a day until 10/07/2020 if diarrhea resolves and continue probiotics. 2. Prior authorization for Zinplava 850 mg IV times one dose on discharge.
[2020-10-03] MEDS: QUEtiapine FUMARATE 25 MG TAB NG SCH (21:37)
[2020-10-03 22:00] VITALS: BP 119/76
[2020-10-04 06:00] VITALS: BP 110/74
[2020-10-04 06:15] LABS: HEMATOCRIT 38.7 % (42.0-52.0); HEMOGLOBIN 12.4 g/dl (13.5-17.5); MEAN CORPUSCULAR VOLUME 90.6 fl (80.0-96.0); PLATELET COUNT, AUTOMATED 273 10^3/uL (150-450); RED BLOOD COUNT 4.27 10^6/uL (4.30-6.10); WHITE BLOOD COUNT 13.5 10^3/uL (4.0-10.0)
[2020-10-04 07:16] LABS: ATYPICAL LYMPH 3 % (0-5); EOSINOPHILS 1 % (0-3); LYMPHOCYTES 14 % (16-44); MONOCYTES 7 % (0-5); NEUTROPHILS 75 % (28-66)
[2020-10-04 07:18] LABS: ANISOCYTOSIS 1+
[2020-10-04 07:19] LABS: PLATELET ESTIMATE NORMAL (NORMAL)
[2020-10-04] MEDS: APIXABAN 5 MG TAB (ELIQUIS) PO SCH ×2 (08:55→21:19)
[2020-10-04] MEDS: SINEMET 25-100 MG TAB NG SCH ×3 (08:55→18:05)
[2020-10-04] MEDS: FIDAXOMICIN 200 MG TAB (DIFICID) PO SCH ×2 (08:55→21:18)
[2020-10-04] MEDS: MAGNESIUM GLUCONATE 500 MG TAB PO SCH ×2 (08:55→21:18)
--- NOTE | 2020-10-04 10:11 | IPNPDOC ---
Text Note Date of Service The patient was seen on 10/04/20. NOTE Subjective: No any acute events overnight. Patient had 2 bowel movements over night Objective: GENERAL APPEARANCE: In moderate distress HEENT: no scleral icterus, no JVD, EOMI CARDIOVASCULAR: S1S2 LUNGS: Diminished lung sounds bilaterally ABDOMEN: soft & moderately distended MUSCULOSKELETAL: no cyanosis, RUE swollen INTEGUMENT: no generalized pallor NEUROLOGICAL: cranial nerve function from 2-12 intact intact, follows commands, speech not dysarthric Assessment/plan: 80-year-old male history of Parkinson's with dementia, gout, hypertension, brought in by family today because they noticed he was increasingly more weak, confused, with decreased energy. Patient was found to have a urinary tract infection as well as a questionable colitis on CT abdomen. Enterocolitis/C. difficile infection/ Fulminant C.diff Patient was tested positive for C. difficile Dr. Mayorga consulted patient, no indications for surgery X-ray on 09/28/20 showed Decreased distention of the stomach. There appears to be mild improvement of the diffusely mildly dilated small bowel loops when compared to the prior study. On 07/29/21 NG tube was removed, clear liquid diet started. Because of improv ement vancomycin enema was discontinued I upgraded diet to soft mechanical diet and patient tolerates it well Dr. Mcdonnell recommended Zinplava on discharge to decrease his risk of recurrent C. difficile CECILE/Acute oliguric renal failure Resolved Secondary to diarrhea due to C. difficile, ARB, contrast study UTI Patient completed course of antibiotics Deconditioning Secondary to progression of Parkinson's diseases and enterocolitis with UTI Continue PT/OT. Parkinson's with dementia Continue home medications Hypertensive Blood pressures under control continue home meds Metabolic acidosis Resolved Hypokalemia Replaced DVT Doppler ultrasound showed Positive for DVT of the right upper extremity. Completely occluded right axillary and subclavian vein. Complete occlusion of the superficial right basilic vein with PICC line within the clot. Eliquis bid VS,Fishbone, I+O VS, Fishbone, I+O Laboratory Tests 10/04/20 05:24 Vital Signs Date Time Temp Pulse Resp B/P (MAP) Pulse Ox O2 Delivery O2 Flow Rate FiO2 10/04/20 06:00 97.4 86 18 110/74 (86) 95 Room Air I&O- Last 24 Hours up to 6 AM 10/04/20 06:00 Intake Total 1180 ml Balance 1180 ml MACIE FRANCO DO Oct 04, 2020 10:11
[2020-10-04 14:00] VITALS: BP 129/60
[2020-10-04] MEDS: QUEtiapine FUMARATE 25 MG TAB NG SCH (21:18)
[2020-10-04 22:00] VITALS: BP 125/72
[2020-10-05 06:00] VITALS: BP 145/83
[2020-10-05] MEDS: SINEMET 25-100 MG TAB NG SCH ×3 (09:05→18:08)
[2020-10-05] MEDS: FIDAXOMICIN 200 MG TAB (DIFICID) PO SCH ×2 (09:05→21:30)
[2020-10-05] MEDS: MAGNESIUM GLUCONATE 500 MG TAB PO SCH ×2 (09:05→21:30)
[2020-10-05] MEDS: APIXABAN 5 MG TAB (ELIQUIS) PO SCH ×2 (09:05→21:30)
[2020-10-05 09:08] LABS: BASO # 0.1 10^3/uL (0.0-0.2); BASO % 0.8 % (0.0-1.0); EOS # 0.2 10^3/uL (0.0-0.5); EOS % 2.1 % (0.0-3.0); HEMATOCRIT 37.4 % (42.0-52.0); HEMOGLOBIN 11.9 g/dl (13.5-17.5); MEAN CORPUSCULAR HEMOGLOBIN 28.7 pg (27.0-33.0); MEAN CORPUSCULAR HGB CONC 31.8 g/dl (32.0-36.5); MEAN CORPUSCULAR VOLUME 90.3 fl (80.0-96.0); MONO # 1.1 10^3/uL (0.0-0.8); MONO % 9.3 % (2.0-8.0); NEUTROPHILS # 7.8 10^3/uL (1.5-8.5); NEUTROPHILS % 67.8 % (36.0-66.0); PLATELET COUNT, AUTOMATED 294 10^3/uL (150-450); RED BLOOD COUNT 4.14 10^6/uL (4.30-6.10); WHITE BLOOD COUNT 11.5 10^3/uL (4.0-10.0)
[2020-10-05 09:33] LABS: ALBUMIN 1.9 GM/DL (3.2-5.2); ALT/SGPT 7 U/L (12-78); BILIRUBIN,TOTAL 0.3 MG/DL (0.2-1.0); BLOOD UREA NITROGEN 20 MG/DL (7-18); CALCIUM LEVEL 7.3 MG/DL (8.8-10.2); CARBON DIOXIDE LEVEL 24 MEQ/L (21-32); CHLORIDE LEVEL 116 MEQ/L (98-107); CREATININE FOR GFR 0.79 MG/DL (0.70-1.30); GLOMERULAR FILTRATION RATE > 60.0 (>35); GLUCOSE, FASTING 94 MG/DL (70-100); MAGNESIUM LEVEL 1.4 MG/DL (1.8-2.4); POTASSIUM SERUM 3.6 MEQ/L (3.5-5.1); SODIUM LEVEL 147 MEQ/L (136-145); TOTAL PROTEIN 4.6 GM/DL (6.4-8.2)
--- NOTE | 2020-10-05 09:39 | IPNPDOC ---
Text Note Date of Service The patient was seen on 10/05/20. NOTE Subjective: Patient stated that he feels much better today. Patient had 2 bowel movements Objective: GENERAL APPEARANCE: In moderate distress HEENT: no scleral icterus, no JVD, EOMI CARDIOVASCULAR: S1S2 LUNGS: Diminished lung sounds bilaterally ABDOMEN: soft & moderately distended MUSCULOSKELETAL: no cyanosis, RUE swollen INTEGUMENT: no generalized pallor NEUROLOGICAL: cranial nerve function from 2-12 intact intact, follows commands, speech not dysarthric Assessment/plan: 80-year-old male history of Parkinson's with dementia, gout, hypertension, brought in by family today because they noticed he was increasingly more weak, confused, with decreased energy. Patient was found to have a urinary tract infection as well as a questionable colitis on CT abdomen. Enterocolitis/C. difficile infection/ Fulminant C.diff Patient was tested positive for C. difficile Dr. Mayorga consulted patient, no indications for surgery X-ray on 09/28/20 showed Decreased distention of the stomach. There appears to be mild improvement of the diffusely mildly dilated small bowel loops when compared to the prior study. On 07/29/21 NG tube was removed, clear liquid diet started. Because of improvement vancomycin enema was discontinued I upgraded diet to soft mechanical diet and patient tolerates it well Dr. Mcdonnell recommended Zinplava on discharge to decrease his risk of recurrent C. difficile CECILE/Acute oliguric renal failure Resolved Secondary to diarrhea due to C. difficile, ARB, contrast study UTI Patient completed course of antibiotics Deconditioning Secondary to progression of Parkinson's diseases and enterocolitis with UTI Continue PT/OT. Parkinson's with dementia Continue home medications Hypertensive Blood pressures under control continue home meds Metabolic acidosis Resolved Hypokalemia Replaced DVT Doppler ultrasound showed Positive for DVT of the right upper extremity. Completely occluded right axillary and subclavian vein. Complete occlusion of the superficial right basilic vein with PICC line within the clot. Eliquis bid VS,Fishbone, I+O VS, Fishbone, I+O Laboratory Tests 10/05/20 08:51 Vital Signs Date Time Temp Pulse Resp B/P (MAP) Pulse Ox O2 Delivery O2 Flow Rate FiO2 10/05/20 06:00 97.3 77 18 145/83 (103) 97 Room Air I&O- Last 24 Hours up to 6 AM 10/05/20 05:59 Intake Total 1290 ml Balance 1290 ml MACIE FRANCO DO Oct 05, 2020 09:39
[2020-10-05 14:00] VITALS: BP 119/73
[2020-10-05] MEDS: QUEtiapine FUMARATE 25 MG TAB NG SCH (21:30)
[2020-10-05 22:00] VITALS: BP 122/76
[2020-10-06 06:00] VITALS: BP 128/88
[2020-10-06 06:33] LABS: HEMATOCRIT 37.2 % (42.0-52.0); HEMOGLOBIN 11.9 g/dl (13.5-17.5); MEAN CORPUSCULAR VOLUME 90.7 fl (80.0-96.0); PLATELET COUNT, AUTOMATED 311 10^3/uL (150-450); WHITE BLOOD COUNT 11.5 10^3/uL (4.0-10.0)
[2020-10-06 07:01] LABS: ALT/SGPT < 6 U/L (12-78); BILIRUBIN,TOTAL 0.6 MG/DL (0.2-1.0); BLOOD UREA NITROGEN 17 MG/DL (7-18); CALCIUM LEVEL 7.3 MG/DL (8.8-10.2); CARBON DIOXIDE LEVEL 20 MEQ/L (21-32); CHLORIDE LEVEL 115 MEQ/L (98-107); CREATININE FOR GFR 0.74 MG/DL (0.70-1.30); GLOMERULAR FILTRATION RATE > 60.0 (>35); GLUCOSE, FASTING 81 MG/DL (70-100); MAGNESIUM LEVEL 1.4 MG/DL (1.8-2.4); SODIUM LEVEL 145 MEQ/L (136-145); TOTAL PROTEIN 4.7 GM/DL (6.4-8.2)
[2020-10-06] MEDS: FIDAXOMICIN 200 MG TAB (DIFICID) PO SCH ×2 (08:16→21:28)
[2020-10-06] MEDS: APIXABAN 5 MG TAB (ELIQUIS) PO SCH ×2 (08:16→21:28)
[2020-10-06] MEDS: SINEMET 25-100 MG TAB NG SCH ×3 (08:16→17:40)
[2020-10-06] MEDS: MAGNESIUM GLUCONATE 500 MG TAB PO SCH ×2 (08:16→21:29)
--- NOTE | 2020-10-06 10:50 | IPNPDOC ---
Text Note Date of Service The patient was seen on 10/06/20. NOTE Subjective: No any acute events overnight. Patient denied fever, chills, nausea, vomiting, chest pain or palpitations Objective: GENERAL APPEARANCE: In moderate distress HEENT: no scleral icterus, no JVD, EOMI CARDIOVASCULAR: S1S2 LUNGS: Diminished lung sounds bilaterally ABDOMEN: soft & moderately distended MUSCULOSKELETAL: no cyanosis, RUE swollen INTEGUMENT: no generalized pallor NEUROLOGICAL: cranial nerve function from 2-12 intact intact, follows commands, speech not dysarthric Assessment/plan: 80-year-old male history of Parkinson's with dementia, gout, hypertension, brought in by family today because they noticed he was increasingly more weak, confused, with decreased energy. Patient was found to have a urinary tract infection as well as a questionable colitis on CT abdomen. Enterocolitis/C. difficile infection/ Fulminant C.diff Patient was tested positive for C. difficile Dr. Mayorga consulted patient, no indications for surgery X-ray on 09/28/20 showed Decreased distention of the stomach. There appears to be mild improvement of the diffusely mildly dilated small bowel loops when compared to the prior study. On 07/29/21 NG tube was removed, clear liquid diet started. Because of improvement vancomycin enema was discontinued I upgraded diet to soft mechanical diet and patient tolerates it well Dr. Mcdonnell recommended Zinplava on discharge to decrease his risk of recurrent C. difficile CECILE/Acute oliguric renal failure Resolved Secondary to diarrhea due to C. difficile, ARB, contrast study UTI Patient completed course of antibiotics Deconditioning Secondary to progression of Parkinson's diseases and enterocolitis with UTI Continue PT/OT. Recommended Dc to rehabilitation Parkinson's with dementia Continue home medications Hypertensive Blood pressures under control continue home meds Metabolic acidosis Resolved Hypokalemia resolved DVT Doppler ultrasound showed Positive for DVT of the right upper extremity. Completely occluded right axillary and subclavian vein. Complete occlusion of the superficial right basilic vein with PICC line within the clot. Eliquis bid VS,Fishbone, I+O VS, Fishbone, I+O Laboratory Tests 10/06/20 06:03 Vital Signs Date Time Temp Pulse Resp B/P (MAP) Pulse Ox O2 Delivery O2 Flow Rate FiO2 10/06/20 06:00 98.4 67 20 128/88 (101) 95 10/05/20 14:00 Room Air I&O- Last 24 Hours up to 6 AM 10/06/20 06:00 Intake Total 340 ml Balance 340 ml MACIE FRANCO DO Oct 06, 2020 10:50
[2020-10-06 14:00] VITALS: BP 136/79
[2020-10-06] MEDS: QUEtiapine FUMARATE 25 MG TAB NG SCH (21:28)
[2020-10-06 22:00] VITALS: BP 120/69
[2020-10-07 02:00] VITALS: BP 146/76
[2020-10-07 06:37] LABS: HEMATOCRIT 37.6 % (42.0-52.0); HEMOGLOBIN 11.8 g/dl (13.5-17.5); MEAN CORPUSCULAR HEMOGLOBIN 28.6 pg (27.0-33.0); MEAN CORPUSCULAR HGB CONC 31.4 g/dl (32.0-36.5); PLATELET COUNT, AUTOMATED 315 10^3/uL (150-450); RED BLOOD COUNT 4.13 10^6/uL (4.30-6.10)
[2020-10-07 07:04] LABS: ALBUMIN 2.2 GM/DL (3.2-5.2); ALT/SGPT 9 U/L (12-78); BILIRUBIN,TOTAL 0.6 MG/DL (0.2-1.0); BLOOD UREA NITROGEN 14 MG/DL (7-18); CALCIUM LEVEL 7.5 MG/DL (8.8-10.2); CARBON DIOXIDE LEVEL 27 MEQ/L (21-32); CHLORIDE LEVEL 110 MEQ/L (98-107); CREATININE FOR GFR 0.82 MG/DL (0.70-1.30); GLOMERULAR FILTRATION RATE > 60.0 (>35); GLUCOSE, FASTING 94 MG/DL (70-100); MAGNESIUM LEVEL 1.4 MG/DL (1.8-2.4); POTASSIUM SERUM 3.9 MEQ/L (3.5-5.1); SODIUM LEVEL 144 MEQ/L (136-145); TOTAL PROTEIN 5.2 GM/DL (6.4-8.2)
[2020-10-07] MEDS: APIXABAN 5 MG TAB (ELIQUIS) PO SCH ×2 (08:44→21:34)
[2020-10-07] MEDS: FIDAXOMICIN 200 MG TAB (DIFICID) PO SCH ×2 (08:44→21:34)
[2020-10-07] MEDS: SINEMET 25-100 MG TAB NG SCH ×3 (08:44→17:03)
[2020-10-07] MEDS: MAGNESIUM GLUCONATE 500 MG TAB PO SCH ×2 (08:44→21:34)
[2020-10-07] MEDS ORDERED: MAG SULF 1GM/100ML (MAG RUN) 1 GM in IV 1 EA IV ONE (11:00)
--- NOTE | 2020-10-07 13:27 | IPNPDOC ---
Text Note Date of Service The patient was seen on 10/07/20. NOTE Subjective: Patient stated that he has a good appetite, his diet was upgraded to regular Objective: GENERAL APPEARANCE: In moderate distress HEENT: no scleral icterus, no JVD, EOMI CARDIOVASCULAR: S1S2 LUNGS: Diminished lung sounds bilaterally ABDOMEN: soft & moderately distended MUSCULOSKELETAL: no cyanosis, RUE swollen INTEGUMENT: no generalized pallor NEUROLOGICAL: cranial nerve function from 2-12 intact intact, follows commands, speech not dysarthric Assessment/plan: 80-year-old male history of Parkinson's with dementia, gout, hypertension, brought in by family today because they noticed he was increasingly more weak, confused, with decreased energy. Patient was found to have a urinary tract infection as well as a questionable colitis on CT abdomen. Enterocolitis/C. difficile infection/ Fulminant C.diff Patient was tested positive for C. difficile Dr. Mayorga consulted patient, no indications for surgery X-ray on 09/28/20 showed Decreased distention of the stomach. There appears to be mild improvement of the diffusely mildly dilated small bowel loops when compared to the prior study. On 07/29/21 NG tube was removed, clear liquid diet started. Because of improvement vancomycin enema was discontinued Dr. Mcdonnell recommended Zinplava on discharge to decrease his risk of recurrent C. difficile Patient currently on regular diet CECILE/Acute oliguric renal failure Resolved Secondary to diarrhea due to C. difficile, ARB, contrast study UTI Patient completed course of antibiotics Deconditioning Secondary to progression of Parkinson's diseases and enterocolitis with UTI Continue PT/OT. Recommended Dc to rehabilitation Parkinson's with dementia Continue home medications Hypertensive Blood pressures under control continue home meds Metabolic acidosis Resolved Hypokalemia resolved DVT Doppler ultrasound showed Positive for DVT of the right upper extremity. Completely occluded right axillary and subclavian vein. Complete occlusion of the superficial right basilic vein with PICC line within the clot. Eliquis bid Hypomagnesemia Replaced VS,Fishbone, I+O VS, Fishbone, I+O Laboratory Tests 10/07/20 05:56 Vital Signs Date Time Temp Pulse Resp B/P (MAP) Pulse Ox O2 Delivery O2 Flow Rate FiO2 10/07/20 02:00 97.0 76 20 146/76 (99) 95 10/06/20 14:00 Room Air I&O- Last 24 Hours up to 6 AM 10/07/20 05:59 Intake Total 2160 ml Balance 2160 ml MACIE FRANCO DO Oct 07, 2020 13:27
[2020-10-07 14:00] VITALS: BP 107/63
[2020-10-07] MEDS: QUEtiapine FUMARATE 25 MG TAB NG SCH (21:34)
[2020-10-07 22:00] VITALS: BP 120/79
[2020-10-08 06:00] VITALS: BP 116/71
[2020-10-08 06:45] LABS: HEMATOCRIT 33.7 % (42.0-52.0); HEMOGLOBIN 10.8 g/dl (13.5-17.5); MEAN CORPUSCULAR HEMOGLOBIN 28.8 pg (27.0-33.0); MEAN CORPUSCULAR VOLUME 89.9 fl (80.0-96.0); PLATELET COUNT, AUTOMATED 272 10^3/uL (150-450); RED BLOOD COUNT 3.75 10^6/uL (4.30-6.10); WHITE BLOOD COUNT 10.6 10^3/uL (4.0-10.0)
[2020-10-08 07:31] LABS: ALBUMIN 1.9 GM/DL (3.2-5.2); ALT/SGPT < 6 U/L (12-78); BILIRUBIN,TOTAL 0.6 MG/DL (0.2-1.0); BLOOD UREA NITROGEN 13 MG/DL (7-18); CALCIUM LEVEL 7.4 MG/DL (8.8-10.2); CARBON DIOXIDE LEVEL 28 MEQ/L (21-32); CHLORIDE LEVEL 109 MEQ/L (98-107); CREATININE FOR GFR 0.75 MG/DL (0.70-1.30); GLOMERULAR FILTRATION RATE > 60.0 (>35); GLUCOSE, FASTING 83 MG/DL (70-100); MAGNESIUM LEVEL 1.6 MG/DL (1.8-2.4); POTASSIUM SERUM 3.6 MEQ/L (3.5-5.1); SODIUM LEVEL 144 MEQ/L (136-145); TOTAL PROTEIN 4.5 GM/DL (6.4-8.2)
[2020-10-08] MEDS: SINEMET 25-100 MG TAB NG SCH ×3 (07:55→17:04)
[2020-10-08] MEDS: FIDAXOMICIN 200 MG TAB (DIFICID) PO SCH ×2 (07:55→21:40)
[2020-10-08] MEDS: MAGNESIUM GLUCONATE 500 MG TAB PO SCH ×2 (07:55→21:39)
[2020-10-08] MEDS: APIXABAN 5 MG TAB (ELIQUIS) PO SCH ×2 (07:56→21:40)
--- NOTE | 2020-10-08 12:42 | IPNPDOC ---
Text Note Date of Service The patient was seen on 10/08/20. NOTE Subjective: No any acute events overnight Objective: GENERAL APPEARANCE: In moderate distress HEENT: no scleral icterus, no JVD, EOMI CARDIOVASCULAR: S1S2 LUNGS: Diminished lung sounds bilaterally ABDOMEN: soft & not distended MUSCULOSKELETAL: no cyanosis, RUE swollen INTEGUMENT: no generalized pallor NEUROLOGICAL: cranial nerve function from 2-12 intact intact, follows commands, speech not dysarthric Assessment/plan: 80-year-old male history of Parkinson's with dementia, gout, hypertension, brought in by family today because they noticed he was increasingly more weak, confused, with decreased energy. Patient was found to have a urinary tract infection as well as a questionable colitis on CT abdomen. Enterocolitis/C. difficile infection/ Fulminant C.diff Patient was tested positive for C. difficile Dr. Mayorga consulted patient, no indications for surgery X-ray on 09/28/20 showed Decreased distention of the stomach. There appears to be mild improvement of the diffusely mildly dilated small bowel loops when compared to the prior study. On 07/29/21 NG tube was removed, clear liquid diet started. Because of improvement vancomycin enema was discontinued Dr. Mcdonnell recommended Zinplava on discharge to decrease his risk of recurrent C. difficile Patient currently on regular diet CECILE/Acute oliguric renal failure Resolved Secondary to diarrhea due to C. difficile, ARB, contrast study UTI Patient completed course of antibiotics Deconditioning Secondary to progression of Parkinson's diseases and enterocolitis with UTI Continue PT/OT. Recommended Dc to rehabilitation Parkinson's with dementia Continue home medications Hypertensive Blood pressures under control continue home meds Metabolic acidosis Resolved Hypokalemia resolved DVT Doppler ultrasound showed Positive for DVT of the right upper extremity. Completely occluded right axillary and subclavian vein. Complete occlusion of the superficial right basilic vein with PICC line within the clot. Eliquis bid Hypomagnesemia Replaced VS,Fishbone, I+O VS, Fishbone, I+O Laboratory Tests 10/08/20 05:26 Vital Signs Date Time Temp Pulse Resp B/P (MAP) Pulse Ox O2 Delivery O2 Flow Rate FiO2 10/08/20 06:00 98.4 83 18 116/71 (86) 96 10/07/20 14:00 Room Air I&O- Last 24 Hours up to 6 AM 10/08/20 06:00 Intake Total 1330 ml Output Total 0 ml Balance 1330 ml MACIE FRANCO DO Oct 08, 2020 12:42
[2020-10-08 14:00] VITALS: BP 134/68
[2020-10-08] MEDS: QUEtiapine FUMARATE 25 MG TAB NG SCH (21:40)
[2020-10-08 22:00] VITALS: BP 123/76
[2020-10-09 06:00] VITALS: BP 130/78
[2020-10-09 08:41] LABS: HEMATOCRIT 34.4 % (42.0-52.0); MEAN CORPUSCULAR HEMOGLOBIN 29.2 pg (27.0-33.0); MEAN CORPUSCULAR VOLUME 91.2 fl (80.0-96.0); PLATELET COUNT, AUTOMATED 247 10^3/uL (150-450); RED BLOOD COUNT 3.77 10^6/uL (4.30-6.10); WHITE BLOOD COUNT 9.9 10^3/uL (4.0-10.0)
[2020-10-09] MEDS: APIXABAN 5 MG TAB (ELIQUIS) PO SCH ×2 (08:44→20:42)
[2020-10-09] MEDS: SINEMET 25-100 MG TAB NG SCH ×3 (08:45→17:50)
[2020-10-09] MEDS: FIDAXOMICIN 200 MG TAB (DIFICID) PO SCH ×2 (08:45→20:41)
[2020-10-09] MEDS: MAGNESIUM GLUCONATE 500 MG TAB PO SCH ×2 (08:45→20:42)
[2020-10-09 09:10] LABS: ALBUMIN 1.9 GM/DL (3.2-5.2); ALT/SGPT 9 U/L (12-78); BILIRUBIN,TOTAL 0.7 MG/DL (0.2-1.0); BLOOD UREA NITROGEN 13 MG/DL (7-18); CALCIUM LEVEL 7.1 MG/DL (8.8-10.2); CARBON DIOXIDE LEVEL 28 MEQ/L (21-32); CHLORIDE LEVEL 108 MEQ/L (98-107); CREATININE FOR GFR 0.79 MG/DL (0.70-1.30); GLOMERULAR FILTRATION RATE > 60.0 (>35); GLUCOSE, FASTING 110 MG/DL (70-100); MAGNESIUM LEVEL 1.5 MG/DL (1.8-2.4); POTASSIUM SERUM 3.6 MEQ/L (3.5-5.1); SODIUM LEVEL 143 MEQ/L (136-145); TOTAL PROTEIN 4.8 GM/DL (6.4-8.2)
--- NOTE | 2020-10-09 13:09 | IPNPDOC ---
Text Note Date of Service The patient was seen on 10/09/20. NOTE Subjective: No any acute events overnight. Patient denied fever, chills, nausea, vomiting, diarrhea or dysuria Objective: GENERAL APPEARANCE: In moderate distress HEENT: no scleral icterus, no JVD, EOMI CARDIOVASCULAR: S1S2 LUNGS: Diminished lung sounds bilaterally ABDOMEN: soft & not distended MUSCULOSKELETAL: no cyanosis, RUE swollen INTEGUMENT: no generalized pallor NEUROLOGICAL: cranial nerve function from 2-12 intact intact, follows commands, speech not dysarthric Assessment/plan: 80-year-old male history of Parkinson's with dementia, gout, hypertension, brought in by family today because they noticed he was increasingly more weak, confused, with decreased energy. Patient was found to have a urinary tract infection as well as a questionable colitis on CT abdomen. Enterocolitis/C. difficile infection/ Fulminant C.diff Patient was tested positive for C. difficile Dr. Mayorga consulted patient, no indications for surgery X-ray on 09/28/20 showed Decreased distention of the stomach. There appears to be mild improvement of the diffusely mildly dilated small bowel loops when compared to the prior study. On 07/29/21 NG tube was removed, clear liquid diet started. Because of improvement vancomycin enema was discontinued Dr. Mcdonnell recommended Zinplava on discharge to decrease his risk of recurrent C. difficile Patient currently on regular diet CECILE/Acute oliguric renal failure Resolved Secondary to diarrhea due to C. difficile, ARB, contrast study UTI Patient completed course of antibiotics Deconditioning Secondary to progression of Parkinson's diseases and enterocolitis with UTI Continue PT/OT. Recommended Dc to rehabilitation Parkinson's with dementia Continue home medications Hypertensive Blood pressures under control continue home meds Metabolic acidosis Resolved Hypokalemia resolved DVT Doppler ultrasound showed Positive for DVT of the right upper extremity. Completely occluded right axillary and subclavian vein. Complete occlusion of the superficial right basilic vein with PICC line within the clot. Eliquis bid Hypomagnesemia Replaced Patient await placement. Transferred to [facility] Memo MENCHACA, I+O Memo MENCHACA I+O Laboratory Tests 10/09/20 08:28 Vital Signs Date Time Temp Pulse Resp B/P (MAP) Pulse Ox O2 Delivery O2 Flow Rate FiO2 10/09/20 06:00 97.8 78 18 130/78 (95) 97 Room Air I&O- Last 24 Hours up to 6 AM 10/09/20 06:00 Intake Total 855 ml Output Total 0 ml Balance 855 ml MACIE FRANCO DO Oct 09, 2020 13:09
[2020-10-09] MEDS ORDERED: traMADol 50 MG TAB PO PRN (13:15)
[2020-10-09 14:00] VITALS: BP 107/63
[2020-10-09] MEDS ORDERED: MAG SULF 1GM/100ML (MAG RUN) 1 GM in IV 1 EA IV ONE (14:00)
[2020-10-09] MEDS: QUEtiapine FUMARATE 25 MG TAB NG SCH (20:42)
[2020-10-10 06:00] VITALS: BP 108/70
[2020-10-10] MEDS: MAGNESIUM GLUCONATE 500 MG TAB PO SCH ×2 (08:35→20:26)
[2020-10-10] MEDS: FIDAXOMICIN 200 MG TAB (DIFICID) PO SCH ×2 (08:35→20:26)
[2020-10-10] MEDS: APIXABAN 5 MG TAB (ELIQUIS) PO SCH ×2 (08:35→20:26)
[2020-10-10] MEDS: SINEMET 25-100 MG TAB NG SCH ×3 (08:35→17:14)
[2020-10-10 09:26] LABS: HEMATOCRIT 37.6 % (42.0-52.0); MEAN CORPUSCULAR HEMOGLOBIN 29.3 pg (27.0-33.0); MEAN CORPUSCULAR HGB CONC 31.9 g/dl (32.0-36.5); MEAN CORPUSCULAR VOLUME 91.9 fl (80.0-96.0); PLATELET COUNT, AUTOMATED 246 10^3/uL (150-450); RED BLOOD COUNT 4.09 10^6/uL (4.30-6.10); WHITE BLOOD COUNT 8.4 10^3/uL (4.0-10.0)
[2020-10-10 09:48] LABS: ALT/SGPT 10 U/L (12-78); BILIRUBIN,TOTAL 0.4 MG/DL (0.2-1.0); BLOOD UREA NITROGEN 13 MG/DL (7-18); CALCIUM LEVEL 7.3 MG/DL (8.8-10.2); CARBON DIOXIDE LEVEL 28 MEQ/L (21-32); CHLORIDE LEVEL 107 MEQ/L (98-107); CREATININE FOR GFR 0.84 MG/DL (0.70-1.30); GLOMERULAR FILTRATION RATE > 60.0 (>35); GLUCOSE, FASTING 103 MG/DL (70-100); MAGNESIUM LEVEL 1.8 MG/DL (1.8-2.4); POTASSIUM SERUM 3.5 MEQ/L (3.5-5.1); SODIUM LEVEL 144 MEQ/L (136-145); TOTAL PROTEIN 5.2 GM/DL (6.4-8.2)
[2020-10-10] MEDS: QUEtiapine FUMARATE 25 MG TAB NG SCH (20:26)
[2020-10-11 06:00] VITALS: BP 141/76
[2020-10-11 06:17] LABS: HEMATOCRIT 34.2 % (42.0-52.0); HEMOGLOBIN 10.6 g/dl (13.5-17.5); MEAN CORPUSCULAR HEMOGLOBIN 28.2 pg (27.0-33.0); PLATELET COUNT, AUTOMATED 197 10^3/uL (150-450); RED BLOOD COUNT 3.76 10^6/uL (4.30-6.10); WHITE BLOOD COUNT 7.4 10^3/uL (4.0-10.0)
[2020-10-11 06:32] LABS: ALBUMIN 1.9 GM/DL (3.2-5.2); ALT/SGPT 9 U/L (12-78); BILIRUBIN,TOTAL 0.4 MG/DL (0.2-1.0); BLOOD UREA NITROGEN 13 MG/DL (7-18); CALCIUM LEVEL 7.2 MG/DL (8.8-10.2); CARBON DIOXIDE LEVEL 29 MEQ/L (21-32); CHLORIDE LEVEL 108 MEQ/L (98-107); CREATININE FOR GFR 0.69 MG/DL (0.70-1.30); GLOMERULAR FILTRATION RATE > 60.0 (>35); GLUCOSE, FASTING 81 MG/DL (70-100); MAGNESIUM LEVEL 1.7 MG/DL (1.8-2.4); POTASSIUM SERUM 3.8 MEQ/L (3.5-5.1); SODIUM LEVEL 144 MEQ/L (136-145); TOTAL PROTEIN 4.8 GM/DL (6.4-8.2)
[2020-10-11] MEDS: APIXABAN 5 MG TAB (ELIQUIS) PO SCH ×2 (08:57→20:13)
[2020-10-11] MEDS: FIDAXOMICIN 200 MG TAB (DIFICID) PO SCH ×2 (08:57→20:13)
[2020-10-11] MEDS: SINEMET 25-100 MG TAB NG SCH ×3 (08:57→17:58)
[2020-10-11] MEDS: MAGNESIUM GLUCONATE 500 MG TAB PO SCH ×2 (08:57→20:13)
[2020-10-11] MEDS ORDERED: ENTER DRUG NAME HERE (PATIENT'S OWN MED) IM SCH (14:45)
[2020-10-11] MEDS: QUEtiapine FUMARATE 25 MG TAB NG SCH (20:12)
[2020-10-12 06:00] VITALS: BP 138/76
[2020-10-12 06:06] LABS: HEMATOCRIT 32.7 % (42.0-52.0); HEMOGLOBIN 10.1 g/dl (13.5-17.5); MEAN CORPUSCULAR HEMOGLOBIN 28.3 pg (27.0-33.0); MEAN CORPUSCULAR HGB CONC 30.9 g/dl (32.0-36.5); MEAN CORPUSCULAR VOLUME 91.6 fl (80.0-96.0); PLATELET COUNT, AUTOMATED 179 10^3/uL (150-450); RED BLOOD COUNT 3.57 10^6/uL (4.30-6.10); WHITE BLOOD COUNT 6.1 10^3/uL (4.0-10.0)
[2020-10-12 06:25] LABS: ALBUMIN 1.8 GM/DL (3.2-5.2); ALT/SGPT < 6 U/L (12-78); BILIRUBIN,TOTAL 0.4 MG/DL (0.2-1.0); BLOOD UREA NITROGEN 12 MG/DL (7-18); CALCIUM LEVEL 7.2 MG/DL (8.8-10.2); CARBON DIOXIDE LEVEL 32 MEQ/L (21-32); CHLORIDE LEVEL 107 MEQ/L (98-107); CREATININE FOR GFR 0.68 MG/DL (0.70-1.30); GLOMERULAR FILTRATION RATE > 60.0 (>35); GLUCOSE, FASTING 78 MG/DL (70-100); MAGNESIUM LEVEL 1.7 MG/DL (1.8-2.4); POTASSIUM SERUM 3.7 MEQ/L (3.5-5.1); SODIUM LEVEL 143 MEQ/L (136-145); TOTAL PROTEIN 4.8 GM/DL (6.4-8.2)
[2020-10-12] MEDS: MAGNESIUM GLUCONATE 500 MG TAB PO SCH ×2 (08:25→20:21)
[2020-10-12] MEDS: APIXABAN 5 MG TAB (ELIQUIS) PO SCH ×2 (08:25→20:21)
[2020-10-12] MEDS: FIDAXOMICIN 200 MG TAB (DIFICID) PO SCH ×2 (08:25→20:21)
[2020-10-12] MEDS: SINEMET 25-100 MG TAB NG SCH ×3 (08:25→17:16)
[2020-10-12] MEDS: QUEtiapine FUMARATE 25 MG TAB NG SCH (20:21)
[2020-10-13 06:00] VITALS: BP 141/80
[2020-10-13] MEDS: SINEMET 25-100 MG TAB NG SCH ×3 (08:04→17:19)
[2020-10-13] MEDS: APIXABAN 5 MG TAB (ELIQUIS) PO SCH ×2 (08:04→21:24)
[2020-10-13] MEDS: FIDAXOMICIN 200 MG TAB (DIFICID) PO SCH (08:04)
[2020-10-13] MEDS: MAGNESIUM GLUCONATE 500 MG TAB PO SCH ×2 (08:04→21:23)
[2020-10-13] MEDS ORDERED: FIDAXOMICIN 200 MG TAB (DIFICID) PO SCH (21:00)
[2020-10-13] MEDS: QUEtiapine FUMARATE 25 MG TAB NG SCH (21:24)
[2020-10-14 06:00] VITALS: BP 143/78
[2020-10-14] MEDS: MAGNESIUM GLUCONATE 500 MG TAB PO SCH (08:14)
[2020-10-14] MEDS: SINEMET 25-100 MG TAB NG SCH ×2 (08:15→12:54)
[2020-10-14] MEDS: APIXABAN 5 MG TAB (ELIQUIS) PO SCH (08:15)
[2020-10-14] MEDS ORDERED: DIFI200T PO (11:41)
[2020-10-14] MEDS ORDERED: [UNRECOGNIZED DRUG - CODE] IV (11:41)
[2020-10-14] MEDS ORDERED: ELIQ5TAB PO (11:41)
[2020-10-14] MEDS ORDERED: ACET1TAB55 NG (11:41)
[2020-10-14] MEDS ORDERED: MAGN50TA PO (11:41)
[2020-10-14] MEDS ORDERED: TEST1INJ3 IM (12:10)
--- NOTE | 2020-10-14 21:26 | DS.PDOC ---
Discharge Summary General Date of Admission Sep 19, 2020 at 17:11 Date of Discharge Oct 14, 2020 Attending Physician: MARBIN HYDE DO Specialist/Consultants [facility], Dr. Rodriguez and Dr. Barron Infectious disease, Dr. Mcdonnell General surgery, Dr. Mayorga Discharge Summary PROCEDURES PERFORMED DURING STAY: None ADMITTING DIAGNOSES: 1. Urinary tract infection 2. Possible colitis 3. Weakness and confusion 4. Parkinson's with dementia 5. Gout DISCHARGE DIAGNOSES: 1. Enterocolitis 2/2 fulminant C.diff 2. Enterococcus UTI 3. Acute kidney injury 4. Deconditioning 5. Parkinson's with dementia 6. Hypertension 7. Right upper extremity DVT 8. Metabolic encephalopathy 2/2 UTI COMPLICATIONS/CHIEF COMPLAINT: Ams/Uti. HISTORY OF PRESENT ILLNESS: Mr. Dennis is an 80 year old male with Parkinson's with dementia who presents with increased confusion and weakness. On admission, daughter was at bedside. Patient lives at home with family, but over the past 1 to 2 days have become more confused. He started having loose bowel movements yesterday. He also had urinary incontinence. In the ED, he was found to have UTI. HOSPITAL COURSE: Patient had a prolonged and complicated course. Patient was treated for his enterococcus UTI with IV vancomycin. Patient developed acute kidney injury which was most likely due to a combination of IV contrast for CT abd/pelvis, IV antibiotics, and captopril. Nephrology was consulted for he management of acute renal failure. Renal function improved without the need for dialysis. Patient also developed C. diff enterocolitis with NAP1 strain. ID was consulted and recommend Fidaxomicin. Patient had not done well on PO Fidaxomicin. Patient had stop taking orals, and he was switched to IV Flagyl and vancomycin enemas. General surgery was consulted for concern of megacolon. General surgery did not believe it was megacolon, but suggested fecal implants. Unfortunately, those are not done here. Patient was started on TPN. With IV Flagyl and vancomycin enema's patient started to improve. He was able to come off of the TPN and eat. ID had recommended discontinuing Fidaxomicin on 10/07/2020 if his stools have become more formed. Stools had not been more formed. Fidaxomicin was continued and eventually spread out to every 48 hours. Today, nursing reports that his stool have just started to become formed. One BM yesterday and one BM today. Today, patient feels well and feels ready for rehab. ID had recommended one dose of 850mg IV Zinplava on discharge. Patient will receive Zinplava on . Patient will be discharged to [facility] today. I was not able to reach ID prior to completion of the discharge medications. I had contin ued the Fidaxomicin until the end date on the medication. When, ID had returned the call, they were okay stopping the Fidaxomicin. Otherwise, patient had a right upper extremity clot which was most likely provoked from PICC line. Patient was put on Eliquis. Patient's had mentioned that patient was on testosterone outpatient and was taking testosterone every 2 weeks. This was confirmed with the pharmacy. DISCHARGE MEDICATIONS: Please see below. ALLERGIES: Please see below. PHYSICAL EXAMINATION ON DISCHARGE: VITAL SIGNS: Please see below. GENERAL: Comfortable, in no apparent distress HEENT: Normocephalic, atraumatic NECK: Supple CARDIOVASCULAR EXAMINATION: Regular rate and rhythm RESPIRATORY EXAMINATION: Lungs clear to auscultation bilaterally ABDOMINAL EXAMINATION: Soft, non-tender, normal bowel sounds EXTREMITIES: No pitting edema bilaterally NEUROLOGICAL EXAMINATION: CN 3-12 grossly intact PSYCHIATRIC EXAMINATION: Normal mood and affect LABORATORY DATA: Please see below. IMAGING: radiologist impression CT head 09/19/2020 No acute intracranial abnormality. Mild vascular calcification, generalized volume loss, and small vessel changes MRI brain 09/20/2020 Small-vessel changes and mild generalized volume loss. No evidence of acute ischemia or other acute intracranial abnormality.. CT abd/pelvis 09/26/2020 Ileus pattern in the bowel gas. Moderate diffuse colonic mural thickening consistent with a enterocolitis, nonspecific. The entire colon is involved and is the findings more pronounced than previously. There is new mild diffuse abdominal ascites. Small bilateral pleural effusions. No evidence of free air. Thompson catheter and nasogastric tubes in place. US upper extremity 10/02/2020 Positive for DVT of the right upper extremity. Completely occluded right axillary and subclavian vein. Complete occlusion of the superficial right basilic vein with PICC line within the clot. PROGNOSIS: Good ACTIVITY: As tolerated. DIET: As tolerated DISCHARGE PLAN: [facility] DISPOSITION: [facility]. DISCHARGE INSTRUCTIONS: 1. Follow up with PCP in 1 week 2. Follow up with ID in 1 week DISCHARGE CONDITION: Stable Total time spent on discharge planning, discharge summary, and medication reconciliation: 55 minutes Vital Signs/I&Os Vital Signs Date Time Temp Pulse Resp B/P (MAP) Pulse Ox O2 Delivery O2 Flow Rate FiO2 10/14/20 06:00 97.2 71 18 143/78 (99) 92 Room Air I&O- Last 24 Hours up to 6 AM 10/14/20 06:00 Intake Total 850 ml Output Total 0 ml Balance 850 ml Laboratory Data Labs 24H Laboratory Tests 2 10/14/20 11:22: Coronavirus (COVID-19)(PCR) NEGATIVE Discharge Medications Scheduled Apixaban (Eliquis) 5 Mg Tablet, 5 MG PO BID Bezlotoxumab (Zinplava) 1,000 Mg/40 Ml Vial, 850 MG IV ONCE Carbidopa/Levodopa (Carbidopa-Levodopa 25-100 Tab) 1 Each Tablet, 1 TAB PO TID, (Reported) 0800, 1300, 1800 Ergocalciferol (Vitamin D2) (Vitamin D2) 1,250 Mcg Capsule, 50,000 UNITS PO QWEEK, (Reported) MONDAYS Fidaxomicin (Dificid) 200 Mg Tablet, 200 MG PO Q48H Magnesium Gluconate (Mag-G) 27 Mg Tablet, 500 MG PO BID Quetiapine Fumarate (Quetiapine Fumarate) 25 Mg Tablet, 25 MG PO QHS, (Reported) Testosterone Cypionate (Testosterone Cypionate) 100 Mg/1 Ml Vial, 2 ML IM Q2WK Scheduled PRN Acetaminophen (Acetaminophen) 325 Mg Tablet, 650 MG NG Q4H PRN for PAIN OR FEVER Allergies Coded Allergies: No Known Allergies (Verified , 11/08/11) MARBIN HYDE DO Oct 14, 2020 21:26
[2020-10-15] MEDS ORDERED: FIDAXOMICIN 200 MG TAB (DIFICID) PO SCH (09:00)
== END 2020-10-14 14:00 | DRG 372 ==
LOC: M ED 11:17 → EDBD 11:17 → M ED INP 17:11 → M MSPAV 21:20
PROVIDERS: ADMIT Family Medicine; ATTEND Internal Medicine
PROC: 02HV33Z Insertion of Infusion Device into Superior Vena Cava, Percutaneous Approach (ICD-10-PCS; principal; 2020-09-22 13:00)
PROC: 02HV33Z Insertion of Infusion Device into Superior Vena Cava, Percutaneous Approach (ICD-10-PCS; 2020-09-29)
DX: A04.72 Enterocolitis due to Clostridium difficile, not specified as recurrent (principal); N39.0 Urinary tract infection, site not specified; N17.9 Acute kidney failure, unspecified; E87.2 Acidosis; K56.7 Ileus, unspecified; E46 Unspecified protein-calorie malnutrition; E87.0 Hyperosmolality and hypernatremia; T82.868A Thrombosis due to vascular prosthetic devices, implants and grafts, initial encounter; I10 Essential (primary) hypertension; R53.1 Weakness; E87.6 Hypokalemia; G20 Parkinson's disease; F02.80 Dementia in other diseases classified elsewhere, unspecified severity, without behavioral disturbance, psychotic disturbance, mood disturbance, and anxiety; Z79.899 Other long term (current) drug therapy; M10.30 Gout due to renal impairment, unspecified site; Y83.1 Surgical operation with implant of artificial internal device as the cause of abnormal reaction of the patient, or of later complication, without mention of misadventure at the time of the procedure

== ENCOUNTER 2020-10-16 16:07 | Outpatient (CLI) | payer MEDICARE ==
[~2020-10-16] VITALS: Ht 167.6 cm; Wt 72.7 kg
[~2020-10-16 16:07] MED LIST changes: +BEZLOTOXUMAB 850 MG in NS 100 ML IV ONE
[2020-10-16 16:30] VITALS: BP 138/66
[2020-10-16 17:53] VITALS: BP 148/72
== END 2020-10-16 17:55 | disposition home or self-care (01) ==
LOC: M INFU 16:07
PROVIDERS: ATTEND Internal Medicine Infectious Disease
DX: A04.72 Enterocolitis due to Clostridium difficile, not specified as recurrent (principal)
CPT/HCPCS: 96365; J0565

== ENCOUNTER → 2020-10-16 | Outpatient (REF) ==
[~2020-10-16] MED LIST changes: +ACET1TAB55 NG; +CAPT1TAB17 PO; +DIFI200T PO; +ELIQ5TAB PO; +MAGN50TA PO; +NAPR-885 PO; +QUET25TA3 PO; +TEST1INJ3 IM; +ZYLO300T6 PO; +[UNRECOGNIZED DRUG - CODE] IV
[2020-10-16 08:20] LABS: HEMATOCRIT 37.3 % (42.0-52.0); HEMOGLOBIN 11.7 g/dl (13.5-17.5); MEAN CORPUSCULAR HEMOGLOBIN 28.5 pg (27.0-33.0); MEAN CORPUSCULAR HGB CONC 31.4 g/dl (32.0-36.5); MEAN CORPUSCULAR VOLUME 90.8 fl (80.0-96.0); PLATELET COUNT, AUTOMATED 200 10^3/uL (150-450); RED BLOOD COUNT 4.11 10^6/uL (4.30-6.10); WHITE BLOOD COUNT 6.7 10^3/uL (4.0-10.0)
[2020-10-16 09:02] LABS: BLOOD UREA NITROGEN 11 MG/DL (7-18); CARBON DIOXIDE LEVEL 30 MEQ/L (21-32); CHLORIDE LEVEL 105 MEQ/L (98-107); CREATININE FOR GFR 0.78 MG/DL (0.70-1.30); FREE T4 1.43 NG/DL (0.76-1.46); GLOMERULAR FILTRATION RATE > 60.0 (>35); GLUCOSE, FASTING 81 MG/DL (70-100); MAGNESIUM LEVEL 1.7 MG/DL (1.8-2.4); POTASSIUM SERUM 3.9 MEQ/L (3.5-5.1); SODIUM LEVEL 142 MEQ/L (136-145)
[2020-10-16 10:00] LABS: VITAMIN B12 LEVEL 1203 PG/ML (247-911)
== END ==
LOC: SKLAB2 12:01
DX: E03.9 Hypothyroidism, unspecified (principal); D64.9 Anemia, unspecified

== ENCOUNTER → 2020-10-21 | Outpatient (REF) | payer MEDICARE ==
[~2020-10-21] MED LIST changes: -BEZLOTOXUMAB 850 MG in NS 100 ML IV ONE
[2020-10-21 07:46] LABS: HEMATOCRIT 38.1 % (42.0-52.0); HEMOGLOBIN 11.8 g/dl (13.5-17.5); MEAN CORPUSCULAR HEMOGLOBIN 28.1 pg (27.0-33.0); MEAN CORPUSCULAR VOLUME 90.7 fl (80.0-96.0); PLATELET COUNT, AUTOMATED 271 10^3/uL (150-450); WHITE BLOOD COUNT 7.2 10^3/uL (4.0-10.0)
[2020-10-21 08:26] LABS: BLOOD UREA NITROGEN 14 MG/DL (7-18); CARBON DIOXIDE LEVEL 29 MEQ/L (21-32); CHLORIDE LEVEL 107 MEQ/L (98-107); CREATININE FOR GFR 0.78 MG/DL (0.70-1.30); GLOMERULAR FILTRATION RATE > 60.0 (>35); GLUCOSE, FASTING 83 MG/DL (70-100); POTASSIUM SERUM 4.4 MEQ/L (3.5-5.1); SODIUM LEVEL 143 MEQ/L (136-145)
== END ==
LOC: SKLAB2 08:00
DX: D64.9 Anemia, unspecified (principal)

== ENCOUNTER → 2020-10-29 | Outpatient (REF) | payer MEDICARE | LOC: SKLAB2 08:00 | PROVIDERS: ATTEND Internal Medicine | DX: Z11.52 Encounter for screening for COVID-19 (principal) ==

== ENCOUNTER → 2020-11-04 | Outpatient (REF) ==
[2020-11-04 08:29] LABS: HEMATOCRIT 40.3 % (42.0-52.0); HEMOGLOBIN 12.6 g/dl (13.5-17.5); MEAN CORPUSCULAR HEMOGLOBIN 28.4 pg (27.0-33.0); MEAN CORPUSCULAR HGB CONC 31.3 g/dl (32.0-36.5); PLATELET COUNT, AUTOMATED 209 10^3/uL (150-450); RED BLOOD COUNT 4.43 10^6/uL (4.30-6.10); WHITE BLOOD COUNT 8.8 10^3/uL (4.0-10.0)
[2020-11-04 08:51] LABS: BLOOD UREA NITROGEN 24 MG/DL (7-18); CALCIUM LEVEL 8.5 MG/DL (8.8-10.2); CARBON DIOXIDE LEVEL 29 MEQ/L (21-32); CHLORIDE LEVEL 105 MEQ/L (98-107); CREATININE FOR GFR 0.58 MG/DL (0.70-1.30); GLOMERULAR FILTRATION RATE > 60.0 (>35); GLUCOSE, FASTING 84 MG/DL (70-100); POTASSIUM SERUM 4.2 MEQ/L (3.5-5.1); SODIUM LEVEL 141 MEQ/L (136-145)
== END ==
LOC: SKLAB2 10:54
DX: D64.9 Anemia, unspecified (principal)

== ENCOUNTER → 2020-11-05 | Outpatient (REF) | LOC: SKLAB3 14:41 | PROVIDERS: ATTEND Internal Medicine | DX: Z20.822 Contact with and (suspected) exposure to COVID-19 (principal) ==

== ENCOUNTER → 2020-11-11 | Outpatient (REF) ==
[2020-11-11 07:11] LABS: HEMATOCRIT 37.1 % (42.0-52.0); HEMOGLOBIN 11.9 g/dl (13.5-17.5); MEAN CORPUSCULAR HEMOGLOBIN 28.7 pg (27.0-33.0); MEAN CORPUSCULAR HGB CONC 32.1 g/dl (32.0-36.5); MEAN CORPUSCULAR VOLUME 89.6 fl (80.0-96.0); PLATELET COUNT, AUTOMATED 216 10^3/uL (150-450); RED BLOOD COUNT 4.14 10^6/uL (4.30-6.10); WHITE BLOOD COUNT 8.8 10^3/uL (4.0-10.0)
[2020-11-11 07:35] LABS: BLOOD UREA NITROGEN 17 MG/DL (7-18); CARBON DIOXIDE LEVEL 30 MEQ/L (21-32); CHLORIDE LEVEL 108 MEQ/L (98-107); CREATININE FOR GFR 0.56 MG/DL (0.70-1.30); GLOMERULAR FILTRATION RATE > 60.0 (>35); GLUCOSE, FASTING 88 MG/DL (70-100); MAGNESIUM LEVEL 1.8 MG/DL (1.8-2.4); POTASSIUM SERUM 3.7 MEQ/L (3.5-5.1); SODIUM LEVEL 142 MEQ/L (136-145)
== END ==
LOC: SKLAB3 11-09 07:00
DX: D64.9 Anemia, unspecified (principal); E87.8 Other disorders of electrolyte and fluid balance, not elsewhere classified

== ENCOUNTER → 2020-11-21 | Outpatient (REF) | LOC: SKLAB3 07:00 | PROVIDERS: ATTEND Internal Medicine | DX: Z20.822 Contact with and (suspected) exposure to COVID-19 (principal) ==

== ENCOUNTER → 2021-01-13 | Outpatient (CLI) | payer MEDICARE ==
[2021-01-13 15:32] LABS: APPEARANCE, URINE CLEAR (CLEAR); BACTERIA, URINE AUTO NEGATIVE (NEGATIVE); BILIRUBIN, URINE AUTO NEGATIVE (NEGATIVE); BLOOD, URINE BLOOD NEGATIVE (NEGATIVE); COLOR, URINE YELLOW (YELLOW); GLUCOSE, URINE (UA) AUTO NEGATIVE (NEGATIVE); KETONE, URINE AUTO TRACE mg/dL (NEGATIVE); LEUKOCYTE ESTERASE, URINE AUTO NEGATIVE (NEGATIVE); MUCUS, URINE SMALL (NEGATIVE); NITRITE, URINE AUTO NEGATIVE (NEGATIVE); PROTEIN, URINE AUTO NEGATIVE (NEGATIVE); RBC, URINE AUTO 2 /HPF (0-3); SPECIFIC GRAVITY URINE AUTO 1.023 (1.002-1.035); SQUAMOUS EPITHELIAL CELL UR AU 0 /HPF (0-6); WBC, URINE AUTO 1 /HPF (0-3)
== END ==
LOC: M LAB 14:38
PROVIDERS: ATTEND Psychiatry & Neurology Neurology
DX: N39.0 Urinary tract infection, site not specified (principal); F03.90 Unspecified dementia, unspecified severity, without behavioral disturbance, psychotic disturbance, mood disturbance, and anxiety

== ENCOUNTER 2021-01-16 14:00 | Emergency (ER) | payer MEDICARE ==
[~2021-01-16] VITALS: Ht 167.6 cm; Wt 70.0 kg
[2021-01-16] MEDS ORDERED: ZYLO300T6 PO (14:07)
[2021-01-16] MEDS ORDERED: NS 1,000 ML IV SCH (14:25)
[2021-01-16 15:40] LABS: BASO % 0.5 % (0.0-1.0); EOS # 0.2 10^3/uL (0.0-0.5); EOS % 2.2 % (0.0-3.0); HEMATOCRIT 36.6 % (42.0-52.0); HEMOGLOBIN 11.7 g/dl (13.5-17.5); LYMPH # 2.2 10^3/uL (1.5-5.0); LYMPH % 29.1 % (24.0-44.0); MEAN CORPUSCULAR HEMOGLOBIN 29.1 pg (27.0-33.0); MONO # 0.7 10^3/uL (0.0-0.8); MONO % 8.7 % (2.0-8.0); NEUTROPHILS # 4.5 10^3/uL (1.5-8.5); NEUTROPHILS % 59.2 % (36.0-66.0); PLATELET COUNT, AUTOMATED 195 10^3/uL (150-450); RED BLOOD COUNT 4.02 10^6/uL (4.30-6.10); WHITE BLOOD COUNT 7.6 10^3/uL (4.0-10.0)
[2021-01-16 16:07] LABS: ALBUMIN 3.2 GM/DL (3.2-5.2); ALT/SGPT < 6 U/L (12-78); BILIRUBIN,DIRECT 0.2 MG/DL (0.0-0.2); BILIRUBIN,TOTAL 0.4 MG/DL (0.2-1.0); BLOOD UREA NITROGEN 18 MG/DL (7-18); CALCIUM LEVEL 8.7 MG/DL (8.8-10.2); CARBON DIOXIDE LEVEL 30 MEQ/L (21-32); CHLORIDE LEVEL 108 MEQ/L (98-107); CREATININE FOR GFR 0.74 MG/DL (0.70-1.30); GLOMERULAR FILTRATION RATE > 60.0 (>35); GLUCOSE, FASTING 90 MG/DL (70-100); POTASSIUM SERUM 3.9 MEQ/L (3.5-5.1); SODIUM LEVEL 141 MEQ/L (136-145); TOTAL PROTEIN 6.9 GM/DL (6.4-8.2)
--- NOTE | 2021-01-16 16:33 | REP ---
INDICATION: diarrhea COMPARISON: Chest x-ray dated 09/26/2020, abdominal radiograph dated 09/28/2020 TECHNIQUE: Upright view of the chest with supine and upright views of the abdomen and pelvis. FINDINGS: Frontal upright view of the chest demonstrates chronic appearing changes without acute cardiopulmonary process or free air below the diaphragm to suspect pneumoperitoneum. Supine and upright views of the abdomen and pelvis demonstrate nonspecific bowel gas pattern without obstruction or perforation. No organomegaly. No abnormal calcifications. Skeletal structures normal for age. IMPRESSION: Nonspecific bowel gas pattern. <Electronically signed by Dominic Fitch > 01/16/21 [id number]
[2021-01-16 17:40] VITALS: BP 154/72
== END 2021-01-16 17:50 | disposition home or self-care (01) ==
LOC: M ED 14:00
DX: R19.7 Diarrhea, unspecified (principal); G20 Parkinson's disease; E78.5 Hyperlipidemia, unspecified; I10 Essential (primary) hypertension; Z86.718 Personal history of other venous thrombosis and embolism; Z79.899 Other long term (current) drug therapy

== ENCOUNTER → 2021-01-18 | Outpatient (REF) | payer MEDICARE | LOC: M LAB REF 10:30 | PROVIDERS: ATTEND Emergency Medicine | DX: R19.7 Diarrhea, unspecified (principal) ==

== ENCOUNTER 2021-03-08 22:14 | Emergency (ER) | payer MEDICARE ==
[~2021-03-08] VITALS: Ht 167.6 cm; Wt 72.0 kg
[2021-03-08] MEDS ORDERED: VITA100T59 PO (22:26)
--- NOTE | 2021-03-08 22:39 | REPVR ---
PROCEDURE INFORMATION: Exam: CT Head Without Contrast Exam date and time: 03/08/2021 10:24 PM Age: 80 years old Clinical indication: Injury or trauma; Fall; Blunt trauma (contusions or hematomas) TECHNIQUE: Imaging protocol: Computed tomography of the head without contrast. Radiation optimization: All CT scans at this facility use at least one of these dose optimization techniques: automated exposure control; mA and/or kV adjustment per patient size (includes targeted exams where dose is matched to clinical indication); or iterative reconstruction. COMPARISON: MRI-Brain without Contrast 09/20/2020 10:26 AM FINDINGS: Brain: There is age-related volume loss. No acute infarct. No hemorrhage or extra-axial collection. No mass. Cerebral ventricles: Stable ventricular prominence secondary to volume loss Paranasal sinuses: Visualized sinuses are unremarkable. No fluid levels. Mastoid air cells: Visualized mastoid air cells are well aerated. Bones/joints: Unremarkable. No acute fracture. Soft tissues: Unremarkable. IMPRESSION: No acute intracranial injury or lesion and no change from prior scan. Electronically signed by: Ray Felder On 03/08/2021 22:38:55 PM
--- NOTE | 2021-03-08 22:43 | REPVR ---
PROCEDURE INFORMATION: Exam: CT Cervical Spine Without Contrast Exam date and time: 03/08/2021 10:24 PM Age: 80 years old Clinical indication: Injury or trauma; Fall; Blunt trauma TECHNIQUE: Imaging protocol: Computed tomography images of the cervical spine without contrast. Radiation optimization: All CT scans at this facility use at least one of these dose optimization techniques: automated exposure control; mA and/or kV adjustment per patient size (includes targeted exams where dose is matched to clinical indication); or iterative reconstruction. COMPARISON: MRI-Brain without Contrast 09/20/2020 10:26 AM FINDINGS: Bones/joints: There is no fracture. Cervical vertebra maintain their height and alignment. There is no fracture of the posterior elements. Discs/Spinal canal/Neural foramina: C6-C7: Spondylosis and disc space narrowing with posterior osteophyte and disc bulge. No central stenosis in the cervical spine. No foraminal stenosis. . Lungs: Lung apices are normal. Soft tissues: Unremarkable. IMPRESSION: No fracture of the cervical spine Electronically signed by: Ray Felder On 03/08/2021 22:42:55 PM
[2021-03-08 23:01] LABS: BASO % 0.2 % (0.0-1.0); EOS # 0.2 10^3/uL (0.0-0.5); EOS % 2.1 % (0.0-3.0); HEMATOCRIT 37.3 % (42.0-52.0); HEMOGLOBIN 12.1 g/dl (13.5-17.5); LYMPH # 2.9 10^3/uL (1.5-5.0); LYMPH % 35.9 % (24.0-44.0); MEAN CORPUSCULAR HEMOGLOBIN 29.9 pg (27.0-33.0); MEAN CORPUSCULAR HGB CONC 32.4 g/dl (32.0-36.5); MEAN CORPUSCULAR VOLUME 92.1 fl (80.0-96.0); MONO # 0.7 10^3/uL (0.0-0.8); MONO % 8.2 % (2.0-8.0); NEUTROPHILS # 4.3 10^3/uL (1.5-8.5); NEUTROPHILS % 53.4 % (36.0-66.0); PLATELET COUNT, AUTOMATED 193 10^3/uL (150-450); RED BLOOD COUNT 4.05 10^6/uL (4.30-6.10)
[2021-03-08 23:12] LABS: INR 1.1; PROTHROMBIN TIME 14.4 SECONDS (12.5-14.3)
[2021-03-08 23:13] LABS: PARTIAL THROMBOPLASTIN TIME 30.2 SECONDS (24.2-38.5)
[2021-03-08 23:26] LABS: BLOOD UREA NITROGEN 20 MG/DL (7-18); CALCIUM LEVEL 8.3 MG/DL (8.8-10.2); CARBON DIOXIDE LEVEL 29 MEQ/L (21-32); CHLORIDE LEVEL 108 MEQ/L (98-107); CREATININE FOR GFR 0.75 MG/DL (0.70-1.30); GLOMERULAR FILTRATION RATE > 60.0 (>35); GLUCOSE, FASTING 101 MG/DL (70-100); SODIUM LEVEL 141 MEQ/L (136-145)
[2021-03-08 23:45] VITALS: BP 159/77
== END 2021-03-09 00:03 | disposition home or self-care (01) ==
LOC: M ED 22:14
DX: S09.90XA Unspecified injury of head, initial encounter (principal); W01.198A Fall on same level from slipping, tripping and stumbling with subsequent striking against other object, initial encounter; Y92.019 Unspecified place in single-family (private) house as the place of occurrence of the external cause; Y93.9 Activity, unspecified; Y99.8 Other external cause status; G20 Parkinson's disease; Z86.718 Personal history of other venous thrombosis and embolism; Z79.01 Long term (current) use of anticoagulants; Z79.899 Other long term (current) drug therapy

== ENCOUNTER → 2021-05-12 | Outpatient (CLI) | payer MEDICARE ==
[~2021-05-12] MED LIST changes: +QUET1TAB17 PO; -QUET25TA3 PO; +VITA100T59 PO
--- NOTE | 2021-05-12 17:00 | REP ---
INDICATION: REPEATED FALLS, DEMENTIA. COMPARISON: Comparison CT studies are reviewed from March 08, 2021 and September 20, 2020. TECHNIQUE: Helical scanning is acquired. 5 mm axial images were reformatted. Coronal MPR images were generated. FINDINGS: Preliminary digital associate teacher radiograph is unremarkable. Bone window settings demonstrate intact bony calvarium. No skull fracture is seen. Vascular calcification is observed in the distal internal carotid arteries bilaterally. The visualized paranasal sinuses are clear. No intraorbital abnormality is seen. On soft tissue window settings, there is generalized volume loss again noted unchanged. There is no evidence of intracranial hemorrhage. No acute infarction is seen. No extra-axial fluid collection is observed. No mass or midline shift is seen. Minimal small vessel changes are noted in the periventricular white matter of the frontal lobes. No change from comparison study. IMPRESSION: Generalized volume loss and small vessel changes. Vascular calcification. No acute intracranial abnormality. <Electronically signed by Jonn Rider > 05/12/21 [id number]
== END ==
LOC: M RAD 16:19
PROVIDERS: ATTEND Psychiatry & Neurology Neurology
DX: R29.6 Repeated falls (principal); G20 Parkinson's disease

== ENCOUNTER → 2022-01-29 | Outpatient (CLI) | payer MEDICARE ==
[2022-01-29 12:41] LABS: HEMATOCRIT 39.7 % (42.0-52.0); HEMOGLOBIN 12.9 g/dl (13.5-17.5); MEAN CORPUSCULAR HEMOGLOBIN 30.9 pg (27.0-33.0); MEAN CORPUSCULAR HGB CONC 32.5 g/dl (32.0-36.5); MEAN CORPUSCULAR VOLUME 95.2 fl (80.0-96.0); PLATELET COUNT, AUTOMATED 201 10^3/uL (150-450); RED BLOOD COUNT 4.17 10^6/uL (4.30-6.10)
[2022-01-29 15:03] LABS: ALBUMIN 3.4 GM/DL (3.2-5.2); ALT/SGPT 17 U/L (12-78); BILIRUBIN,TOTAL 0.5 MG/DL (0.2-1.0); BLOOD UREA NITROGEN 20 MG/DL (7-18); CARBON DIOXIDE LEVEL 31 MEQ/L (21-32); CHLORIDE LEVEL 107 MEQ/L (98-107); CHOLESTEROL LEVEL 113 MG/DL (<200); CHOLESTEROL RISK RATIO 2.627 (<5); CREATININE FOR GFR 0.92 MG/DL (0.70-1.30); GLOMERULAR FILTRATION RATE > 60.0 (>35); GLUCOSE, FASTING 86 MG/DL (70-100); HDL CHOLESTEROL 43 MG/DL (>40); LDL CHOLESTEROL 56 MG/DL (<100); NON-HDL-C 70 MG/DL; POTASSIUM SERUM 4.2 MEQ/L (3.5-5.1); SODIUM LEVEL 140 MEQ/L (136-145); TOTAL 25(OH) VITAMIN D 54.8 NG/ML (30.0-100.0); TOTAL PROTEIN 7.4 GM/DL (6.4-8.2); TRIGLYCERIDES LEVEL 69 MG/DL (<150)
[2022-01-29 16:14] LABS: HEMOGLOBIN A1c 5.1 %
== END ==
LOC: M WUC 09:06
PROVIDERS: ATTEND Family Medicine
DX: E03.9 Hypothyroidism, unspecified (principal); R53.83 Other fatigue; I10 Essential (primary) hypertension; Z79.899 Other long term (current) drug therapy

== ENCOUNTER 2022-03-11 23:40 | Emergency (ER) | payer MEDICARE ==
[~2022-03-11] VITALS: Ht 167.6 cm; Wt 70.0 kg
[2022-03-11 23:43] VITALS: BP 115/59
== END 2022-03-12 05:05 | disposition left against medical advice (07) ==
LOC: M ED 23:40
DX: Z53.21 Procedure and treatment not carried out due to patient leaving prior to being seen by health care provider (principal)

== ENCOUNTER 2022-04-22 11:05 | Emergency (ER) | payer MEDICARE ==
[~2022-04-22] VITALS: Ht 165.1 cm; Wt 81.8 kg
[2022-04-22] MEDS ORDERED: CEPH500C PO (11:25)
[2022-04-22 13:05] LABS: BASO % 0.2 % (0.0-1.0); EOS # 0.1 10^3/uL (0.0-0.5); EOS % 0.9 % (0.0-3.0); HEMATOCRIT 39.9 % (42.0-52.0); LYMPH # 1.9 10^3/uL (1.5-5.0); LYMPH % 20.5 % (24.0-44.0); MEAN CORPUSCULAR HEMOGLOBIN 30.4 pg (27.0-33.0); MEAN CORPUSCULAR HGB CONC 32.6 g/dl (32.0-36.5); MEAN CORPUSCULAR VOLUME 93.4 fl (80.0-96.0); MONO # 0.7 10^3/uL (0.0-0.8); MONO % 7.7 % (2.0-8.0); NEUTROPHILS # 6.6 10^3/uL (1.5-8.5); NEUTROPHILS % 70.3 % (36.0-66.0); PLATELET COUNT, AUTOMATED 234 10^3/uL (150-450); RED BLOOD COUNT 4.27 10^6/uL (4.30-6.10); WHITE BLOOD COUNT 9.4 10^3/uL (4.0-10.0)
[2022-04-22 13:44] LABS: BLOOD UREA NITROGEN 18 MG/DL (7-18); CALCIUM LEVEL 8.9 MG/DL (8.8-10.2); CARBON DIOXIDE LEVEL 27 MEQ/L (21-32); CHLORIDE LEVEL 106 MEQ/L (98-107); CREATININE FOR GFR 0.74 MG/DL (0.70-1.30); FREE T4 1.21 NG/DL (0.76-1.46); GLOMERULAR FILTRATION RATE > 60.0 (>35); GLUCOSE, FASTING 116 MG/DL (70-100); NT-PRO BNP 183 PG/ML (<450); POTASSIUM SERUM 4.3 MEQ/L (3.5-5.1); SODIUM LEVEL 138 MEQ/L (136-145)
[2022-04-22 14:55] VITALS: O2SAT 97
[2022-04-22 16:15] VITALS: BP 137/68
== END 2022-04-22 17:25 | disposition home or self-care (01) ==
LOC: M ED 11:05
DX: R05.9 Cough, unspecified (principal); R19.7 Diarrhea, unspecified; Z86.16 Personal history of COVID-19; I10 Essential (primary) hypertension; F03.90 Unspecified dementia, unspecified severity, without behavioral disturbance, psychotic disturbance, mood disturbance, and anxiety; G20 Parkinson's disease; M10.9 Gout, unspecified; Z86.19 Personal history of other infectious and parasitic diseases; Z79.899 Other long term (current) drug therapy; Z79.01 Long term (current) use of anticoagulants

== ENCOUNTER 2022-10-20 14:23 | Emergency (ER) | payer MEDICARE, SELFPAY ==
[~2022-10-20] VITALS: Ht 162.6 cm; Wt 90.9 kg
[~2022-10-20 14:23] MED LIST changes: +CEPH500C PO
[2022-10-20 14:24] VITALS: BP 182/88
[2022-10-20] MEDS ORDERED: ALLO100T PO (18:59)
[2022-10-20] MEDS ORDERED: CARB25TA9 PO (18:59)
[2022-10-20] MEDS ORDERED: QUET1TAB17 PO (19:00)
[2022-10-20] MEDS ORDERED: VITMTA PO (19:00)
[2022-10-20] MEDS ORDERED: ELIQ5TAB PO (19:00)
[2022-10-20] MEDS ORDERED: MEMA10TA19 PO (19:00)
== END 2022-10-20 14:58 | disposition left against medical advice (07) ==
LOC: EDBD → M ED 14:23 → MERGE 14:23 → M ED 14:58
DX: Z53.21 Procedure and treatment not carried out due to patient leaving prior to being seen by health care provider (principal)

== ENCOUNTER 2022-10-20 15:17 | Inpatient (IN) | payer MEDICARE, MEDICAID ==
[~2022-10-20] VITALS: Ht 167.6 cm; Wt 78.2 kg
[2022-10-20 16:36] LABS: BASO % 0.3 % (0.0-1.0); EOS # 0.2 10^3/uL (0.0-0.5); EOS % 1.7 % (0.0-3.0); HEMATOCRIT 39.7 % (42.0-52.0); LYMPH # 2.9 10^3/uL (1.5-5.0); MEAN CORPUSCULAR HEMOGLOBIN 30.4 pg (27.0-33.0); MEAN CORPUSCULAR HGB CONC 32.7 g/dl (32.0-36.5); MONO # 0.8 10^3/uL (0.0-0.8); MONO % 8.8 % (2.0-8.0); NEUTROPHILS # 4.9 10^3/uL (1.5-8.5); NEUTROPHILS % 55.7 % (36.0-66.0); PLATELET COUNT, AUTOMATED 165 10^3/uL (150-450); RED BLOOD COUNT 4.27 10^6/uL (4.30-6.10); WHITE BLOOD COUNT 8.9 10^3/uL (4.0-10.0)
[2022-10-20 17:03] LABS: LIPASE 24 U/L (12-53)
[2022-10-20 17:08] LABS: RSV AMPLIFICATION NEGATIVE (NEGATIVE)
[2022-10-20 17:09] LABS: ALBUMIN 3.3 G/DL (3.2-5.2); ALKALINE PHOSPHATASE 69 U/L (46-116); ALT/SGPT < 9 U/L (7.0-40); AST/SGOT 15 U/L (<34); BILIRUBIN,DIRECT 0.2 MG/DL (<0.4); BILIRUBIN,TOTAL 0.5 MG/DL (0.3-1.2); BLOOD UREA NITROGEN 21 MG/DL (9-23); CALCIUM LEVEL 8.5 MG/DL (8.3-10.6); CARBON DIOXIDE LEVEL 28 MMOL/L (20-31); CHLORIDE LEVEL 105 MMOL/L (98-107); CREATININE FOR GFR 0.71 MG/DL (0.70-1.30); GLOMERULAR FILTRATION RATE > 60.0 (>35); GLUCOSE, FASTING 92 MG/DL (74-106); POTASSIUM SERUM 4.4 MMOL/L (3.5-5.1); SODIUM LEVEL 140 MMOL/L (136-145); TOTAL PROTEIN 6.3 G/DL (5.7-8.2)
[2022-10-20] MEDS ORDERED: ACETAMINOPHEN TAB 650MG DOSE (2X325MG) PO PRN (18:00)
[2022-10-20] MEDS ORDERED: CARB25TA9 PO (18:59)
[2022-10-20] MEDS ORDERED: ALLO100T PO (18:59)
[2022-10-20] MEDS ORDERED: HOME MED LIST COMPLETE! XX SCH (19:00)
[2022-10-20] MEDS ORDERED: MEMA10TA19 PO (19:00)
[2022-10-20] MEDS ORDERED: ELIQ5TAB PO (19:00)
[2022-10-20] MEDS ORDERED: QUET1TAB17 PO (19:00)
[2022-10-20] MEDS ORDERED: VITMTA PO (19:00)
[2022-10-20] MEDS ORDERED: QUEtiapine FUMARATE 25 MG TAB PO SCH (21:00)
[2022-10-20] MEDS: APIXABAN 5 MG TAB (ELIQUIS) PO SCH (21:00)
[2022-10-20 21:18] VITALS: BP 155/92
[2022-10-20] MEDS: MEMANTINE 5MG TABLET (NAMENDA) PO SCH (21:51)
[2022-10-20] MEDS: SINEMET 25-100 MG TAB PO SCH (21:51)
[2022-10-21 05:50] LABS: HEMOGLOBIN 12.7 g/dl (13.5-17.5); MEAN CORPUSCULAR HEMOGLOBIN 29.6 pg (27.0-33.0); MEAN CORPUSCULAR HGB CONC 31.8 g/dl (32.0-36.5); MEAN CORPUSCULAR VOLUME 93.2 fl (80.0-96.0); PLATELET COUNT, AUTOMATED 176 10^3/uL (150-450); RED BLOOD COUNT 4.29 10^6/uL (4.30-6.10); WHITE BLOOD COUNT 9.1 10^3/uL (4.0-10.0)
[2022-10-21 06:00] VITALS: BP 141/85
[2022-10-21 06:19] LABS: ALBUMIN 3.2 G/DL (3.2-5.2); ALKALINE PHOSPHATASE 66 U/L (46-116); ALT/SGPT < 9 U/L (7.0-40); AST/SGOT 14 U/L (<34); BILIRUBIN,TOTAL 0.6 MG/DL (0.3-1.2); BLOOD UREA NITROGEN 16 MG/DL (9-23); CALCIUM LEVEL 8.1 MG/DL (8.3-10.6); CARBON DIOXIDE LEVEL 34 MMOL/L (20-31); CHLORIDE LEVEL 106 MMOL/L (98-107); CREATININE FOR GFR 0.68 MG/DL (0.70-1.30); GLOMERULAR FILTRATION RATE > 60.0 (>35); GLUCOSE, FASTING 79 MG/DL (74-106); MAGNESIUM LEVEL 1.8 MG/DL (1.8-2.4); POTASSIUM SERUM 4.2 MMOL/L (3.5-5.1); SODIUM LEVEL 142 MMOL/L (136-145)
[2022-10-21] MEDS: SINEMET 25-100 MG TAB PO SCH (08:26)
[2022-10-21] MEDS: APIXABAN 5 MG TAB (ELIQUIS) PO SCH (08:26)
[2022-10-21] MEDS: MEMANTINE 5MG TABLET (NAMENDA) PO SCH (08:26)
[2022-10-21] MEDS ORDERED: MULTIVITAMINS/MINERALS THERAP 1 TAB PO SCH (09:00)
[2022-10-21] MEDS ORDERED: allopurinoL 100 MG TAB PO SCH (09:00)
== END 2022-10-21 10:30 | DRG 884 ==
LOC: EDBD → M ED 15:17 → EDBD 17:59 → MERGE 17:59 → M ED INP 17:59 → ENRESERV 19:47 → M MSPAV 21:09
PROVIDERS: ADMIT Family Medicine; ATTEND Family Medicine
DX: F03.90 Unspecified dementia, unspecified severity, without behavioral disturbance, psychotic disturbance, mood disturbance, and anxiety (principal); Z75.1 Person awaiting admission to adequate facility elsewhere; Z74.1 Need for assistance with personal care; G20 Parkinson's disease; Z86.711 Personal history of pulmonary embolism; Z86.718 Personal history of other venous thrombosis and embolism; Z20.822 Contact with and (suspected) exposure to COVID-19; Z79.01 Long term (current) use of anticoagulants; Z79.899 Other long term (current) drug therapy

== ENCOUNTER 2022-10-21 21:30 | Emergency (ER) | payer MEDICARE ==
[~2022-10-21 21:30] MED LIST changes: +ALLO100T PO; +MEMA10TA19 PO; +VITMTA PO
[2022-10-21 22:46] VITALS: BP 164/95
== END 2022-10-22 00:01 | disposition home or self-care (01) ==
LOC: EDBD 21:30 → M ED 21:30
DX: R26.9 Unspecified abnormalities of gait and mobility (principal); W01.0XXA Fall on same level from slipping, tripping and stumbling without subsequent striking against object, initial encounter; G20 Parkinson's disease; Z87.891 Personal history of nicotine dependence; Z79.01 Long term (current) use of anticoagulants; Z79.810 Long term (current) use of selective estrogen receptor modulators (SERMs); Z79.899 Other long term (current) drug therapy

== ENCOUNTER → 2022-11-19 | Outpatient (REF) | payer MEDICARE ==
[2022-11-19 07:44] LABS: HEMATOCRIT 39.1 % (42.0-52.0); HEMOGLOBIN 12.4 g/dl (13.5-17.5); MEAN CORPUSCULAR HEMOGLOBIN 29.5 pg (27.0-33.0); MEAN CORPUSCULAR HGB CONC 31.7 g/dl (32.0-36.5); MEAN CORPUSCULAR VOLUME 93.1 fl (80.0-96.0); PLATELET COUNT, AUTOMATED 221 10^3/uL (150-450); WHITE BLOOD COUNT 9.7 10^3/uL (4.0-10.0)
== END ==
LOC: SKLAB7 07:00
PROVIDERS: ATTEND Internal Medicine
DX: Z79.01 Long term (current) use of anticoagulants (principal)

== ENCOUNTER 2022-12-16 14:22 | Emergency (ER) | payer MEDICARE ==
[~2022-12-16] VITALS: Ht 167.6 cm; Wt 76.7 kg
[~2022-12-16 14:22] MED LIST changes: -TRAM50TA2 PO
[2022-12-16] MEDS ORDERED: traMADol 50 MG TAB PO ONE (16:20)
[2022-12-16] MEDS ORDERED: TRAM50TA2 PO (16:23)
[2022-12-16 16:34] VITALS: BP 125/62
== END 2022-12-16 16:41 | disposition home or self-care (01) ==
LOC: M ED 14:22
DX: S42.211A Unspecified displaced fracture of surgical neck of right humerus, initial encounter for closed fracture (principal); W01.0XXA Fall on same level from slipping, tripping and stumbling without subsequent striking against object, initial encounter; M48.02 Spinal stenosis, cervical region; M48.04 Spinal stenosis, thoracic region; G20 Parkinson's disease; I10 Essential (primary) hypertension; N17.8 Other acute kidney failure; D64.9 Anemia, unspecified; Z87.891 Personal history of nicotine dependence; Z79.1 Long term (current) use of non-steroidal anti-inflammatories (NSAID); Z79.810 Long term (current) use of selective estrogen receptor modulators (SERMs); Z79.01 Long term (current) use of anticoagulants; Z79.899 Other long term (current) drug therapy

== ENCOUNTER → 2022-12-16 | Outpatient (REF) | payer MEDICARE ==
[~2022-12-16] MED LIST changes: +TRAM50TA2 PO
[2022-12-16 08:07] LABS: HEMATOCRIT 40.5 % (42.0-52.0); MEAN CORPUSCULAR HEMOGLOBIN 29.7 pg (27.0-33.0); MEAN CORPUSCULAR HGB CONC 32.1 g/dl (32.0-36.5); MEAN CORPUSCULAR VOLUME 92.5 fl (80.0-96.0); PLATELET COUNT, AUTOMATED 222 10^3/uL (150-450); RED BLOOD COUNT 4.38 10^6/uL (4.30-6.10); WHITE BLOOD COUNT 10.2 10^3/uL (4.0-10.0)
== END ==
LOC: SKLAB7 11:29
PROVIDERS: ATTEND Nurse Practitioner
DX: D64.9 Anemia, unspecified (principal); S42.291A Other displaced fracture of upper end of right humerus, initial encounter for closed fracture

== ENCOUNTER → 2022-12-20 | Outpatient (CLI) | payer MEDICARE ==
[~2022-12-20] MED LIST changes: +TRAM50TA2 PO
== END ==
LOC: M SOG 08:07
PROVIDERS: ATTEND Orthopaedic Surgery
DX: M25.511 Pain in right shoulder (principal)

== ENCOUNTER → 2023-01-03 | Outpatient (CLI) | payer MEDICARE | LOC: M SOG 07:51 | PROVIDERS: ATTEND Orthopaedic Surgery | DX: S42.214A Unspecified nondisplaced fracture of surgical neck of right humerus, initial encounter for closed fracture (principal) ==

== ENCOUNTER → 2023-01-13 | Outpatient (REF) | payer MEDICARE ==
[2023-01-13 09:28] LABS: HEMATOCRIT 38.2 % (42.0-52.0); HEMOGLOBIN 12.1 g/dl (13.5-17.5); MEAN CORPUSCULAR HEMOGLOBIN 29.4 pg (27.0-33.0); MEAN CORPUSCULAR HGB CONC 31.7 g/dl (32.0-36.5); MEAN CORPUSCULAR VOLUME 92.7 fl (80.0-96.0); PLATELET COUNT, AUTOMATED 208 10^3/uL (150-450); RED BLOOD COUNT 4.12 10^6/uL (4.30-6.10); WHITE BLOOD COUNT 9.5 10^3/uL (4.0-10.0)
== END ==
LOC: SKLAB7 10:53
PROVIDERS: ATTEND Internal Medicine
DX: D64.9 Anemia, unspecified (principal)

== ENCOUNTER → 2023-02-03 | Outpatient (REF) | payer MEDICARE, MEDICAID ==
[2023-02-03 09:57] LABS: HEMATOCRIT 40.8 % (42.0-52.0); HEMOGLOBIN 12.8 g/dl (13.5-17.5); MEAN CORPUSCULAR HGB CONC 31.4 g/dl (32.0-36.5); MEAN CORPUSCULAR VOLUME 92.3 fl (80.0-96.0); PLATELET COUNT, AUTOMATED 197 10^3/uL (150-450); RED BLOOD COUNT 4.42 10^6/uL (4.30-6.10); WHITE BLOOD COUNT 9.2 10^3/uL (4.0-10.0)
== END ==
LOC: SKLAB7 07:00
PROVIDERS: ATTEND Nurse Practitioner
DX: Z79.01 Long term (current) use of anticoagulants (principal)

== ENCOUNTER → 2023-05-12 | Outpatient (REF) | payer MEDICARE, MEDICAID ==
[2023-05-12 11:47] LABS: HEMATOCRIT 38.2 % (42.0-52.0); MEAN CORPUSCULAR HEMOGLOBIN 28.3 pg (27.0-33.0); MEAN CORPUSCULAR HGB CONC 31.4 g/dl (32.0-36.5); MEAN CORPUSCULAR VOLUME 90.1 fl (80.0-96.0); PLATELET COUNT, AUTOMATED 256 10^3/uL (150-450); RED BLOOD COUNT 4.24 10^6/uL (4.30-6.10); WHITE BLOOD COUNT 9.6 10^3/uL (4.0-10.0)
== END ==
LOC: SKLAB7 09:34
PROVIDERS: ATTEND Internal Medicine
DX: D64.9 Anemia, unspecified (principal)

== ENCOUNTER → 2023-07-11 | Outpatient (REF) | payer MEDICARE, MEDICAID ==
[2023-07-11 10:51] LABS: HEMATOCRIT 38.8 % (42.0-52.0); HEMOGLOBIN 12.4 g/dl (13.5-17.5); MEAN CORPUSCULAR HEMOGLOBIN 29.3 pg (27.0-33.0); MEAN CORPUSCULAR VOLUME 91.7 fl (80.0-96.0); PLATELET COUNT, AUTOMATED 197 10^3/uL (150-450); RED BLOOD COUNT 4.23 10^6/uL (4.30-6.10); WHITE BLOOD COUNT 7.6 10^3/uL (4.0-10.0)
== END ==
LOC: SKLAB7 07:38
PROVIDERS: ATTEND Internal Medicine
DX: D64.9 Anemia, unspecified (principal)

== ENCOUNTER → 2023-08-09 | Outpatient (REF) | payer MEDICARE, MEDICAID ==
[2023-08-09 08:17] LABS: HEMATOCRIT 43.4 % (42.0-52.0); HEMOGLOBIN 14.1 g/dl (13.5-17.5); MEAN CORPUSCULAR HEMOGLOBIN 29.8 pg (27.0-33.0); MEAN CORPUSCULAR HGB CONC 32.5 g/dl (32.0-36.5); MEAN CORPUSCULAR VOLUME 91.8 fl (80.0-96.0); PLATELET COUNT, AUTOMATED 215 10^3/uL (150-450); RED BLOOD COUNT 4.73 10^6/uL (4.30-6.10)
[2023-08-09 08:37] LABS: BLOOD UREA NITROGEN 25 MG/DL (9-23); CALCIUM LEVEL 8.8 MG/DL (8.3-10.6); CARBON DIOXIDE LEVEL 28 MMOL/L (20-31); CHLORIDE LEVEL 106 MMOL/L (98-107); CREATININE FOR GFR 0.65 MG/DL (0.70-1.30); GLOMERULAR FILTRATION RATE > 60.0 (>35); GLUCOSE, FASTING 82 MG/DL (74-106); POTASSIUM SERUM 4.3 MMOL/L (3.5-5.1); SODIUM LEVEL 141 MMOL/L (136-145)
== END ==
LOC: SKLAB7 06:50
PROVIDERS: ATTEND Internal Medicine
DX: Z79.01 Long term (current) use of anticoagulants (principal)

== ENCOUNTER → 2023-09-06 | Outpatient (REF) | payer MEDICARE, MEDICAID ==
[2023-09-06 14:07] LABS: HEMATOCRIT 38.9 % (42.0-52.0); HEMOGLOBIN 12.6 g/dl (13.5-17.5); MEAN CORPUSCULAR HEMOGLOBIN 29.7 pg (27.0-33.0); MEAN CORPUSCULAR HGB CONC 32.4 g/dl (32.0-36.5); MEAN CORPUSCULAR VOLUME 91.7 fl (80.0-96.0); PLATELET COUNT, AUTOMATED 248 10^3/uL (150-450); RED BLOOD COUNT 4.24 10^6/uL (4.30-6.10); WHITE BLOOD COUNT 10.6 10^3/uL (4.0-10.0)
[2023-09-06 14:31] LABS: BLOOD UREA NITROGEN 32 MG/DL (9-23); CALCIUM LEVEL 8.4 MG/DL (8.3-10.6); CARBON DIOXIDE LEVEL 28 MMOL/L (20-31); CHLORIDE LEVEL 108 MMOL/L (98-107); CREATININE FOR GFR 0.58 MG/DL (0.70-1.30); GLOMERULAR FILTRATION RATE > 60.0 (>35); GLUCOSE, FASTING 131 MG/DL (74-106); POTASSIUM SERUM 4.4 MMOL/L (3.5-5.1); SODIUM LEVEL 142 MMOL/L (136-145)
== END ==
LOC: SKLAB7 11:34
PROVIDERS: ATTEND Internal Medicine
DX: Z79.01 Long term (current) use of anticoagulants (principal)

== ENCOUNTER → 2023-09-07 | Outpatient (REF) | payer MEDICARE, MEDICAID ==
[2023-09-07 08:29] LABS: HEMATOCRIT 40.5 % (42.0-52.0); HEMOGLOBIN 13.1 g/dl (13.5-17.5); MEAN CORPUSCULAR HEMOGLOBIN 29.7 pg (27.0-33.0); MEAN CORPUSCULAR VOLUME 91.8 fl (80.0-96.0); RED BLOOD COUNT 4.41 10^6/uL (4.30-6.10); WHITE BLOOD COUNT 10.9 10^3/uL (4.0-10.0)
[2023-09-07 08:30] LABS: MEAN CORPUSCULAR HGB CONC 32.3 g/dl (32.0-36.5); PLATELET COUNT, AUTOMATED 258 10^3/uL (150-450)
== END ==
LOC: SKLAB7 06:49
PROVIDERS: ATTEND Internal Medicine
DX: D72.829 Elevated white blood cell count, unspecified (principal)

== ENCOUNTER → 2023-10-11 | Outpatient (REF) | payer MEDICARE, MEDICAID ==
[2023-10-11 09:50] LABS: HEMATOCRIT 39.9 % (42.0-52.0); HEMOGLOBIN 12.9 g/dl (13.5-17.5); MEAN CORPUSCULAR HEMOGLOBIN 30.2 pg (27.0-33.0); MEAN CORPUSCULAR HGB CONC 32.3 g/dl (32.0-36.5); MEAN CORPUSCULAR VOLUME 93.4 fl (80.0-96.0); PLATELET COUNT, AUTOMATED 215 10^3/uL (150-450); RED BLOOD COUNT 4.27 10^6/uL (4.30-6.10); WHITE BLOOD COUNT 11.6 10^3/uL (4.0-10.0)
[2023-10-11 10:21] LABS: BLOOD UREA NITROGEN 30 MG/DL (9-23); CALCIUM LEVEL 8.4 MG/DL (8.3-10.6); CARBON DIOXIDE LEVEL 29 MMOL/L (20-31); CHLORIDE LEVEL 108 MMOL/L (98-107); CREATININE FOR GFR 0.63 MG/DL (0.70-1.30); GLOMERULAR FILTRATION RATE > 60.0 (>35); GLUCOSE, FASTING 106 MG/DL (74-106); POTASSIUM SERUM 4.3 MMOL/L (3.5-5.1); SODIUM LEVEL 142 MMOL/L (136-145)
== END ==
LOC: SKLAB7 07:37
PROVIDERS: ATTEND Internal Medicine
DX: Z79.01 Long term (current) use of anticoagulants (principal)

== ENCOUNTER → 2023-10-26 | Outpatient (REF) | payer MEDICARE, MEDICAID ==
[2023-10-26 13:44] LABS: HEMATOCRIT 41.3 % (42.0-52.0); HEMOGLOBIN 13.1 g/dl (13.5-17.5); MEAN CORPUSCULAR HEMOGLOBIN 29.7 pg (27.0-33.0); MEAN CORPUSCULAR HGB CONC 31.7 g/dl (32.0-36.5); MEAN CORPUSCULAR VOLUME 93.7 fl (80.0-96.0); PLATELET COUNT, AUTOMATED 180 10^3/uL (150-450); RED BLOOD COUNT 4.41 10^6/uL (4.30-6.10); WHITE BLOOD COUNT 6.3 10^3/uL (4.0-10.0)
[2023-10-26 14:06] LABS: ALBUMIN 3.5 G/DL (3.2-5.2); ALKALINE PHOSPHATASE 70 U/L (46-116); ALT/SGPT 11 U/L (7.0-40); AST/SGOT 21 U/L (<34); BILIRUBIN,TOTAL 0.8 MG/DL (0.3-1.2); BLOOD UREA NITROGEN 30 MG/DL (9-23); CALCIUM LEVEL 8.3 MG/DL (8.3-10.6); CARBON DIOXIDE LEVEL 28 MMOL/L (20-31); CHLORIDE LEVEL 106 MMOL/L (98-107); CREATININE FOR GFR 0.84 MG/DL (0.70-1.30); GLOMERULAR FILTRATION RATE > 60.0 (>35); GLUCOSE, FASTING 88 MG/DL (74-106); SODIUM LEVEL 140 MMOL/L (136-145); TOTAL PROTEIN 6.6 G/DL (5.7-8.2)
[2023-10-27 00:27] LABS: APPEARANCE, URINE HAZY (CLEAR); BACTERIA, URINE AUTO NEGATIVE (NEGATIVE); BILIRUBIN, URINE AUTO NEGATIVE (NEGATIVE); BLOOD, URINE BLOOD NEGATIVE (NEGATIVE); COLOR, URINE AMBER (YELLOW); GLUCOSE, URINE (UA) AUTO NEGATIVE (NEGATIVE); KETONE, URINE AUTO TRACE mg/dL (NEGATIVE); LEUKOCYTE ESTERASE, URINE AUTO NEGATIVE (NEGATIVE); MUCUS, URINE SMALL (NEGATIVE); NITRITE, URINE AUTO NEGATIVE (NEGATIVE); PROTEIN, URINE AUTO 1+ mg/dL (NEGATIVE); RBC, URINE AUTO 1 /HPF (0-3); SPECIFIC GRAVITY URINE AUTO 1.026 (1.002-1.035); SQUAMOUS EPITHELIAL CELL UR AU 0 /HPF (0-6); WBC, URINE AUTO 1 /HPF (0-3)
== END ==
LOC: SKLAB7 12:48
PROVIDERS: ATTEND Nurse Practitioner
DX: R41.82 Altered mental status, unspecified (principal)

== ENCOUNTER → 2023-10-30 | Outpatient (REF) | payer MEDICARE, MEDICAID | LOC: SKLAB7 13:44 | PROVIDERS: ATTEND Internal Medicine | DX: N39.0 Urinary tract infection, site not specified (principal); Z53.8 Procedure and treatment not carried out for other reasons ==

== ENCOUNTER 2024-01-09 12:40 | Day surgery (SDC) | payer MEDICARE, MEDICAID ==
[~2024-01-09] VITALS: Ht 170.2 cm; Wt 73.5 kg
[~2024-01-09 12:40] MED LIST changes: +ALLO10TA PO; +LR 1,000 ML IV SCH; +MEMA10TA PO; -MEMA10TA19 PO; +MIDAZOLAM INJ 2MG/2ML VIAL As Ordered ONE; +TYLE650T38 PO; +fentaNYL 100 MCG/2 ML INJECTION As Ordered ONE
[2024-01-09] MEDS: ATROPINE SULFATE 1% OPHTH SOLN 2ML BTL OS SCH (13:22)
[2024-01-09] MEDS: TETRACAINE 0.5% OPHTH SOLN 4ML OS SCH (13:22)
[2024-01-09] MEDS: PHENYLEPHRINE 2.5% OPHTH SOL 2ML OS SCH (13:22)
[2024-01-09] MEDS: FLURBIPROFEN 0.03% OPHTH SOLN 2.5 ML OS SCH (13:22)
[2024-01-09] MEDS: LIDOCAINE 1% SDV 5ML VIAL As Ordered ONE (14:58)
[2024-01-09] MEDS: CEFUROXIME 1MG/0.1ML INTRACAMERAL INJ As Ordered ONE (14:59)
[2024-01-09 15:08] VITALS: BP 162/80; TEMP 98; O2SAT 98
== END 2024-01-09 15:44 | disposition home or self-care (01) ==
LOC: M SDC 12:40
PROVIDERS: ATTEND Ophthalmology
DX: H25.12 Age-related nuclear cataract, left eye (principal); I10 Essential (primary) hypertension; M10.9 Gout, unspecified; E55.9 Vitamin D deficiency, unspecified; F03.90 Unspecified dementia, unspecified severity, without behavioral disturbance, psychotic disturbance, mood disturbance, and anxiety; F41.9 Anxiety disorder, unspecified; F32.A Depression, unspecified; N40.0 Benign prostatic hyperplasia without lower urinary tract symptoms; Z79.01 Long term (current) use of anticoagulants; Z79.899 Other long term (current) drug therapy
CPT/HCPCS: 66984; J0697; J2250; J3010; V2632

== ENCOUNTER → 2024-05-17 | Outpatient (REF) | payer MEDICARE, MEDICAID ==
[~2024-05-17] MED LIST changes: -LR 1,000 ML IV SCH; -MIDAZOLAM INJ 2MG/2ML VIAL As Ordered ONE; -fentaNYL 100 MCG/2 ML INJECTION As Ordered ONE
[2024-05-17 08:40] LABS: HEMATOCRIT 42.9 % (42.0-52.0); HEMOGLOBIN 13.7 g/dl (13.5-17.5); MEAN CORPUSCULAR HGB CONC 31.9 g/dl (32.0-36.5); MEAN CORPUSCULAR VOLUME 93.9 fl (80.0-96.0); PLATELET COUNT, AUTOMATED 192 10^3/uL (150-450); RED BLOOD COUNT 4.57 10^6/uL (4.30-6.10); WHITE BLOOD COUNT 8.8 10^3/uL (4.0-10.0)
== END ==
LOC: SKLAB7 07:00
PROVIDERS: ATTEND Internal Medicine
DX: Z79.01 Long term (current) use of anticoagulants (principal)

== ENCOUNTER 2024-06-01 18:09 | Emergency (ER) | payer MEDICARE, MEDICAID ==
[~2024-06-01] VITALS: Ht 170.2 cm; Wt 81.0 kg
[2024-06-01 18:16] VITALS: BP 151/70; TEMP 97.3; O2SAT 98
[2024-06-01 20:31] LABS: BASO # 0.1 10^3/uL (0.0-0.2); BASO % 0.6 % (0.0-1.0); EOS # 0.2 10^3/uL (0.0-0.5); EOS % 2.1 % (0.0-3.0); HEMATOCRIT 37.2 % (42.0-52.0); HEMOGLOBIN 12.2 g/dl (13.5-17.5); LYMPH # 2.7 10^3/uL (1.5-5.0); LYMPH % 31.4 % (24.0-44.0); MEAN CORPUSCULAR HEMOGLOBIN 30.3 pg (27.0-33.0); MEAN CORPUSCULAR HGB CONC 32.8 g/dl (32.0-36.5); MEAN CORPUSCULAR VOLUME 92.5 fl (80.0-96.0); MONO # 0.7 10^3/uL (0.0-0.8); MONO % 8.2 % (2.0-8.0); NEUTROPHILS % 57.5 % (36.0-66.0); PLATELET COUNT, AUTOMATED 211 10^3/uL (150-450); RED BLOOD COUNT 4.02 10^6/uL (4.30-6.10); WHITE BLOOD COUNT 8.6 10^3/uL (4.0-10.0)
[2024-06-01 20:43] LABS: INR 1.35; PROTHROMBIN TIME 16.2 SECONDS (12.5-14.5)
[2024-06-01 21:01] LABS: LIPASE 25 U/L (12-53)
[2024-06-01 21:31] LABS: ALBUMIN 2.9 G/DL (3.2-5.2); ALKALINE PHOSPHATASE 72 U/L (46-116); ALT/SGPT < 9 U/L (7.0-40); AST/SGOT 29 U/L (<34); BILIRUBIN,DIRECT 0.1 MG/DL (<0.4); BLOOD UREA NITROGEN 27 MG/DL (9-23); CALCIUM LEVEL 8.4 MG/DL (8.3-10.6); CARBON DIOXIDE LEVEL 29 MMOL/L (20-31); CHLORIDE LEVEL 109 MMOL/L (98-107); CREATININE FOR GFR 0.56 MG/DL (0.70-1.30); GLOMERULAR FILTRATION RATE > 60.0 (>35); GLUCOSE, FASTING 93 MG/DL (74-106); POTASSIUM SERUM 4.8 MMOL/L (3.5-5.1); SODIUM LEVEL 142 MMOL/L (136-145); TOTAL PROTEIN 5.9 G/DL (5.7-8.2)
[2024-06-01 21:44] LABS: BILIRUBIN,TOTAL 0.4 MG/DL (0.3-1.2)
[2024-06-01 22:40] LABS: CPK CREATINE PHOSPHOKINASE 71 U/L (46-171)
== END 2024-06-01 23:43 | disposition home or self-care (01) ==
LOC: M ED 18:09 → EDBD 18:09 → M ED 23:43
DX: S72.112K Displaced fracture of greater trochanter of left femur, subsequent encounter for closed fracture with nonunion (principal); W19.XXXA Unspecified fall, initial encounter; M25.78 Osteophyte, vertebrae; M50.30 Other cervical disc degeneration, unspecified cervical region; F10.10 Alcohol abuse, uncomplicated; Z79.1 Long term (current) use of non-steroidal anti-inflammatories (NSAID); Z79.01 Long term (current) use of anticoagulants; Z79.899 Other long term (current) drug therapy; S72.012A Unspecified intracapsular fracture of left femur, initial encounter for closed fracture; Y92.129 Unspecified place in nursing home as the place of occurrence of the external cause; Y93.9 Activity, unspecified; Y99.9 Unspecified external cause status; M25.551 Pain in right hip; M25.552 Pain in left hip; R10.2 Pelvic and perineal pain

== ENCOUNTER → 2024-06-01 | Outpatient (CLI) | payer MEDICARE, MEDICAID | LOC: M RAD 15:54 | PROVIDERS: ATTEND Internal Medicine | DX: S72.012A Unspecified intracapsular fracture of left femur, initial encounter for closed fracture (principal); W19.XXXA Unspecified fall, initial encounter; Y92.129 Unspecified place in nursing home as the place of occurrence of the external cause; Y93.9 Activity, unspecified; Y99.9 Unspecified external cause status; M25.551 Pain in right hip; M25.552 Pain in left hip; R10.2 Pelvic and perineal pain ==

== ENCOUNTER → 2024-08-13 | Outpatient (REF) | payer MEDICARE, MEDICAID | LOC: SKLAB7 08:24 | PROVIDERS: ATTEND Internal Medicine | DX: R06.02 Shortness of breath (principal); I70.0 Atherosclerosis of aorta; M81.0 Age-related osteoporosis without current pathological fracture; Z87.81 Personal history of (healed) traumatic fracture ==

== ENCOUNTER → 2024-08-17 | Outpatient (REF) | payer MEDICARE, MEDICAID ==
[2024-08-17 09:19] LABS: BLOOD UREA NITROGEN 26 MG/DL (9-23); CALCIUM LEVEL 8.9 MG/DL (8.3-10.6); CARBON DIOXIDE LEVEL 32 MMOL/L (20-31); CHLORIDE LEVEL 106 MMOL/L (98-107); CREATININE FOR GFR 0.65 MG/DL (0.70-1.30); GLOMERULAR FILTRATION RATE > 60.0 (>35); GLUCOSE, FASTING 103 MG/DL (74-106); POTASSIUM SERUM 3.9 MMOL/L (3.5-5.1); SODIUM LEVEL 145 MMOL/L (136-145)
== END ==
LOC: SKLAB7 07:00
PROVIDERS: ATTEND Internal Medicine
DX: I50.9 Heart failure, unspecified (principal)

== ENCOUNTER → 2024-08-28 | Outpatient (REF) | payer MEDICARE, MEDICAID ==
[2024-08-28 08:10] LABS: HEMATOCRIT 48.3 % (42.0-52.0); HEMOGLOBIN 15.1 g/dl (13.5-17.5); MEAN CORPUSCULAR HGB CONC 31.3 g/dl (32.0-36.5); PLATELET COUNT, AUTOMATED 258 10^3/uL (150-450); RED BLOOD COUNT 5.03 10^6/uL (4.30-6.10); WHITE BLOOD COUNT 12.7 10^3/uL (4.0-10.0)
[2024-08-28 09:08] LABS: BLOOD UREA NITROGEN 66 MG/DL (9-23); CALCIUM LEVEL 9.2 MG/DL (8.3-10.6); CARBON DIOXIDE LEVEL 33 MMOL/L (20-31); CHLORIDE LEVEL 123 MMOL/L (98-107); CREATININE FOR GFR 1.12 MG/DL (0.70-1.30); GLOMERULAR FILTRATION RATE > 60.0 (>35); GLUCOSE, FASTING 119 MG/DL (74-106); SODIUM LEVEL 166 MMOL/L (136-145)
== END ==
LOC: SKLAB7 07:01
PROVIDERS: ATTEND Internal Medicine
DX: R41.82 Altered mental status, unspecified (principal)

== ENCOUNTER → 2024-08-29 | Outpatient (REF) | payer MEDICARE, MEDICAID ==
[2024-08-29 12:17] LABS: HEMATOCRIT 48.7 % (42.0-52.0); HEMOGLOBIN 14.8 g/dl (13.5-17.5); MEAN CORPUSCULAR HGB CONC 30.4 g/dl (32.0-36.5); MEAN CORPUSCULAR VOLUME 98.6 fl (80.0-96.0); PLATELET COUNT, AUTOMATED 216 10^3/uL (150-450); RED BLOOD COUNT 4.94 10^6/uL (4.30-6.10); WHITE BLOOD COUNT 18.7 10^3/uL (4.0-10.0)
[2024-08-29 12:41] LABS: BLOOD UREA NITROGEN 57 MG/DL (9-23); CALCIUM LEVEL 9.3 MG/DL (8.3-10.6); CARBON DIOXIDE LEVEL 34 MMOL/L (20-31); CHLORIDE LEVEL 115 MMOL/L (98-107); CREATININE FOR GFR 1.22 MG/DL (0.70-1.30); GLOMERULAR FILTRATION RATE > 60.0 (>35); GLUCOSE, FASTING 126 MG/DL (74-106); SODIUM LEVEL 161 MMOL/L (136-145)
== END ==
LOC: SKLAB7 07:00
PROVIDERS: ATTEND Internal Medicine
DX: E87.0 Hyperosmolality and hypernatremia (principal)

== ENCOUNTER → 2024-08-29 | Outpatient (REF) | payer MEDICARE, MEDICAID ==
[2024-08-29 11:41] LABS: APPEARANCE, URINE HAZY (CLEAR); BACTERIA, URINE AUTO 1+ (NEGATIVE); BILIRUBIN, URINE AUTO NEGATIVE (NEGATIVE); BLOOD, URINE BLOOD 3+ (NEGATIVE); COLOR, URINE AMBER (YELLOW); GLUCOSE, URINE (UA) AUTO NEGATIVE (NEGATIVE); KETONE, URINE AUTO NEGATIVE (NEGATIVE); LEUKOCYTE ESTERASE, URINE AUTO 1+ (NEGATIVE); MUCUS, URINE SMALL (NEGATIVE); NITRITE, URINE AUTO NEGATIVE (NEGATIVE); PROTEIN, URINE AUTO NEGATIVE (NEGATIVE); RBC, URINE AUTO TNTC /HPF (0-3); SPECIFIC GRAVITY URINE AUTO 1.018 (1.002-1.035); SQUAMOUS EPITHELIAL CELL UR AU 0 /HPF (0-6); WBC, URINE AUTO 16 /HPF (0-3)
== END ==
LOC: SKLAB7 09:34
PROVIDERS: ATTEND Internal Medicine
DX: R41.82 Altered mental status, unspecified (principal); R05.9 Cough, unspecified

== ENCOUNTER → 2024-08-30 | Outpatient (REF) | payer MEDICARE, MEDICAID ==
[2024-08-30 09:01] LABS: HEMATOCRIT 42.8 % (42.0-52.0); MEAN CORPUSCULAR HEMOGLOBIN 29.7 pg (27.0-33.0); MEAN CORPUSCULAR HGB CONC 30.4 g/dl (32.0-36.5); MEAN CORPUSCULAR VOLUME 97.9 fl (80.0-96.0); PLATELET COUNT, AUTOMATED 156 10^3/uL (150-450); RED BLOOD COUNT 4.37 10^6/uL (4.30-6.10); WHITE BLOOD COUNT 18.1 10^3/uL (4.0-10.0)
[2024-08-30 09:23] LABS: ALBUMIN 2.5 G/DL (3.2-5.2); BILIRUBIN,TOTAL 1.2 MG/DL (0.3-1.2); CALCIUM LEVEL 8.3 MG/DL (8.3-10.6); CREATININE FOR GFR 1.25 MG/DL (0.70-1.30); GLOMERULAR FILTRATION RATE 58.6 (>35); POTASSIUM SERUM 3.5 MMOL/L (3.5-5.1); TOTAL PROTEIN 6.2 G/DL (5.7-8.2)
== END ==
LOC: SKLAB7 07:00
PROVIDERS: ATTEND Internal Medicine
DX: E87.0 Hyperosmolality and hypernatremia (principal); R06.02 Shortness of breath

== ENCOUNTER → 2024-08-31 | Outpatient (CLI) | payer MEDICARE, MEDICAID | LOC: M RAD 09:19 | PROVIDERS: ATTEND Nurse Practitioner | DX: R06.02 Shortness of breath (principal); R05.9 Cough, unspecified ==

== ENCOUNTER → 2024-08-31 | Outpatient (REF) | payer MEDICARE, MEDICAID ==
[2024-08-31 11:27] LABS: HEMATOCRIT 39.6 % (42.0-52.0); HEMOGLOBIN 12.4 g/dl (13.5-17.5); MEAN CORPUSCULAR HEMOGLOBIN 30.2 pg (27.0-33.0); MEAN CORPUSCULAR HGB CONC 31.3 g/dl (32.0-36.5); MEAN CORPUSCULAR VOLUME 96.6 fl (80.0-96.0); PLATELET COUNT, AUTOMATED 146 10^3/uL (150-450); WHITE BLOOD COUNT 22.3 10^3/uL (4.0-10.0)
[2024-08-31 12:00] LABS: BLOOD UREA NITROGEN 40 MG/DL (9-23); CARBON DIOXIDE LEVEL 30 MMOL/L (20-31); CHLORIDE LEVEL 110 MMOL/L (98-107); GLOMERULAR FILTRATION RATE > 60.0 (>35); GLUCOSE, FASTING 100 MG/DL (74-106); POTASSIUM SERUM 3.5 MMOL/L (3.5-5.1); SODIUM LEVEL 152 MMOL/L (136-145)
== END ==
LOC: SKLAB7 07:00
PROVIDERS: ATTEND Internal Medicine
DX: D72.829 Elevated white blood cell count, unspecified (principal)

== ENCOUNTER → 2024-08-31 | Outpatient (REF) | payer MEDICARE, MEDICAID | LOC: SKLAB7 07:56 | PROVIDERS: ATTEND Internal Medicine | DX: E87.0 Hyperosmolality and hypernatremia (principal); Z53.9 Procedure and treatment not carried out, unspecified reason ==